=== PATIENT | female | born 1945 | race Caucasian/White ===

== ENCOUNTER 2024-10-12 15:24 | Inpatient (IN) ==
--- NOTE | 2024-10-12 15:52 | Emergency Department Note ---
Impression & Plan Vasculitis, Foot drop, right, Unintended weight loss, Generalized weakness ED Provider Note NAME: SEGUNDO WALTER AGE: 79 SEX: F : 1945 ARRIVES VIA: Walk-In INFORMANT: Patient ED PROVIDER(S): Maximiliano Canchola MD CHIEF COMPLAINT: Weak right foot PLAN: Disposition: Home MEDICAL DECISION MAKING: The patient is a pleasant 79-year-old woman with a past medical history of atrial fibrillation on Xarelto and digoxin, GERD who presents to the emergency department via EMS and accompanied by her son for evaluation of what appears to be right foot drop where she is unable to dorsiflex her right foot. Patient believes that this probably started a week ago but only began to really notice exactly was going on over the past several days. Her son describes concerns that the patient has had numerous symptoms that are being evaluated by different providers and feels that there is no communication between the providers about their testing and preferred coming emergency department today so testing could be performed in one place. The patient reports that she has had nearly a 30 pound weight loss over the past year that is unintended. She reports her [facility] provider was informed of this recently and they plan to obtain an outpatient pelvic ultrasound. Patient reports she had a chronic headache over a year ago that was managed through her primary care doctor that resolved eventually with steroids but took at least 2 or 3 months to improve. Otherwise, the patient denies any dizziness, chest pain, shortness of breath, nausea, vomiting, diarrhea or urinary symptoms. She denies any falls/trauma where she may have injured her knee to explain her foot drop. Patient reports she has still been able to drive but realizes in retrospect this is probably because she relies on having her heel pressed against the floor and is able to take her foot off of the pedal by pulling her leg backwards to facilitate dorsiflexion. On evaluation patient no acute distress, afebrile with stable vital signs. She does exhibit right foot foot drop with inability to actively dorsiflex. Otherwise she has normal extension at the knee and normal plantarflexion. EKG demonstrates atrial fibrillation without overt acute ischemia. Chest x-ray negative for acute cardiopulmonary process per my preliminary independent or potation. X-ray of the right knee demonstrates osteoarthritic changes including narrowing of the medial compartment of the tibiofemoral joint and elevated tibial spine. WBC within normal limits. There is neutrophilia but no left shift. H/H approximate to prior. Platelets within normal limits. Chemistry without metabolic acidosis. Creatinine 1.27, slightly increased from prior consistent with clinically dry appearance. Electrolytes without significant abnormality. Total bilirubin 1.8, nonspecific with LFTs otherwise unremarkable. High- sensitivity troponin is 18, marginally above upper limit of normal nonspecific in the setting of absence of chest pain. Lipase is normal. Procalcitonin is not elevated. TSH within normal limits. ESR and CRP are elevated at 68 and 4.4, respectively. UA demonstrates contamination with WBCs but no bacteria and negative nitrites. Lyme screen and Anaplasma smear were negative with DNA testing pending. CT of the head and CTA of the head and neck were performed and were negative for ICH, ischemia or severe narrowing or occlusion of large vessels. However evidence of vasculitis is described. CT of the abdomen pelvis was performed and further demonstrates evidence of vasculitis throughout the abdomen and pelvis. Findings were reviewed with the patient and family at the bedside. Given the patient's report of unintended weight loss over the past year or more with changes in taste and poor oral intake and now development of foot drop symptoms may be related to underlying vasculitis. Given this, the patient and family do agree with plan for admission for further evaluation and management. Will defer steroids to admitting team. [facility] for [facility]. Further management per admitting team. Triage Nursing notes reviewed and agree them. Prior/external medical records reviewed Vital Signs: reviewed Differential diagnosis: Infection, dehydration, metabolic abnormality, hypo/hyperglycemia, electrolyte disturbance, anemia, hypoxia, cardiac sources, intracerebral event, toxicologic, neurologic, as well as other pathologies. ER treatment provided: See below. Diagnostics interpreted by me: ECG: Atrial fibrillation, 53 bpm, no ectopy, ST and T wave abnormality, no overt ST elevation or depression, QTc 309, QS 82. Cardiac Monitoring: An order for continuous cardiac monitoring was placed and demonstrated Atrial fibrillation, 53 bpm, no ectopy Laboratory studies: See below Imaging studies: See below Consultation(s): Case [facility] the patient for admission. HPI: Per MDM. ROS: See above HPI for pertinent positives & negatives. A total of 10 systems reviewed and were otherwise negative. VITALS:See Below PHYSICAL EXAMINATION: GENERAL: Awake, alert, well-appearing, in no distress HENT: Normocephalic, atraumatic. Oropharynx with dry mucous membranes and otherwise unremarkable. EYES: Normal conjunctiva. Sclera non-icteric. NECK: Supple. No nuchal rigidity. FROM. No JVD. RESPIRATORY: Clear to auscultation. CARDIAC: Regular rate, irregular rhythm. Extremities warm and well perfused. Pulses equal. ABDOMEN: Soft, non-distended. No tenderness to palpation. No rebound or guarding. No masses. MUSCULOSKELETAL: Chest examination reveals no tenderness. The back is symmetrical on inspection without obvious abnormality. There is no CVA tenderness to palpation. No joint edema. LOWER EXTREMITIES: Calves are equal size bilaterally and non-tender. No edema. No discoloration. NEURO: Exhibits right foot foot drop with inability to actively dorsiflex. Otherwise she has normal extension at the knee and normal plantarflexion. Otherwise, cranial nerves II-XII grossly intact. 5/5 strength and SILT x 4 extremities. Cerebellar function intact including [id number], alternating palms, [id number]. SKIN: No rash or jaundice noted. Maximiliano Canchola MD Past Med/Surg History Problem List (Updated 10/12/24 @ 19:59 by Maximiliano Canchola MD) Generalized weakness (Acute) Unintended weight loss (Acute) Foot drop, right (Acute) Vasculitis (Acute) Head injury (Acute) Scalp contusion (Acute) Fall (Acute) Hypertension (Chronic) Atrial fibrillation (Chronic) Diarrhea (Acute) Medical History Dyslipidemia Surgical History S/P wrist surgery S/P dilation and curettage multiople Family History Other No pertinent family history Social History Smoking Status: Never smoker Hx Alcohol Use: Yes Hx Substance Use: No Preferred Language: Dominican Communication Ability: Effective Visual Impairment: No Limitations Hearing Ability: Normal Multimedia Technician Required: No Beliefs That Will Affect Care: None Current Living Situation: Alone Feels Safe at Home: Yes Safety Concerns: Feels Safe At This Time Assistive Devices: Cane Allergies Allergies Allergy/AdvReac Type Severity Reaction Status Date / Time Penicillins Allergy Unknown SWELLING Verified 09/19/24 14:57 pineapple AdvReac Unknown STOMACH Verified 09/19/24 14:57 CRAMPS Home Meds Home Medications Medication Instructions Recorded Confirmed digoxin 125 mcg (0.125 mg) tablet 125 mcg PO DAILY 03/07/18 09/19/24 metoprolol tartrate 50 mg tablet 50 mg PO BID 03/07/18 09/19/24 omeprazole 20 mg capsule,delayed 20 mg PO QAM 03/07/18 09/19/24 release rivaroxaban 15 mg tablet 15 mg PO DAILY 03/07/18 09/19/24 ezetimibe 10 mg tablet 10 mg PO DAILY 05/10/24 09/19/24 metoprolol tartrate 50 mg tablet 75.5 mg PO QAM 10/12/24 10/12/24 Results & Data (ED) Vital Signs Vital Signs - 24 hr 10/12/24 15:34 10/12/24 16:25 10/12/24 16:26 Temperature 36.7 C Temperature Source Temporal Artery Scan Pulse Rate 73 66 64 Pulse Rate from SpO2 Sensor Pulse Rhythm Irregular Respiratory Rate 19 16 Respiratory Effort / Characteristics Non-Labored Spontaneous Respiratory Depth Normal Respiratory Pattern Regular Blood Pressure 104/65 Blood Pressure Mean 78 Pulse Oximetry 97 94 Oxygen Delivery Method Room Air Room Air Sepsis Recent Fever Within 48 Hours No Sepsis New/Unexplained Change in Mental Status No Sepsis Action Taken by Nursing No Action Required 10/12/24 16:42 10/12/24 19:03 10/12/24 19:33 Temperature Temperature Source Pulse Rate 60 63 70 Pulse Rate from SpO2 Sensor 70 Pulse Rhythm Respiratory Rate 16 20 15 Respiratory Effort / Characteristics Respiratory Depth Respiratory Pattern Blood Pressure 98/60 L 123/73 Blood Pressure Mean 72 89 Pulse Oximetry 94 96 95 Oxygen Delivery Method Room Air Room Air Room Air Sepsis Recent Fever Within 48 Hours Sepsis New/Unexplained Change in Mental Status Sepsis Action Taken by Nursing 10/12/24 20:23 Temperature Temperature Source Pulse Rate 67 Pulse Rate from SpO2 Sensor Pulse Rhythm Respiratory Rate Respiratory Effort / Characteristics Respiratory Depth Respiratory Pattern Blood Pressure Blood Pressure Mean Pulse Oximetry Oxygen Delivery Method Sepsis Recent Fever Within 48 Hours Sepsis New/Unexplained Change in Mental Status Sepsis Action Taken by Nursing Laboratory Data Attestation: I reviewed the patient's lab results. 10/12/24 23:06 10/12/24 16:04 Lab Results 10/12/24 10/12/24 10/12/24 Range/Units 16:04 16:13 17:48 WBC 8.85 (4.8-10.8) K/ul RBC 3.75 L (4.20-5.40) M/uL Hgb 10.7 L (12.0-16.0) g/dl Hct 33.9 L (37.0-47.0) % MCV 90.4 (80.0-100.0) fL MCH 28.5 (25.0-34.0) pg MCHC 31.6 L (32.0-36.0) g/dL RDW Std Deviation 54.7 H (36.4-46.3) fL RDW Coeff of Ned 16.5 H (11.5-14.5) % Plt Count 253 (130-400) K/uL MPV 12.3 (9.4-12.4) fL Immature Gran % (Auto) 0.3 % Neut % (Auto) 81.2 % Lymph % (Auto) 8.7 % [place] % (Auto) 7.8 % Eos % (Auto) 1.5 % Baso % (Auto) 0.5 % Neut # (Auto) 7.19 H (1.40-6.50) K/uL Lymph # (Auto) 0.77 L (1.20-3.40) K/uL [place] # (Auto) 0.69 H (0.11-0.59) K/uL Eos # (Auto) 0.13 (0.00-0.50) K/uL Baso # (Auto) 0.04 (0.00-0.20) K/uL Immature Gran # (Auto) 0.03 (0.01-0.20) K/uL ESR 68 H (0-30) mm/hr PT 15.0 H (9.0-12.0) Seconds INR 1.4 H (0.9-1.1) Sodium 143 (136-145) mmol/L Potassium 3.7 (3.5-5.1) mmol/L Chloride 106 (98-107) mmol/L Carbon Dioxide 27 (21-32) mmol/L Anion Gap 10 (3-11) BUN 13 (6-23) mg/dl Creatinine 1.27 H (0.6-1.2) mg/dl Est Cr Clr Drug Dosing 31.8 ml/min eGFR 42.75 BUN/Creatinine Ratio 10.2 (10-20) Glucose 109 H (70-99(Fasting)) mg/dl Calcium 9.4 (8.6-10.3) mg/dl Phosphorus 2.9 (2.5-4.9) mg/dl Magnesium 1.9 (1.7-2.4) mg/dl Iron 43 (35-150) mcg/dl Transferrin 165 L (200-360) mg/dl Ferritin 166.6 (8-388) ng/ml Total Bilirubin 1.8 H (0.2-1.0) mg/dl AST 11 L (13-39) U/L ALT 6 L (7-52) U/L Alkaline Phosphatase 78 (34-104) U/L Troponin I High Sens 18.0 H (0-14) pg/ml C-Reactive Protein 4.40 H (0-0.5) mg/dl Total Protein 7.0 (6.0-8.3) gm/dl Albumin 3.4 (3.4-5.0) gm/dl Globulin 3.6 (2.5-4.0) gm/dl Albumin/Globulin Ratio 0.9 (0.9-2) Lipase 18 (11-82) U/L Vitamin B12 273 (180-914) pg/ml Folate 7.16 (>5.38) ng/ml Procalcitonin 0.07 (0-0.5) ng/ml TSH 3.221 (0.300-4.500) uIu/ml Urine Color Dark Yellow Urine Appearance Turbid A (Clear) Urine pH 5.5 (4.5-7.5) Ur Specific [place] > 1.045 H (1.000-1.030) Urine Protein 1+ H (Negative) Urine Glucose (UA) Negative (Negative) Urine Ketones 1+ H (Negative) Urine Blood 1+ H (Negative) Urine Nitrite Negative (Negative) Urine Bilirubin Negative (Negative) Urine Urobilinogen Negative (Negative) Ur Leukocyte Esterase 3+ H (Negative) Urine WBC (Auto) >50 H (0-5) /hpf Urine RBC (Auto) 3-5 H (0-2) /hpf U Hyaline Cast (Auto) >20 H (0-2) /lpf U Epithel Cells (Auto) 6-10 H (0-2) /hpf Urine Bacteria (Auto) None Seen (None Seen) Calcium Oxalate Crystal Present A (None Prsent) Urine Comment Anaplasma Smear See Comment Babesia Smear See Comment Lyme Disease Screen Negative (Negative) Administered Medications Potassium Chloride/Sodium Chloride (Normal Saline W/20 Meq Kcl) 20 meq in 1,000 mls @ 75 mls/hr IV .[id number] ONE Stop: 10/13/24 09:36 Last Admin: 10/12/24 22:03 Dose: 75 mls/hr Documented By: SARINA Discontinued Medications Sodium Chloride (Nss) 500 mls @ 999 mls/hr IV .Q31M STA Stop: 10/12/24 16:27 Last Infusion: 10/12/24 17:09 Dose: Infused Documented By: Admin: 10/12/24 16:38 Dose: 999 mls/hr Documented By: INES Sodium Chloride (Nss) 500 mls @ 999 mls/hr IV .Q31M ONE Stop: 10/12/24 16:29 Last Admin: 10/12/24 16:40 Dose: Not Given Documented By: INES Magnesium Sulfate/Dextrose (Magnesium Sulfate / D5w) 1 gm in 100 mls @ 50 mls/hr IV ONE ONE Stop: 10/12/24 22:16 Last Infusion: 10/13/24 01:38 Dose: Infused Documented By: Admin: 10/12/24 23:31 Dose: 50 mls/hr Documented By: SARINA Methylprednisolone 500 mg/ (Dextrose) 108 mls @ 216 mls/hr IV ONE ONE Stop: 10/12/24 22:44 Last Infusion: 10/12/24 23:34 Dose: Infused Documented By: Admin: 10/12/24 23:02 Dose: 216 mls/hr Documented By: SARINA Ioversol (Optiray 320 125ml) 119 ml IV ONCE ONE Stop: 10/12/24 17:26 Last Admin: 10/12/24 17:25 Dose: 119 ml Documented By: RASHAADK Imaging Data Radiologist's Impression: Abdomen/Pelvis CT 10/12/24 15:57 EXAMINATION: CT of the abdomen and pelvis performed after the administration of IV contrast TECHNIQUE: Helical CT images from the lung bases through the symphysis pubis were obtained with contrast. Coronal and sagittal reformatted images were generated at a workstation for further assessment. Dose reduction techniques were achieved by using automatic exposure control and/or adjustment of mA and/or kV according to patient size and/or use of iterative reconstruction technique. COMPARISON: None HISTORY: Difficulty walking FINDINGS: Lower chest: No consolidation. No pleural effusion or pneumothorax. The heart is enlarged. Liver: No suspicious liver lesions. Portal veins appear patent. Gallbladder: No gallstones. No evidence of acute cholecystitis. Spleen: Normal size. Several scattered small low-density lesions suggest cysts or hemangiomas. Pancreas: No suspicious pancreatic lesions. The pancreatic duct is not dilated. Adrenal glands: No adrenal nodules. Kidneys: No hydronephrosis or obstructing renal stones. Multifocal areas of cortical thinning suggesting infarcts throughout the left kidney. Small left renal cyst. Bladder / Pelvic organs: A posterior uterine fibroid is seen.. Bowel: No bowel obstruction. No abnormal bowel wall thickening. The appendix is unremarkable. Lymph nodes: No retroperitoneal, mesenteric, or pelvic lymphadenopathy. Peritoneum / Retroperitoneum: No free fluid or air within the abdomen. Vessels: No infrarenal aortic aneurysm. Circumferential soft tissue thickening is seen about the visualized portions of the descending thoracic aorta. Moderate to heavy calcified and noncalcified aortoiliac atherosclerosis in the abdomen is present. There also appears to be mild soft tissue thickening surrounding the common, superficial and deep femoral arteries, as well as the celiac artery and its proximal branches, and the SMA. The left renal artery is more diminutive, and may have a beaded appearance. The right renal artery may demonstrate mild focal narrowing at the origin, and is otherwise within normal caliber limits. Bones and soft tissues: No suspicious lesion in the bones. IMPRESSION: Circumferential soft tissue wall thickening is seen about the visualized portions of the descending thoracic aorta, celiac artery and proximal branches, SMA, and proximal femoral arteries, as above, compatible with vasculitis. Correlate with findings also noted on the CTA head/neck. Cardiomegaly. 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 The left renal artery is more diminutive, and may have a beaded appearance. Electronically signed by Josué Baird 10-12-2024 6:15 PM Chest X-Ray 10/12/24 15:57 EXAM: XR chest 1V portable CLINICAL HISTORY: Chest pain, nonspecific. TECHNIQUE: An X-ray image of the chest is obtained in AP projection. COMPARISON: 07/29/2024. FINDINGS: Pulmonary Parenchyma: Lungs are clear bilaterally. No evidence of consolidation, collapse, or focal opacities. No pulmonary nodules are identified. No evidence of pleural effusion or pleural thickening. Heart and Mediastinum: Heart size and shape are normal. No mediastinal widening or masses. No hilar or mediastinal lymphadenopathy. Bony Thorax: Bony thorax appears intact without fractures or deformities. Soft Tissues: Soft tissues overlying the chest wall are unremarkable. IMPRESSION: 1. No acute cardiopulmonary abnormalities are identified. 2. No interval changes. Electronically signed by Jimy Dugan 10-12-2024 5:[address] 10/12/24 15:[address] without contrast CT angiogram of the neck CT angiogram of the brain with contrast Provided History: Neuro deficit Comparison: None Technique: HEAD CT: Using multidetector thin collimation helical acquisition technique, axial, coronal and sagittal CT images from the skull base to the vertex were obtained without intravenous contrast. HEAD and NECK CTA: During rapid bolus intravenous injection of nonionic contrast material, axial images were obtained using thin collimation multidetector helical technique from the base of the neck through the of vertex of the head. This CT angiogram data was reconstructed at thin intervals with mild overlap. 3D reconstructions were obtained. The axial source images, multiplanar reformations, 3D reconstructions in both maximum intensity projection display and volume rendered models were reviewed. Dose reduction techniques were achieved by using automatic exposure control and/or adjustment of mA and/or kV according to patient size and/or use of iterative reconstruction technique. Findings: Head CT: There is no intracranial hemorrhage, mass effect, or midline shift. Bradshaw/white matter differentiation in both cerebral hemispheres is preserved. Ventricles are proportionate to the cerebral sulci. Head CTA demonstrates no aneurysm or stenosis of the major intracranial arteries. Neck CTA demonstrates no large vessel occlusion. There is diffuse, circumferential soft tissue thickening surrounding the vessels of the neck, as well as of the aortic arch, and the great vessels of the aortic arch. Several vessels demonstrated a beaded appearance of the wall, including both subclavian arteries, as well as portions of both internal carotid arteries in the neck. Both internal carotid arteries are also tortuous, greater on the left compared to the right. Significant soft tissue density surrounds the carotid bulb, with focal narrowing of the proximal ICA bilaterally significantly, with a proximal ICA diameter of 3 mm on the left and right. Both vertebral arteries are tortuous and otherwise patent. The vertebral arteries are also tortuous, including both V1 portions, and the left V2 portion. Soft tissue density is seen to circumferentially surround the V3 portions. The origins of the great vessels from the aortic arch are patent. No mass is noted within the visualized portions of the cervical soft tissues or lung apices. Impression: 1. Head CTA demonstrates no aneurysm or stenosis of the major intracranial arteries, 2. Neck CTA demonstrates no large vessel occlusion. 3. Diffuse, circumferential soft tissue thickening is seen to surround the vessels of the aortic arch, the great vessels, and the vessels of the neck. Portions of the arteries of the neck, including both subclavian arteries, and internal carotid arteries, also demonstrate a beaded appearance. These findings are consistent with vasculitis. Correlate with ESR/CRP levels. 3. No intracranial hemorrhage on the noncontrast head CT. Electronically signed by Josué Baird 10-12-2024 6:08 PM Head CTA 10/12/24 15:[address] without contrast CT angiogram of the neck CT angiogram of the brain with contrast Provided History: Neuro deficit Comparison: None Technique: HEAD CT: Using multidetector thin collimation helical acquisition technique, axial, coronal and sagittal CT images from the skull base to the vertex were obtained without intravenous contrast. HEAD and NECK CTA: During rapid bolus intravenous injection of nonionic contrast material, axial images were obtained using thin collimation multidetector helical technique from the base of the neck through the of vertex of the head. This CT angiogram data was reconstructed at thin intervals with mild overlap. 3D reconstructions were obtained. The axial source images, multiplanar reformations, 3D reconstructions in both maximum intensity projection display and volume rendered models were reviewed. Dose reduction techniques were achieved by using automatic exposure control and/or adjustment of mA and/or kV according to patient size and/or use of iterative reconstruction technique. Findings: Head CT: There is no intracranial hemorrhage, mass effect, or midline shift. Bradshaw/white matter differentiation in both cerebral hemispheres is preserved. Ventricles are proportionate to the cerebral sulci. Head CTA demonstrates no aneurysm or stenosis of the major intracranial arteries. Neck CTA demonstrates no large vessel occlusion. There is diffuse, circumferential soft tissue thickening surrounding the vessels of the neck, as well as of the aortic arch, and the great vessels of the aortic arch. Several vessels demonstrated a beaded appearance of the wall, including both subclavian arteries, as well as portions of both internal carotid arteries in the neck. Both internal carotid arteries are also tortuous, greater on the left compared to the right. Significant soft tissue density surrounds the carotid bulb, with focal narrowing of the proximal ICA bilaterally significantly, with a proximal ICA diameter of 3 mm on the left and right. Both vertebral arteries are tortuous and otherwise patent. The vertebral arteries are also tortuous, including both V1 portions, and the left V2 portion. Soft tissue density is seen to circumferentially surround the V3 portions. The origins of the great vessels from the aortic arch are patent. No mass is noted within the visualized portions of the cervical soft tissues or lung apices. Impression: 1. Head CTA demonstrates no aneurysm or stenosis of the major intracranial arteries, 2. Neck CTA demonstrates no large vessel occlusion. 3. Diffuse, circumferential soft tissue thickening is seen to surround the vessels of the aortic arch, the great vessels, and the vessels of the neck. Portions of the arteries of the neck, including both subclavian arteries, and internal carotid arteries, also demonstrate a beaded appearance. These findings are consistent with vasculitis. Correlate with ESR/CRP levels. 3. No intracranial hemorrhage on the noncontrast head CT. Electronically signed by Josué Baird 10-12-2024 6:08 PM Neck CTA 10/12/24 15:[address] without contrast CT angiogram of the neck CT angiogram of the brain with contrast Provided History: Neuro deficit Comparison: None Technique: HEAD CT: Using multidetector thin collimation helical acquisition technique, axial, coronal and sagittal CT images from the skull base to the vertex were obtained without intravenous contrast. HEAD and NECK CTA: During rapid bolus intravenous injection of nonionic contrast material, axial images were obtained using thin collimation multidetector helical technique from the base of the neck through the of vertex of the head. This CT angiogram data was reconstructed at thin intervals with mild overlap. 3D reconstructions were obtained. The axial source images, multiplanar reformations, 3D reconstructions in both maximum intensity projection display and volume rendered models were reviewed. Dose reduction techniques were achieved by using automatic exposure control and/or adjustment of mA and/or kV according to patient size and/or use of iterative reconstruction technique. Findings: Head CT: There is no intracranial hemorrhage, mass effect, or midline shift. Bradshaw/white matter differentiation in both cerebral hemispheres is preserved. Ventricles are proportionate to the cerebral sulci. Head CTA demonstrates no aneurysm or stenosis of the major intracranial arteries. Neck CTA demonstrates no large vessel occlusion. There is diffuse, circumferential soft tissue thickening surrounding the vessels of the neck, as well as of the aortic arch, and the great vessels of the aortic arch. Several vessels demonstrated a beaded appearance of the wall, including both subclavian arteries, as well as portions of both internal carotid arteries in the neck. Both internal carotid arteries are also tortuous, greater on the left compared to the right. Significant soft tissue density surrounds the carotid bulb, with focal narrowing of the proximal ICA bilaterally significantly, with a proximal ICA diameter of 3 mm on the left and right. Both vertebral arteries are tortuous and otherwise patent. The vertebral arteries are also tortuous, including both V1 portions, and the left V2 portion. Soft tissue density is seen to circumferentially surround the V3 portions. The origins of the great vessels from the aortic arch are patent. No mass is noted within the visualized portions of the cervical soft tissues or lung apices. Impression: 1. Head CTA demonstrates no aneurysm or stenosis of the major intracranial arteries, 2. Neck CTA demonstrates no large vessel occlusion. 3. Diffuse, circumferential soft tissue thickening is seen to surround the vessels of the aortic arch, the great vessels, and the vessels of the neck. Portions of the arteries of the neck, including both subclavian arteries, and internal carotid arteries, also demonstrate a beaded appearance. These findings are consistent with vasculitis. Correlate with ESR/CRP levels. 3. No intracranial hemorrhage on the noncontrast head CT. Electronically signed by Josué Baird 10-12-2024 6:08 PM Knee X-Ray 10/12/24 15:59 EXAM: XR knee RT 3V CLINICAL HISTORY: Right foot drop TECHNIQUE: X-ray images of the right knee were obtained in anteroposterior (AP), and sunrise/skyline (patellar) projections. COMPARISON: No prior studies available for comparison. FINDINGS: Bone Structure: Bone structure is normal and well-aligned. No evidence of acute fractures or dislocations. No osseous lesions or abnormalities identified. Mild periosteal reaction along the distal fibula. Joint Spaces: Osteoarthritic changes manifested by narrowing of the medial compartment of the tibiofemoral joint and elevated tibial spines. Patella: The patella is normal in position and alignment. No evidence of patellar dislocation or subluxation. Soft Tissues: Periarticular soft tissues appear normal and unremarkable. No soft tissue swelling, calcifications, or foreign bodies noted. Additional Findings: No evidence of joint effusion. IMPRESSION: 1. Osteoarthritic changes manifested by narrowing of the medial compartment of the tibiofemoral joint and elevated tibial spines. 2. No evidence of acute fractures or dislocations. DISCLAIMER:A subtle bone abnormality or fracture may not be readily apparent on x-rays, thus clinical correlation and further imaging including follow up CT, MRI, or follow up x-rays are advised as needed. Electronically signed by Jimy Dugan 10-12-2024 5:25 PM Discharge Plan Visit Data Chief Complaint: Foot Injury/Pain Stated Complaint: TROUBLE LIFTING/BENDING R ANKLE/FOOT ED Provider: Maximiliano Canchola Discharge Problem: Vasculitis, Foot drop, right, Unintended weight loss, Generalized weakness Patient Disposition: Admitted As Inpatient Condition: Fair Discharge Instructions Interventions: ED Discharge Assessment Last Done: 10/13/24 01:16
[2024-10-12 16:29] LABS: Basophils # (auto) 0.04 K/uL (0.00-0.20); Basophils % (auto) 0.5 %; Eosinophils # (auto) 0.13 K/uL (0.00-0.50); Eosinophils % (auto) 1.5 %; Hematocrit (blood only) 33.9 % (37.0-47.0); Hemoglobin 10.7 g/dl (12.0-16.0); Immature Granulocytes # (auto) 0.03 K/uL (0.01-0.20); Immature Granulocytes % (auto) 0.3 %; Lymphocytes # (auto) 0.77 K/uL (1.20-3.40); Lymphocytes % (auto) 8.7 %; Mean Corpuscular Hemoglobin 28.5 pg (25.0-34.0); Mean Corpuscular Hgb Conc 31.6 g/dL (32.0-36.0); Mean Corpuscular Volume 90.4 fL (80.0-100.0); Mean Platelet Volume 12.3 fL (9.4-12.4); Monocytes # (auto) 0.69 K/uL (0.11-0.59); Monocytes % (auto) 7.8 %; Neutrophils # (auto) 7.19 K/uL (1.40-6.50); Neutrophils % (auto) 81.2 %; Platelet Count 253 K/uL (130-400); RDW Coefficient of Variation 16.5 % (11.5-14.5); RDW Standard Deviation 54.7 fL (36.4-46.3); Red Blood Count 3.75 M/uL (4.20-5.40); White Blood Count 8.85 K/ul (4.8-10.8)
[2024-10-12] MEDS: SODIUM CHLORIDE 0.9% 500 ML IV STA (16:38)
[2024-10-12] MEDS: SODIUM CHLORIDE 0.9% 500 ML IV ONE (16:40)
[2024-10-12 16:48] LABS: Albumin Globulin Ratio 0.9 (0.9-2); Albumin Level 3.4 gm/dl (3.4-5.0); BUN Creatinine Ratio 10.2 (10-20); Bilirubin,Total 1.8 mg/dl (0.2-1.0); Calcium 9.4 mg/dl (8.6-10.3); Creatinine Clr Calc Pharmacy 31.8 ml/min; Globulin 3.6 gm/dl (2.5-4.0); Magnesium 1.9 mg/dl (1.7-2.4); Phosphorus 2.9 mg/dl (2.5-4.9); Potassium 3.7 mmol/L (3.5-5.1)
[2024-10-12 16:54] LABS: Procalcitonin 0.07 ng/ml (0-0.5)
[2024-10-12 17:01] LABS: INR 1.4 (0.9-1.1)
[2024-10-12 17:04] LABS: Thyroid Stimulating Hormone 3.221 uIu/ml (0.300-4.500)
[2024-10-12 17:19] LABS: Lyme Screen Rflx Confirmation Negative (Negative)
[2024-10-12] MEDS: OPTIRAY 320 125ml IV ONE (17:25)
--- NOTE | 2024-10-12 17:25 | XRay Report ---
EXAM: XR knee RT 3V CLINICAL HISTORY: Right foot drop TECHNIQUE: X-ray images of the right knee were obtained in anteroposterior (AP), and sunrise/skyline (patellar) projections. COMPARISON: No prior studies available for comparison. FINDINGS: Bone Structure: Bone structure is normal and well-aligned. No evidence of acute fractures or dislocations. No osseous lesions or abnormalities identified. Mild periosteal reaction along the distal fibula. Joint Spaces: Osteoarthritic changes manifested by narrowing of the medial compartment of the tibiofemoral joint and elevated tibial spines. Patella: The patella is normal in position and alignment. No evidence of patellar dislocation or subluxation. Soft Tissues: Periarticular soft tissues appear normal and unremarkable. No soft tissue swelling, calcifications, or foreign bodies noted. Additional Findings: No evidence of joint effusion. IMPRESSION: 1. Osteoarthritic changes manifested by narrowing of the medial compartment of the tibiofemoral joint and elevated tibial spines. 2. No evidence of acute fractures or dislocations. DISCLAIMER:A subtle bone abnormality or fracture may not be readily apparent on x-rays, thus clinical correlation and further imaging including follow up CT, MRI, or follow up x-rays are advised as needed. Electronically signed by Jimy Dugan 10-12-2024 5:25 PM
--- NOTE | 2024-10-12 17:37 | XRay Report ---
EXAM: XR chest 1V portable CLINICAL HISTORY: Chest pain, nonspecific. TECHNIQUE: An X-ray image of the chest is obtained in AP projection. COMPARISON: 07/29/2024. FINDINGS: Pulmonary Parenchyma: Lungs are clear bilaterally. No evidence of consolidation, collapse, or focal opacities. No pulmonary nodules are identified. No evidence of pleural effusion or pleural thickening. Heart and Mediastinum: Heart size and shape are normal. No mediastinal widening or masses. No hilar or mediastinal lymphadenopathy. Bony Thorax: Bony thorax appears intact without fractures or deformities. Soft Tissues: Soft tissues overlying the chest wall are unremarkable. IMPRESSION: 1. No acute cardiopulmonary abnormalities are identified. 2. No interval changes. Electronically signed by Jimy Dugan 10-12-2024 5:37 PM
--- NOTE | 2024-10-12 18:09 | CT Scan Report ---
Head CT without contrast CT angiogram of the neck CT angiogram of the brain with contrast Provided History: Neuro deficit Comparison: None Technique: HEAD CT: Using multidetector thin collimation helical acquisition technique, axial, coronal and sagittal CT images from the skull base to the vertex were obtained without intravenous contrast. HEAD and NECK CTA: During rapid bolus intravenous injection of nonionic contrast material, axial images were obtained using thin collimation multidetector helical technique from the base of the neck through the of vertex of the head. This CT angiogram data was reconstructed at thin intervals with mild overlap. 3D reconstructions were obtained. The axial source images, multiplanar reformations, 3D reconstructions in both maximum intensity projection display and volume rendered models were reviewed. Dose reduction techniques were achieved by using automatic exposure control and/or adjustment of mA and/or kV according to patient size and/or use of iterative reconstruction technique. Findings: Head CT: There is no intracranial hemorrhage, mass effect, or midline shift. Bradshaw/white matter differentiation in both cerebral hemispheres is preserved. Ventricles are proportionate to the cerebral sulci. Head CTA demonstrates no aneurysm or stenosis of the major intracranial arteries. Neck CTA demonstrates no large vessel occlusion. There is diffuse, circumferential soft tissue thickening surrounding the vessels of the neck, as well as of the aortic arch, and the great vessels of the aortic arch. Several vessels demonstrated a beaded appearance of the wall, including both subclavian arteries, as well as portions of both internal carotid arteries in the neck. Both internal carotid arteries are also tortuous, greater on the left compared to the right. Significant soft tissue density surrounds the carotid bulb, with focal narrowing of the proximal ICA bilaterally significantly, with a proximal ICA diameter of 3 mm on the left and right. Both vertebral arteries are tortuous and otherwise patent. The vertebral arteries are also tortuous, including both V1 portions, and the left V2 portion. Soft tissue density is seen to circumferentially surround the V3 portions. The origins of the great vessels from the aortic arch are patent. No mass is noted within the visualized portions of the cervical soft tissues or lung apices. Impression: 1. Head CTA demonstrates no aneurysm or stenosis of the major intracranial arteries, 2. Neck CTA demonstrates no large vessel occlusion. 3. Diffuse, circumferential soft tissue thickening is seen to surround the vessels of the aortic arch, the great vessels, and the vessels of the neck. Portions of the arteries of the neck, including both subclavian arteries, and internal carotid arteries, also demonstrate a beaded appearance. These findings are consistent with vasculitis. Correlate with ESR/CRP levels. 3. No intracranial hemorrhage on the noncontrast head CT. Electronically signed by Josué Baird 10-12-2024 6:08 PM
--- NOTE | 2024-10-12 18:15 | CT Scan Report ---
EXAMINATION: CT of the abdomen and pelvis performed after the administration of IV contrast TECHNIQUE: Helical CT images from the lung bases through the symphysis pubis were obtained with contrast. Coronal and sagittal reformatted images were generated at a workstation for further assessment. Dose reduction techniques were achieved by using automatic exposure control and/or adjustment of mA and/or kV according to patient size and/or use of iterative reconstruction technique. COMPARISON: None HISTORY: Difficulty walking FINDINGS: Lower chest: No consolidation. No pleural effusion or pneumothorax. The heart is enlarged. Liver: No suspicious liver lesions. Portal veins appear patent. Gallbladder: No gallstones. No evidence of acute cholecystitis. Spleen: Normal size. Several scattered small low-density lesions suggest cysts or hemangiomas. Pancreas: No suspicious pancreatic lesions. The pancreatic duct is not dilated. Adrenal glands: No adrenal nodules. Kidneys: No hydronephrosis or obstructing renal stones. Multifocal areas of cortical thinning suggesting infarcts throughout the left kidney. Small left renal cyst. Bladder / Pelvic organs: A posterior uterine fibroid is seen.. Bowel: No bowel obstruction. No abnormal bowel wall thickening. The appendix is unremarkable. Lymph nodes: No retroperitoneal, mesenteric, or pelvic lymphadenopathy. Peritoneum / Retroperitoneum: No free fluid or air within the abdomen. Vessels: No infrarenal aortic aneurysm. Circumferential soft tissue thickening is seen about the visualized portions of the descending thoracic aorta. Moderate to heavy calcified and noncalcified aortoiliac atherosclerosis in the abdomen is present. There also appears to be mild soft tissue thickening surrounding the common, superficial and deep femoral arteries, as well as the celiac artery and its proximal branches, and the SMA. The left renal artery is more diminutive, and may have a beaded appearance. The right renal artery may demonstrate mild focal narrowing at the origin, and is otherwise within normal caliber limits. Bones and soft tissues: No suspicious lesion in the bones. IMPRESSION: Circumferential soft tissue wall thickening is seen about the visualized portions of the descending thoracic aorta, celiac artery and proximal branches, SMA, and proximal femoral arteries, as above, compatible with vasculitis. Correlate with findings also noted on the CTA head/neck. Cardiomegaly. 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 The left renal artery is more diminutive, and may have a beaded appearance. Electronically signed by Josué Baird 10-12-2024 6:15 PM
[2024-10-12 18:30] LABS: Appearance Urine Turbid (Clear); Bacteria Urine Automated None Seen (None Seen); Bilirubin Urine Negative (Negative); Blood Urine 1+ (Negative); Calcium Oxalate Crystals Urine Present (None Prsent); Cast Urine Automated >20 /lpf (0-2); Color Urine Dark Yellow; Glucose Urine UA Negative (Negative); Ketones Urine 1+ (Negative); Leukocyte Esterase Urine 3+ (Negative); Nitrite Urine Negative (Negative); Protein Urine 1+ (Negative); Specific Gravity Urine > 1.045 (1.000-1.030); Urobilinogen Urine Negative (Negative); WBC Urine Automated >50 /hpf (0-5); pH Urine 5.5 (4.5-7.5)
--- NOTE | 2024-10-12 20:34 | History & Physical Report ---
Date of Service October 12, 2024 Assessment & Plan (1) Foot drop, right: Plan: Right foot drop Significant weight loss over 8 months. Secondary to vasculitis Troponin elevation secondary to illness, patient denies chest pain or SOB. ARF on CRI secondary to illness New onset anemia, possibly from labial hematoma from July 2024, currently resolved as per patient. A-fib on Xarelto valvular heart disease (mild MR/AR/TR, TTE 2024) hypertension, BP on the lower side hyperlipidemia/statin intolerance LLE swelling rule out DVT Admit to med/tele given troponin elevation Rheumatology consult re: vasculitis presenting as right foot drop Follow troponin, TTE for progression Monitor creatinine response to IVF LLE venous Dopplers rule out DVT DVT prophylaxis. Xarelto Full code Case discussed with Dr. Camargo of Rheumatology who recommends Solu-Medrol 500 mg IV twice daily for 3 days followed by prednisone 60 mg daily. Vasculitis workup recommended comprised of ANCA screen, HBV/HCV, TB QuantiFERON gold with a.m. labs. Patient family requesting updates from providers. Ms. Erica Whittaker (daughter), [phone]. Mr. Alfredo Whittaker (son), [phone]. Text document was generated using [employer] voice recognition software. It may contain grammatical or spelling errors. Kindly contact undersigned for clarification of any documentation item in question. History of Present Illness Chief Complaint: Right foot drop Primary Care Provider: Dr. Shant Lee History obtained from patient, family, and records. Medical history significant for A-fib on Xarelto, valvular heart disease (mild MR/AR/TR, TTE 2024), hypertension, hyperlipidemia/statin intolerance, CRI (baseline creatinine 1.1), mood disorder, skin cancer as per records. Patient with headache, jaw and neck pain complaints about 8 months ago. Poor appetite with taste disturbance. Denies chest pain, SOB, abdominal pain. Denies depression.? Change. Transections so much more tomorrow. Octavio decision 1, # change: No change times Symptoms attributed to possible dental implant issues. CT head imaging from February 2024 unremarkable. Outpatient ESR, QUANG screen, Lyme screen negative. Improved headache following steroid course prescribed by PCP. Appetite issues not improved. Progressive weight loss of more than 20 pounds in the last 6 months. Last week, patient noted right foot drop without headache or back pain complaints. Left leg swelling more swollen than usual denies chest pain, SOB. Denies headache. Denies unusual bleeding. No recent trauma. No rashes noted. Patient brought to ER for evaluation. 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 Allergies Allergy/AdvReac Type Severity Reaction Status Date / Time Penicillins Allergy Unknown SWELLING Verified 09/19/24 14:57 pineapple AdvReac Unknown STOMACH Verified 09/19/24 14:57 CRAMPS Home Medications Medication Instructions Recorded Confirmed Type digoxin 125 mcg (0.125 mg) tablet 125 mcg PO QAM 03/07/18 10/12/24 History metoprolol tartrate 50 mg tablet 50 mg PO HS 03/07/18 10/12/24 History omeprazole 20 mg capsule,delayed 20 mg PO QAM PRN Heartburn 03/07/18 10/12/24 History release rivaroxaban 15 mg tablet 15 mg PO QAM 03/07/18 10/12/24 History ezetimibe 10 mg tablet 10 mg PO QAM 05/10/24 10/12/24 History metoprolol tartrate 50 mg tablet 75.5 mg PO QAM 10/12/24 10/12/24 History Past Med/Surg History Problem List (Updated 10/12/24 @ 19:59 by Maximiliano Canchola MD) Generalized weakness (Acute) Unintended weight loss (Acute) Foot drop, right (Acute) Vasculitis (Acute) Head injury (Acute) Scalp contusion (Acute) Fall (Acute) Hypertension (Chronic) Atrial fibrillation (Chronic) Diarrhea (Acute) Medical History Dyslipidemia Surgical History S/P wrist surgery S/P dilation and curettage multiople Family History Other No pertinent family history Social History Smoking Status: Never smoker Hx Alcohol Use: Yes Hx Substance Use: No Preferred Language: [place] Communication Ability: Effective Visual Impairment: No Limitations Hearing Ability: Normal Saw Operator Required: No Beliefs That Will Affect Care: None Current Living Situation: Alone Feels Safe at Home: Yes Safety Concerns: Feels Safe At This Time Assistive Devices: Cane Review of Systems Review of Systems: As per HPI, all other systems reviewed and negative Physical Exam Physical Exam: GENERAL: Comfortable, pleasant, no respiratory distress SKIN: Pallor, warm HEENT: bespectacled, pale palpebral conjunctivae, no ptosis, dry buccal mucosa NECK : Supple, no tenderness CHEST : CTA, no tenderness HEART : Irregular, no obvious murmurs ABDOMEN: Some distention, nontender RECTAL : Intact sphincter, brown stool (FOBT negative) EXTREMITIES : LLE swelling without tenderness, right foot drop, palpable pulses, no other conspicuous deformities noted NEUROLOGIC : Coherent, no facial asymmetry, MMTS BUE/BLE 4/5, inability to flex right ankle, gait and stance not assessed Results & Data Results & Data Vital Signs (Past 12 Hours) Vital Signs Temp Pulse Resp BP Pulse Ox O2 Del Method 10/12/24 20:23 67 10/12/24 19:33 70 15 95 Room Air 10/12/24 19:03 63 20 123/73 96 Room Air 10/12/24 16:42 60 16 98/60 L 94 Room Air 10/12/24 16:26 64 16 94 Room Air 10/12/24 16:25 66 10/12/24 15:34 36.7 C 73 19 104/65 97 Room Air Laboratory Results Laboratory Results WBC 8.85 K/ul (4.8-10.8) 10/12/24 16:04 RBC 3.75 M/uL (4.20-5.40) L 10/12/24 16:04 Hgb 10.7 g/dl (12.0-16.0) L 10/12/24 16:04 Hct 33.9 % (37.0-47.0) L 10/12/24 16:04 MCV 90.4 fL (80.0-100.0) 10/12/24 16:04 MCH 28.5 pg (25.0-34.0) 10/12/24 16:04 MCHC 31.6 g/dL (32.0-36.0) L 10/12/24 16:04 RDW Std Deviation 54.7 fL (36.4-46.3) H 10/12/24 16:04 RDW Coeff of Ned 16.5 % (11.5-14.5) H 10/12/24 16:04 Plt Count 253 K/uL (130-400) 10/12/24 16:04 MPV 12.3 fL (9.4-12.4) 10/12/24 16:04 Immature Gran % (Auto) 0.3 % 10/12/24 16:04 Neut % (Auto) 81.2 % 10/12/24 16:04 Lymph % (Auto) 8.7 % 10/12/24 16:04 [place] % (Auto) 7.8 % 10/12/24 16:04 Eos % (Auto) 1.5 % 10/12/24 16:04 Baso % (Auto) 0.5 % 10/12/24 16:04 Neut # (Auto) 7.19 K/uL (1.40-6.50) H 10/12/24 16:04 Lymph # (Auto) 0.77 K/uL (1.20-3.40) L 10/12/24 16:04 [place] # (Auto) 0.69 K/uL (0.11-0.59) H 10/12/24 16:04 Eos # (Auto) 0.13 K/uL (0.00-0.50) 10/12/24 16:04 Baso # (Auto) 0.04 K/uL (0.00-0.20) 10/12/24 16:04 Immature Gran # (Auto) 0.03 K/uL (0.01-0.20) 10/12/24 16:04 ESR 68 mm/hr (0-30) H 10/12/24 16:04 PT 15.0 Seconds (9.0-12.0) H 10/12/24 16:04 INR 1.4 (0.9-1.1) H 10/12/24 16:04 Sodium 143 mmol/L (136-145) 10/12/24 16:04 Potassium 3.7 mmol/L (3.5-5.1) 10/12/24 16:04 Chloride 106 mmol/L (98-107) 10/12/24 16:04 Carbon Dioxide 27 mmol/L (21-32) 10/12/24 16:04 Anion Gap 10 (3-11) 10/12/24 16:04 BUN 13 mg/dl (6-23) 10/12/24 16:04 Creatinine 1.27 mg/dl (0.6-1.2) H 10/12/24 16:04 Est Cr Clr Drug Dosing 31.8 ml/min 10/12/24 16:04 eGFR 42.75 10/12/24 16:04 BUN/Creatinine Ratio 10.2 (10-20) 10/12/24 16:04 Glucose 109 mg/dl (70-99(Fasting)) H 10/12/24 16:04 Calcium 9.4 mg/dl (8.6-10.3) 10/12/24 16:04 Phosphorus 2.9 mg/dl (2.5-4.9) 10/12/24 16:04 Magnesium 1.9 mg/dl (1.7-2.4) 10/12/24 16:04 Total Bilirubin 1.8 mg/dl (0.2-1.0) H 10/12/24 16:04 AST 11 U/L (13-39) L 10/12/24 16:04 ALT 6 U/L (7-52) L 10/12/24 16:04 Alkaline Phosphatase 78 U/L (34-104) 10/12/24 16:04 Troponin I High Sens 18.0 pg/ml (0-14) H 10/12/24 16:04 Total Protein 7.0 gm/dl (6.0-8.3) 10/12/24 16:04 Albumin 3.4 gm/dl (3.4-5.0) 10/12/24 16:04 Globulin 3.6 gm/dl (2.5-4.0) 10/12/24 16:04 Albumin/Globulin Ratio 0.9 (0.9-2) 10/12/24 16:04 Lipase 18 U/L (11-82) 10/12/24 16:04 Procalcitonin 0.07 ng/ml (0-0.5) 10/12/24 16:04 TSH 3.221 uIu/ml (0.300-4.500) 10/12/24 16:04 Urine Color Dark Yellow 10/12/24 17:48 Urine Appearance Turbid (Clear) A 10/12/24 17:48 Urine pH 5.5 (4.5-7.5) 10/12/24 17:48 Ur Specific [place] > 1.045 (1.000-1.030) H 10/12/24 17:48 Urine Protein 1+ (Negative) H 10/12/24 17:48 Urine Glucose (UA) Negative (Negative) 10/12/24 17:48 Urine Ketones 1+ (Negative) H 10/12/24 17:48 Urine Blood 1+ (Negative) H 10/12/24 17:48 Urine Nitrite Negative (Negative) 10/12/24 17:48 Urine Bilirubin Negative (Negative) 10/12/24 17:48 Urine Urobilinogen Negative (Negative) 10/12/24 17:48 Ur Leukocyte Esterase 3+ (Negative) H 10/12/24 17:48 Urine WBC (Auto) >50 /hpf (0-5) H 10/12/24 17:48 Urine RBC (Auto) 3-5 /hpf (0-2) H 10/12/24 17:48 U Hyaline Cast (Auto) >20 /lpf (0-2) H 10/12/24 17:48 U Epithel Cells (Auto) 6-10 /hpf (0-2) H 10/12/24 17:48 Urine Bacteria (Auto) None Seen (None Seen) 10/12/24 17:48 Calcium Oxalate Crystal Present (None Prsent) A 10/12/24 17:48 Urine Comment 10/12/24 17:48 Anaplasma Smear See Comment 10/12/24 16:04 Babesia Smear See Comment 10/12/24 16:04 Lyme Disease Screen Negative (Negative) 10/12/24 16:04 Impressions Abdomen/Pelvis CT 10/12/24 15:57 EXAMINATION: CT of the abdomen and pelvis performed after the administration of IV contrast TECHNIQUE: Helical CT images from the lung bases through the symphysis pubis were obtained with contrast. Coronal and sagittal reformatted images were generated at a workstation for further assessment. Dose reduction techniques were achieved by using automatic exposure control and/or adjustment of mA and/or kV according to patient size and/or use of iterative reconstruction technique. COMPARISON: None HISTORY: Difficulty walking FINDINGS: Lower chest: No consolidation. No pleural effusion or pneumothorax. The heart is enlarged. Liver: No suspicious liver lesions. Portal veins appear patent. Gallbladder: No gallstones. No evidence of acute cholecystitis. Spleen: Normal size. Several scattered small low-density lesions suggest cysts or hemangiomas. Pancreas: No suspicious pancreatic lesions. The pancreatic duct is not dilated. Adrenal glands: No adrenal nodules. Kidneys: No hydronephrosis or obstructing renal stones. Multifocal areas of cortical thinning suggesting infarcts throughout the left kidney. Small left renal cyst. Bladder / Pelvic organs: A posterior uterine fibroid is seen.. Bowel: No bowel obstruction. No abnormal bowel wall thickening. The appendix is unremarkable. Lymph nodes: No retroperitoneal, mesenteric, or pelvic lymphadenopathy. Peritoneum / Retroperitoneum: No free fluid or air within the abdomen. Vessels: No infrarenal aortic aneurysm. Circumferential soft tissue thickening is seen about the visualized portions of the descending thoracic aorta. Moderate to heavy calcified and noncalcified aortoiliac atherosclerosis in the abdomen is present. There also appears to be mild soft tissue thickening surrounding the common, superficial and deep femoral arteries, as well as the celiac artery and its proximal branches, and the SMA. The left renal artery is more diminutive, and may have a beaded appearance. The right renal artery may demonstrate mild focal narrowing at the origin, and is otherwise within normal caliber limits. Bones and soft tissues: No suspicious lesion in the bones. IMPRESSION: Circumferential soft tissue wall thickening is seen about the visualized portions of the descending thoracic aorta, celiac artery and proximal branches, SMA, and proximal femoral arteries, as above, compatible with vasculitis. Correlate with findings also noted on the CTA head/neck. Cardiomegaly. 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 The left renal artery is more diminutive, and may have a beaded appearance. Electronically signed by Josué Baird 10-12-2024 6:15 PM Chest X-Ray 10/12/24 15:57 EXAM: XR chest 1V portable CLINICAL HISTORY: Chest pain, nonspecific. TECHNIQUE: An X-ray image of the chest is obtained in AP projection. COMPARISON: 07/29/2024. FINDINGS: Pulmonary Parenchyma: Lungs are clear bilaterally. No evidence of consolidation, collapse, or focal opacities. No pulmonary nodules are identified. No evidence of pleural effusion or pleural thickening. Heart and Mediastinum: Heart size and shape are normal. No mediastinal widening or masses. No hilar or mediastinal lymphadenopathy. Bony Thorax: Bony thorax appears intact without fractures or deformities. Soft Tissues: Soft tissues overlying the chest wall are unremarkable. IMPRESSION: 1. No acute cardiopulmonary abnormalities are identified. 2. No interval changes. Electronically signed by Jimy Dugan 10-12-2024 5:[address] 10/12/24 15:[address] without contrast CT angiogram of the neck CT angiogram of the brain with contrast Provided History: Neuro deficit Comparison: None Technique: HEAD CT: Using multidetector thin collimation helical acquisition technique, axial, coronal and sagittal CT images from the skull base to the vertex were obtained without intravenous contrast. HEAD and NECK CTA: During rapid bolus intravenous injection of nonionic contrast material, axial images were obtained using thin collimation multidetector helical technique from the base of the neck through the of vertex of the head. This CT angiogram data was reconstructed at thin intervals with mild overlap. 3D reconstructions were obtained. The axial source images, multiplanar reformations, 3D reconstructions in both maximum intensity projection display and volume rendered models were reviewed. Dose reduction techniques were achieved by using automatic exposure control and/or adjustment of mA and/or kV according to patient size and/or use of iterative reconstruction technique. Findings: Head CT: There is no intracranial hemorrhage, mass effect, or midline shift. Bradshaw/white matter differentiation in both cerebral hemispheres is preserved. Ventricles are proportionate to the cerebral sulci. Head CTA demonstrates no aneurysm or stenosis of the major intracranial arteries. Neck CTA demonstrates no large vessel occlusion. There is diffuse, circumferential soft tissue thickening surrounding the vessels of the neck, as well as of the aortic arch, and the great vessels of the aortic arch. Several vessels demonstrated a beaded appearance of the wall, including both subclavian arteries, as well as portions of both internal carotid arteries in the neck. Both internal carotid arteries are also tortuous, greater on the left compared to the right. Significant soft tissue density surrounds the carotid bulb, with focal narrowing of the proximal ICA bilaterally significantly, with a proximal ICA diameter of 3 mm on the left and right. Both vertebral arteries are tortuous and otherwise patent. The vertebral arteries are also tortuous, including both V1 portions, and the left V2 portion. Soft tissue density is seen to circumferentially surround the V3 portions. The origins of the great vessels from the aortic arch are patent. No mass is noted within the visualized portions of the cervical soft tissues or lung apices. Impression: 1. Head CTA demonstrates no aneurysm or stenosis of the major intracranial arteries, 2. Neck CTA demonstrates no large vessel occlusion. 3. Diffuse, circumferential soft tissue thickening is seen to surround the vessels of the aortic arch, the great vessels, and the vessels of the neck. Portions of the arteries of the neck, including both subclavian arteries, and internal carotid arteries, also demonstrate a beaded appearance. These findings are consistent with vasculitis. Correlate with ESR/CRP levels. 3. No intracranial hemorrhage on the noncontrast head CT. Electronically signed by Josué Baird 10-12-2024 6:08 PM Head CTA 10/12/24 15:[address] without contrast CT angiogram of the neck CT angiogram of the brain with contrast Provided History: Neuro deficit Comparison: None Technique: HEAD CT: Using multidetector thin collimation helical acquisition technique, axial, coronal and sagittal CT images from the skull base to the vertex were obtained without intravenous contrast. HEAD and NECK CTA: During rapid bolus intravenous injection of nonionic contrast material, axial images were obtained using thin collimation multidetector helical technique from the base of the neck through the of vertex of the head. This CT angiogram data was reconstructed at thin intervals with mild overlap. 3D reconstructions were obtained. The axial source images, multiplanar reformations, 3D reconstructions in both maximum intensity projection display and volume rendered models were reviewed. Dose reduction techniques were achieved by using automatic exposure control and/or adjustment of mA and/or kV according to patient size and/or use of iterative reconstruction technique. Findings: Head CT: There is no intracranial hemorrhage, mass effect, or midline shift. Bradshaw/white matter differentiation in both cerebral hemispheres is preserved. Ventricles are proportionate to the cerebral sulci. Head CTA demonstrates no aneurysm or stenosis of the major intracranial arteries. Neck CTA demonstrates no large vessel occlusion. There is diffuse, circumferential soft tissue thickening surrounding the vessels of the neck, as well as of the aortic arch, and the great vessels of the aortic arch. Several vessels demonstrated a beaded appearance of the wall, including both subclavian arteries, as well as portions of both internal carotid arteries in the neck. Both internal carotid arteries are also tortuous, greater on the left compared to the right. Significant soft tissue density surrounds the carotid bulb, with focal narrowing of the proximal ICA bilaterally significantly, with a proximal ICA diameter of 3 mm on the left and right. Both vertebral arteries are tortuous and otherwise patent. The vertebral arteries are also tortuous, including both V1 portions, and the left V2 portion. Soft tissue density is seen to circumferentially surround the V3 portions. The origins of the great vessels from the aortic arch are patent. No mass is noted within the visualized portions of the cervical soft tissues or lung apices. Impression: 1. Head CTA demonstrates no aneurysm or stenosis of the major intracranial arteries, 2. Neck CTA demonstrates no large vessel occlusion. 3. Diffuse, circumferential soft tissue thickening is seen to surround the vessels of the aortic arch, the great vessels, and the vessels of the neck. Portions of the arteries of the neck, including both subclavian arteries, and internal carotid arteries, also demonstrate a beaded appearance. These findings are consistent with vasculitis. Correlate with ESR/CRP levels. 3. No intracranial hemorrhage on the noncontrast head CT. Electronically signed by Josué Baird 10-12-2024 6:08 PM Neck CTA 10/12/24 15:[address] without contrast CT angiogram of the neck CT angiogram of the brain with contrast Provided History: Neuro deficit Comparison: None Technique: HEAD CT: Using multidetector thin collimation helical acquisition technique, axial, coronal and sagittal CT images from the skull base to the vertex were obtained without intravenous contrast. HEAD and NECK CTA: During rapid bolus intravenous injection of nonionic contrast material, axial images were obtained using thin collimation multidetector helical technique from the base of the neck through the of vertex of the head. This CT angiogram data was reconstructed at thin intervals with mild overlap. 3D reconstructions were obtained. The axial source images, multiplanar reformations, 3D reconstructions in both maximum intensity projection display and volume rendered models were reviewed. Dose reduction techniques were achieved by using automatic exposure control and/or adjustment of mA and/or kV according to patient size and/or use of iterative reconstruction technique. Findings: Head CT: There is no intracranial hemorrhage, mass effect, or midline shift. Bradshaw/white matter differentiation in both cerebral hemispheres is preserved. Ventricles are proportionate to the cerebral sulci. Head CTA demonstrates no aneurysm or stenosis of the major intracranial arteries. Neck CTA demonstrates no large vessel occlusion. There is diffuse, circumferential soft tissue thickening surrounding the vessels of the neck, as well as of the aortic arch, and the great vessels of the aortic arch. Several vessels demonstrated a beaded appearance of the wall, including both subclavian arteries, as well as portions of both internal carotid arteries in the neck. Both internal carotid arteries are also tortuous, greater on the left compared to the right. Significant soft tissue density surrounds the carotid bulb, with focal narrowing of the proximal ICA bilaterally significantly, with a proximal ICA diameter of 3 mm on the left and right. Both vertebral arteries are tortuous and otherwise patent. The vertebral arteries are also tortuous, including both V1 portions, and the left V2 portion. Soft tissue density is seen to circumferentially surround the V3 portions. The origins of the great vessels from the aortic arch are patent. No mass is noted within the visualized portions of the cervical soft tissues or lung apices. Impression: 1. Head CTA demonstrates no aneurysm or stenosis of the major intracranial arteries, 2. Neck CTA demonstrates no large vessel occlusion. 3. Diffuse, circumferential soft tissue thickening is seen to surround the vessels of the aortic arch, the great vessels, and the vessels of the neck. Portions of the arteries of the neck, including both subclavian arteries, and internal carotid arteries, also demonstrate a beaded appearance. These findings are consistent with vasculitis. Correlate with ESR/CRP levels. 3. No intracranial hemorrhage on the noncontrast head CT. Electronically signed by Josué Baird 10-12-2024 6:08 PM Knee X-Ray 10/12/24 15:59 EXAM: XR knee RT 3V CLINICAL HISTORY: Right foot drop TECHNIQUE: X-ray images of the right knee were obtained in anteroposterior (AP), and sunrise/skyline (patellar) projections. COMPARISON: No prior studies available for comparison. FINDINGS: Bone Structure: Bone structure is normal and well-aligned. No evidence of acute fractures or dislocations. No osseous lesions or abnormalities identified. Mild periosteal reaction along the distal fibula. Joint Spaces: Osteoarthritic changes manifested by narrowing of the medial compartment of the tibiofemoral joint and elevated tibial spines. Patella: The patella is normal in position and alignment. No evidence of patellar dislocation or subluxation. Soft Tissues: Periarticular soft tissues appear normal and unremarkable. No soft tissue swelling, calcifications, or foreign bodies noted. Additional Findings: No evidence of joint effusion. IMPRESSION: 1. Osteoarthritic changes manifested by narrowing of the medial compartment of the tibiofemoral joint and elevated tibial spines. 2. No evidence of acute fractures or dislocations. DISCLAIMER:A subtle bone abnormality or fracture may not be readily apparent on x-rays, thus clinical correlation and further imaging including follow up CT, MRI, or follow up x-rays are advised as needed. Electronically signed by Jimy Dugan 10-12-2024 5:25 PM Diagnostic Findings EKG as per my interpretation :Rate 55, A-fib, normal axis, nonspecific T wave abnormalities
[2024-10-12 21:06] LABS: C Reactive Protein 4.4 mg/dl (0-0.5)
--- OUTSIDE RECORDS SUMMARY | 2024-10-12 21:38 | External Medical Summary | Summary of Care ---
Author Name Unknown Organization [facility] Address [address] [facility] [address] Phone [phone] Care Team Providers Care Pole Framer Machine Name Role Phone Shant Lee DO Primary Care Provider [phone] Reason for Visit * Reason Onset Date Comments Advice 09/20/2024 Encounter Details Date Type Department Care Team (Late st Contact Info) Description 09/20/2024 Telephone Family Practice [facility] [place] [address] [place] [address] Shant Lee DO [address] [facility] [place] [address] Advice Allergies Active Allergy Reactions Criticality Noted Date Comments Penicillins Hives 08/17/2011 Pineapple Other (Please comment) 08/17/2011 Stomach cramps documented as of this encounter (statuses as of 10/03/2024) Medications Chlorhexidine Gluconate 0.12 % Mouth/Throat Solution (Periogard) 4 Active B-12 500 MCG Oral Tablet Take 1 Tablet by mouth every morning. Active Folic Acid 1 MG Oral Tablet Take 1 Tablet by mouth in the morning. Active Mirtazapine 15 MG Oral Tablet (Remeron)Indicati ons:Decreased appetite Take 1 Tablet by mouth at bedtime. 90 Tablet 3 5 Active Digoxin 125 MCG Oral Tablet (Lanoxin)Indicati ons:Atrial fibrillation (HCC),HTN, goal below 140/90 TAKE 1 TABLET EVERY DAY 90 Tablet 1 5 Active Ezetimibe 10 MG Oral Tablet (Zetia)Indication s:Dyslipidemia Take 1 Tablet by mouth in the morning. 90 Tablet 3 5 Active Metoprolol Tartrate 50 MG Oral Tablet (Lopressor)Indica tions:Atrial fibrillation (HCC),HTN, goal below 140/90 Take 1 Tablet by mouth every morning AND 1.5 Tablets every evening. 225 Tablet 3 5 Active Omeprazole 20 MG Oral Capsule Delayed Release (PriLOSEC)Indicat ions:Gastroesopha geal reflux disease with esophagitis TAKE 1 CAPSULE EVERY DAY 90 Capsule 2 5 Active Rivaroxaban 15 MG Oral Tablet (Xarelto)Indicati ons:Atrial fibrillation (HCC) TAKE 1 TABLET EVERY DAY WITH DINNER 90 Tablet 1 5 Active documented as of this encounter (statuses as of 10/03/2024) Active Problems Problem Noted Date Diagnosed Date Stage 3a chronic kidney disease 04/06/2020 Overview: Per CKD protocol Dyslipidemia, goal LDL below 100 02/25/2020 HTN, goal below 140/90 07/26/2016 Postmenopausal bleeding 10/01/2015 GERD (gastroesophageal reflux disease) 5 Atrial fibrillation 12/02/2013 documented as of this encounter (statuses as of 10/03/2024) Resolved Problems Problem Noted Date Diagnosed Date Resolved Date Encounter for examination fo r normal comparison and control in clinical research program 11/28/2017 03/12/2019 Overview (09/14/2020): DO NOT DELETE [facility] DETECT Study: Project # [id number], Public Speaking Instructor: Raffy Hernandez, PhD. SUMMARY: Goal: Establish test characteristics (sensitivity, specificity, PPV, NPV) of a circulating tumor DNA (ctDNA)-based test for cancer. Hypothesis: Circulating tumor DNA (ctDNA) and elevated protein biomarkers (together, the marker panel) can be detected in asymptomatic individuals with early cancer. Specific Aim 1: Determine the prevalence of a positive marker panel test in a prospective clinical cohort of 10,000 asymptomatic women ages 65 to 75 years. Specific Aim 2: Determine the sensitivity, specificity, positive predictive value (PPV) and negative predictive value (NPV) of a marker panel test to identify histologically proven cancers that develop within 5-years of the marker panel evaluation. CONTACTS: During normal business hours, contact study staff at ; after hours Public Speaking Instructor via the [facility] hospital production broaching machine operator . Please contact study team before resolving/deleting from patients problem list. Study phone number: [phone]. Diagnosis changed due to Research Module. Go to Snapshot for study details. Screening cholesterol level 07/26/2016 03/31/2018 Kidney disease, chronic, sta ge III (GFR 30-59 ml/min) 08/11/2014 04/09/2020 Overview: Per CKD protocol #1 Lower urinary tract infectious disease 10/25/2013 03/31/2018 Overview (09/29/2015): ICD-10 update of inactive term Family history of ischemic heart disease 10/25/2013 03/31/2018 Family history of stroke 10/25/201307/2017 Pre-operative cardiovascular examination 10/25/2013 03/31/2018 documented as of this encounter (statuses as of 10/03/2024) Immunizations Name Administration Dates Next Due COVID-19 mRNA, LNP-s, No Pre serve, 2-Dose Series (Moderna) 07/29/2020,06/27/2020 COVID-19, mRNA, LNP-s, PF, B ooster, 100mcg/0.5mg (Moderna) 09/07/2021 HEP A - Hepatitis A (Adult > 18 yrs) 03/09/2018, 03/28/2012 Pneumococcal Conjugate Vacc, 13 Valent (Prevnar) 03/08/2018 Pneumococcal Polysaccharide PPV23 (Pneumovax) Seasonal Influenza Vac., MDV, IM, 0.5 mL (Fluzon e) 04/10/2013,08/17/2011 Seasonal Influenza Virus Vac cine, Unspecified Formulation 02/09/2021 Seasonal Influenza, High Dos e, Trivalent, PF, IM (Fluzone HD) 04/17/2019 Seasonal Influenza, Quadrivalent Hd (Fluzone Hd) 02/14/2022 Seasonal Influenza, Quadrivalent, No Preserve, I M 03/08/2018 TD, Preservative Free 08/17/2011 Typhoid VICPs Parenteral, 2 years and above (Typhim ) 06/12/2019 Zoster Vaccine Recombinant (Shingrix) 08/25/2021 ,06/23/2021 documented as of this encounter Social History Tobacco Use Types Packs/Day Years Used Date Smoking Tobacco: Never Smokeless Tobacco: Never Alcohol Use Standard Drinks/Week Comments Yes 0 (1 standard drink = 0.6 oz pur e alcohol) rarely PHQ-2 Answer Date Recorded PHQ-2 Score -1 03/31/2018 Hunger Vital Sign Answer Date Recorded Within the past 12 months, y ou worried that your food would run out before you got the money to buy more. Never true 04/13/20 24 Within the past 12 months, t he food you bought just didn't last and you didn't have money to get more. Never true 04/13/2024 Childcare Answer Date Recorded Do you feel overwhelmed with taking care of a child, family member or friend? No 04/13/2024 Does your family need help f inding childcare? (Household - for ages 0-17 years) Not on file 04/13/2024 Clothing Answer Date Recorded Have you been unable to get clothing when it was really needed? No 04/13/2024 Is your family able to get c lothes or diapers when needed? (Household - for ages 0-17 years) Not on file 04/13/2024 Personal Safety Answer Date Recorded Do you feel unsafe or have concerns for your saf ety? No 04/13/2024 Do you have concerns for you r family's safety? (Household - for ages 0-17 years) Not on file 04/13/2024 Utilities Answer Date Recorded Do you have trouble paying y our heating, water, or electric bill? No 04/13/2024 Is your family able to pay t he heat, water, or electric bill? (Household - for ages 0-17 years) Not on file 04/13/2024 Does your family have access to good internet? (Household - for ages 0-17 years) Not on file 04/13/2024 Employment Status Answer Date Recorded Are you unemployed or without regular income? No 04/13/2024 Does the household have a re gular source of income? (Household - for ages 0-17 years) Not on file 04/13/2024 Social Connections Answer Date Recorded How often do you feel lonely or isolated from those around you? Sometimes 04/13/2024 Financial Resource Strain Answer Date R ecorded Do you have any trouble payi ng for your medications, or do you think you might in the future? No 04/13/2024 Does your family have troubl e paying for medicine? (Household - for ages 0-17 years) Not on file 04/13/2024 Transportation Needs Answer Date Record ed Do you have trouble getting a ride to medical visits or work? (Adult - for ages 18 years and over) Not on file 04/13/2024 Does your family have a hard time getting a ride to doctors visits? (Household - for ages 0-17 years) Not on file 04/13/2024 Has lack of transportation k ept you from medical appointments, meetings, work, or from getting things needed for daily living? Check all that apply. No 04/13/2024 Do you (or your family) have trouble finding or paying for a ride (transportation)? (Household - for ages 0-17 years) Not on file 04/13/2024 Housing Stability Answer Date Recorded Do you currently live in a s helter or have no steady place to sleep at night? No 04/13/2024 Do you think you are at risk of becoming homeless? (Adult - for ages 18 years and over) Not on file 04/13/2024 Does your family worry about paying for your home or becoming homeless? (Household - for ages 0-17 years) Not on file 1 06/13/2023 Are you homeless or worried that you might be in the future? No 04/13/2024 Are you (or your family) cristobal eless or worried that you might be in the future? (Household - for ages 0-17 years) Not on file Food Insecurity Answer Date Recorded Do you need food for this week? No 04/13/2024 Are you able to get enough f ood for your family? (Household - for ages 0-17 years) Not on file 04/13/2024 Does your family need food t his week? (Household - for ages 0-17 years) Not on file 04/13/2024 Do you always have enough fo od for your family? (Household - for ages 0-17 years) Not on file 04/13/2024 Food Insecurity Answer Date Recorded Within the past 12 months, y ou worried that your food would run out before you got the money to buy more. Never true 04/13/20 24 Within the past 12 months, t he food you bought just didn't last and you didn't have money to get more. Never true 04/13/2024 Do you need food for this week? No 04/13/2024 Comments No Sex and Gender Information Value Date Recorded Sex Assigned at Female 04/13/2024 8:11 PM EST Legal Sex Female 6:56 AM EST Gender Identity Female 04/13/2024 8:11 PM EST Sexual Orientation Straight 04/13/2024 8: 11 PM EST documented as of this encounter Miscellaneous Notes * Telephone Encounter - Shant Lee DO - 10/03/2024 3:37 PM EDT Remeron should help sleep and appetite * Telephone Encounter - Sammi Siegel RN - 10/03/2024 9:08 AM EDT Pt has seen [facility] friction welding machine operator, but pt says that she feels them and they bleed. She has an appt for ultrasound on November 05 at [facility] ordered by friction welding machine operator . Also has loss of appetite because food doesn't taste good and the texture bothers her. Is having trouble sleeping. Pt says that her cardiac meds disturbs her sleep, but her statistical methods professor does not think the meds are the problem. Asked if she wants an appt here. She doesn't know if she wants one or not. Said "What's the point'? She will call [facility] about her Remeron. Advised her that she can make an appt here if her symptoms worsen. She said she will think about it. FYI. * Telephone Encounter - Sammi Siegel RN - 09/25/2024 4:39 PM EDT Left message on pt home phone for pt to call. Please transfer to DNL. * Telephone Encounter - Sunitha Skinner NA - 09/25/2024 11:35 AM EDT Attempted to call patient. Went straight to . VM full; therefore unable to leave a message. If patient returns call, please transfer to DNL to advise of the message below. * Telephone Encounter - Shant Lee DO - 09/23/2024 2:28 PM EDT Please call: The medication to help her appetite was Remeron and was sent to [facility]. She should contact them to try and get it. HAs she tried just starting Preparation H for her hemorrhoids? * Telephone Encounter - Sulma Zazueta DO - 09/20/2024 3:26 PM EDT Not sure what medication was prescribed in July, will ask Dr. Lee Monday * Telephone Encounter - Vinod Maldonado OSA - 09/20/2024 3:09 PM EDT Patient called in today for a message for Dr. Lee. Patient would like a recommendation for her bowel issues and hemorrhoids. The medication that was prescribed back in july, she has never received. Her best call #[phone]. documented in this encounter Plan of Treatment Upcoming Encounters Date Type Department Care Team (Late st Contact Info) Description 02/07/2025 1:30 PM EDT Office Visit Cardiology, [facility] [address] [place] [phone] Octavio Waggoner PA-C [address] [place] [address] 03/25/2025 1:00 PM EDT Office Visit Family Practice [facility] [address] [facility] [place] [address] Shant Lee, [address] [facility] [place] [address] Scheduled Procedures Name Priority Associated Diagnoses Date/Ti me COLONOSCOPY FLEXIBLE PROXIMAL DIAGNOSTIC Recall History of colon polyps Health Maintenance Due Date Last Done Comments Depression Screening 1957 Albumin/Creatinine Ratio 1963 CKD PHOS USE SMARTSET 82124 1963 Adult Wellness Visit 2010 DTap/Tdap Vaccines (1 - Tdap) 08/18/2011 08/17/2011 DXA Scan 06/23/2024 06/23/2021, 05/30, 03/27/2013, Additional history exists COVID-19 Vaccine ( season) 2024 04/21/2024, 12/28/2023, 08/21/2023, Additional history exists GFR 01/29/2025 07/29/2024, 03/29, 02/14/2022, Additional history exists Colonoscopy 04/02/2025 04/02/2020, 09/2019, 05/10/2013, Additional history exists CKD HGB USE SMARTSET 09809 07/29/202507/29, 04/15/2024, 02/14/2022, Additional history exists DIG LEVEL FOR MEDICATION MONITORING YEARLY 07/29/2025 07/29/2024, 02/14/2022, 05/14/2019, Additional history exists Pneumococcal Vaccine: 50+ Years Completed 03/08/2018, 05/15/2017, 04/05/2016, Additional history exists RETIRED - COLONOSCOPY-EVERY 5 YRS AGES 18-100 Discontinued 04/02/2020, 04/02/2020, 05/10/2013, Additional history exists Zoster Vaccines Completed 08/25/2021, 06/23/2021 Influenza Vaccine (FLU shot) Completed 04/21/2024, 02/23/2023, 02/14/2022, Additional history exists EKG Completed 07/29/2024, 01/27, 11/26/2020, Additional history exists HPV (Gardasil) Vaccine Aged Out No lo nger eligible based on patient's age to complete this topic Hepatitis B Vaccine Aged Out No longe r eligible based on patient's age to complete this topic MENINGOCOCCAL (MENACTRA/MENVEO) Aged Out No longer eligible based on patient's age to complete this topic Meningitis B Vaccine (Bexsero/Trumemba) Aged Out No longer eligible based on patient's age to complete this topic documented as of this encounter Medical Devices Not on filedocumented as of this encounter Care Teams Pole Framer Machine Relationship Specialty Start Date End Date Shant Lee DO [address] [place] [address] PCP - General Family Medicine 08/20/24 documented as of this encounter
--- OUTSIDE RECORDS SUMMARY | 2024-10-12 21:38 | External Medical Summary | Summary of Care ---
Author Name Unknown Organization [facility] Address [address] [facility] [place] [address] Phone [phone] Care Team Providers Care Product Manager Name Role Phone Shant Lee DO Primary Care Provider [phone] Reason for Visit * Reason Onset Date Comments Other 06/28/2024 Encounter Details Date Type Department Care Team (Late st Contact Info) Description 06/28/2024 Telephone [facility], [facility] DEPT CLOSED - 09/16/24 [address] [place] [address] Mary Benjamin PA-C [address] [place] [phone] Other Allergies Active Allergy Reactions Criticality Noted Date Comments Penicillins Hives 08/17/2011 Pineapple Other (Please comment) 08/17/2011 Stomach cramps documented as of this encounter (statuses as of 09/28/2024) Medications Chlorhexidine Gluconate 0.12 % Mouth/Throat Solution (Periogard) 02/25/20 24 Active Ezetimibe 10 MG Oral Tablet (Zetia)Indicatio ns:Dyslipidemia TAKE 1 TABLET EVERY DAY 90 Tablet 3 07/26/19 24 025 Discontinued(Re fill) Digoxin 125 MCG Oral Tablet (Lanoxin)Indicat ions:Atrial fibrillation (HCC),HTN, goal below 140/90 TAKE 1 TABLET EVERY DAY 90 Tablet 3 12/20/19 24 025 Discontinued(Re fill) Losartan Potassium 25 MG Oral Tablet (Cozaar)Indicati ons:HTN, goal below 140/90 TAKE 1 TABLET EVERY DAY 90 Tablet 3 12/20/19 24 025 Discontinued Rivaroxaban 15 MG Oral Tablet (Xarelto)Indicat ions:Atrial fibrillation (HCC) TAKE 1 TABLET EVERY DAY WITH DINNER 90 Tablet 3 12/20/19 24 025 Discontinued(Re fill) Omeprazole 20 MG Oral Capsule Delayed Release (PriLOSEC)Indica tions:Gastroesop hageal reflux disease with esophagitis TAKE 1 CAPSULE EVERY DAY 90 Capsule 3 02/28/20 24 025 Discontinued(Re fill) Metoprolol Tartrate 50 MG Oral Tablet (Lopressor)Indic ations:HTN, goal below 140/90,Atrial fibrillation (HCC) TAKE 1 AND 1/2 TABLETS IN THE MORNING AND 1 TABLET IN THE EVENING. 225 Tablet 05/24/20 24 025 Discontinued(Re fill) documented as of this encounter (statuses as of 09/28/2024) Active Problems Problem Noted Date Diagnosed Date Stage 3a chronic kidney disease 04/06/2020 Overview: Per CKD protocol Dyslipidemia, goal LDL below 100 02/25/2020 HTN, goal below 140/90 07/26/2016 Postmenopausal bleeding 10/01/2015 GERD (gastroesophageal reflux disease) 5 Atrial fibrillation 12/02/2013 documented as of this encounter (statuses as of 09/28/2024) Resolved Problems Problem Noted Date Diagnosed Date Resolved Date Encounter for examination fo r normal comparison and control in clinical research program 11/28/2017 03/12/2019 Overview (09/14/2020): DO NOT DELETE [facility] Study: Project # [id number], Electric Container Tester: Raffy Hernandez, PhD. SUMMARY: Goal: Establish test [...] contact study staff at ; after hours Electric Container Tester via the [facility] hospital tube closing machine operator . Please contact study team before resolving/deleting from patients problem list. Study phone number: [phone]. Diagnosis changed due to Research Module. Go [...] as of this encounter (statuses as of 09/28/2024) Immunizations Name Administration Dates Next Due COVID-19 [...] encounter Miscellaneous Notes * Telephone Encounter - Emili Jefferson LPN - 06/28/2024 3:58 PM EST Called and spoke with patient-she would like letter written for her trip cx so she can try and get her money back. Advised her we will call her when it's completed. * Telephone Encounter - Elizabeth Fairchild OSA - 06/28/2024 3:45 PM EST Patient called in asking for Mary Benjamin to please give her a call. documented in this encounter Plan of Treatment Upcoming Encounters Date Type Department Care Team (Late st Contact Info) Description 02/07/2025 1:30 PM EDT Office Visit Cardiology, [facility] [address] [place] [phone] Octavio Waggoner PA-C [address] [place] [address] 03/25/2025 1:00 PM EDT Office Visit Family Practice [facility] [address] [facility] [place] [address] Shant Lee, [address] [facility] [place] [address] Scheduled Procedures Name Priority Associated Diagnoses Date/Ti me COLONOSCOPY FLEXIBLE PROXIMAL DIAGNOSTIC Recall History of colon polyps Health Maintenance Due Date Last Done Comments Depression Screening 1957 Albumin/Creatinine Ratio 1962 CKD PHOS USE SMARTSET 42505 1963 Adult Wellness Visit 2010 DTap/Tdap Vaccines (1 - Tdap) 08/18/2011 08/17/2011 DXA Scan 06/23/2024 06/23/2021, 05/30, 03/27/2013, Additional history exists COVID-19 Vaccine ( season) 2024 04/21/2024, 12/28/2023, 08/21/2023, Additional history exists GFR 01/29/2025 07/29/2024, 03/29, 02/14/2022, Additional history exists Colonoscopy 04/02/2025 04/02/2020, 09/2019, 05/10/2013, Additional history exists CKD HGB USE SMARTSET 57567 07/29/202507/29, 04/15/2024, 02/14/2022, Additional history exists DIG LEVEL FOR MEDICATION MONITORING YEARLY 07/29/2025 07/29/2024, 02/14/2022, 05/14/2019, Additional history exists Pneumococcal Vaccine: 50+ Years Completed 03/08/2018, 05/15/2017, 04/05/2016, Additional history exists RETIRED - COLONOSCOPY-EVERY 5 YRS AGES 18-100 Discontinued 04/02/2020, 04/02/2020, 05/10/2013, Additional history exists Zoster Vaccines Completed 08/25/2021, 06/23/2021 Influenza Vaccine (FLU shot) Completed 04/21/2024, 02/23/2023, 02/14/2022, Additional history exists HPV (Gardasil) Vaccine Aged [...] filedocumented as of this encounter Care Teams Product Manager Relationship Specialty Start Date End Date Shant Lee DO [address] [place] [address] PCP - General Family Medicine 08/20/24 documented as of this encounter
[2024-10-12 21:51] LABS: Ferritin 166.6 ng/ml (8-388)
[2024-10-12] MEDS ORDERED: methylPREDNISolone 125 MG/2 ML VIAL IV STA (21:53)
[2024-10-12 21:55] LABS: Folate (Folic Acid),Ser orPlas 7.16 ng/ml (>5.38)
[2024-10-12] MEDS: NSS + 20MEQ KCL 20 MEQ/1,000 ML BAG IV ONE (22:03)
[2024-10-12] MEDS ORDERED: oxyCODONE HCL IR 5 MG TAB (IMMEDIATE RELEASE) PO PRN (22:13)
[2024-10-12] MEDS ORDERED: PROMETHAZINE 6.25 MG/50.25 ML BAG IV PRN (22:13)
[2024-10-12] MEDS ORDERED: ACETAMINOPHEN 325 MG TAB PO PRN (22:13)
[2024-10-12] MEDS: methylPREDNISolone 500 MG in DEXTROSE 5% 100 ML IV ONE (23:02)
[2024-10-12] MEDS: MAGNESIUM SULFATE / D5W 1 GM/100 ML BAG IV ONE (23:31)
[2024-10-12 23:32] LABS: Hematocrit (blood only) 35.4 % (37.0-47.0); Hemoglobin 11.2 g/dl (12.0-16.0); Reticulocyte % 1.36 % (0.50-2.00)
[2024-10-12 23:40] LABS: Troponin I High Sensitivity 17.8 pg/ml (0-14)
--- NOTE | 2024-10-13 04:10 | Ultrasound Report ---
Exam(s): US VENOUS LEFT LOWER EXTREMITY EXAM: US Duplex Left Lower Extremity Veins CLINICAL HISTORY: Reason for exam: huong mancilla. TECHNIQUE: Real-time duplex ultrasound scan of the left lower extremity veins integrating B-mode two-dimensional vascular structure, Doppler spectral analysis, color flow Doppler imaging and compression. COMPARISON: No relevant prior studies available. FINDINGS: Deep veins: Unremarkable. No DVT in the visualized common femoral, femoral, proximal deep femoral or popliteal veins. The veins demonstrate normal color flow, are normally compressible, with normal phasic flow and/or augmentation response. Superficial veins: No thrombus seen in the upper aspect of the greater saphenous vein. Soft tissues: No acute findings. No popliteal cyst. IMPRESSION: No evidence of DVT in the left lower extremity. Electronically signed by: Mitul Boyle MD 10/13/24 04:09 AM
[2024-10-13 07:43] LABS: Hematocrit (blood only) 34.1 % (37.0-47.0); Hemoglobin 10.7 g/dl (12.0-16.0); Mean Corpuscular Hemoglobin 28.6 pg (25.0-34.0); Mean Corpuscular Hgb Conc 31.4 g/dL (32.0-36.0); Mean Corpuscular Volume 91.2 fL (80.0-100.0); Mean Platelet Volume 12.7 fL (9.4-12.4); Platelet Count 227 K/uL (130-400); RDW Coefficient of Variation 16.4 % (11.5-14.5); RDW Standard Deviation 55.5 fL (36.4-46.3); Red Blood Count 3.74 M/uL (4.20-5.40); White Blood Count 6.39 K/ul (4.8-10.8)
[2024-10-13] MEDS ORDERED: ALUMINUM/MAGNESIUM/SIMETH (MAALOX MAX) 30 ML UDC PO PRN (07:49)
[2024-10-13 08:22] LABS: Basophils # (auto) 0.02 K/uL (0.00-0.20); Basophils % (auto) 0.3 %; Eosinophils # (auto) 0.01 K/uL (0.00-0.50); Eosinophils % (auto) 0.2 %; Immature Granulocytes # (auto) 0.05 K/uL (0.01-0.20); Immature Granulocytes % (auto) 0.8 %; Lymphocytes # (auto) 0.33 K/uL (1.20-3.40); Lymphocytes % (auto) 5.2 %; Monocytes # (auto) 0.05 K/uL (0.11-0.59); Monocytes % (auto) 0.8 %; Neutrophils # (auto) 5.93 K/uL (1.40-6.50); Neutrophils % (auto) 92.7 %
[2024-10-13 08:46] LABS: BUN Creatinine Ratio 12.2 (10-20); Calcium 9.3 mg/dl (8.6-10.3); Creatinine Clr Calc Pharmacy 44.9 ml/min; Potassium 4.2 mmol/L (3.5-5.1)
[2024-10-13] MEDS ORDERED: methylPREDNISolone 125 MG/2 ML VIAL IV SCH (09:00)
[2024-10-13] MEDS: methylPREDNISolone 500 MG in DEXTROSE 5% 100 ML IV SCH (09:11)
[2024-10-13] MEDS: EZETIMIBE 10 MG TAB PO SCH (09:14)
[2024-10-13] MEDS: METOPROLOL TARTRATE 50 MG TAB PO SCH ×2 (09:14→21:02)
[2024-10-13] MEDS: PANTOprazole 40 MG TAB PO SCH (09:14)
[2024-10-13] MEDS: RIVAROXABAN 15 MG TAB PO SCH (09:14)
--- NOTE | 2024-10-13 09:22 | Rheumatology Consultation ---
Rheumatology Consultation DOS October 13, [address] Treviño Attending Physician Dr Logan Reason for Consultation vasculitis Assessment & Plan (1) Vasculitis: likely has had ongoing vasculitis since last fall. inflammatory marker last Mar was done after steroids so likely falsely negative. differential would be ANCA vasculitis vs GCA. do not typically see mononeuritis multiplex with GCA but it is possible. vasculitis work up is pending as well as labs needed for biologic therapies needed. further agent needed pending results of labs. Currently is on IV solumedrol for 3 days. 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 IV solumedrol 500mg BID for 3 days then transitiion to 60mg of prednisone daily 2. Bactrim DS on ,, for PJP prohylaxis 3. await lab results 4. will need biologic therapy as an outpatient 5. case was discussed with Dr Treviño last night - will also contact Dr Logan 5. will arrange outpatient follow up for likely this 6. Thank you for the consult and involving me in this patient's care History of Present Illness Reason for Consultation: vasculitis Requesting Physician: Dr Treviño Attending Physician: Enoc Logan MD History of Present Illness Justa is an 79 y/o female who started to develop painful headaches around January of last year. she does not recall this history completely but in reviewing EPIC - she associated with these headaches with a dental implant failure that started around this time. she had pus and blood coming out of the area of one of the implants. she had this implant removed and it helped her headaches about 30%. she used tylenol with some benefit. she reports that her whole head and neck hurt. did have scalp tenderness but no tongue pain, ear pain. she had trouble eating because of the pain and moved to soft foods. no vision changes or losses. no numbness. + fatigue. she alos started to experience weight loss. A ct of the head was negative so they ordered steroids. steroids really helped. she was seen again via telehealth 04/06 and given medrol she then saw Dr Lee 04/15 but her ESR at that time was normal but she had just finished steroids. lyme negative. no other inflammatory markers were ordered. since these courses of steroids her headaches resolved. the biggest issue has been ongoing lack of appetite and loss of weight. she has lost 60 lbs since last fall. she denies any family history of autoimmune diseases such as SLE, RA, sjogren's, IBD, psoriasis. she denies any illness prior to her symptoms starting but interestingly did receive a covid booster in December of 2023. she came into the ED last night because of 1 week of right foot weakness. she had no pain just started to note she was dragging her foot. could not flex the foot. she had imaging that showed changes to the aortic arch and the vessels of the neck concerning for vasculitis. I was contacted last night and started IV solumedrol 500mg BID for 3 days. she has several labs pending. she denies any history of bloody nasal discharges, hematuria, CP, SOB. she has known afib. she reports she is retired and does not do much around the home currently. she is having no major issues this am outside of the foot drop. no inflammatory arthritis or rashes. her ESR and CRP are now elevated as per labs from [facility] last night. she also has anemia. Allergies Allergy/AdvReac Type Severity Reaction Status Date / Time Penicillins Allergy Unknown SWELLING Verified 09/19/24 14:57 pineapple AdvReac Unknown STOMACH Verified 09/19/24 14:57 CRAMPS Home Medications Medication Instructions Recorded Confirmed Type digoxin 125 mcg (0.125 mg) tablet 125 mcg PO QAM 03/07/18 10/12/24 History metoprolol tartrate 50 mg tablet 50 mg PO HS 03/07/18 10/12/24 History omeprazole 20 mg capsule,delayed 20 mg PO QAM PRN Heartburn 03/07/18 10/12/24 History release rivaroxaban 15 mg tablet 15 mg PO QAM 03/07/18 10/12/24 History ezetimibe 10 mg tablet 10 mg PO QAM 05/10/24 10/12/24 History metoprolol tartrate 50 mg tablet 75.5 mg PO QAM 10/12/24 10/12/24 History Patient History Medical History Dyslipidemia Surgical History S/P wrist surgery S/P dilation and curettage multiople Family History Other No pertinent family history Social History Smoking Status: Never smoker Hx Alcohol Use: Yes Hx Substance Use: No Preferred Language: Salvadorean Communication Ability: Effective Visual Impairment: No Limitations Hearing Ability: Normal 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 Beliefs That Will Affect Care: None Current Living Situation: Alone Feels Safe at Home: Yes Assistive Devices: Cane Review of Systems Constitutional: fatigue, weight loss Eyes: none Ear, Nose, Mouth, Throat: history of headaches - resolved Respiratory: normal Cardiovascular: Additional Comments: afib Gastrointestinal: lack of appetite Musculoskeletal: normal Integumentary: normal Neurologic: foot drop Physical Exam Physical Exam: NAD, examined lying in bed Eyes: PEERLA, EOMI, no conjunctival erythema ENMT: moist mucosa, no ulcers Respiratory: CTA b/l no wheezes Cardiovascular: irregular irregular, no murmurs Gastrointestinal (Abdomen): soft, NT ND + BS Musculoskeletal: no inflammatory arthritis noted to hands or feet. no knee effusions Neurologic: cannot dorsiflex right foot or toes, left side normal Results & Data Vital Signs (Past 12 Hours) Vital Signs Temp Pulse Pulse Resp BP Pulse Ox O2 Del Method 10/13/24 07:56 36.4 C L 72 18 110/79 95 Room Air 10/13/24 07:18 61 10/13/24 03:34 36.4 C L 82 16 131/83 91 Room Air 10/12/24 22:13 Room Air 10/12/24 22:13 36.7 C 64 16 150/73 H 96 Room Air 10/12/24 21:48 66 Laboratory Results reviewed Diagnostic Findings reviewed
[2024-10-13] MEDS: PNEUMOCOCCAL VACCINE (PCV20) 20-VAL CONJ-DIP CRM/PF 0.5 ML SYR IM ONE (09:34)
--- NOTE | 2024-10-13 12:28 | Hospitalist Progress Note ---
Date of Service October 13, 2024 Assessment & Plan (1) Foot drop, right: Plan: Vasculitis DD: ANCA vasculitis Vs GCA Mononeuritis multiplex associated with vasculitis likely contributing to right foot drop Unintentional weight loss --CT ABD:Circumferential soft tissue wall thickening is seen about the visualized portions of the descending thoracic aorta, celiac artery and proximal branches, SMA, and proximal femoral arteries, as above, compatible with vasculitis. --Head/Neck CTA:Head CTA demonstrates no aneurysm or stenosis of the major intracranial arteries. Neck CTA demonstrates no large vessel occlusion. Diffuse, circumferential soft tissue thickening is seen to surround the vessels of the aortic arch, the great vessels, and the vessels of the neck. Portions of the arteries of the neck, including both subclavian arteries, and internal carotid arteries, also demonstrate a beaded appearance. These findings are consistent with vasculitis. -- ESR 68, CRP 4.4 --Lyme screen, Anaplasma, babesiosis negative --ANCA, antimyeloperoxidase, antiproteinase 3, hepatitis panel, Q fever, rickettsial studies, QuantiFERON gold for TB, pending --Continue IV Solu-Medrol 100 mg twice a day for 3 days and then transition to 60 mg of prednisone daily --Bactrim DS for PJP prophylaxis was considered but given patient on digoxin, it was deferred at this current time. Discussed with rheumatology Dr. Camacho on 10/13/2024 -- Consideration for biological therapy as outpatient per rheumatology Needs follow-up with rheumatology on discharge PT eval requested Patient may need further workup as outpatient for weight loss. 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 Small left renal cyst. Creatinine levels improved with IV fluids Avoid nephrotoxic agents as able Follow-up with nephrology as outpatient Anemia of chronic disease H/O labial hematoma July 2024 B12, folate, iron levels within normal limits Monitor CBC Atrial fibrillation Continue digoxin, metoprolol On Xarelto for anticoagulation Valvular heart disease mild MR/AR/TR, TTE 2024 Continue home medications Hyperlipidemia History of statin intolerance Continue Zetia DVT Px: Xarelto Code Status Full code Disposition PT OT prior to discharge Admission and Anticipated Discharge Date Admission Date: October 12, 2024 Subjective Patient is seen and examined at bedside Reports chronic lower back pain and nausea Also reports ongoing right foot drop Denies any chest pain, dyspnea, vomiting, abdominal pain, dysuria, hematuria Discussed with rheumatology today Updated patient's daughter over the phone Review of Systems Review of Systems: All systems reviewed & are unremarkable except as noted in Subjective Physical Exam Physical Exam: Physical Exam: Vitals signs as noted above General Appearance:Moderately built and nourished, no apparent distress Head: normocephalic, Atraumatic Eyes: normal inspection, EOMI Neck: supple, Trachea midline Respiratory/Chest: Normal breath sounds, CTA, No accessory muscle use Cardiovascular: Irregularly irregular, No murmur Abdomen/GI:Soft, Non tender, Bowel sounds present Extremities/Musculoskeletal:normal inspection, no edema,+ R foot drop Neurologic/Psych:AAOX3, grossly no focal neurological deficits Skin: normal color, warm Results & Data Results & Data Vital Signs (Past 12 Hours) Vital Signs Temp Pulse Pulse Resp BP BP Pulse Ox 10/13/24 11:41 36.4 C L 68 17 96/66 L 93 10/13/24 07:56 36.4 C L 72 18 110/79 95 10/13/24 07:18 61 10/13/24 03:34 36.4 C L 82 16 131/83 91 O2 Del Method 10/13/24 11:41 Room Air 10/13/24 07:56 Room Air 10/13/24 07:18 10/13/24 03:34 Room Air Laboratory Results Short CBC 10/12/24 10/12/24 10/13/24 Range/Units 16:04 23:06 06:37 WBC 8.85 6.39 (4.8-10.8) K/ul Hgb 10.7 L 11.2 L 10.7 L (12.0-16.0) g/dl Hct 33.9 L 35.4 L 34.1 L (37.0-47.0) % Plt Count 253 227 (130-400) K/uL BMP 10/12/24 10/13/24 16:04 06:37 Sodium 143 142 Potassium 3.7 4.2 Chloride 106 106 Carbon Dioxide 27 27 BUN 13 11 Creatinine 1.27 H 0.90 D Glucose 109 H 150 H Calcium 9.4 9.3 Cardiac Enzymes 10/12/24 Range/Units 23:06 Total Creatine Kinase 17 L (26-192) U/L Liver Function 10/12/24 Range/Units 16:04 Total Bilirubin 1.8 H (0.2-1.0) mg/dl AST 11 L (13-39) U/L ALT 6 L (7-52) U/L Alkaline Phosphatase 78 (34-104) U/L Albumin 3.4 (3.4-5.0) gm/dl Urine 10/12/24 Range/Units 17:48 Urine Color Dark Yellow Urine Appearance Turbid A (Clear) Urine pH 5.5 (4.5-7.5) Ur Specific [place] > 1.045 H (1.000-1.030) Urine Protein 1+ H (Negative) Urine Glucose (UA) Negative (Negative)
--- NOTE | 2024-10-13 13:59 | Electrocardiogram Report ---
Test Reason : Blood Pressure : */* mmHG Vent. Rate : 53 BPM Atrial Rate : * BPM P-R Int : * ms QRS Dur : 82 ms QT Int : 330 ms P-R-T Axes : * 39 264 degrees QTcB Int : 309 ms Atrial fibrillation with slow ventricular response Abnormal ECG When compared with ECG of 29-Jul-2024 12:43, Vent. rate has decreased by 43 bpm QT has shortened Confirmed by Ariel Chang ([id number]) on 10/13/2024 1:58:37 PM Referred By: REFERRED SELF Confirmed By: Ariel Chang
[2024-10-13] MEDS: DIGOXIN 0.125 MG TAB PO SCH (16:02)
[2024-10-14 08:02] LABS: Hematocrit (blood only) 33.1 % (37.0-47.0); Hemoglobin 10.5 g/dl (12.0-16.0); Mean Corpuscular Hemoglobin 28.6 pg (25.0-34.0); Mean Corpuscular Hgb Conc 31.7 g/dL (32.0-36.0); Mean Corpuscular Volume 90.2 fL (80.0-100.0); Mean Platelet Volume 12.1 fL (9.4-12.4); Platelet Count 241 K/uL (130-400); RDW Coefficient of Variation 16.9 % (11.5-14.5); RDW Standard Deviation 55.6 fL (36.4-46.3); Red Blood Count 3.67 M/uL (4.20-5.40); White Blood Count 14.81 K/ul (4.8-10.8)
[2024-10-14 08:35] LABS: Albumin Globulin Ratio 1.3 (0.9-2); Albumin Level 3.6 gm/dl (3.4-5.0); Calcium 9.5 mg/dl (8.6-10.3); Creatinine Clr Calc Pharmacy 46.6 ml/min; Globulin 2.8 gm/dl (2.5-4.0); Potassium 4.2 mmol/L (3.5-5.1); Total Protein 6.4 gm/dl (6.0-8.3)
[2024-10-14] MEDS: ADVANCED PROBIOTIC 625 MG CAPSULE PO SCH (12:45)
[2024-10-14] MEDS: cefTRIAXone SODIUM 1,000 MG/50 ML BAG IV SCH (12:45)
--- NOTE | 2024-10-14 13:54 | Hospitalist Progress Note ---
Date of Service October 14, 2024 Assessment & Plan (1) Foot drop, right: Plan: Vasculitis DD: ANCA vasculitis Vs GCA 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 --Head/Neck CTA:Head CTA demonstrates no aneurysm or stenosis of the major intracranial arteries. Neck CTA demonstrates no large vessel occlusion. Diffuse, circumferential soft tissue thickening is seen to surround the vessels of the aortic arch, the great vessels, and the vessels of the neck. Portions of the arteries of the neck, including both subclavian arteries, and internal carotid arteries, also demonstrate a beaded appearance. These findings are consistent with vasculitis. -- ESR 68, CRP 4.4 --Lyme screen, Anaplasma, babesiosis negative --ANCA, antimyeloperoxidase, antiproteinase 3, hepatitis panel, Q fever, rickettsial studies, QuantiFERON gold for TB, pending --Continue IV Solu-Medrol 100 mg twice a day for 3 days and then transition to 60 mg of prednisone daily --Bactrim DS for PJP prophylaxis was considered but given patient on digoxin, it was deferred at this current time. Discussed with rheumatology Dr. Camacho on 10/13/2024 -- Consideration for biological therapy as outpatient per rheumatology Needs follow-up with rheumatology on discharge Appetite improved after starting IV steroids May need further workup as outpatient for weight loss PT eval requested Continue current management Urinary tract infection--POA Urine culture growing E. coli, lactobacillus Empirically started on Rocephin Follow-up sensitivities and adjust antibiotics as needed Right foot drop Reports having for many months ? 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 Small left renal cyst. 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/TR, TTE 2024 Continue home medications Hyperlipidemia History of statin intolerance Continue Zetia DVT Px: Xarelto Code Status Full code Disposition PT OT prior to discharge Admission and Anticipated Discharge Date Admission Date: October 12, 2024 Subjective Patient is seen and examined at bedside States feeling better today Persistent right foot drop Discussed with rheumatology and patient's family over the phone Patient refuses MRI but okay with CT spine Appetite improved per patient Denies any chest pain, dyspnea, vomiting, abdominal pain, dysuria, hematuria Review of Systems Review of Systems: All systems reviewed & are unremarkable except as noted in Subjective Physical Exam Physical Exam: Physical Exam: Vitals signs as noted above General Appearance:Moderately built and nourished, no apparent distress Head: normocephalic, Atraumatic Eyes: normal inspection, EOMI Neck: supple, Trachea midline Respiratory/Chest: Normal breath sounds, CTA, No accessory muscle use Cardiovascular: Irregularly irregular, No murmur Abdomen/GI:Soft, Non tender, Bowel sounds present Extremities/Musculoskeletal:normal inspection, no edema,+ R foot drop Neurologic/Psych:AAOX3, grossly no focal neurological deficits Skin: normal color, warm Results & Data Results & Data Vital Signs (Past 12 Hours) Vital Signs Temp Pulse Pulse Resp BP Pulse Ox O2 Del Method 10/14/24 07:30 73 10/14/24 07:20 Room Air 10/14/24 07:12 36.4 C L 58 L 18 122/66 90 Room Air 10/14/24 07:00 69 10/14/24 03:46 36.6 C 65 18 106/64 94 Room Air Laboratory Results Short CBC 10/14/24 Range/Units 07:33 WBC 14.81 H (4.8-10.8) K/ul Hgb 10.5 L (12.0-16.0) g/dl Hct 33.1 L (37.0-47.0) % Plt Count 241 (130-400) K/uL BMP 10/14/24 07:33 Sodium 143 Potassium 4.2 Chloride 109 H Carbon Dioxide 29 BUN 15 Creatinine 1.00 Glucose 151 H Calcium 9.5 Liver Function 10/14/24 Range/Units 07:33 Total Bilirubin 1.0 D (0.2-1.0) mg/dl AST 10 L (13-39) U/L ALT 5 L (7-52) U/L Alkaline Phosphatase 71 (34-104) U/L Albumin 3.6 (3.4-5.0) gm/dl
--- NOTE | 2024-10-14 15:49 | Electrocardiogram Report ---
Test Reason : Blood Pressure : */* mmHG Vent. Rate : 50 BPM Atrial Rate : 34 BPM P-R Int : * ms QRS Dur : 102 ms QT Int : 364 ms P-R-T Axes : * 48 -79 degrees QTcB Int : 331 ms Atrial fibrillation with slow ventricular response Nonspecific ST and T wave abnormality Abnormal ECG When compared with ECG of 12-Oct-2024 16:19, No significant change was found Confirmed by Ariel Chang ([id number]) on 10/14/2024 3:49:39 PM Referred By: REFERRED SELF Confirmed By: Ariel Chang
--- NOTE | 2024-10-15 10:50 | CT Scan Report ---
CT lumbar spine wo con CLINICAL HISTORY: foot drop COMPARISON STUDY: 10/12/2024 FINDINGS: There is osteopenia. No fracture or subluxation at the lumbar spine. There are mild diffuse degenerative changes. There is lower lumbar facet degeneration. There are mild disc bulges at all chi mbar levels without significant neuroforaminal narrowing seen. There is mild central canal narrowing at L3-4 and L4-5. IMPRESSION: Lumbar degenerative changes as described. ACT 112: Negative or not required by law. Electronically signed by: Raffy Nunez M.D. 10/15/2024 10:48 AM
--- NOTE | 2024-10-15 13:36 | Consultation ---
Date of Consultation October 15, 2024 Assessment & Plan (1) Foot drop, right: Case as well as imaging has been reviewed with Dr. Wang. There is no significant central or foraminal stenosis in her lumbar spine that would account for her right foot drop. No surgical intervention warranted. This does not s eem to be the source of her right foot drop. I would recommend physical therapy for right lower extremity strengthening exercises. I have also ordered a right AFO brace. Will sign off History of Present Illness Reason for Consultation: Right foot drop Attending Physician: Enoc Logan MD History of Present Illness Is a pleasant 79-year-old female that we are asked to see in consultation regarding a foot drop. She states it started acutely about a week and a half ago. This is a painless foot drop. She feels it is improving a little bit. She notes it was slapping when she was ambulates. since this started, she has not been requiring the use of a cane for ambulation. Rheumatology has been involved in her case for suspicion of vasculitis as the source of her right foot drop. CRP and sed rate are elevated upon admission. She does note she has chronic back pain which she follows with Dr. Tyrone Staley at [facility] for injections but states she is transferring her care to [facility] due to ride availability. Allergies Allergy/AdvReac Type Severity Reaction Status Date / Time Penicillins Allergy Unknown SWELLING Verified 09/19/24 14:57 pineapple AdvReac Unknown STOMACH Verified 09/19/24 14:57 CRAMPS Home Medications Medication Instructions Recorded Confirmed Type digoxin 125 mcg (0.125 mg) tablet 125 mcg PO QAM 03/07/18 10/12/24 History metoprolol tartrate 50 mg tablet 50 mg PO HS 03/07/18 10/12/24 History omeprazole 20 mg capsule,delayed 20 mg PO QAM PRN Heartburn 03/07/18 10/12/24 History release rivaroxaban 15 mg tablet 15 mg PO QAM 03/07/18 10/12/24 History ezetimibe 10 mg tablet 10 mg PO QAM 05/10/24 10/12/24 History metoprolol tartrate 50 mg tablet 75.5 mg PO QAM 10/12/24 10/12/24 History Patient History Medical History Dyslipidemia Surgical History S/P wrist surgery S/P dilation and curettage multiople Family History Other No pertinent family history Social History Smoking Status: Never smoker Hx Alcohol Use: Yes Hx Substance Use: No Preferred Language: Greek Communication Ability: Effective Visual Impairment: No Limitations Hearing Ability: Normal Donor Specialist Required: No Beliefs That Will Affect Care: None Current Living Situation: Alone Feels Safe at Home: Yes Assistive Devices: Cane Review of Systems Review of Systems: All systems reviewed & are unremarkable except as noted in HPI & below Physical Exam Physical Exam: She is alert and oriented x 3 She is cooperative exam in no acute distress She moves around in bed with the ease She has a 2/5 right EHL and dorsiflexion, 4/5 right plantarflexion with breakaway weakness over the right hamstring. Strength is 5/5 left lower extrem ity Results & Data Vital Signs (Past 12 Hours) Vital Signs Temp Pulse Pulse Resp BP BP Pulse Ox 10/15/24 11:04 36.5 C 55 L 18 128/74 95 10/15/24 07:37 35.8 C L 60 18 135/80 97 10/15/24 07:15 10/15/24 06:59 53 L 10/15/24 02:51 36.4 C L 79 18 124/66 94 O2 Del Method 10/15/24 11:04 Room Air 10/15/24 07:37 Room Air 10/15/24 07:15 Room Air 10/15/24 06:59 10/15/24 02:51 Room Air [phone] Scan Report Patient: SEGUNDO WALTER Admit Date: 10/12/24 MR#: [id number] Address1: [address] [place] [address] Acct ID:[id number] Address2: Date: 1945 [facility] Zip: [place] [address] Age: 79 Location: 2N Sex: F Room/Bed: N287-1 Att Phy: Enoc Logan MD Diagnosis: TROP ELEV,VASCULITIS Nataliia Phy: Sulma Zazueta DO Service Date: 10/14/24 Fam Phy: Interpreting Phy: Raffy Nunez MDAdmit Phy: Rusty Treviño MD Ordering Phy: Enoc Logan MD cc: ~ CT lumbar spine wo con CLINICAL HISTORY: foot drop COMPARISON STUDY: 10/12/2024 FINDINGS: There is osteopenia. No fracture or subluxation at the lumbar spine. There are mild diffuse degenerative changes. There is lower lumbar facet degeneration. There are mild disc bulges at all lumbar levels without significant neuroforaminal narrowing seen. There is mild central canal narrowing at L3-4 and L4-5. IMPRESSION: Lumbar degenerative changes as described. ACT 112: Negative or not required by law. Electronically signed by: Raffy Nunez M.D. 10/15/2024 10:48 AM Dictated: 10/15/24 1043 Transcribed: 10/15/24 1043
--- NOTE | 2024-10-15 14:31 | Hospitalist Progress Note ---
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 --Head/Neck CTA:Head CTA demonstrates no aneurysm or stenosis of the major intracranial arteries. Neck CTA demonstrates no large vessel occlusion. Diffuse, circumferential soft tissue thickening is seen to surround the vessels of the aortic arch, the great vessels, and the vessels of the neck. Portions of the arteries of the neck, including both subclavian arteries, and internal carotid arteries, also demonstrate a beaded appearance. These findings are consistent with vasculitis. -- ESR 68, CRP 4.4 --Lyme screen, Anaplasma, babesiosis negative --ANCA, antimyeloperoxidase, antiproteinase 3, hepatitis panel, Q fever, rickettsial studies, QuantiFERON gold for TB, pending --Continue IV Solu-Medrol 100 mg twice a day for 3 days and then transition to 60 mg of prednisone daily --Bactrim DS for PJP prophylaxis was considered but given patient on digoxin, it was deferred at this current time. Discussed with rheumatology Dr. Camacho on 10/13/2024 -- Consideration for biological therapy as outpatient per rheumatology Needs follow-up with rheumatology on discharge--rheumatology plans to arrange follow-up as outpatient. Appetite improved after starting IV steroids May need further workup as outpatient for weight loss PT eval requested Leukocytosis secondary to steroids Likely discharge home tomorrow on oral prednisone Urinary tract infection--POA Urine culture growing E. coli, lactobacillus Empirically started on Rocephin Follow-up sensitivities and adjust antibiotics as needed Right foot drop--unclear etiology ? related to vasculitis H/O chronic back pain requiring injections --Lumbar CT:No fracture or subluxation at the lumbar spine. There are mild diffuse degenerative changes. There is lower lumbar facet degeneration. There are mild disc bulges at all lumbar levels without significant neuroforaminal narrowing seen. There is mild central canal narrowing at L3-4 and L4-5. --Patient refuses MRI spine due to claustrophobia Appreciate orthopedic spine input: No surgical intervention needed currently. Does not believe spine as source of right foot drop. Continue PT OT. 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 Small left renal cyst. 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/TR, TTE 2024 Continue home medications Hyperlipidemia History of statin intolerance Continue Zetia DVT Px: Xarelto Code Status Full code Disposition Likely home tomorrow Admission and Anticipated Discharge Date Admission Date: October 12, 2024 Subjective Patient is seen and examined at bedside Subjectively feels her right foot drop slowly improving Offers no new complaints today Appetite continues to improve Denies any chest pain, dyspnea, vomiting, abdominal pain, dysuria, hematuria Review of Systems Review of Systems: All systems reviewed & are unremarkable except as noted in Subjective Physical Exam Physical Exam: Physical Exam: Vitals signs as noted above General Appearance:Moderately built and nourished, no apparent distress Head: normocephalic, Atraumatic Eyes: normal inspection, EOMI Neck: supple, Trachea midline Respiratory/Chest: Normal breath sounds, CTA, No accessory muscle use Cardiovascular: Irregularly irregular, No murmur Abdomen/GI:Soft, Non tender, Bowel sounds present Extremities/Musculoskeletal:normal inspection, no edema,+ R foot drop Neurologic/Psych:AAOX3, grossly no focal neurological deficits Skin: normal color, warm Results & Data Results & Data Vital Signs (Past 12 Hours) Vital Signs Temp Pulse Pulse Resp BP BP Pulse Ox 10/15/24 11:04 36.5 C 55 L 18 128/74 95 10/15/24 07:37 35.8 C L 60 18 135/80 97 10/15/24 07:15 10/15/24 06:59 53 L 10/15/24 02:51 36.4 C L 79 18 124/66 94 O2 Del Method 10/15/24 11:04 Room Air 10/15/24 07:37 Room Air 10/15/24 07:15 Room Air 10/15/24 06:59 10/15/24 02:51 Room Air
[2024-10-16 02:39] VITALS: TEMP 97.5
[2024-10-16 06:18] LABS: Hematocrit (blood only) 32.1 % (37.0-47.0); Hemoglobin 10.2 g/dl (12.0-16.0); Mean Corpuscular Hemoglobin 28.9 pg (25.0-34.0); Mean Corpuscular Hgb Conc 31.8 g/dL (32.0-36.0); Mean Corpuscular Volume 90.9 fL (80.0-100.0); Platelet Count 198 K/uL (130-400); RDW Coefficient of Variation 16.8 % (11.5-14.5); RDW Standard Deviation 56.2 fL (36.4-46.3); Red Blood Count 3.53 M/uL (4.20-5.40); White Blood Count 10.15 K/ul (4.8-10.8)
[2024-10-16 06:31] LABS: BUN Creatinine Ratio 23.9 (10-20); Calcium 8.7 mg/dl (8.6-10.3); Creatinine Clr Calc Pharmacy 29.3 ml/min; Potassium 3.7 mmol/L (3.5-5.1)
[2024-10-16] MEDS: predniSONE 20 MG TAB PO SCH (07:58)
[2024-10-16 08:36] LABS: Quantiferon NIL 0.01 IU/mL; Quantiferon TB Gold Plus NEGATIVE (NEGATIVE)
--- NOTE | 2024-10-16 10:01 | Discharge Summary ---
Date of Service October 16, 2024 Admission HPI Per Admitting Provider History obtained from patient, family, and records. Medical history significant for A-fib on Xarelto, valvular heart disease (mild MR/AR/TR, TTE 2024), hypertension, hyperlipidemia/statin intolerance, CRI (baseline creatinine 1.1), mood disorder, skin cancer as per records. Patient with headache, jaw and neck pain complaints about 8 months ago. Poor appetite with taste disturbance. Denies chest pain, SOB, abdominal pain. Denies depression.? Change. Transections so much more tomorrow. Octavio decision 1, # change: No change times Symptoms attributed to possible dental implant issues. CT head imaging from February 2024 unremarkable. Outpatient ESR, QUANG screen, Lyme screen negative. Improved headache following steroid course prescribed by PCP. Appetite issues not improved. Progressive weight loss of more than 20 pounds in the last 6 months. Last week, patient noted right foot drop without headache or back pain complaints. Left leg swelling more swollen than usual denies chest pain, SOB. Denies headache. Denies unusual bleeding. No recent trauma. No rashes noted. Patient brought to ER for evaluation. 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 Admission Exam Per Admitting Provider GENERAL: Comfortable, pleasant, no respiratory distress SKIN: Pallor, warm HEENT: bespectacled, pale palpebral conjunctivae, no ptosis, dry buccal mucosa NECK : Supple, no tenderness CHEST : CTA, no tenderness HEART : Irregular, no obvious murmurs ABDOMEN: Some distention, nontender RECTAL : Intact sphincter, brown stool (FOBT negative) EXTREMITIES : LLE swelling without tenderness, right foot drop, palpable pulses, no other conspicuous deformities noted NEUROLOGIC : Coherent, no facial asymmetry, MMTS BUE/BLE 4/5, inability to flex right ankle, gait and stance not assessed Principal Diagnosis Vasculitis, foot drop poss. UTI Discharge Exam General Appearance:Moderately built and nourished, no apparent distress Head: normocephalic, Atraumatic Eyes: normal inspection, EOMI Neck: supple Respiratory/Chest: Normal breath sounds, CTA, No accessory muscle use Cardiovascular: Irregularly irregular, No murmur Abdomen/GI:Soft, Non tender, Bowel sounds present Extremities/Musculoskeletal:normal inspection, no edema,+ R foot drop (improved) Neurologic/Psych:AAOX3, speech fluent, answers appropriately, no facial asymmetry, moves extremities, foot drop as above Skin: normal color, warm Discharge Data Allergies Allergy/AdvReac Type Severity Reaction Status Date / Time Penicillins Allergy Unknown SWELLING Verified 09/19/24 14:57 pineapple AdvReac Unknown STOMACH Verified 09/19/24 14:57 CRAMPS Consultations 10/12/24 19:51 ED Decision to Admit Stat 10/12/24 21:59 Consult Rheumatology Routine 10/14/24 10:02 Consult Orthopedic Spine Surgery Routine Ordered Studies 10/12/24 15:57 CT abd pelvis IV con only Stat CT angio head w con Stat CT angio neck with con Stat CT head/brain wo con Stat 10/12/24 22:01 US venous doppler LE LT Routine 10/14/24 10:02 CT lumbar spine wo con Urgent Hospital Course (1) Foot drop, right: Vasculitis DD: ANCA vasculitis Vs GCA 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 --Head/Neck CTA:Head CTA demonstrates no aneurysm or stenosis of the major intracranial arteries. Neck CTA demonstrates no large vessel occlusion. Diffuse, circumferential soft tissue thickening is seen to surround the vessels of the aortic arch, the great vessels, and the vessels of the neck. Portions of the arteries of the neck, including both subclavian arteries, and internal carotid arteries, also demonstrate a beaded appearance. These findings are consistent with vasculitis. -- ESR 68, CRP 4.4 --Lyme screen, Anaplasma, babesiosis negative --ANCA, antimyeloperoxidase, antiproteinase 3, hepatitis panel, Q fever, rickettsial studies, QuantiFERON gold for TB, pending --Continue IV Solu-Medrol 100 mg twice a day for 3 days and then transition to 60 mg of prednisone daily --Bactrim DS for PJP prophylaxis was considered but given patient on digoxin, it was deferred at this current time. Discussed with rheumatology Dr. Camacho on 10/13/2024 -- Consideration for biological therapy as outpatient per rheumatology Needs follow-up with rheumatology on discharge--rheumatology plans to arrange follow-up as outpatient for tomorrow -10/17/2024 Appetite improved after starting IV steroids May need further workup as outpatient for weight loss PT eval requested Leukocytosis secondary to steroids Likely discharge home tomorrow on oral prednisone poss. Urinary tract infection--POA Urine culture growing E. coli, lactobacillus on Rocephin while inpt, will DC on cefuroxime to finish abx course Right foot drop--unclear etiology ? related to vasculitis H/O chronic back pain requiring injections --Lumbar CT:No fracture or subluxation at the lumbar spine. There are mild diffuse degenerative changes. There is lower lumbar facet degeneration. There are mild disc bulges at all lumbar levels without significant neuroforaminal narrowing seen. There is mild central canal narrowing at L3-4 and L4-5. --Patient refuses MRI spine due to claustrophobia Appreciate orthopedic spine input: No surgical intervention needed currently. D oes not believe spine as source of right foot drop. Continue PT OT. 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 Small left renal cyst. Creatinine levels improved initially with IV fluids, then again increased --> repeat BMP as outpt w/ PCP at next appointment Avoid nephrotoxic agents as able Follow-up with nephrology as outpatient Anemia of chronic disease H/O labial hematoma July 2024 B12, folate, iron levels within normal limits Monitor CBC Atrial fibrillation with slow ventricular response Continue digoxin, metoprolol On Xarelto for anticoagulation If bradycardia persists, may need to adjust metoprolol dose Valvular heart disease mild MR/AR/TR, TTE 2024 Continue home medications Hyperlipidemia History of statin intolerance Continue Zetia DVT Px: Xarelto Total Time Total Time Spent Total Time Spent (In Minutes): 40 Discharge Plan Discharge Items Patient Disposition: Home - Self-Care Reason For Visit: TROP ELEV,VASCULITIS Discharge Diagnosis: Vasculitis, foot drop poss. UTI Condition on Discharge: Fair Activity: Per Instructions section Non-emergency contact: Primary Care Provider and Specialist Call non-emergency contact if: you have any medication questions and your symptoms worsen Follow-up/Referrals: Sulma Zazueta, [Primary Care Provider] - (Date & Time 10/23/2024 2:20 PM Provider: Shant Lee DO [facility] ) Diet: Heart Healthy Addtl Attending Provider Instructions: Follow up with primary care doctor and rheumatology as scheduled. Take prednisone 60 mg daily as instructed by accounting policy consultant. Make sure to stay well hydrated and have a healthy diet. Finish antibiotic for possible UTI. Pending Studies at Discharge: Yes Studies:: -ANCA, antimyeloperoxidase, antiproteinase 3, hepatitis panel, Q fever, rickettsial studies, QuantiFERON gold for TB Stand-Alone Forms: My [facility] [place], Smoking Cessation Medications and DC Order Prescriptions: New pantoprazole 40 mg Tablet,Delayed Release (Dr/Ec) 40 mg PO QAM Qty: 30 0RF prednisone 20 mg Tablet 60 mg PO DAILY Qty: 21 0RF cefuroxime axetil 250 mg tablet 250 mg PO BID 2 Days Qty: 4 0RF Continued ezetimibe 10 mg tablet 10 mg PO QAM metoprolol tartrate 50 mg tablet 50 mg PO HS digoxin 125 mcg tablet 125 mcg PO QAM rivaroxaban 15 mg tablet 15 mg PO QAM metoprolol tartrate 50 mg Tablet 75.5 mg PO QAM Discontinued omeprazole 20 mg capsule,delayed release(DR/EC) 20 mg PO QAM PRN (Reason: Heartburn) Discharge Orders: Discharge Order (Routine); Ordered 10/16/24 Ordered By: Newton Koehler Admission Data Admit Date/Time: 10/12/24 20:35 Attending Provider: Newton Koehler Admit Provider: Rusty Treviño Primary Care Provider: Sulma Zazueta Other Providers: Rusty Treviño; Andres Camacho; Evan Wang; IRB Approved Study,[place]; Enoc Logan
[2024-10-16] MEDS: SODIUM CHLORIDE 0.9% 500 ML IV ONE (10:04)
[2024-10-16 13:38] VITALS: BP 147/90; RESP 16; O2SAT 97
[2024-10-16 13:51] VITALS: PULSE 60
[2024-10-16 23:43] LABS: Babesia microti DNA Not Detected (Not Detected)
[2024-10-17] MEDS ORDERED: predniSONE 20 MG TAB PO SCH (09:00)
== END 2024-10-16 13:45 | disposition home or self-care (01) | DRG 545 ==
LOC: ED 15:24 → SUATTDRO 20:35 → 2N 20:35

== ENCOUNTER 2024-11-30 04:10 | Inpatient (IN) ==
--- NOTE | 2024-11-30 05:05 | Emergency Department Note ---
Impression & Plan Atrial fibrillation with rapid ventricular response, Elevated troponin Admit to the [facility] ED Provider Note NAME: SEGUNDO WALETR AGE: 79 SEX: Female INFORMANT: Patient ED PROVIDER(S): Jamilah Mendez DO CHIEF COMPLAINT: Right ankle pain and swelling PLAN: Disposition: admit MEDICAL DECISION MAKING: this is an 79-year-old female patient who presents to the emergency department with pain and swelling in her right ankle. Patient has a history of rheumatoid arthritis and developed right foot drop back in October of this year. She was placed into a brace but over the past 7 to 10 days has developed increasing bilateral lower extremity edema to the point that the brace has caused breakdown of skin over the lateral aspect of the right foot/ankle. She cannot tolerate the discomfort in the right foot and ankle. They have tried increasing her steroid and giving her a diuretic but nothing is helping. Of note, on presentation tonight, the patient is in atrial fibrillation with rapid ventricular response. Laboratory studies reveal no leukocytosis or anemia. BUN is up to 27 and creatinine is 0.9. Glucose is 100. BNP is elevated to 248 and troponin is up to 28.5. Heart rate is ranging between 109 and 160. patient's blood pressure is stable. It seems that the patient may have developed peripheral edema as a result of fluid overload from A-fib with RVR. Patient's blood pressure was not high enough to administer heart rate lowering medications. Heart rate seem to be coming down on its own. She now has an elevated troponin. The case was discussed with the [facility] and they will evaluate for further inpatient care. Care/management discussed with: plastic surgery manager and [facility] Triage Nursing notes: reviewed and agree with them. Vital Signs: reviewed and remarkable for tachycardia Chronic Medical/Social Conditions affecting care: Rheumatoid arthritis and A-fib Differential Diagnosis: Cardiac dysrhythmia, STEMI, NSTEMI, cellulitis, osteomyelitis, Diagnostics, independently interpreted by me: ECG: Atrial fibrillation with a rapid ventricular response at a rate of [address] segment elevation or signs of ischemia. There is no ectopy. Cardiac Monitoring: Atrial fibrillation with rapid ventricular response at a rate of 158 Imaging studies: portable chest x-ray: No evidence of CHF or pneumonia as per my independent interpretation HPI: 79 year old Female arrives for evaluation of right ankle swelling and pain. She has a history of rheumatoid arthritis and has developed increasing edema in both lower extremities. They have tried increased steroids and diuretics but the swelling has dramatically worsened and now she has developed erythema to the right foot and an open wound on the lateral aspect of the right ankle where her brace rubs against the ankle. PAST MEDICAL HISTORY: See Below, see list PAST SURGICAL HISTORY: See Below, SOCIAL HISTORY: See Below, HOME MEDICATIONS: See list ALLERGIES: See list VITALS: See Below PHYSICAL EXAMINATION: HEENT: Head - normocephalic and atraumatic. Pupils are equal, round, and reactive to light. Extraocular eye muscles are intact, and sclera are anicteric. Nose - moist nasal mucosa without discharge. Mouth - moist buccal mucosa. Oropharynx is nonerythematous and there is no tonsillar exudate or edema noted. Neck: Supple; no JVD, nuchal rigidity, cervical lymphadenopathy, or auscultated bruits. Heart: Irregularly irregular rhythm with a tachycardic rate. There is a normal S1 and S2 with no murmurs, clicks, or gallops appreciated. Lungs: Clear to auscultation bilaterally with no wheezes, rales, or rhonchi. Abdomen: Soft, completely nontender, nondistended, with good bowel sounds. There are no palpable pulsatile masses or hepatosplenomegaly. There is no guarding, rigidity, or rebound noted. Extremities: 3+ pitting edema both lower extremities. There is erythema noted to the right foot with skin breakdown noted over the lateral malleolus of the right ankle. Skin: warm and dry with good turgor and no rashes. Emergency Department course: The patient was evaluated in room C-9. A complete history and physical was performed. An order was placed for continuous cardiac monitoring. The patient was in A-fib with RVR at a rate of 158. Laboratory studies were drawn as above. Portable chest x-ray was performed. Previous electronic medical records were reviewed. Case was discussed with the [facility] Hospitalist. Past Med/Surg History Problem List (Updated 11/30/24 @ 16:10 by Reynold Morgan MD) Acute heart failure with normal ejection fraction Elevated troponin (Acute) Atrial fibrillation with rapid ventricular response (Acute) Rapid atrial fibrillation Sacroiliitis Mononeuritis multiplex associated with vasculitis Generalized weakness (Acute) Unintended weight loss (Acute) Foot drop, right (Acute) Vasculitis (Acute) Head injury (Acute) Scalp contusion (Acute) Fall (Acute) Hypertension (Chronic) Atrial fibrillation (Chronic) Diarrhea (Acute) Medical History Dyslipidemia Surgical History S/P wrist surgery S/P dilation and curettage multiople Family History Other No pertinent family history Social History Smoking Status: Never smoker Hx Alcohol Use: Yes Alcohol type: wine Hx Substance Use: No Preferred Language: [place] Communication Ability: Effective Visual Impairment: No Limitations Hearing Ability: Normal [employer] Required: No Beliefs That Will Affect Care: None Current Living Situation: Alone Other Information That Helps Us Care for You: No Feels Safe at Home: Yes Safety Concerns: Feels Safe At This Time Assistive Devices: Cane and Glasses Allergies Allergies Allergy/AdvReac Type Severity Reaction Status Date / Time Penicillins Allergy Unknown SWELLING Verified 11/18/24 14:06 pineapple AdvReac Unknown STOMACH Verified 11/18/24 14:06 CRAMPS Home Meds Home Medications Medication Instructions Recorded Confirmed ezetimibe 10 mg tablet 10 mg PO DAILY 11/30/24 11/30/24 furosemide 20 mg tablet 20 mg PO DAILY 11/30/24 11/30/24 metoprolol tartrate 50 mg tablet 50 mg PO BID 11/30/24 11/30/24 pantoprazole 40 mg tablet,delayed 40 mg PO DAILY 11/30/24 11/30/24 release prednisone 20 mg tablet 30 mg PO DAILY 11/30/24 11/30/24 rivaroxaban 15 mg tablet (Xarelto) 15 mg PO QPM 11/30/24 11/30/24 tocilizumab 162 mg/0.9 mL 162 mg subcut WK 11/30/24 11/30/24 subcutaneous pen injector (Actemra ACTPen) Results & Data (ED) Vital Signs Vital Signs - 24 hr 11/30/24 04:18 11/30/24 04:30 11/30/24 04:45 Temperature 36.6 C Temperature Source Oral Pulse Rate 94 H 135 H Pulse Rate [Right Finger] 121 H Pulse Rhythm Regular Pulse Rhythm [Right Finger] Regular Pulse Strength Normal Pulse Strength [Right Finger] Normal Respiratory Rate 18 18 Respiratory Effort / Characteristics Non-Labored Spontaneous Non-Labored Spontaneous Respiratory Depth Normal Normal Respiratory Pattern Regular Regular Blood Pressure 118/79 Blood Pressure [Right Arm] 99/86 L Blood Pressure Mean 92 Blood Pressure Mean [Right Arm] 90 Blood Pressure Position Semi-fowlers Blood Pressure Position [Right Arm] Lying Pulse Oximetry 97 95 Oxygen Delivery Method Room Air Room Air Oxygen Flow Rate Sepsis Recent Fever Within 48 Hours No Sepsis New/Unexplained Change in Mental Status N/A Sepsis Action Taken by Nursing No Action Required 11/30/24 05:00 11/30/24 05:30 11/30/24 06:00 Temperature Temperature Source Pulse Rate Pulse Rate [Right Finger] 129 H 119 H 125 H Pulse Rhythm Pulse Rhythm [Right Finger] Regular Regular Regular Pulse Strength Pulse Strength [Right Finger] Normal Normal Normal Respiratory Rate 19 21 18 Respiratory Effort / Characteristics Non-Labored Spontaneous Non-Labored Spontaneous Non-Labored Spontaneous Respiratory Depth Normal Normal Normal Respiratory Pattern Regular Regular Regular Blood Pressure Blood Pressure [Right Arm] 121/95 114/82 143/97 H Blood Pressure Mean Blood Pressure Mean [Right Arm] 103 92 112 Blood Pressure Position Blood Pressure Position [Right Arm] Lying Lying Lying Pulse Oximetry 98 97 96 Oxygen Delivery Method Room Air Room Air Room Air Oxygen Flow Rate Sepsis Recent Fever Within 48 Hours Sepsis New/Unexplained Change in Mental Status Sepsis Action Taken by Nursing 11/30/24 07:00 11/30/24 07:27 Temperature Temperature Source Pulse Rate 107 H Pulse Rate [Right Finger] 125 H Pulse Rhythm Pulse Rhythm [Right Finger] Irregular Pulse Strength Pulse Strength [Right Finger] Normal Respiratory Rate 18 Respiratory Effort / Characteristics Non-Labored Respiratory Depth Normal Respiratory Pattern Regular Blood Pressure 128/80 Blood Pressure [Right Arm] 146/90 H Blood Pressure Mean Blood Pressure Mean [Right Arm] 108 Blood Pressure Position Blood Pressure Position [Right Arm] Pulse Oximetry 100 Oxygen Delivery Method Room Air Oxygen Flow Rate 0 Sepsis Recent Fever Within 48 Hours Sepsis New/Unexplained Change in Mental Status Sepsis Action Taken by Nursing Laboratory Data 11/30/24 04:20 11/30/24 04:20 Lab Results 11/30/24 11/30/24 Range/Units 04:20 06:44 WBC 9.91 (4.8-10.8) K/ul RBC 3.96 L (4.20-5.40) M/uL Hgb 12.4 (12.0-16.0) g/dl Hct 40.8 (37.0-47.0) % MCV 103.0 H (80.0-100.0) fL MCH 31.3 (25.0-34.0) pg MCHC 30.4 L (32.0-36.0) g/dL RDW Std Deviation 79.4 H (36.4-46.3) fL RDW Coeff of Ned 21.1 H (11.5-14.5) % Plt Count 132 (130-400) K/uL MPV 11.6 (9.4-12.4) fL Immature Gran % (Auto) 1.5 % Neut % (Auto) 76.0 % Lymph % (Auto) 15.3 % Alexander % (Auto) 6.0 % Eos % (Auto) 1.0 % Baso % (Auto) 0.2 % Neut # (Auto) 7.53 H (1.40-6.50) K/uL Lymph # (Auto) 1.52 (1.20-3.40) K/uL Alexander # (Auto) 0.59 (0.11-0.59) K/uL Eos # (Auto) 0.10 (0.00-0.50) K/uL Baso # (Auto) 0.02 (0.00-0.20) K/uL Immature Gran # (Auto) 0.15 (0.01-0.20) K/uL Polychromasia 1+ Anisocytosis Present Sodium 146 H (136-145) mmol/L Potassium 3.8 (3.5-5.1) mmol/L Chloride 108 H (98-107) mmol/L Carbon Dioxide 33 H (21-32) mmol/L Anion Gap 5 (3-11) BUN 27 H (6-23) mg/dl Creatinine 0.91 (0.6-1.2) mg/dl Est Cr Clr Drug Dosing 49.4 ml/min eGFR 63.78 BUN/Creatinine Ratio 29.7 H (10-20) Glucose 100 H (70-99(Fasting)) mg/dl Calcium 8.7 (8.6-10.3) mg/dl Magnesium 1.9 (1.7-2.4) mg/dl Total Bilirubin 2.1 H (0.2-1.0) mg/dl AST 30 (13-39) U/L ALT 75 H (7-52) U/L Alkaline Phosphatase 67 (34-104) U/L Troponin I High Sens 28.5 H 30.3 H (0-14) pg/ml B-Natriuretic Peptide 249 H (0-100) pg/ml Total Protein 5.5 L (6.0-8.3) gm/dl Albumin 3.5 (3.4-5.0) gm/dl Globulin 2.0 L (2.5-4.0) gm/dl Albumin/Globulin Ratio 1.8 (0.9-2) TSH 2.052 (0.300-4.500) uIu/ml Administered Medications Ezetimibe (Ezetimibe 10 Mg Tab) 10 mg PO DAILY [facility]IDA Stop: 12/30/24 10:02 Last Admin: 11/30/24 11:16 Dose: 10 mg Documented By: MATTIE Metoprolol Tartrate (Metoprolol Tartrate 50 Mg Tab) 50 mg PO BID [facility] Stop: 12/30/24 11:04 Last Admin: 11/30/24 11:15 Dose: 50 mg Documented By: MATTIE Pantoprazole Sodium (Pantoprazole 40 Mg Tab) 40 mg PO DAILY S[facility]IDA Stop: 12/30/24 10:02 Last Admin: 11/30/24 11:16 Dose: 40 mg Documented By: MATTIE Prednisone (Prednisone 10 Mg Tablet) 30 mg PO DAILY [facility] Stop: 12/30/24 10:02 Last Admin: 11/30/24 11:15 Dose: 30 mg Documented By: MATTIE Discontinued Medications Furosemide (Furosemide 40 Mg/4 Ml Vial) 40 mg IV ONE ONE Stop: 11/30/24 07:31 Last Admin: 11/30/24 07:27 Dose: 40 mg Documented By: AMY Vancomycin HCl (Vancomycin Hcl) 1,000 mg in 270 mls @ 200 mls/hr IV Q12H [facility]; Protocol Stop: 12/07/24 07:14 Last Admin: 11/30/24 11:15 Dose: Not Given Documented By: MATTIE Vancomycin HCl 1,500 mg/ (Sodium Chloride) 530 mls @ 200 mls/hr IV 0730 ONE Stop: 11/30/24 10:08 Last Infusion: 11/30/24 14:11 Dose: Infused Documented By: Admin: 11/30/24 08:30 Dose: 200 mls/hr Documented By: AMY Metoprolol Tartrate (Metoprolol Tartrate 1 Mg/Ml Vial) 5 mg IV NOW STA Stop: 11/30/24 07:10 Last Admin: 11/30/24 07:27 Dose: 5 mg Documented By: AYM Metoprolol Tartrate (Metoprolol Tartrate 50 Mg Tab) 50 mg PO BID [facility] Stop: 12/30/24 10:02 Last Admin: 11/30/24 11:22 Dose: Not Given Documented By: MATTIE Tramadol HCl (Tramadol Hcl 50 Mg Tablet) 50 mg PO NOW STA Stop: 11/30/24 07:10 Last Admin: 11/30/24 07:26 Dose: 50 mg Documented By: AMY Imaging Data Radiologist's Impression: Chest X-Ray 11/30/24 04:53 EXAM: XR chest 1V portable CLINICAL HISTORY: Dysrhythmia. TECHNIQUE: An X-ray image of the chest is obtained in AP projection. COMPARISON: 10/12/2024 FINDINGS: Pulmonary Parenchyma: Lungs are clear bilaterally. No evidence of consolidation, collapse, or focal opacities. No pulmonary nodules are identified. No evidence of pleural effusion or pleural thickening. Heart and Mediastinum: Heart size and shape are normal. No mediastinal widening or masses. No hilar or mediastinal lymphadenopathy. Bony Thorax: The bony thorax appears intact without fractures or deformities. Soft Tissues: Soft tissues overlying the chest wall are unremarkable. IMPRESSION: 1. No time interval changes. 2. No acute cardiopulmonary abnormalities are identified. Electronically signed by Jimy Dugan 11-30-2024 06:20 AM Discharge Plan Visit Data Chief Complaint: Ankle Pain Stated Complaint: R ANKLE PAIN ED Provider: Jamilah Mendez Discharge Problem: Atrial fibrillation with rapid ventricular response, Elevated troponin Patient Disposition: Admitted As Inpatient Condition: Serious Discharge Instructions Interventions: ED Discharge Assessment Last Done: 11/30/24 09:00
[2024-11-30 05:22] LABS: Alanine Aminotransferase 75.0 U/L (7-52); Albumin Globulin Ratio 1.8 (0.9-2); Alkaline Phosphatase 67.0 U/L (34-104); Anion Gap 5.0 (3-11); Bilirubin,Total 2.1 mg/dl (0.2-1.0); Blood Urea Nitrogen 27.0 mg/dl (6-23); Calcium 8.7 mg/dl (8.6-10.3); Carbon Dioxide 33.0 mmol/L (21-32); Chloride 108.0 mmol/L (98-107); Creatinine Clr Calc Pharmacy 49.4 ml/min; Globulin 2.0 gm/dl (2.5-4.0); Glucose 100.0 mg/dl (70-99(Fasting)); Magnesium 1.9 mg/dl (1.7-2.4); Potassium 3.8 mmol/L (3.5-5.1); Sodium 146.0 mmol/L (136-145); Total Protein 5.5 gm/dl (6.0-8.3)
[2024-11-30 05:38] LABS: Thyroid Stimulating Hormone 2.052 uIu/ml (0.300-4.500)
[2024-11-30 05:41] LABS: Anisocytosis Present; Hematocrit (blood only) 40.8 % (37.0-47.0); Hemoglobin 12.4 g/dl (12.0-16.0); Immature Granulocytes # (auto) 0.15 K/uL (0.01-0.20); Immature Granulocytes % (auto) 1.5 %; Mean Corpuscular Hemoglobin 31.3 pg (25.0-34.0); Mean Corpuscular Volume 103.0 fL (80.0-100.0); Platelet Count 132 K/uL (130-400); Polychromasia 1+; RDW Standard Deviation 79.4 fL (36.4-46.3); Red Blood Count 3.96 M/uL (4.20-5.40); White Blood Count 9.91 K/ul (4.8-10.8)
--- NOTE | 2024-11-30 06:20 | XRay Report ---
EXAM: XR chest 1V portable CLINICAL HISTORY: Dysrhythmia. TECHNIQUE: An X-ray image of the chest is obtained in AP projection. COMPARISON: 10/12/2024 FINDINGS: Pulmonary Parenchyma: Lungs are clear bilaterally. No evidence of consolidation, collapse, or focal opacities. No pulmonary nodules are identified. No evidence of pleural effusion or pleural thickening. Heart and Mediastinum: Heart size and shape are normal. No mediastinal widening or masses. No hilar or mediastinal lymphadenopathy. Bony Thorax: The bony thorax appears intact without fractures or deformities. Soft Tissues: Soft tissues overlying the chest wall are unremarkable. IMPRESSION: 1. No time interval changes. 2. No acute cardiopulmonary abnormalities are identified. Electronically signed by Jimy Dugan 11-30-2024 06:20 AM
[2024-11-30] MEDS ORDERED: VANCOMYCIN CONSULT ACTIVE PRN (07:09)
[2024-11-30] MEDS: METOPROLOL TARTRATE 1 MG/ML VIAL IV STA ×2 (07:27→21:50)
[2024-11-30] MEDS: FUROSEMIDE 40 MG/4 ML VIAL IV ONE (07:27)
--- NOTE | 2024-11-30 08:19 | History & Physical Report ---
Date of Service November 30, 2024 Assessment & Plan (1) Rapid atrial fibrillation: Plan: 79-year-old female with past medical history significant for dyslipidemia, A- fib, giant cell arteritis, mononeuritis multiplex associated vasculitis, GERD, CKD stage III, right foot drop, statin intolerance, generalized weakness, comes because of bilateral lower extremity edema and also superficial wound on right lateral ankle region and in the ER she was also found to be in rapid A-fib. Patient was admitted at [facility] from 10/12/2024 to 10/16/2024 with headache ,jaw and neck pain and right foot drop and CTA head and neck shows vasculitis. Symptoms were suspected to be mononeuritis multiplex associated with vasculitis. She was discharged on prednisone. During that admission digoxin was stopped because of bradycardia. She followed up with rheumatology. There was also concern for giant cell arteritis. She was started on Actemra and slow tapering prednisone. Currently she is on 30 mg prednisone daily seems until December 06, 2023 and then for 14 days of prednisone 20 mg daily until December 19/2025. Rheumatology wanted to call them when she is on prednisone 20 mg daily for further tapering. Patient states since last 1 month she developed swelling in the lower extremities. Usually the legs are normal as per patient. She was prescribed brace for right foot drop but seems to not use them currently. And now she is also developed superficial skin ulceration to the right lateral ankle region which prompted come to the ER today. She is also having significant pain in the lower extremities. Some macular rash seen. In the ER her heart rates were in the 120s and 130s. Denies any fevers. No chest pain or shortness of breath. No cough. Currently no headache. Vision is okay. No runny nose or sore throat. No abdominal pain. Somewhat constipated. Denies any blood in the stools. Micturating okay. Rapid A-fib IV Lopressor as needed Continue home Lopressor and Xarelto Monitor telemetry Follow serial enzymes and echo Cardiology consult Bilateral lower extremity edema Possible cellulitis Has superficial wound on the right lateral ankle region Patient already on Xarelto Empiric vancomycin. Is allergic to penicillins Possibly from use of prednisone Will follow echo IV Lasix 40 mg daily for now Mild elevation of troponin Mostly from demand ischemia Will follow serial enzymes and echo Mononeuritis multiplex associated with vasculitis Currently on prednisone taper. Currently on 30 mg daily On Actemra Following with rheumatology CKD stage III Creatinine 0.9 We will monitor GERD On Protonix Hyperlipidemia On Zetia DVT prophylaxis On Xarelto Disposition Telemetry Full code. History of Present Illness Chief Complaint: Rapid A-fib, lower extremity edema and cellulitis Primary Care Provider: Shant Lee DO 79-year-old female with past medical history significant for dyslipidemia, A- fib, giant cell arteritis, mononeuritis multiplex associated vasculitis, GERD, CKD stage III, right foot drop, statin intolerance, generalized weakness, comes because of bilateral lower extremity edema and also superficial wound on right lateral ankle region and in the ER she was also found to be in rapid A-fib. Patient was admitted at [facility] from 10/12/2024 to 10/16/2024 with headache ,jaw and neck pain and right foot drop and CTA head and neck shows vasculitis. Symptoms were suspected to be mononeuritis multiplex associated with vasculitis. She was discharged on prednisone. During that admission digoxin was stopped because of bradycardia. She followed up with rheumatology. There was also concern for giant cell arteritis. She was started on Actemra and slow tapering prednisone. Currently she is on 30 mg prednisone daily seems until December 06, 2023 and then for 14 days of prednisone 20 mg daily until December 19/2025. Rheumatology wanted to call them when she is on prednisone 20 mg daily for further tapering. Patient states since last 1 month she developed swelling in the lower extremities. Usually the legs are normal as per patient. She was p rescribed brace for right foot drop but seems to not use them currently. And now she is also developed superficial skin ulceration to the right lateral ankle region which prompted come to the ER today. She is also having significant pain in the lower extremities. Some macular rash seen. In the ER her heart rates were in the 120s and 130s. Denies any fevers. No chest pain or shortness of breath. No cough. Currently no headache. Vision is okay. No runny nose or sore throat. No abdominal pain. Somewhat constipated. Denies any blood in the stools. Micturating okay. Past medical history. As mentioned above Past surgical history. Breast surgery for infection right breast. Complex cataract surgery. Colonoscopy. Dental surgery. Dilatation curettage. Hysteroscopy with biopsy and polypectomy. Right breast surgery. Basal cell carcinoma removed. Sacroiliac joint injection. Social history. No smoking. Alcohol rarely. No drug use. Family history. Mother had diabetes. Stroke. Thyroid disorder. Father had PA. Allergies Allergy/AdvReac Type Severity Reaction Status Date / Time Penicillins Allergy Unknown SWELLING Verified 11/18/24 14:06 pineapple AdvReac Unknown STOMACH Verified 11/18/24 14:06 CRAMPS Home Medications Medication Instructions Recorded Confirmed Type ezetimibe 10 mg tablet 10 mg PO DAILY 11/30/24 11/30/24 History furosemide 20 mg tablet 20 mg PO DAILY 11/30/24 11/30/24 History metoprolol tartrate 50 mg tablet 50 mg PO BID 11/30/24 11/30/24 History pantoprazole 40 mg tablet,delayed 40 mg PO DAILY 11/30/24 11/30/24 History release prednisone 20 mg tablet 30 mg PO DAILY 11/30/24 11/30/24 History rivaroxaban 15 mg tablet (Xarelto) 15 mg PO QPM 11/30/24 11/30/24 History tocilizumab 162 mg/0.9 mL 162 mg subcut WK 11/30/24 11/30/24 History subcutaneous pen injector (Actemra ACTPen) Past Med/Surg History Problem List (Updated 11/30/24 @ 08:38 by Channing Martinez MD) Rapid atrial fibrillation Sacroiliitis Mononeuritis multiplex associated with vasculitis Generalized weakness (Acute) Unintended weight loss (Acute) Foot drop, right (Acute) Vasculitis (Acute) Head injury (Acute) Scalp contusion (Acute) Fall (Acute) Hypertension (Chronic) Atrial fibrillation (Chronic) Diarrhea (Acute) Medical History Dyslipidemia Surgical History S/P wrist surgery S/P dilation and curettage multiople Family History Other No pertinent family history Social History Smoking Status: Never smoker Hx Alcohol Use: Yes Hx Substance Use: No Preferred Language: Kazakh Communication Ability: Effective Visual Impairment: No Limitations Hearing Ability: Normal Credit Collections Rep Required: No Beliefs That Will Affect Care: None Current Living Situation: Alone Feels Safe at Home: Yes Assistive Devices: Cane Review of Systems Review of Systems: All systems reviewed & are unremarkable except as noted in HPI & below Physical Exam Physical Exam: General- Not in distress Head- atraumatic Eyes- PERRL. ENT- oropharynx clear Neck- supple, no JVD Lungs- clear to auscultation no wheezing or crackles Heart- irregular rhythm; tachycardia no murmur, no gallop. Abdomen- normal bowel sounds, soft, nontender, no distension Extremities- b/l gross Lower extremity edema seen. right lower extremity distal part somewhat erythematosus and superficial ulceration seen on later right ankle region. Mild macular rash seen on extremities Neuro- alert, oriented PERRL, no facial palsy; no dysarthria; moves extremities Results & Data Results & Data Vital Signs (Past 12 Hours) Vital Signs Temp Pulse Pulse Resp BP BP Pulse Ox 11/30/24 07:27 107 H 128/80 11/30/24 07:00 125 H 18 146/90 H 100 11/30/24 06:00 125 H 18 143/97 H 96 11/30/24 05:30 119 H 21 114/82 97 11/30/24 05:00 129 H 19 121/95 98 11/30/24 04:45 135 H 11/30/24 04:30 121 H 18 99/86 L 95 11/30/24 04:18 36.6 C 94 H 18 118/79 97 O2 Del Method O2 Flow Rate 11/30/24 07:27 11/30/24 07:00 Room Air 0 11/30/24 06:00 Room Air 11/30/24 05:30 Room Air 11/30/24 05:00 Room Air 11/30/24 04:45 11/30/24 04:30 Room Air 11/30/24 04:18 Room Air Diagnostic Findings Laboratory Results WBC 9.91 K/ul (4.8-10.8) 11/30/24 04:20 RBC 3.96 M/uL (4.20-5.40) L 11/30/24 04:20 Hgb 12.4 g/dl (12.0-16.0) 11/30/24 04:20 Hct 40.8 % (37.0-47.0) 11/30/24 04:20 MCV 103.0 fL (80.0-100.0) H 11/30/24 04:20 MCH 31.3 pg (25.0-34.0) 11/30/24 04:20 MCHC 30.4 g/dL (32.0-36.0) L 11/30/24 04:20 RDW Std Deviation 79.4 fL (36.4-46.3) H 11/30/24 04:20 RDW Coeff of Ned 21.1 % (11.5-14.5) H 11/30/24 04:20 Plt Count 132 K/uL (130-400) 11/30/24 04:20 MPV 11.6 fL (9.4-12.4) 11/30/24 04:20 Immature Gran % (Auto) 1.5 % 11/30/24 04:20 Neut % (Auto) 76.0 % 11/30/24 04:20 Lymph % (Auto) 15.3 % 11/30/24 04:20 [place] % (Auto) 6.0 % 11/30/24 04:20 Eos % (Auto) 1.0 % 11/30/24 04:20 Baso % (Auto) 0.2 % 11/30/24 04:20 Neut # (Auto) 7.53 K/uL (1.40-6.50) H 11/30/24 04:20 Lymph # (Auto) 1.52 K/uL (1.20-3.40) 11/30/24 04:20 [place] # (Auto) 0.59 K/uL (0.11-0.59) 11/30/24 04:20 Eos # (Auto) 0.10 K/uL (0.00-0.50) 11/30/24 04:20 Baso # (Auto) 0.02 K/uL (0.00-0.20) 11/30/24 04:20 Immature Gran # (Auto) 0.15 K/uL (0.01-0.20) 11/30/24 04:20 Polychromasia 1+ 11/30/24 04:20 Anisocytosis Present 11/30/24 04:20 Sodium 146 mmol/L (136-145) H 11/30/24 04:20 Potassium 3.8 mmol/L (3.5-5.1) 11/30/24 04:20 Chloride 108 mmol/L (98-107) H 11/30/24 04:20 Carbon Dioxide 33 mmol/L (21-32) H 11/30/24 04:20 Anion Gap 5 (3-11) 11/30/24 04:20 BUN 27 mg/dl (6-23) H 11/30/24 04:20 Creatinine 0.91 mg/dl (0.6-1.2) 11/30/24 04:20 Est Cr Clr Drug Dosing 49.4 ml/min 11/30/24 04:20 eGFR 63.78 11/30/24 04:20 BUN/Creatinine Ratio 29.7 (10-20) H 11/30/24 04:20 Glucose 100 mg/dl (70-99(Fasting)) H 11/30/24 04:20 Calcium 8.7 mg/dl (8.6-10.3) 11/30/24 04:20 Magnesium 1.9 mg/dl (1.7-2.4) 11/30/24 04:20 Total Bilirubin 2.1 mg/dl (0.2-1.0) H 11/30/24 04:20 AST 30 U/L (13-39) 11/30/24 04:20 ALT 75 U/L (7-52) H 11/30/24 04:20 Alkaline Phosphatase 67 U/L (34-104) 11/30/24 04:20 Troponin I High Sens 30.3 pg/ml (0-14) H 11/30/24 06:44 B-Natriuretic Peptide 249 pg/ml (0-100) H 11/30/24 04:20 Total Protein 5.5 gm/dl (6.0-8.3) L 11/30/24 04:20 Albumin 3.5 gm/dl (3.4-5.0) 11/30/24 04:20 Globulin 2.0 gm/dl (2.5-4.0) L 11/30/24 04:20 Albumin/Globulin Ratio 1.8 (0.9-2) 11/30/24 04:20 TSH 2.052 uIu/ml (0.300-4.500) 11/30/24 04:20 Impressions Chest X-Ray 11/30/24 04:53 EXAM: XR chest 1V portable CLINICAL HISTORY: Dysrhythmia. TECHNIQUE: An X-ray image of the chest is obtained in AP projection. COMPARISON: 10/12/2024 FINDINGS: Pulmonary Parenchyma: Lungs are clear bilaterally. No evidence of consolidation, collapse, or focal opacities. No pulmonary nodules are identified. No evidence of pleural effusion or pleural thickening. Heart and Mediastinum: Heart size and shape are normal. No mediastinal widening or masses. No hilar or mediastinal lymphadenopathy. Bony Thorax: The bony thorax appears intact without fractures or deformities. Soft Tissues: Soft tissues overlying the chest wall are unremarkable. IMPRESSION: 1. No time interval changes. 2. No acute cardiopulmonary abnormalities are identified. Electronically signed by Jimy Dugan 11-30-2024 06:20 AM Code Status & VTE Plan VTE Prophylaxis Plan VTE Prophylaxis will be ordered: Yes
[2024-11-30] MEDS: VANCOMYCIN HCL 1,500 MG in SODIUM CHLORIDE 0.9% 500 ML IV ONE (08:30)
[2024-11-30 08:36] LABS: Appearance Urine Clear (Clear); Glucose Urine UA Negative (Negative)
[2024-11-30] MEDS ORDERED: POLYETHYLENE (MIRALAX) 17 GM PACK PO PRN (10:03)
[2024-11-30] MEDS ORDERED: METOPROLOL TARTRATE 1 MG/ML VIAL IV PRN (10:03)
[2024-11-30] MEDS ORDERED: NITROGLYCERIN SL 0.4 MG/TAB TAB SL PRN (10:03)
--- NOTE | 2024-11-30 11:14 | Hospitalist Progress Note ---
Date of Service November 30, 2024 Assessment & Plan (1) Rapid atrial fibrillation: Plan: 79-year-old female with past medical history significant for dyslipidemia, A- fib, giant cell arteritis, mononeuritis multiplex associated vasculitis, GERD, CKD stage III, right foot drop, statin intolerance, generalized weakness, comes because of bilateral lower extremity edema and also superficial wound on right lateral ankle region and in the ER she was also found to be in rapid A-fib. Patient was admitted at [facility] from 10/12/2024 to 10/16/2024 with headache ,jaw and neck pain and right foot drop and CTA head and neck shows vasculitis. Symptoms were suspected to be mononeuritis multiplex associated with vasculitis. She was discharged on prednisone. During that admission digoxin was stopped because of bradycardia. She followed up with rheumatology. There was also concern for giant cell arteritis. She was started on Actemra and slow tapering prednisone. Currently she is on 30 mg prednisone daily seems until December 06, 2023 and then for 14 days of prednisone 20 mg daily until December 19/2025. Rheumatology wanted to call them when she is on prednisone 20 mg daily for further tapering. Patient states since last 1 month she developed swelling in the lower extremities. Usually the legs are normal as per patient. She was prescribed brace for right foot drop but seems to not use them currently. And now she is also developed superficial skin ulceration to the right lateral ankle region which prompted come to the ER today. She is also having significant pain in the lower extremities. Some macular rash seen. In the ER her heart rates were in the 120s and 130s. Denies any fevers. No chest pain or shortness of breath. No cough. Currently no headache. Vision is okay. No runny nose or sore throat. No abdominal pain. Somewhat constipated. Denies any blood in the stools. Micturating okay. Atrial fibrillation with RVR Past medical history of atrial fibrillation on metoprolol and Xarelto. Recently was discontinued off digoxin due to slow heart rate. Ventricular rate around 110-120s Plan to resume home metoprolol dose Obtain echocardiogram Bilateral lower extremity swelling/edema Acute on chronic HFpEF Possible cellulitis Likely secondary to steroids Patient has bilateral increasing edema along with weight gain; likely secondary to use of prednisone causing water retention On vancomycin for cellulitis Lasix 40 mg twice daily for diuresis Strict LIONEL's Daily weights Mild elevation of troponin Mostly from demand ischemia Will follow serial enzymes and echo Mononeuritis multiplex associated with vasculitis Currently on prednisone taper. Currently on 30 mg daily On Actemra Following with rheumatology CKD stage III Creatinine 0.9 We will monitor GERD On Protonix Hyperlipidemia On Zetia DVT prophylaxis On Xarelto Disposition Telemetry Full code. Please note the above document was generated using voice recognition software. It may contain grammatical, syntax or spelling errors. Any formal questions or concerns about the content, text or information contained within the body of this dictation should be directly addressed to the provider for clarification Admission and Anticipated Discharge Date Admission Date: November 30, 2024 Subjective Patient seen and examined at bedside. She reports that she is feeling comfortable; denies any pain or discomfort. Review of Systems Review of Systems: All systems reviewed & are unremarkable except as noted in Subjective Physical Exam Physical Exam: General- Not in distress Head- atraumatic Eyes- PERRL. ENT- oropharynx clear Neck- supple, no JVD Lungs- clear to auscultation no wheezing or crackles Heart- irregular rhythm; tachycardia no murmur, no gallop. Abdomen- normal bowel sounds, soft, nontender, no distension Extremities- b/l 4+ Lower extremity edema seen. right lower extremity distal part somewhat erythematosus and superficial ulceration seen on later right ankle region. Mild macular rash seen on extremities Neuro- alert, oriented PERRL, no facial palsy; no dysarthria; moves extremities Results & Data Results & Data Vital Signs (Past 12 Hours) Vital Signs Temp Pulse Pulse Resp BP BP Pulse Ox 11/30/24 10:43 127 H 11/30/24 10:03 11/30/24 08:46 141 H 11/30/24 08:00 112 H 16 119/87 99 11/30/24 07:42 105 H 11/30/24 07:27 107 H 128/80 11/30/24 07:00 125 H 18 146/90 H 100 11/30/24 06:00 125 H 18 143/97 H 96 11/30/24 05:30 119 H 21 114/82 97 11/30/24 05:00 129 H 19 121/95 98 11/30/24 04:45 135 H 11/30/24 04:30 121 H 18 99/86 L 95 11/30/24 04:18 36.6 C 94 H 18 118/79 97 Pulse Ox O2 Del Method O2 Del Method O2 Flow Rate 11/30/24 10:43 11/30/24 10:03 99 Room Air 11/30/24 08:46 11/30/24 08:00 Room Air 0 11/30/24 07:42 11/30/24 07:27 11/30/24 07:00 Room Air 0 11/30/24 06:00 Room Air 11/30/24 05:30 Room Air 11/30/24 05:00 Room Air 11/30/24 04:45 11/30/24 04:30 Room Air 11/30/24 04:18 Room Air
[2024-11-30] MEDS: VANCOMYCIN HCL 1,000 MG/270 ML BAG IV SCH (11:15)
[2024-11-30] MEDS: METOPROLOL TARTRATE 50 MG TAB PO SCH ×2 (11:15→11:22)
[2024-11-30] MEDS: EZETIMIBE 10 MG TAB PO SCH (11:16)
--- NOTE | 2024-11-30 12:27 | Pharmacy Report ---
Pharmacy PK ABX Note - Date of Service November 30, 2024 - Assessment and Plan Assessment 79 year old F who presented with bilateral lower extremity edema and superficial wound on R lateral ankle. PMH significant for dyslipidemia, A-fib, giant cell arteritis, mononeuritis multiplex associated vasculitis, GERD, CKD stage III. Follows with Rheumatology. Recently started on prednisone and tocilizumab. Ordered empiric vancomycin IV for possible cellulitis. Plan Vancomycin * 1500 mg (~20 mg/kg) IV q24h * Regimen is predicted to achieve target AUC/KARY of 400-600 mg/L.hr * estimated AUC/KARY @ steady state: 563 * Trough level ordered for 7/7 AM Pharmacy will continue to follow and will adjust dose/frequency as necessary. Thank you.
[2024-11-30] MEDS: FUROSEMIDE 40 MG/4 ML VIAL IV SCH (16:00)
--- NOTE | 2024-11-30 16:14 | Cardiology Consultation ---
Date of Consultation November 30, 2024 Assessment & Plan (1) Acute heart failure with normal ejection fraction: This is an 79-year-old female with past medical history significant for dyslipidemia, A-fib, giant cell arteritis, mononeuritis multiplex associated vasculitis, GERD, CKD stage III, right foot drop, statin intolerance, generalized weakness, comes because of bilateral lower extremity edema and also superficial wound on right lateral ankle region and in the ER she was also found to be in rapid A-fib. 1. Heart failure with moderate to severe MR -given that her MR was mild on 09/13/24, the increase in severity of the MR may be from volume overload -recommend increasing lasix to 40mg IV BID (order placed) -worsening HF may be related to Actema and possibly prednisone (recommend reaching out to Rheumatology) -can plan to repeat a limited TTE when euvolemic to reassess the MR. 2. Afib -rate control on current oral dose. I provided 85 min of care to the patient in regards to acute exacerbation of HFpEF. History of Present Illness Reason for Consultation: Lower extremity edema and Afib with RVR. Attending Physician: Jean Kemp MD History of Present Illness This is an 79-year-old female with past medical history significant for dyslipidemia, A-fib, giant cell arteritis, mononeuritis multiplex associated vasculitis, GERD, CKD stage III, right foot drop, statin intolerance, generalized weakness, comes because of bilateral lower extremity edema and also superficial wound on right lateral ankle region and in the ER she was also found to be in rapid A-fib. She has since received 40mg IV lasix x 1 and is urinating. Of note, she takes 20mg of lasix qday at home. She tells me that she started noticing the lower extremity edema over the past 2 weeks. Denies significant shortness of breath. No chest pain. No N/V/CRAIG; afebrile. She is on prednisone as well as Actema for Giant Cell arteritis. TTE performed today shows moderate to severe MR, which has worsened compared to her most recent TTE performed on 09/13/24. Allergies Allergy/AdvReac Type Severity Reaction Status Date / Time Penicillins Allergy Unknown SWELLING Verified 11/18/24 14:06 pineapple AdvReac Unknown STOMACH Verified 11/18/24 14:06 CRAMPS Home Medications Medication Instructions Recorded Confirmed Type ezetimibe 10 mg tablet 10 mg PO DAILY 11/30/24 11/30/24 History furosemide 20 mg tablet 20 mg PO DAILY 11/30/24 11/30/24 History metoprolol tartrate 50 mg tablet 50 mg PO BID 11/30/24 11/30/24 History pantoprazole 40 mg tablet,delayed 40 mg PO DAILY 11/30/24 11/30/24 History release prednisone 20 mg tablet 30 mg PO DAILY 11/30/24 11/30/24 History rivaroxaban 15 mg tablet (Xarelto) 15 mg PO QPM 11/30/24 11/30/24 History tocilizumab 162 mg/0.9 mL 162 mg subcut WK 11/30/24 11/30/24 History subcutaneous pen injector (Actemra ACTPen) Patient History Medical History Dyslipidemia Surgical History S/P wrist surgery S/P dilation and curettage multiople Family History Other No pertinent family history Social History Smoking Status: Never smoker Hx Alcohol Use: Yes Alcohol type: wine Hx Substance Use: No Preferred Language: [place]i Communication Ability: Effective Visual Impairment: No Limitations Hearing Ability: Normal 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 Physical Exam Physical Exam: GEN: AAOx3; NAD HEENT: No JVD CV: Irregular rhythm; normal rate; S1+S2; no audible M/R/G PULM: CTA b/l; No w/r/r ABD: soft; NTND EXT: 2+ pitting lower extremity edema b/l. Results & Data Vital Signs (Past 12 Hours) Vital Signs Temp Pulse Pulse Resp BP BP Pulse Ox 11/30/24 15:35 36.5 C 73 17 106/64 96 11/30/24 14:21 81 11/30/24 11:45 36.4 C L 116 H 18 134/88 99 11/30/24 11:44 36.7 C 79 18 136/83 100 11/30/24 10:43 127 H 11/30/24 10:03 11/30/24 08:46 141 H 11/30/24 08:00 112 H 16 119/87 99 11/30/24 07:42 105 H 11/30/24 07:27 107 H 128/80 11/30/24 07:00 125 H 18 146/90 H 100 11/30/24 06:00 125 H 18 143/97 H 96 11/30/24 05:30 119 H 21 114/82 97 11/30/24 05:00 129 H 19 121/95 98 11/30/24 04:45 135 H 11/30/24 04:30 121 H 18 99/86 L 95 11/30/24 04:18 36.6 C 94 H 18 118/79 97 Pulse Ox O2 Del Method O2 Del Method O2 Flow Rate 11/30/24 15:35 Room Air 11/30/24 14:21 11/30/24 11:45 Room Air 11/30/24 11:44 Room Air 11/30/24 10:43 11/30/24 10:03 99 Room Air 11/30/24 08:46 11/30/24 08:00 Room Air 0 11/30/24 07:42 11/30/24 07:27 11/30/24 07:00 Room Air 0 11/30/24 06:00 Room Air 11/30/24 05:30 Room Air 11/30/24 05:00 Room Air 11/30/24 04:45 11/30/24 04:30 Room Air 11/30/24 04:18 Room Air Results Complete Blood Count Results: RBC 3.96 M/uL (4.20-5.40) L 11/30/24 WBC 9.91 K/ul (4.8-10.8) 11/30/24 Hgb 12.4 g/dl (12.0-16.0) 11/30/24 Hct 40.8 % (37.0-47.0) 11/30/24 Plt Count 132 K/uL (130-400) 11/30/24 Results BMP Results: Sodium 146 mmol/L (136-145) H 11/30/24 Potassium 3.8 mmol/L (3.5-5.1) 11/30/24 Chloride 108 mmol/L (98-107) H 11/30/24 Carbon Dioxide 33 mmol/L (21-32) H 11/30/24 Anion Gap 5 (3-11) 11/30/24 BUN 27 mg/dl (6-23) H 11/30/24 Creatinine 0.91 mg/dl (0.6-1.2) 11/30/24 Glucose 100 mg/dl (70-99(Fasting)) H 11/30/24 Results Cardiology Web EHR Widget: Electrocardiogram 10/14/24 12:20 Echocardiogram 11/30/24 15:24 Troponin I High Sens 23.9 pg/ml (0-14) H 11/30/24 10:10 Total Creatine Kinase 17 U/L (26-192) L 10/12/24 23:06 B-Natriuretic Peptide 249 pg/ml (0-100) H 11/30/24 04:20 PT 15.0 Seconds (9.0-12.0) H 10/12/24 16:04 INR 1.4 (0.9-1.1) H 10/12/24 16:04 Sodium 146 mmol/L (136-145) H 11/30/24 04:20 Potassium 3.8 mmol/L (3.5-5.1) 11/30/24 04:20 BUN 27 mg/dl (6-23) H 11/30/24 04:20 Creatinine 0.91 mg/dl (0.6-1.2) 11/30/24 04:20 Glucose 100 mg/dl (70-99(Fasting)) H 11/30/24 04:20 Magnesium 1.9 mg/dl (1.7-2.4) 11/30/24 04:20 AST 30 U/L (13-39) 11/30/24 04:20 ALT 75 U/L (7-52) H 11/30/24 04:20 TSH 2.052 uIu/ml (0.300-4.500) 11/30/24 04:20 WBC 9.91 K/ul (4.8-10.8) 11/30/24 04:20 Hgb 12.4 g/dl (12.0-16.0) 11/30/24 04:20 Plt Count 132 K/uL (130-400) 11/30/24 04:20 Digoxin 1.5 ng/ml (0.8-2.0) 10/12/24 23:06 PG Care Time/CCT Total # of Minutes Spent Total Time Spent with Patient: Total time spent is greater than 50% in coordination of care (as documented) at patient's floor/unit and/or counseling patient: [place] [address] IN/OBS CONSULT LVL 5,80M Patient Type New History Comprehensive Exam Comprehensive Medical Decision Making High Complexity Diagnoses Acute heart failure with normal ejection fraction I50.31 Time Spent (min) 85 Updated Medication List Medication Instructions Recorded Confirmed Type ezetimibe 10 mg tablet 10 mg PO DAILY 11/30/24 11/30/24 History furosemide 20 mg tablet 20 mg PO DAILY 11/30/24 11/30/24 History metoprolol tartrate 50 mg tablet 50 mg PO BID 11/30/24 11/30/24 History pantoprazole 40 mg tablet,delayed 40 mg PO DAILY 11/30/24 11/30/24 History release prednisone 20 mg tablet 30 mg PO DAILY 11/30/24 11/30/24 History rivaroxaban 15 mg tablet (Xarelto) 15 mg PO QPM 11/30/24 11/30/24 History tocilizumab 162 mg/0.9 mL 162 mg subcut WK 11/30/24 11/30/24 History subcutaneous pen injector (Actemra ACTPen) Meds Home Medications and Allergies Home Medications Medication Instructions Recorded Confirmed Type ezetimibe 10 mg tablet 10 mg PO DAILY 11/30/24 11/30/24 History furosemide 20 mg tablet 20 mg PO DAILY 11/30/24 11/30/24 History metoprolol tartrate 50 mg tablet 50 mg PO BID 11/30/24 11/30/24 History pantoprazole 40 mg tablet,delayed 40 mg PO DAILY 11/30/24 11/30/24 History release prednisone 20 mg tablet 30 mg PO DAILY 11/30/24 11/30/24 History rivaroxaban 15 mg tablet (Xarelto) 15 mg PO QPM 11/30/24 11/30/24 History tocilizumab 162 mg/0.9 mL 162 mg subcut WK 11/30/24 11/30/24 History subcutaneous pen injector (Actemra ACTPen) Allergies Allergy/AdvReac Type Severity Reaction Status Date / Time Penicillins Allergy Unknown SWELLING Verified 11/18/24 14:06 pineapple AdvReac Unknown STOMACH Verified 11/18/24 14:06 CRAMPS
[2024-11-30] MEDS: ACETAMINOPHEN 325 MG TAB PO PRN (20:18)
[2024-11-30] MEDS: RIVAROXABAN 15 MG TAB PO SCH (20:19)
[2024-12-01] MEDS: VANCOMYCIN HCL 1,500 MG in SODIUM CHLORIDE 0.9% 500 ML IV SCH (05:42)
[2024-12-01 05:56] LABS: Hematocrit (blood only) 43.5 % (37.0-47.0); Hemoglobin 13.4 g/dl (12.0-16.0); Mean Corpuscular Hemoglobin 31.2 pg (25.0-34.0); Mean Corpuscular Volume 101.4 fL (80.0-100.0); Platelet Count 133 K/uL (130-400); RDW Standard Deviation 76.4 fL (36.4-46.3); Red Blood Count 4.29 M/uL (4.20-5.40); White Blood Count 10.54 K/ul (4.8-10.8)
[2024-12-01 06:07] LABS: Anion Gap 4.0 (3-11); Blood Urea Nitrogen 30.0 mg/dl (6-23); Calcium 8.3 mg/dl (8.6-10.3); Carbon Dioxide 36.0 mmol/L (21-32); Chloride 104.0 mmol/L (98-107); Creatinine Clr Calc Pharmacy 43.1 ml/min; Glucose 93.0 mg/dl (70-99(Fasting)); Magnesium 1.9 mg/dl (1.7-2.4); Potassium 4.3 mmol/L (3.5-5.1); Sodium 144.0 mmol/L (136-145)
[2024-12-01 06:28] LABS: Anisocytosis Present; Immature Granulocytes # (auto) 0.15 K/uL (0.01-0.20); Immature Granulocytes % (auto) 1.4 %; Polychromasia 1+
--- NOTE | 2024-12-01 10:14 | Hospitalist Progress Note ---
Date of Service December 01, 2024 Assessment & Plan (1) Rapid atrial fibrillation: Plan: 79-year-old female with past medical history significant for dyslipidemia, A- fib, giant cell arteritis, mononeuritis multiplex associated vasculitis, GERD, CKD stage III, right foot drop, statin intolerance, generalized weakness, comes because of bilateral lower extremity edema and also superficial wound on right lateral ankle region and in the ER she was also found to be in rapid A-fib. Atrial fibrillation with RVR Mitral Regurgitation Past medical history of atrial fibrillation on metoprolol and Xarelto. Recently was discontinued off digoxin due to slow heart rate. Ventricular rate continues to be high with heart rate of 110s to 140 Echocardiogram shows EF of 55 to 60%; diastolic dysfunction and moderate to severe MR Increase metoprolol to 75 mg twice a day Continue telemonitoring Possible plan to repeat limited TTE when euvolemic to reassess MR Bilateral lower extremity swelling/edema Acute on chronic HFpEF Possible cellulitis Likely secondary to steroids Patient has bilateral increasing edema along with weight gain; likely secondary to use of prednisone causing water retention On vancomycin for cellulitis, continue Lasix 40 mg twice daily for diuresis Strict LIONEL's Daily weights Wound care consult Mild elevation of troponin Mostly from demand ischemia Echo as above Mononeuritis multiplex associated with vasculitis Currently on prednisone taper. Currently on 30 mg daily On Actemra Following with rheumatology CKD stage III monitor GERD On Protonix Hyperlipidemia On Zetia DVT prophylaxis On Xarelto Disposition Telemetry Full code. Discussed plan of care with daughter at bedside. Answer questions/queries. Time spent evaluating patient, direct bedside care, chart review, placing orders, interpretation of diagnostic studies, discussion with consultants, patient, and family members, as well as other required patient management activities is 50 minutes Please note the above document was generated using voice recognition software. It may contain grammatical, syntax or spelling errors. Any formal questions or concerns about the content, text or information contained within the body of this dictation should be directly addressed to the provider for clarification Admission and Anticipated Discharge Date Admission Date: November 30, 2024 Subjective Patient seen and examined at bedside. She is lying in the bed comfortably; reports pain in her bilateral lower extremity. Patient's daughter at bedside as well. Review of Systems Review of Systems: All systems reviewed & are unremarkable except as noted in Subjective Physical Exam Physical Exam: General- Not in distress Head- atraumatic Eyes- PERRL. ENT- oropharynx clear Neck- supple, no JVD Lungs- clear to auscultation no wheezing or crackles Heart- irregular rhythm; tachycardia no murmur, no gallop. Abdomen- normal bowel sounds, soft, nontender, no distension Extremities- b/l 3+ Lower extremity edema seen. right lower extremity distal part somewhat erythematosus and superficial ulceration seen on later right ankle region. Mild macular rash seen on extremities Neuro- alert, oriented PERRL, no facial palsy; no dysarthria; moves extremities Results & Data Results & Data Vital Signs (Past 12 Hours) Vital Signs Temp Pulse Pulse Resp BP Pulse Ox O2 Del Method 12/01/24 08:35 116 H 12/01/24 08:05 36.6 C 104 H 17 113/75 99 Room Air 12/01/24 03:38 36.3 C L 78 16 114/74 96 Room Air 11/30/24 22:35 115 H
--- NOTE | 2024-12-01 11:28 | Cardiology Progress Note ---
Date of Service December 01, 2024 Assessment & Plan (1) Acute heart failure with normal ejection fraction: Plan: This is an 79-year-old female with past medical history significant for dyslipidemia, A-fib, giant cell arteritis, mononeuritis multiplex associated vasculitis, GERD, CKD stage III, right foot drop, statin intolerance, generalized weakness, comes because of bilateral lower extremity edema and also superficial wound on right lateral ankle region and in the ER she was also found to be in rapid A-fib. 1. Heart failure with moderate to severe MR -given that her MR was mild on 09/13/24, the increase in severity of the MR may be from volume overload -continue lasix to 40mg IV BID (order placed) -worsening HF may be related to Actema and possibly prednisone (recommend reaching out to Rheumatology) -can plan to repeat a limited TTE when euvolemic to reassess the MR (perhaps Monday). 2. Afib -rate control; can consider changing to toprol 100mg BID starting tomorrow. I provided 55 min of care to the patient in regards to acute exacerbation of HFpEF. Admission and Anticipated Discharge Date Admission Date: November 30, 2024 Subjective b/l LE edema is improving No chest pain. No N/V/CRAIG; afebrile. No PND or orthopnea. Review of Systems Review of Systems: A full 10 point review of systems is otherwise negative unless noted above. Physical Exam Physical Exam: GEN: AAOx3; NAD HEENT: No JVD CV: Irregular rhythm; normal rate; S1+S2; no audible M/R/G PULM: CTA b/l; No w/r/r ABD: soft; NTND EXT: 1+ pitting lower extremity edema b/l. Results & Data Vital Signs (Past 12 Hours) Vital Signs Temp Pulse Pulse Resp BP Pulse Ox O2 Del Method 12/01/24 08:35 116 H 12/01/24 08:05 36.6 C 104 H 17 113/75 99 Room Air 12/01/24 03:38 36.3 C L 78 16 114/74 96 Room Air Results CBC w Diff Results: RBC 4.29 M/uL (4.20-5.40) 12/01/24 WBC 10.54 K/ul (4.8-10.8) 12/01/24 Hgb 13.4 g/dl (12.0-16.0) 12/01/24 Hct 43.5 % (37.0-47.0) 12/01/24 MCV 101.4 fL (80.0-100.0) H 12/01/24 MCH 31.2 pg (25.0-34.0) 12/01/24 MCHC 30.8 g/dL (32.0-36.0) L 12/01/24 RDW Standard Deviation 76.4 fL (36.4-46.3) H 12/01/24 RDW Coefficient of Variation 20.7 % (11.5-14.5) H 12/01/24 Plt Count 133 K/uL (130-400) 12/01/24 MPV 11.2 fL (9.4-12.4) 12/01/24 Neutrophils (%) (Auto) 84.4 % 12/01/24 Lymphocytes (%) (Auto) 8.2 % 12/01/24 Monocytes # (Auto) 0.58 K/uL (0.11-0.59) 12/01/24 Eosinophils # (Auto) 0.03 K/uL (0.00-0.50) 12/01/24 Immature Granulocyte % (Auto) 1.4 % 12/01/24 Neutrophils # (Auto) 8.90 K/uL (1.40-6.50) H 12/01/24 Lymphocytes # (Auto) 0.86 K/uL (1.20-3.40) L 12/01/24 Monocytes # (Auto) 0.58 K/uL (0.11-0.59) 12/01/24 Eosinophils # (Auto) 0.03 K/uL (0.00-0.50) 12/01/24 Basophils # (Auto) 0.02 K/uL (0.00-0.20) 12/01/24 Immature Granulocyte # (Auto) 0.15 K/uL (0.01-0.20) 5 Polychromasia 1+ 12/01/24 Anisocytosis Present 12/01/24 Results BMP Results: Sodium 144 mmol/L (136-145) 12/01/24 Potassium 4.3 mmol/L (3.5-5.1) 12/01/24 Chloride 104 mmol/L (98-107) 12/01/24 Carbon Dioxide 36 mmol/L (21-32) H 12/01/24 Anion Gap 4 (3-11) 12/01/24 BUN 30 mg/dl (6-23) H 12/01/24 Creatinine 1.04 mg/dl (0.6-1.2) 12/01/24 Glucose 93 mg/dl (70-99(Fasting)) 12/01/24 PG Care Time/CCT Total # of Minutes Spent Total Time Spent with Patient: Total time spent is greater than 50% in coordination of care (as documented) at patient's floor/unit and/or counseling patient: Coding [place] [address] SUB INP/OBS CARE 3/50MIN Patient Type Established History Comprehensive Exam Comprehensive Medical Decision Making High Complexity Diagnoses Acute heart failure with normal ejection fraction I50.31 Time Spent (min) 55 Meds Home Medications and Allergies Home Medications Medication Instructions Recorded Confirmed Type ezetimibe 10 mg tablet 10 mg PO DAILY 11/30/24 11/30/24 History furosemide 20 mg tablet 20 mg PO DAILY 11/30/24 11/30/24 History metoprolol tartrate 50 mg tablet 50 mg PO BID 11/30/24 11/30/24 History pantoprazole 40 mg tablet,delayed 40 mg PO DAILY 11/30/24 11/30/24 History release prednisone 20 mg tablet 30 mg PO DAILY 11/30/24 11/30/24 History rivaroxaban 15 mg tablet (Xarelto) 15 mg PO QPM 11/30/24 11/30/24 History tocilizumab 162 mg/0.9 mL 162 mg subcut WK 11/30/24 11/30/24 History subcutaneous pen injector (Actemra ACTPen) Allergies Allergy/AdvReac Type Severity Reaction Status Date / Time Penicillins Allergy Unknown SWELLING Verified 11/18/24 14:06 pineapple AdvReac Unknown STOMACH Verified 11/18/24 14:06 CRAMPS
[2024-12-01] MEDS: ADVANCED PROBIOTIC 625 MG CAPSULE PO SCH (11:34)
[2024-12-01] MEDS: METOPROLOL TARTRATE 25 MG TAB PO STA (11:34)
--- NOTE | 2024-12-01 12:00 | Electrocardiogram Report ---
Test Reason : Blood Pressure : */* mmHG Vent. Rate : 104 BPM Atrial Rate : * BPM P-R Int : * ms QRS Dur : 82 ms QT Int : 342 ms P-R-T Axes : * 59 41 degrees QTcB Int : 449 ms Atrial fibrillation with rapid ventricular response Abnormal ECG When compared with ECG of 14-Oct-2024 12:20, Vent. rate has increased by 54 bpm Nonspecific T wave abnormality, improved in Inferior leads Confirmed by Stephon Foster ([id number]) on 12/01/2024 12:00:03 PM Referred By: REFERRED SELF Confirmed By: Stephon Foster
--- NOTE | 2024-12-01 19:23 | Electrocardiogram Report ---
Test Reason : Blood Pressure : */* mmHG Vent. Rate : 117 BPM Atrial Rate : * BPM P-R Int : * ms QRS Dur : 76 ms QT Int : 276 ms P-R-T Axes : * 68 17 degrees QTcB Int : 385 ms Atrial fibrillation with rapid ventricular response Abnormal ECG When compared with ECG of 14-Oct-2024 12:20, Vent. rate has increased by 67 bpm QRS duration has decreased Non-specific change in ST segment in Anterolateral leads T wave inversion no longer evident in Lateral leads Confirmed by Stephon Foster ([id number]) on 12/01/2024 7:23:02 PM Referred By: REFERRED SELF Confirmed By: Stephon Foster
[2024-12-01] MEDS: METOPROLOL TARTRATE 25 MG TAB PO SCH (20:39)
[2024-12-02 05:56] LABS: Anion Gap 6.0 (3-11); Blood Urea Nitrogen 35.0 mg/dl (6-23); Calcium 8.3 mg/dl (8.6-10.3); Carbon Dioxide 35.0 mmol/L (21-32); Chloride 104.0 mmol/L (98-107); Creatinine Clr Calc Pharmacy 34.7 ml/min; Glucose 91.0 mg/dl (70-99(Fasting)); Potassium 3.3 mmol/L (3.5-5.1); Sodium 145.0 mmol/L (136-145)
[2024-12-02] MEDS: VANCOMYCIN LEVEL ONE (06:18)
--- NOTE | 2024-12-02 07:47 | Pharmacy Report ---
Pharmacy PK ABX Note - Date of Service December 02, 2024 - Assessment and Plan Assessment 79 year old F who presented with bilateral lower extremity edema and superficial wound on R lateral ankle. PMH significant for dyslipidemia, A-fib, giant cell arteritis, mononeuritis multiplex associated vasculitis, GERD, CKD stage III. Follows with Rheumatology. Recently started on prednisone and tocilizumab. Ordered empiric vancomycin IV for possible cellulitis. 12/02: * Increase in SCr from 0.91 ->1.04 -> 1.3mg/dl today * Afebrile, WBC wnl Plan Vancomycin * Current regimen: 1500 mg IV every 24 hours * Trough level obtained 12/02/24 resulted as 12.5 mcg/mL. This is predicted to achieve target AUC/KARY of 400-600 mg/L.hr * Due to increase in SCr, patient will achieve supratherapeutic levels if this dose is continued, therefore will decrease with next dose * Change to 1250 mg IV every 24 hours * Will repeat level in the next 48-72 hours if therapy is continued and/or change in patient clinical status Pharmacy will continue to follow and will adjust dose/frequency as necessary. Thank you.
[2024-12-02] MEDS: POTASSIUM CHLORIDE PWD 20 MEQ PACK PO SCH (08:36)
--- NOTE | 2024-12-02 09:23 | Cardiology Progress Note ---
Date of Service December 02, 2024 Assessment & Plan (1) Acute heart failure with normal ejection fraction: (2) Rapid atrial fibrillation: Plan Assessment: This is an 79-year-old female with past medical history significant for dyslipidemia, A-fib, giant cell arteritis, mononeuritis multiplex associated vasculitis, GERD, CKD stage III, right foot drop, statin intolerance, generalized weakness, comes because of bilateral lower extremity edema and also superficial wound on right lateral ankle region and in the ER she was also found to be in rapid A-fib. 1. Heart failure with moderate to severe MR -Patient is diuresing well, -3430ml fluid balance, but continues with modest volume overload. -Continue Lasix 40mg IV BID -STrict I&O Daily weights, and close monitoring of both renal function/serum electrolytes. Goal serum K > 4.0 (currently receiving supplementation), serum Mag > 2.0. -May consider a repeat limited echo this week/near future to re-evaluate degree of mitral regurgitation once volume status improves. -Continue Lopressor 75mg PO BID -Re-assess volume status in the AM 2. Afib -Rate controlled. -Continue Lopressor 75mg PO BID -Continue Xarelto Case has been discussed with Dr. Zuniga. Further recommendations regarding plan of care as per his assessment. I spent a total of 30 minutes on the date of service in preparation, delivery, documentation of the care provided to the patient excluding any time spent in the performance of separately billed services. TO Irvin [facility] Cardiology [facility] Admission and Anticipated Discharge Date Admission Date: November 30, 2024 Supervising Physician Co-Signing Physician Notes Attending attestation: Case reviewed with the advanced practitioner. I have personally performed a history and physical examination on the patient. I have reviewed the advanced practitioner's documentation on the date of service referenced in note, and I agree with, and take responsibility for the plan of care. Subjective: Progressive lower extremity edema noted since treatment with corticosteroids that was started in Sep, 2024 due to concerns of mononeuritis multiplex associated vasculitis. It is noted that during her index hospital stay for the vasculitis in September, bradycardia is noted and therefore digoxin was held at discharge. Historically, atrial fibrillation with mildly elevated ventricular rate, resting rates in the 80s and 90s noted previously. Rates were rapid on presentation, n ow improved. Edema still present but improving on diuretics. Exam: Cardiovascular: Irregular rhythm, 2/6 systolic murmur, 2+ lower extremity edema Data: EKG performed today 12/02/2024 and interpreted independently: Atrial fibrillation 87 bpm, no significant repolarization abnormalities Echocardiogram performed 11/30/2024 with LVEF of 55 to 60%, normal LV wall motion, moderate to severe mitral regurgitation, pulmonary artery systolic pressure 42 mmHg. - Compared to the report of the previous transthoracic echocardiogram performed 09/13/24, the mitral regurgitation was noted to be mild at that time as compared to moderate to severe at present. Impression/ Plan: Permanent atrial fibrillation, mildly elevated ventricular rate Volume overload likely exacerbated due to chronic corticosteroid use related to vasculitis treatment with superimposed cellulitis Mitral regurgitation * Continue metoprolol tartrate 75 mg twice daily for rate control and Xarelto 15 mg by mouth daily for stroke prevention * Agree with empiric vancomycin for now * Furosemide 40 mg IV twice daily with plans for repeat echocardiogram after volume status improved. * DVT prophylaxis: She is on full anticoagulation dose Xarelto I spent a total of 20 minutes coordinating, documenting, and providing care for this patient excluding time spent in the performance of separately billed services or time spent by another provider. Jamari Zuniga DO Subjective 12/02/2024: Patient seen and examined in follow up today. Feeling improved from a cardiac perspective. Denies any chest pain, pressure or palpitations. Continues to endorse bilateral lower extremity edema. legs with dressings intact due to known ulcerations. Denies any shortness of breath, PND, pre-syncope or syncope. Labs, vitals, diagnostics, telemetry and documentation reviewed. Telemetry reviewed showing A-fib 80-90's, no acute events overnight. Review of Systems Review of Systems: All systems reviewed & are unremarkable except as noted in HPI & below Physical Exam Constitutional: well developed and well nourished; no acute distress and not ill appearing Neck: normal visual inspection and trachea midline Respiratory: normal respiratory effort, lungs clear to auscultation Auscultation: no crackles, no rales, no rhonchi and no wheezes Cardiovascular: Rate/Rhythm: + irregularly irregular Heart Sounds: normal S1, normal S2 and + murmur (+2/6 systolic murmur ) Vessels: no JVD Extremities: + edema (+2 Pedal edema) Skin: normal turgor and + ulcer (kerlix dressings on bilateral lower ex tremities. c/d/i) Psychiatric: A+Ox3, euthymic affect Results & Data Vital Signs (Past 12 Hours) Vital Signs Temp Pulse Pulse Resp BP Pulse Ox O2 Del Method 12/02/24 07:30 36.3 C L 65 17 107/74 93 Room Air 12/02/24 03:34 36.4 C L 90 15 111/63 97 Room Air 12/01/24 23:32 120 H 12/01/24 23:31 36.5 C 109 H 20 127/77 94 Room Air 12/01/24 21:59 Room Air Laboratory Results Comprehensive Metabolic Panel 12/02/24 Range/Units 05:23 Sodium 145 (136-145) mmol/L Potassium 3.3 L D (3.5-5.1) mmol/L Chloride 104 (98-107) mmol/L Carbon Dioxide 35 H (21-32) mmol/L BUN 35 H (6-23) mg/dl Creatinine 1.30 H (0.6-1.2) mg/dl Glucose 91 (70-99(Fasting)) mg/dl Calcium 8.3 L (8.6-10.3) mg/dl Intake and Output 12/01/24 12/02/24 12/02/24 22:59 06:59 14:59 Intake Total 530 / 530 Output Total 1100 / 4200 1900 / 4200 Balance -1100 / -3430 -1900 / -3430 530 / 530 Intake: IV 530 / 530 Vancomycin HCl 1,500 mg In 530 / 530 Sodium Chloride 0.9% 500 ml @ 200 mls/hr IV Q24H [facility] Rx#: [id number] Output: Urine 1100 / 4200 1900 / 4200 Other: # Unmeasured Voids 1 Weight 77.1 kg Weight Measurement Method Built in [facility] PG Care Time/CCT Total # of Minutes Spent Total Time Spent: 30 Total Time Spent with Patient: Total time spent is greater than 50% in coordination of care (as documented) at patient's floor/unit and/or counseling patient: Coding [place] [address] SUB INP/OBS CARE 3/50MIN Patient Type Established History Detailed Exam Detailed Medical Decision Making High Complexity Diagnoses Acute heart failure with normal ejection fraction I50.31 Rapid atrial fibrillation I48.91 Time Spent (min) 50 Comment 30 minutes spent by TO Venegas, 20 minutes by Jamari Zuniga DO
--- NOTE | 2024-12-02 10:17 | Hospitalist Progress Note ---
Date of Service December 02, 2024 Assessment & Plan (1) Rapid atrial fibrillation: Plan: 79-year-old female with past medical history significant for dyslipidemia, A- fib, giant cell arteritis, mononeuritis multiplex associated vasculitis, GERD, CKD stage III, right foot drop, statin intolerance, generalized weakness, comes because of bilateral lower extremity edema and also superficial wound on right lateral ankle region and in the ER she was also found to be in rapid A-fib. Atrial fibrillation with RVR Mitral Regurgitation Past medical history of atrial fibrillation on metoprolol and Xarelto. Recently was discontinued off digoxin due to slow heart rate. Echocardiogram shows EF of 55 to 60%; diastolic dysfunction and moderate to severe MR Continue on metoprolol to 75 mg twice a day Continue telemonitoring Possible plan to repeat limited TTE when euvolemic to reassess MR Bilateral lower extremity swelling/edema Acute on chronic HFpEF Possible cellulitis Likely secondary to steroids Patient has bilateral increasing edema along with weight gain; likely secondary to use of prednisone causing water retention On vancomycin for cellulitis, continue Lasix 40 mg twice daily for diuresis Strict LIONEL's Daily weights Wound care consult Reached out to rheumatology ; no modification in the treatment plan presently. Patient to follow-up with them. Mild elevation of troponin Mostly from demand ischemia Echo as above Mononeuritis multiplex associated with vasculitis Currently on prednisone taper. Currently on 30 mg daily On Actemra will follow up with rheumatology after discharge. CKD stage III monitor GERD On Protonix Hyperlipidemia On Zetia DVT prophylaxis On Xarelto Disposition Telemetry Full code. Time spent evaluating patient, direct bedside care, chart review, placing orders, interpretation of diagnostic studies, discussion with consultants, patient, and family members, as well as other required patient management activities is 50 minutes Please note the above document was generated using voice recognition software. It may contain grammatical, syntax or spelling errors. Any formal questions or concerns about the content, text or information contained within the body of this dictation should be directly addressed to the provider for clarification Admission and Anticipated Discharge Date Admission Date: November 30, 2024 Subjective Patient seen and examined at bedside. She continues to have improvement in her bilateral lower extremity swelling. No significant events overnight Review of Systems Review of Systems: All systems reviewed & are unremarkable except as noted in Subjective Physical Exam Physical Exam: General- Not in distress Head- atraumatic Eyes- PERRL. ENT- oropharynx clear Neck- supple, no JVD Lungs- clear to auscultation no wheezing or crackles Heart- irregular rhythm; tachycardia no murmur, no gallop. Abdomen- normal bowel sounds, soft, nontender, no distension Extremities- b/l 1+ Lower extremity edema seen. right lower extremity distal part somewhat erythematosus and superficial ulceration seen on later right ankle region. Mild macular rash seen on extremities Neuro- alert, oriented PERRL, no facial palsy; no dysarthria; moves extremities Results & Data Results & Data Vital Signs (Past 12 Hours) Vital Signs Temp Pulse Pulse Resp BP Pulse Ox O2 Del Method 12/02/24 07:30 36.3 C L 65 17 107/74 93 Room Air 12/02/24 03:34 36.4 C L 90 15 111/63 97 Room Air 12/01/24 23:32 120 H 12/01/24 23:31 36.5 C 109 H 20 127/77 94 Room Air
--- NOTE | 2024-12-02 18:31 | Electrocardiogram Report ---
Test Reason : Blood Pressure : */* mmHG Vent. Rate : 87 BPM Atrial Rate : * BPM P-R Int : * ms QRS Dur : 84 ms QT Int : 362 ms P-R-T Axes : * 62 43 degrees QTcB Int : 435 ms Atrial fibrillation Abnormal ECG When compared with ECG of 01-Dec-2024 06:01, No significant change was found Confirmed by Josué Hernandez ([id number]) on 12/02/2024 6:31:00 PM Referred By: REFERRED SELF Confirmed By: Josué Hernandez
[2024-12-03] MEDS: VANCOMYCIN HCL 1,250 MG in SODIUM CHLORIDE 0.9% 250 ML IV SCH (06:16)
[2024-12-03 06:41] LABS: Anion Gap 6.0 (3-11); Blood Urea Nitrogen 39.0 mg/dl (6-23); Calcium 8.4 mg/dl (8.6-10.3); Carbon Dioxide 37.0 mmol/L (21-32); Chloride 103.0 mmol/L (98-107); Creatinine Clr Calc Pharmacy 35.8 ml/min; Glucose 89.0 mg/dl (70-99(Fasting)); Potassium 3.4 mmol/L (3.5-5.1); Sodium 146.0 mmol/L (136-145)
[2024-12-03] MEDS: predniSONE 20 MG TAB PO SCH (08:04)
--- NOTE | 2024-12-03 08:32 | Cardiology Progress Note ---
Date of Service December 03, 2024 Assessment & Plan (1) Acute heart failure with normal ejection fraction: (2) Rapid atrial fibrillation: Plan Assessment: This is an 79-year-old female with past medical history significant for dyslipidemia, A-fib, giant cell arteritis, mononeuritis multiplex associated vasculitis, GERD, CKD stage III, right foot drop, statin intolerance, generalized weakness, comes because of bilateral lower extremity edema and also superficial wound on right lateral ankle region and in the ER she was also found to be in rapid A-fib. 1. Heart failure with moderate to severe MR -Patient is diuresing well, -3430ml fluid balance, but continues with modest volume overload. -Continue Lasix 40mg IV BID -STrict I&O Daily weights, and close monitoring of both renal function/serum electrolytes. Goal serum K > 4.0 (currently receiving supplementation), serum Mag > 2.0. -May consider a repeat limited echo this week/near future to re-evaluate degree of mitral regurgitation once volume status improves. -Continue Lopressor 75mg PO BID -Re-assess volume status in the AM 2. Afib -Rate controlled. -Continue Lopressor 75mg PO BID -Continue Xarelto 12/03/2024: -patient continues to diurese well. -2kg per review of I&O records. legs show significant decrease in edema. -Continue Lasix 40mg IV BID. Cr. 1.24 -Continue with Strict I&O, daily weights and close monitoring of renal function/serum electrolytes. Goal serum K> 4.0 and Serum Mag > 2.0 -Will reassess volume status in the AM and consider repeat limited echo to re- evaluate degree of mitral regurgitation. -Continue Lopressor 75mg PO BID -Patient would benefit for PT/OT if not already enrolled. -Continue Xarelto for oral AC therapy, denies any manda bleeding. Case has been discussed with Dr. Zuniga. Further recommendations regarding plan of care as per his assessment. I spent a total of 30 minutes on the date of service in preparation, delivery, documentation of the care provided to the patient excluding any time spent in the performance of separately billed services. TO Irvin [facility] Cardiology [facility] Admission and Anticipated Discharge Date Admission Date: November 30, 2024 Supervising Physician Co-Signing Physician Notes Attending attestation: Case reviewed with the advanced practitioner. I have personally performed a history and physical examination on the patient. I have reviewed the advanced practitioner's documentation on the date of service referenced in note, and I agree with, and take responsibility for the plan of care. Subjective: Progressive lower extremity edema noted since treatment with corticosteroids that was started in Sep, 2024 due to concerns of mononeuritis multiplex associated vasculitis. Lower extremity edema much improved. Historically, atrial fibrillation with mildly elevated ventricular rate, resting rates in the 80s and 90s noted previously. Digoxin had been discontinued at the time of her hospital stay in Sep, 2024 due to bradycardia. Rate still mildly above goal, with telemetry revealing atrial fibrillation with ventricular rate ranging from the 90s upwards to the 140s with minimal exertion. Exam: Cardiovascular: Irregular rhythm, 1/6 systolic murmur, Trace bilateral lower extremity edema Residual left foot drop noted Data: EKG performed today 12/02/2024 : Atrial fibrillation 87 bpm, no significant repolarization abnormalities Echocardiogram performed 11/30/2024 with LVEF of 55 to 60%, normal LV wall motion, moderate to severe mitral regurgitation, pulmonary artery systolic pressure 42 mmHg. - Compared to the report of the previous transthoracic echocardiogram performed 09/13/24, the mitral regurgitation was noted to be mild at that time as compared to moderate to severe at present. Impression/ Plan: Permanent atrial fibrillation, mildly elevated ventricular rate Volume overload likely exacerbated due to chronic corticosteroid use related to vasculitis treatment with superimposed cellulitis Mitral regurgitation * Change metoprolol to tartrate 75 mg twice daily to metoprolol succinate 100 mg twice daily for rate control * Continue Xarelto 15 mg by mouth daily for stroke prevention * Agree with empiric vancomycin for now * Furosemide 40 mg IV twice daily with plans To perhaps transition to oral diuretics on 12/04/2024. * Repeat limited echo a.m. of 12/04/2024 to reassess mitral regurgitation status post diuretic therapy * DVT prophylaxis: She is on full anticoagulation dose Xarelto I spent a total of 20 minutes coordinating, documenting, and providing care for this patient excluding time spent in the performance of separately billed services or time spent by another provider. Jamari Zuniga DO Subjective 12/03/2024: Patient seen and examined in follow up today. Feeling well from a cardiac perspective. She continues to report improvement in her leg swelling. No chest pain, pressure, palpitations, changes in breathing, no near syncope or syncope. Labs, vitals, diagnostics, telemetry and documentation reviewed. Telemetry reviewed showing A-fib rates 90's, brief increase into the 140's with activity, asymptomatic. Very short episode non-sustained into the 160's with activity. -2kg weight deficit Review of Systems Review of Systems: All systems reviewed & are unremarkable except as noted in HPI & below Physical Exam Constitutional: well developed and well nourished; no acute distress and not ill appearing Neck: normal visual inspection and trachea midline Respiratory: normal respiratory effort, lungs clear to auscultation Auscultation: no crackles, no rales, no rhonchi and no wheezes Cardiovascular: Rate/Rhythm: + irregularly irregular Heart Sounds: normal S1, normal S2 and + murmur (+2/6 systolic murmur ) Vessels: no JVD Extremities: + edema (+1 Pedal edema) Skin: normal turgor and + ulcer (kerlix dressings on bilateral lower extremities. c/d/i) Psychiatric: A+Ox3, euthymic affect Results & Data Vital Signs (Past 12 Hours) Vital Signs Temp Pulse Pulse Resp BP Pulse Ox O2 Del Method 12/03/24 08:24 36.7 C 87 17 85/57 L 96 Room Air 12/03/24 03:07 36.4 C L 112 H 16 99/72 L 95 Room Air 12/02/24 23:29 36.4 C L 111 H 16 128/77 97 Room Air 12/02/24 22:00 105 H Laboratory Results Comprehensive Metabolic Panel 12/03/24 Range/Units 05:20 Sodium 146 H (136-145) mmol/L Potassium 3.4 L (3.5-5.1) mmol/L Chloride 103 (98-107) mmol/L Carbon Dioxide 37 H (21-32) mmol/L BUN 39 H (6-23) mg/dl Creatinine 1.24 H (0.6-1.2) mg/dl Glucose 89 (70-99(Fasting)) mg/dl Calcium 8.4 L (8.6-10.3) mg/dl Intake and Output 12/02/24 12/03/24 12/03/24 22:59 06:59 14:59 Intake Total 940 / 2150 200 / 2150 275 / 275 Output Total 510 / 2535 625 / 2535 Balance 430 / -385 -425 / -385 275 / 275 Intake: IV 275 / 275 Vancomycin HCl 1,250 mg In 275 / 275 Sodium Chloride 0.9% 250 ml @ 200 mls/hr IV Q24H [facility] Rx#: [id number] Oral 940 / 1620 200 / 1620 Output: Urine 510 / 2535 625 / 2535 Other: Weight 74.616 kg Weight Measurement Method Built in [facility] PG Care Time/CCT Total # of Minutes Spent Total Time Spent with Patient: Total time spent is greater than 50% in coordination of care (as documented) at patient's floor/unit and/or counseling patient: Coding [place] [address] SUB INP/OBS CARE 3/50MIN Patient Type Established History Detailed Exam Detailed Medical Decision Making High Complexity Diagnoses Acute heart failure with normal ejection fraction I50.31 Rapid atrial fibrillation I48.91 Time Spent (min) 50 Comment 30 minutes were spent by TO Venegas, an additional 20 minutes were spent by Shahram
[2024-12-03] MEDS: POTASSIUM CHLORIDE CRTAB 20 MEQ TABCR PO STA (12:29)
--- NOTE | 2024-12-03 13:18 | Hospitalist Progress Note ---
Date of Service December 03, 2024 Assessment & Plan (1) Rapid atrial fibrillation: Plan: 79-year-old female with past medical history significant for dyslipidemia, A- fib, giant cell arteritis, mononeuritis multiplex associated vasculitis, GERD, CKD stage III, right foot drop, statin intolerance, generalized weakness, comes because of bilateral lower extremity edema and also superficial wound on right lateral ankle region and in the ER she was also found to be in rapid A-fib. Atrial fibrillation with RVR Mitral Regurgitation Past medical history of atrial fibrillation on metoprolol and Xarelto. Recently was discontinued off digoxin due to slow heart rate. Echocardiogram shows EF of 55 to 60%; diastolic dysfunction and moderate to severe MR Continue on metoprolol to 75 mg twice a day Continue telemonitoring Possible plan to repeat limited TTE when euvolemic to reassess MR Bilateral lower extremity swelling/edema Acute on chronic HFpEF Possible cellulitis Likely secondary to steroids Patient has bilateral increasing edema along with weight gain; likely secondary to use of prednisone causing water retention On vancomycin for cellulitis, continue Lasix 40 mg twice daily for diuresis Strict LIONEL's Daily weights Wound care consult Reached out to rheumatology ; Recommended to decrease prednisone to 20 mg once a day and continue it for a week until December 09, 2024; starting December 10patient to be on 15 mg once a day; and Rheumatology would like to be contacted for further tapering after patient is on 15mg once a day. Patient will need prescription of either 5 mg or 10 mg tablets of prednisone at the time of the discharge as patient currently has 20 mg tablet at home. Mild elevation of troponin Mostly from demand ischemia Echo as above Mononeuritis multiplex associated with vasculitis Currently on prednisone taper. see above On Actemra CKD stage III monitor GERD On Protonix Hyperlipidemia On Zetia DVT prophylaxis On Xarelto Disposition Telemetry Full code. Updated patient's daughter at bedside. Time spent evaluating patient, direct bedside care, chart review, placing orders, interpretation of diagnostic studies, discussion with consultants, patient, and family members, as well as other required patient management activities is 50 minutes Please note the above document was generated using voice recognition software. It may contain grammatical, syntax or spelling errors. Any formal questions or concerns about the content, text or information contained within the body of this dictation should be directly addressed to the provider for clarification Admission and Anticipated Discharge Date Admission Date: November 30, 2024 Subjective Patient seen and examined at bedside. She reports that she is feeling better overall. Overnight, ventricular rate increased while she was in the bathroom. Urine output reassuring Review of Systems Review of Systems: All systems reviewed & are unremarkable except as noted in Subjective Physical Exam Physical Exam: General- Not in distress Head- atraumatic Eyes- PERRL. ENT- oropharynx clear Neck- supple, no JVD Lungs- clear to auscultation no wheezing or crackles Heart- irregular rhythm; tachycardia no murmur, no gallop. Abdomen- normal bowel sounds, soft, nontender, no distension Extremities- b/l 1+ Lower extremity edema seen; significant improvement. right lower extremity distal part somewhat erythematosus and superficial ulceration seen on later right ankle region. Mild macular rash seen on extremities Neuro- alert, oriented PERRL, no facial palsy; no dysarthria; moves extremities Results & Data Results & Data Vital Signs (Past 12 Hours) Vital Signs Temp Pulse Resp BP BP Pulse Ox O2 Del Method 12/03/24 10:36 36.4 C L 92 H 18 100/69 95 Room Air 12/03/24 09:08 101/68 12/03/24 08:24 36.7 C 87 17 85/57 L 96 Room Air 12/03/24 03:07 36.4 C L 112 H 16 99/72 L 95 Room Air
[2024-12-03] MEDS: SODIUM CHLORIDE 0.9% 500 ML IV ONE (15:52)
[2024-12-03] MEDS: DEXTROSE 5% 1,000 ML IV SCH (17:06)
[2024-12-03] MEDS: METOPROLOL SUCC 50MG EXT REL TAB PO SCH (21:20)
[2024-12-04 06:28] LABS: Anion Gap 5.0 (3-11); Blood Urea Nitrogen 37.0 mg/dl (6-23); Calcium 8.2 mg/dl (8.6-10.3); Carbon Dioxide 37.0 mmol/L (21-32); Chloride 102.0 mmol/L (98-107); Creatinine Clr Calc Pharmacy 37.9 ml/min; Glucose 109.0 mg/dl (70-99(Fasting)); Potassium 3.6 mmol/L (3.5-5.1); Sodium 144.0 mmol/L (136-145)
--- NOTE | 2024-12-04 12:48 | Cardiology Progress Note ---
Date of Service December 04, 2024 Assessment & Plan (1) Acute heart failure with normal ejection fraction: (2) Rapid atrial fibrillation: Plan Assessment: This is an 79-year-old female with past medical history significant for dyslipidemia, A-fib, giant cell arteritis, mononeuritis multiplex associated vasculitis, GERD, CKD stage III, right foot drop, statin intolerance, generalized weakness, comes because of bilateral lower extremity edema and also superficial wound on right lateral ankle region and in the ER she was also found to be in rapid A-fib. 12/04/24: -Patient continues to diurese well and is near euvolemic. -1707ml fluid balance. continue daily weights and close monitoring of renal function/electrolytes. Strict I&O. -BP slightly low, improved from over night (currently 98/68) -Patient is out of bed in a chair, ambulating well with a walker. -continue Toprol xl 100mg PO BID for rate control -Continue Xarelto 15mg QD for oral AC therapy -Start Lasix 20mg PO QD tomorrow -Limited echo today pending. Case has been discussed with Dr. Zuniga. Further recommendations regarding plan of care as per his assessment. I spent a total of 30 minutes on the date of service in preparation, delivery, documentation of the care provided to the patient excluding any time spent in the performance of separately billed services. TO Irvin [facility] Admission and Anticipated Discharge Date Admission Date: November 30, 2024 Supervising Physician Co-Signing Physician Notes Attending attestation: Case reviewed with the advanced practitioner. I have personally performed a history and physical examination on the patient. I have reviewed the advanced practitioner's documentation on the date of service referenced in note, and I agree with, and take responsibility for the plan of care. Subjective: Patient with transient hypotension the afternoon of 12/03/2024 and therefore diuretics had been held. Blood pressure better at present. Patient without complaint. Telemetry reveals atrial fibrillation with rate in the range of 90 to 116 bpm at rest, with increased tachycardia noted with minimal exertion. Exam: Cardiovascular: Irregular rhythm, 1/6 systolic murmur, Trace bilateral lower extremity edema Residual left foot drop noted Data: Echocardiogram performed 11/30/2024 with LVEF of 55 to 60%, normal LV wall motion, moderate to severe mitral regurgitation, pulmonary artery systolic pressure 42 mmHg. Repeat limited echocardiogram performed today 12/04/2024, interpreted independently: A limited study was performed per provider request for reassessment of much regurgitation. Goal-directed views were obtained Atrial fibrillation with ventricular rate ranging from 90 to 110 bpm present during echocardiogram study. The left ventricular wall motion is normal. Left Ventricular Ejection Fraction = 55-60%. The left atrium is severely dilated. The right atrium is mildly dilated. There is moderate mitral annular calcification. Mitral valve leaflets are mildly calcified and mildly thickened. There is moderate to severe mitral regurgitation. The mitral regurgitation jet is central. No mitral valve prolapse was visualized. The etiology of the mitral regurgitation appears to be left atrial enlargement and central mild coaptation of the mitral valve. There is a small loculated left lateral pericardial effusion. Tamponade is absent. Impression/ Plan: Permanent atrial fibrillation, mildly elevated ventricular rate Volume overload likely exacerbated due to chronic corticosteroid use related to vasculitis treatment with superimposed cellulitis Moderate to severe mitral regurgitation * Metoprolol Succinate titrated to 100 mg twice daily on 12/03/2024 * Continue Xarelto 15 mg by mouth daily for stroke prevention * Agree with empiric vancomycin for now * Transition to furosemide 20 mg p.o. daily 12/05/2024 * Prednisone dose reduced to 20 mg daily on 12/03 * Continue conservative management for mitral regurgitation for now, future considerations include transesophageal echocardiogram, evaluation with outpatient comprehensive valve clinic for consideration of intervention however in the setting of vasculitis and ongoing need for prednisone, invasive cardiac procedure not felt to be prudent at present. * DVT prophylaxis: She is on full anticoagulation dose Xarelto I spent a total of 20 minutes coordinating, documenting, and providing care for this patient excluding time spent in the performance of separately billed services or time spent by another provider. Jamari Zuniga DO Subjective 12/04/24: Patient seen and examined in follow up today. Feeling well overall. Offers no acute cardiac concerns. She is sitting out of bed in a chair today. Labs, vitals, diagnostics, telemetry and documentation reviewed. Telemetry reviewed showing A-fib, rates 90's. Rare burst into the 130's non- sustained. Review of Systems Review of Systems: All systems reviewed & are unremarkable except as noted in HPI & below Physical Exam Constitutional: well developed and well nourished; no acute distress and not ill appearing Neck: normal visual inspection and trachea midline Respiratory: normal respiratory effort, lungs clear to auscultation Auscultation: no crackles, no rales, no rhonchi and no wheezes Cardiovascular: Rate/Rhythm: + irregularly irregular Heart Sounds: normal S1, normal S2 and + murmur (+2/6 systolic murmur ) Vessels: no JVD Extremities: + edema (+1 Pedal edema) Skin: normal turgor and + ulcer (kerlix dressings on bilateral lower extremities. c/d/i) Psychiatric: A+Ox3, euthymic affect Results & Data Vital Signs (Past 12 Hours) Vital Signs Temp Pulse Pulse Resp BP Pulse Ox O2 Del Method 12/04/24 11:00 36.6 C 97 H 18 98/68 L 96 Room Air 12/04/24 08:00 132 H 12/04/24 07:35 36.3 C L 109 H 18 130/72 95 Room Air 12/04/24 03:32 36.5 C 93 H 18 117/72 91 Room Air Laboratory Results Comprehensive Metabolic Panel 12/04/24 Range/Units 05:49 Sodium 144 (136-145) mmol/L Potassium 3.6 (3.5-5.1) mmol/L Chloride 102 (98-107) mmol/L Carbon Dioxide 37 H (21-32) mmol/L BUN 37 H (6-23) mg/dl Creatinine 1.17 (0.6-1.2) mg/dl Glucose 109 H (70-99(Fasting)) mg/dl Calcium 8.2 L (8.6-10.3) mg/dl Intake and Output 12/03/24 12/04/24 12/04/24 22:59 06:59 14:59 Intake Total 500 / 2725 1000 / 2725 693.667 / 693.667 Output Total 1400 / 4750 950 / 4750 401 / 401 Balance -900 / -2024 50 / -2024 292.667 / 292.667 Intake: IV 500 / 1775 1000 / 1775 693.667 / 693.667 Dextrose 5% 1,000 ml @ 80 mls/ 1000 / 1000 418.667 / 418.667 hr IV .[id number] [facility] Rx#:[id number] Sodium Chloride 0.9% 500 ml @ 500 / 500 999 mls/hr IV .Q31M [facility] Rx#: [id number] Vancomycin HCl 1,250 mg In 275 / 275 Sodium Chloride 0.9% 250 ml @ 200 mls/hr IV Q24H [facility] Rx#: [id number] Output: Urine 1400 / 4750 950 / 4750 400 / 400 # Bowel Movements Other: Weight 74.616 kg Weight Measurement Method Built in [facility] Care Time/CCT Total # of Minutes Spent Total Time Spent with Patient: Total time spent is greater than 50% in coordination of care (as documented) at patient's floor/unit and/or counseling patient: Coding Level of Care Code 09726 SUB INP/OBS CARE 3/50MIN History Detailed Exam Detailed Medical Decision Making High Complexity Diagnoses Acute heart failure with normal ejection fraction I50.31 Rapid atrial fibrillation I48.91 Time Spent (min) 50 Comment TO Venegas spent 30 minutes, Jamari Zuniga DO, spent 20 minutes
--- NOTE | 2024-12-04 13:00 | Hospitalist Progress Note ---
Date of Service December 04, 2024 Assessment & Plan (1) Rapid atrial fibrillation: Plan: 79-year-old female with past medical history significant for dyslipidemia, A- fib, giant cell arteritis, mononeuritis multiplex associated vasculitis, GERD, CKD stage III, right foot drop, statin intolerance, generalized weakness, comes because of bilateral lower extremity edema and also superficial wound on right lateral ankle region and in the ER she was also found to be in rapid A-fib. Atrial fibrillation with RVR Mitral Regurgitation Past medical history of atrial fibrillation on metoprolol and Xarelto. Recently was discontinued off digoxin due to slow heart rate. Echocardiogram shows EF of 55 to 60%; diastolic dysfunction and moderate to severe MR Metoprolol dose has been titrated to 100 mg twice a day of succinate from home dose of metoprolol tartrate 50 mg twice daily Continue telemonitoring Repeat echocardiogram from 12/04 continues to show moderate to severe MR; will need follow-up with cardiology as outpatient. Bilateral lower extremity swelling/edema Acute on chronic HFpEF Possible cellulitis Likely secondary to steroids Patient has bilateral increasing edema along with weight gain; likely secondary to use of prednisone causing water retention On vancomycin for cellulitis, continue Patient diuresed with IV Lasix; on hold since December 03 due to hypernatremia, hypotension Strict LIONEL's Daily weights Wound care consult Reached out to rheumatology ; Recommended to decrease prednisone to 20 mg once a day and continue it for a week until December 09, 2024; starting December 10patient to be on 15 mg once a day; and Rheumatology would like to be contacted for further tapering after patient is on 15mg once a day. Patient will need prescription of either 5 mg or 10 mg tablets of prednisone at the time of the discharge as patient currently has 20 mg tablet at home. Hypernatremiaserum sodium of 146 on 12/03; was given D5 with resolution. Encourage oral intake Mild elevation of troponin Mostly from demand ischemia Echo as above Mononeuritis multiplex associated with vasculitis Currently on prednisone taper. see above On Actemra CKD stage III monitor GERD On Protonix Hyperlipidemia On Zetia DVT prophylaxis On Xarelto Disposition Telemetry Full code. Time spent evaluating patient, direct bedside care, chart review, placing or ders, interpretation of diagnostic studies, discussion with consultants, patient, and family members, as well as other required patient management activities is 50 minutes Please note the above document was generated using voice recognition software. It may contain grammatical, syntax or spelling errors. Any formal questions or concerns about the content, text or information contained within the body of this dictation should be directly addressed to the provider for clarification Admission and Anticipated Discharge Date Admission Date: November 30, 2024 Subjective Patient seen and examined at bedside. She reports that she is feeling much bet ter compared to previous days. Her mentation has cleared up as well. Review of Systems Review of Systems: All systems reviewed & are unremarkable except as noted in Subjective Physical Exam Physical Exam: General- Not in distress Head- atraumatic Eyes- PERRL. ENT- oropharynx clear Neck- supple, no JVD Lungs- clear to auscultation no wheezing or crackles Heart- irregular rhythm; tachycardia no murmur, no gallop. Abdomen- normal bowel sounds, soft, nontender, no distension Extremities- b/l trace Lower extremity edema seen; significant improvement. right lower extremity distal part somewhat erythematosus and superficial ulceration seen on later right ankle region. Mild macular rash seen on extremities Neuro- alert, oriented PERRL, no facial palsy; no dysarthria; moves extremities Results & Data Results & Data Vital Signs (Past 12 Hours) Vital Signs Temp Pulse Pulse Resp BP Pulse Ox O2 Del Method 12/04/24 11:00 36.6 C 97 H 18 98/68 L 96 Room Air 12/04/24 08:00 132 H 12/04/24 07:35 36.3 C L 109 H 18 130/72 95 Room Air 12/04/24 03:32 36.5 C 93 H 18 117/72 91 Room Air
[2024-12-05 06:56] LABS: Anion Gap 0.0 (3-11); Blood Urea Nitrogen 36.0 mg/dl (6-23); Calcium 8.1 mg/dl (8.6-10.3); Carbon Dioxide 34.0 mmol/L (21-32); Chloride 109.0 mmol/L (98-107); Creatinine Clr Calc Pharmacy 40.0 ml/min; Glucose 80.0 mg/dl (70-99(Fasting)); Potassium 3.3 mmol/L (3.5-5.1); Sodium 143.0 mmol/L (136-145)
[2024-12-05 07:23] VITALS: RESP 17; TEMP 97.7; O2SAT 96
[2024-12-05] MEDS: POTASSIUM CHLORIDE CRTAB 20 MEQ TABCR PO STA (08:07)
--- NOTE | 2024-12-05 08:52 | Cardiology Progress Note ---
Date of Service December 05, 2024 Assessment & Plan (1) Acute heart failure with normal ejection fraction: (2) Rapid atrial fibrillation: Plan Assessment: This is an 79-year-old female with past medical history significant for dyslipidemia, A-fib, giant cell arteritis, mononeuritis multiplex associated vasculitis, GERD, CKD stage III, right foot drop, statin intolerance, generalized weakness, comes because of bilateral lower extremity edema and also superficial wound on right lateral ankle region and in the ER she was also found to be in rapid A-fib. 12/04/24: -Patient continues to diurese well and is near euvolemic. -1707ml fluid balance. continue daily weights and close monitoring of renal function/electrolytes. Strict I&O. -BP slightly low, improved from over night (currently 98/68) -Patient is out of bed in a chair, ambulating well with a walker. -continue Toprol xl 100mg PO BID for rate control -Continue Xarelto 15mg QD for oral AC therapy -Start Lasix 20mg PO QD tomorrow -Limited echo today pending. 12/05/2024: -Patient is stable from a cardiac perspective. -She has diuresed well and plan is for her to be discharged on Furosemide 20mg PO QD -Continue Toprol xl 100mg PO BID for rate control. Will also restart Digoxin 125mcg PO daily -Continue Xaretlto 15mg PO Daily for oral AC therapy -Continue Zetia 10mg daily for lipid management -Reviewed echocardiogram with patient and daughter which shows a preserved LVEF, moderate annular calcification and moderate to severe MR. Discussed continued surveillance of her valvular disease with echocardiogram, and possibly a ALEXANDRU at some juncture. If valve would be deemed severe, discussed consideration to follow with our valve clinic team outpatient. Case has been discussed with Dr. Zuniga. Further recommendations regarding plan of care as per his assessment. I spent a total of 30 minutes on the date of service in preparation, delivery, documentation of the care provided to the patient excluding any time spent in the performance of separately billed services. TO Irvin [facility] Admission and Anticipated Discharge Date Admission Date: November 30, 2024 Supervising Physician Co-Signing Physician Notes Attending attestation: Case reviewed with the advanced practitioner. I have personally performed a history and physical examination on the patient. I have reviewed the advanced practitioner's documentation on the date of service referenced in note, and I agree with, and take responsibility for the plan of care. Stable for discharge. Medication plan as outlined in TO Venegas's progress note. Patient's daughter visiting during my assessment. Counseled patient that should she have any increase in swelling she can double her dose of furosemide x 3 days and notify cardiology office. I spent a total of 20 minutes coordinating, documenting, and providing care for this patient excluding time spent in the performance of separately billed services or time spent by another provider. Jamari Zuniga DO Subjective 12/05/2024: Patient seen and examined in follow up today. Feeling well from a cardiac perspective. Offers no acute concerns. Labs, vitals, diagnostics, telemetry and documentation reviewed. Telemetry reviewed showing A-fib rates 100-120bpm. No acute events overnight. Review of Systems Review of Systems: All systems reviewed & are unremarkable except as noted in HPI & below Physical Exam Constitutional: well developed and well nourished; no acute distress and not ill appearing Neck: normal visual inspection and trachea midline Respiratory: normal respiratory effort, lungs clear to auscultation Auscultation: no crackles, no rales, no rhonchi and no wheezes Cardiovascular: Rate/Rhythm: + irregularly irregular Heart Sounds: normal S1, normal S2 and + murmur (+2/6 systolic murmur ) Vessels: no JVD Extremities: + edema (+1 Pedal edema) Skin: normal turgor and + ulcer (kerlix dressings on bilateral lower extremities. c/d/i) Psychiatric: A+Ox3, euthymic affect Results & Data Vital Signs (Past 12 Hours) Vital Signs Temp Pulse Pulse Resp BP BP Pulse Ox 12/05/24 08:00 124 H 12/05/24 07:22 36.5 C 101 H 17 117/80 96 12/05/24 02:44 36.4 C L 95 H 16 124/81 93 12/04/24 22:10 36.5 C 115 H 20 114/71 94 O2 Del Method 12/05/24 08:00 12/05/24 07:22 Room Air 12/05/24 02:44 Room Air 12/04/24 22:10 Room Air Laboratory Results Comprehensive Metabolic Panel 12/05/24 Range/Units 05:27 Sodium 143 (136-145) mmol/L Potassium 3.3 L (3.5-5.1) mmol/L Chloride 109 H (98-107) mmol/L Carbon Dioxide 34 H (21-32) mmol/L BUN 36 H (6-23) mg/dl Creatinine 1.11 (0.6-1.2) mg/dl Glucose 80 (70-99(Fasting)) mg/dl Calcium 8.1 L (8.6-10.3) mg/dl Intake and Output 12/04/24 12/05/24 12/05/24 22:59 06:59 14:59 Intake Total 425 / 1718.667 Balance 425 / 1115.667 Intake: IV 275 / 968.667 Vancomycin HCl 1,250 mg In 275 / 550 Sodium Chloride 0.9% 250 ml @ 200 mls/hr IV Q24H [facility] Rx#: [id number] Oral 150 / 750 Other: # Unmeasured Voids 2 1 Weight 74.5 kg Weight Measurement Method Built in [facility] Coding Level of Care Code 55938 SUB INP/OBS CARE 3/50MIN History Detailed Exam Detailed Medical Decision Making High Complexity Diagnoses Acute heart failure with normal ejection fraction I50.31 Rapid atrial fibrillation I48.91 Time Spent (min) 50 Comment 30 minutes were spent by TO Venegas, 20 minutes by Jamari Zuniga DO
[2024-12-05] MEDS: DIGOXIN 0.125 MG TAB PO SCH (09:26)
[2024-12-05 12:24] VITALS: BP 124/81; PULSE 101
--- NOTE | 2024-12-05 12:24 | Discharge Summary ---
Date of Service December 05, 2024 Admission HPI Per Admitting Provider 79-year-old female with past medical history significant for dyslipidemia, A- fib, giant cell arteritis, mononeuritis multiplex associated vasculitis, GERD, CKD stage III, right foot drop, statin intolerance, generalized weakness, comes because of bilateral lower extremity edema and also superficial wound on right lateral ankle region and in the ER she was also found to be in rapid A-fib. Patient was admitted at [facility] from 10/12/2024 to 10/16/2024 with headache ,jaw and neck pain and right foot drop and CTA head and neck shows vasculitis. Symptoms were suspected to be mononeuritis multiplex associated with vasculitis. She was discharged on prednisone. During that admission digoxin was stopped because of bradycardia. She followed up with rheumatology. There was also concern for giant cell arteritis. She was started on Actemra and slow tapering prednisone. Currently she is on 30 mg prednisone daily seems until December 06, 2023 and then for 14 days of prednisone 20 mg daily until December 19/2025. [facility] wanted to call them when she is on prednisone 20 mg daily for further tapering. Patient states since last 1 month she developed swelling in the lower extremities. Usually the legs are normal as per patient. She was prescribed brace for right foot drop but seems to not use them currently. And now she is also developed superficial skin ulceration to the right lateral ankle region which prompted come to the ER today. She is also having significant pain in the lower extremities. Some macular rash seen. In the ER her heart rates were in the 120s and 130s. Denies any fevers. No chest pain or shortness of breath. No cough. Currently no headache. Vision is okay. No runny nose or sore throat. No abdominal pain. Somewhat constipated. Denies any blood in the stools. Micturating okay. Past medical history. As mentioned above Past surgical history. Breast surgery for infection right breast. Complex cataract surgery. Colonoscopy. Dental surgery. Dilatation curettage. Hysteroscopy with biopsy and polypectomy. Right breast surgery. Basal cell carcinoma removed. Sacroiliac joint injection. Social history. No smoking. Alcohol rarely. No drug use. Family history. Mother had diabetes. Stroke. Thyroid disorder. Father had [place]. Admission Exam Per Admitting Provider eneral- Not in distress Head- atraumatic Eyes- PERRL. ENT- oropharynx clear Neck- supple, no JVD Lungs- clear to auscultation no wheezing or crackles Heart- irregular rhythm; tachycardia no murmur, no gallop. Abdomen- normal bowel sounds, soft, nontender, no distension Extremities- b/l gross Lower extremity edema seen. right lower extremity distal part somewhat erythematosus and superficial ulceration seen on later right ankle region. Mild macular rash seen on extremities Neuro- alert, oriented PERRL, no facial palsy; no dysarthria; moves extremities Principal Diagnosis Atrial fibrillation with RVR Mitral Regurgitation Bilateral lower extremity swelling/edema Acute on chronic HFpEF Possible cellulitis Discharge Exam General- Not in distress Head- atraumatic Eyes- PERRL. ENT- oropharynx clear Neck- supple, no JVD Lungs- clear to auscultation no wheezing or crackles Heart- irregular rhythm; tachycardia no murmur, no gallop. Abdomen- normal bowel sounds, soft, nontender, no distension Extremities- b/l trace Lower extremity edema seen; significant improvement. right lower extremity distal part somewhat erythematosus and superficial ulceration seen on later right ankle region. Mild macular rash seen on extremities Neuro- alert, oriented PERRL, no facial palsy; no dysarthria; moves extremities Discharge Data Allergies Allergy/AdvReac Type Severity Reaction Status Date / Time Penicillins Allergy Unknown SWELLING Verified 11/18/24 14:06 pineapple AdvReac Unknown STOMACH Verified 11/18/24 14:06 CRAMPS Consultations 11/30/24 10:03 Consult Cardiology Routine Hospital Course (1) Rapid atrial fibrillation: 79-year-old female with past medical history significant for dyslipidemia, A- fib, giant cell arteritis, mononeuritis multiplex associated vasculitis, GERD, CKD stage III, right foot drop, statin intolerance, generalized weakness, comes because of bilateral lower extremity edema and also superficial wound on right lateral ankle region and in the ER she was also found to be in rapid A-fib. Atrial fibrillation with RVR Mitral Regurgitation During the hospitalization, patient's dose of metoprolol was titrated to metoprolol succinate 100 mg twice a day. Digoxin 0.125 mg was also added. Patient ventricular rate was in the range of 90s to 100. Repeat repeated echocardiogram was done to check on the mitral regurgitation which still showed moderate to severe MR. Plan for patient to follow-up outpatient with cardiology for further evaluation and management of severe MR. Plan to continue Lasix 20 mg once a day at discharge Bilateral lower extremity swelling/edema Acute on chronic HFpEF LE cellulitis Likely secondary to steroids Patient has bilateral increasing edema along with weight gain; likely secondary to use of prednisone causing water retention She was also treated she was treated with vancomycin for the cellulitis Patient diuresed with IV Lasix leading to significant improvement in LE edema. Reached out to rheumatology ; Recommended to decrease prednisone to 20 mg once a day and continue it for a week and patient to be on 15 mg once a day; and Rheumatology would like to be contacted for further tapering after patient is on 15mg once a day. Patient prescribed 5 mg tablets of prednisone with instructions regarding the dosing given. Patient verbalized understanding. Patient to follow-up with PCP. She will need BMP in 2 weeks. Please note the above document was generated using voice recognition software. It may contain grammatical, syntax or spelling errors. Any formal questions or concerns about the content, text or information contained within the body of this dictation should be directly addressed to the provider for clarification Total Time Total Time Spent Total Time Spent (In Minutes): 45 Total Time Includes: Examination of the Patient, Discharge Planning, Medication Reconciliation, Communication With Other Providers and Other Discharge Plan Discharge Items Patient Disposition: Home - Self-Care Reason For Visit: RAPID AFIB, CELLULITIS, LOWER EXTREMITY EDEMA Discharge Diagnosis: Atrial fibrillation with RVR Mitral Regurgitation Condition on Discharge: Fair Activity: Resume your previous activity Non-emergency contact: Primary Care Provider Call non-emergency contact if: you have any medication questions and your symptoms worsen Follow-up/Referrals: Shant Lee DO [Primary Care Provider] - 12/10/24 6:20 pm (Date & Time 12/10/2024 6:20 PM Provider Shant Lee DO Department [facility] ) Diet: Regular Addtl Attending Provider Instructions: You were admitted to the hospital for concern of heart failure and rapid heart rate. You are treated with diuretics, antibiotics during the hospitalization. Following changes have been made to your medication regimen; Please take metoprolol succinate 100 mg twice a day Please take digoxin 0.125 mg daily at 4 PM Continue to take Lasix 20mg once a day Stop taking metoprolol tartate 50mg twice a day The dosing of the prednisone have been modified after discussion with your capability lead. You were prescribed 5 mg tablets of the prednisone. Please take it as follows; Take 20 mg 4 tablets for 5 days(December 10, 2024) Starting December 11, 2024 -start taking 15 mg ( 3 tablets). ' Once you have started taking the 15 mg; please reach out to Dr. Camargo from rheumatology to discuss further decrease in the dose. You cannot abruptly stop the medication as it can be life-threatening. An Appointment is set up with her primary care doctor for follow-up. You will need blood work to check on your electrolytes in 2 weeks. Please follow-up at wound care center for management of lower extremity wounds. Wound care instructions: To right lateral ankle-clean with saline. Cover with Aquacel Ag , ABDs and secure with Kerlix. To right lower leg(except ankle) and left lower leg- Cover petechiae with Xeroform, gauze and secure with Kerlix. Change every day and as needed for drainage Pending Studies at Discharge: No Stand-Alone Forms: My [facility], Smoking Cessation Medications and DC Order Prescriptions: New digoxin [Digitek] 125 mcg (0.125 mg) Tablet 0.125 mg PO DAILY@1600 Qty: 30 0RF prednisone 5 mg tablet See Taper PO DAILY Qty: 100 0RF Taper: Taper, Blank 20 mg DAILY for 5 Days 15 mg DAILY for 15 Days metoprolol succinate 100 mg tablet extended release 24 hr 100 mg PO BID Qty: 60 0RF Continued pantoprazole 40 mg tablet,delayed release (DR/EC) 40 mg PO DAILY ezetimibe 10 mg tablet 10 mg PO DAILY Xarelto 15 mg tablet 15 mg PO QPM Actemra ACTPen 162 mg/0.9 mL pen injector 162 mg SUBCUT WK furosemide 20 mg tablet 20 mg PO DAILY Qty: 30 0RF Discontinued metoprolol tartrate 50 mg tablet 50 mg PO BID prednisone 20 mg Tablet 30 mg PO DAILY Discharge Orders: Discharge Order (Routine); Ordered 12/05/24 Ordered By: Jean Marquez/Other Patient Handouts: Women Heart Disease Changes, AFib Preventing Stroke, AFib Admission Data Admit Date/Time: 11/30/24 07:38 Attending Provider: Jean Kemp Admit Provider: Channing Martinez Primary Care Provider: Shant Lee Other Providers: Emili Clements; Jamari Zuniga; Woody Gama; Romario Parish; Lester Baumann; Octavio Waggoner; Shirley Sal; Preeti Zhong; Dhara Kong; Yany Mulligan; Emili Millan; Reynold Morgan; Andrew Pierre; Katharina Garza; Trinity Cervantes; Dorita Mccormick; Malcolm Borden; Edi Griffiths; Seema Malik; Nela Bond; Josué Singh; [facility] Other Interventions: Discharge Summary Assessment (RN) Last Done: 12/05/24 12:22
[2024-12-06] MEDS ORDERED: VANCOMYCIN LEVEL ONE (05:00)
[2024-12-06] MEDS ORDERED: FUROSEMIDE 20 MG TAB PO SCH (09:00)
[2024-12-06] MEDS ORDERED: DIGOXIN 0.125 MG TAB PO SCH (16:00)
== END 2024-12-05 13:23 | disposition home or self-care (01) | DRG 291 ==
LOC: ED 04:10 → 2S 07:38

== ENCOUNTER 2025-01-03 07:02 | Inpatient (IN) ==
--- NOTE | 2025-01-03 07:10 | Emergency Department Note ---
Impression & Plan Pneumoperitoneum, Diverticulitis, Abscess of abdominal cavity ED Provider Note NAME: SEGUNDO WALTER AGE: 79 SEX: F : 1945 ARRIVES VIA: Ambulance INFORMANT: Patient ED PROVIDER(S): Myles Menjivar DO CHIEF COMPLAINT: Abdominal pain HPI: Patient is an 79-year-old female who presents ER with a past medical history of hypertension, A-fib on Xarelto, vasculitis for periumbilical abdominal pain which started suddenly about an hour prior to arrival. She notes she has never had this before. It is severe and diffuse throughout her whole belly. Associate with nausea but no vomiting. She has had some loose stools. Denies any vaginal bleeding vaginal discharge. No dysuria, urgency or frequency. No other exacerbating or remitting factors. Additional history was obtained from EMS who presented at bedside with her and notes that she did take 2 Tylenol prior to arrival. Has not missed any doses of her anticoagulant. ADDITIONAL HISTORY OBTAINED: Per HPI Chronic Medical/Social Conditions Affecting Care: Per HPI PAST MEDICAL HISTORY:See Below PAST SURGICAL HISTORY:See Below FAMILY HISTORY:See Below SOCIAL HISTORY:See Below HOME MEDICATIONS:See Below ALLERGIES:See Below VITALS:See Below PHYSICAL EXAMINATION: GENERAL: Sitting up in bed, alert, ill-appearing, moderate distress EYE EXAM: normal conjunctiva. OROPHARYNX: no exudate, no erythema, lips, buccal mucosa, and tongue normal and mucous membranes are moist NECK: supple, no nuchal rigidity, no adenopathy, non-tender LUNGS: Clear to auscultation. Normal chest wall mechanics HEART: no murmurs, S1 normal and S2 normal ABDOMEN: abdomen soft, severe acute tenderness periumbilically, positive rebound and guarding UPPER EXTREMITIES: upper extremities are grossly normal. LOWER EXTREMITIES: No pitting edema. NEURO EXAM: Normal sensorium, cranial nerves II-XII grossly intact, normal speech, no gross weakness of arms, no gross weakness of legs. MEDICAL DECISION MAKING: Patient is an 79-year-old female who presents to the ER for severe abdominal pain. IV was established and POC was obtained. Following the results of the creatinine she was taken emergently to CT. I reviewed the images personally and I had about 30 minutes was able to page general surgery for perforated bowel. Patient was given IV cefepime and Flagyl. Consulted general surgery and they evaluated the patient at bedside admitted her for further workup. She remained on 2 L nasal cannula following IV morphine as she was given morphine and Zofran and fluids. She was updated bedside admitted and likely taken to the OR by surgery. Consults/Care Managements Discussions: Per MDM Triage Nursing notes reviewed. Limited review of prior medical records performed Vital Signs: reviewed and remarkable for no significant abnormalities Differential diagnosis: Differential diagnoses includes but is not limited to gastritis, peptic ulcer disease, GERD, gallbladder disease, pancreatitis, small bowel obstruction, appendicitis, diverticulitis, hernia, urinary tract infection, torsion, perforation, trauma, infectious. ER treatment provided: See below Diagnostics interpreted by me include EKG and cardiac monitoring as listed below: -Cardiac Monitoring: An order was placed for continuous cardiac monitoring. The monitor shows a rate of 120 with AFIB rhythm. -ECG: A-fib rate of 98 Normal axis No PVCs QTc 434 -Laboratory studies:Interpreted by me as stated above in MDM and shown below. Imaging studies: Xrays: As interpreted by me:none CTs show: none Procedures:none Critical Care: I have personally spent 75 minutes of critical care time in the direct management of this patient. This includes bedside care, interpretation of diagnostic studies, and testing, discussion with consultants, patient, and family members, and other required patient management activities. This 75 minutes is in excess of all separately billable procedures. Past Med/Surg History Problem List (Updated 01/03/25 @ 10:27 by Myles Menjivar DO) Abscess of abdominal cavity (Acute) Diverticulitis (Acute) Pneumoperitoneum (Acute) Peritonitis Perforated abdominal viscus Elevated troponin (Acute) Atrial fibrillation with rapid ventricular response (Acute) Rapid atrial fibrillation Sacroiliitis Mononeuritis multiplex associated with vasculitis Generalized weakness (Acute) Unintended weight loss (Acute) Foot drop, right (Acute) Vasculitis (Acute) Diarrhea (Acute) Atrial fibrillation (Chronic) Hypertension (Chronic) Fall (Acute) Scalp contusion (Acute) Head injury (Acute) Medical History Hypertension Afib Acute heart failure with normal ejection fraction Dyslipidemia Surgical History S/P wrist surgery S/P dilation and curettage multiople Family History Other No pertinent family history Social History Smoking Status: Unknown if ever smoked Hx Alcohol Use: Yes Alcohol type: wine Hx Substance Use: No Preferred Language: Moroccan Communication Ability: Effective Visual Impairment: No Limitations Hearing Ability: Normal Finance Associate Required: No Beliefs That Will Affect Care: None Current Living Situation: Alone Feels Safe at Home: Yes Assistive Devices: Cane and Walker Allergies Allergies Allergy/AdvReac Type Severity Reaction Status Date / Time Penicillins Allergy Unknown SWELLING Verified 01/03/25 09:24 pineapple AdvReac Unknown STOMACH Verified 01/03/25 09:24 CRAMPS Home Meds Home Medications Medication Instructions Recorded Confirmed ezetimibe 10 mg tablet 10 mg PO DAILY 11/30/24 01/03/25 pantoprazole 40 mg tablet,delayed 40 mg PO DAILY 11/30/24 01/03/25 release rivaroxaban 15 mg tablet (Xarelto) 15 mg PO QPM 11/30/24 01/03/25 tocilizumab 162 mg/0.9 mL 162 mg subcut WK 11/30/24 01/03/25 subcutaneous pen injector (Actemra ACTPen) Previous Rx's Medication Instructions Recorded digoxin 125 mcg (0.125 mg) tablet 0.125 mg PO DAILY@1600 #30 tabs 12/05/24 (Digitek) furosemide 20 mg tablet 20 mg PO DAILY #30 tabs 12/05/24 metoprolol succinate 100 mg 100 mg PO BID #60 tabs 12/05/24 tablet,extended release 24 hr Results & Data (ED) Vital Signs Vital Signs - 24 hr 01/03/25 06:51 01/03/25 07:59 01/03/25 08:01 Temperature 36.7 C Temperature Source Oral Pulse Rate 120 H 86 Pulse Rate [Apical] Pulse Rhythm [Apical] Pulse Strength [Apical] Respiratory Rate 20 Respiratory Effort / Characteristics Respiratory Depth Respiratory Pattern Blood Pressure 133/93 Blood Pressure [Right Arm] Blood Pressure Mean 106 Blood Pressure Mean [Right Arm] Blood Pressure Position [Right Arm] Pulse Oximetry 90 Oxygen Delivery Method Nasal Cannula Oxygen Flow Rate 2 Sepsis Recent Fever Within 48 Hours No Sepsis New/Unexplained Change in Mental Status No Sepsis Action Taken by Nursing No Action Required 01/03/25 08:03 01/03/25 08:52 01/03/25 09:04 Temperature 36.4 C L Temperature Source Oral Pulse Rate 87 Pulse Rate [Apical] 86 96 H Pulse Rhythm [Apical] Regular Pulse Strength [Apical] Normal Respiratory Rate 21 12 16 Respiratory Effort / Characteristics Non-Labored Spontaneous Respiratory Depth Normal Respiratory Pattern Regular Blood Pressure 124/66 Blood Pressure [Right Arm] 132/74 130/61 Blood Pressure Mean 85 Blood Pressure Mean [Right Arm] 93 84 Blood Pressure Position [Right Arm] Lying Lying Pulse Oximetry 98 98 100 Oxygen Delivery Method Nasal Cannula Nasal Cannula Nasal Cannula Oxygen Flow Rate 2 2 2 Sepsis Recent Fever Within 48 Hours Sepsis New/Unexplained Change in Mental Status Sepsis Action Taken by Nursing Laboratory Data 01/03/25 07:12 01/03/25 07:12 Lab Results 01/03/25 01/03/25 01/03/25 Range/Units 07:12 07:18 08:33 WBC 7.58 (4.8-10.8) K/ul RBC 3.86 L (4.20-5.40) M/uL Hgb 12.5 (12.0-16.0) g/dl POC Hgb 12.6 (12.0-16.0) g/dl Hct 38.7 (37.0-47.0) % POC Hct 37 (37-47) % MCV 100.3 H (80.0-100.0) fL MCH 32.4 (25.0-34.0) pg MCHC 32.3 (32.0-36.0) g/dL RDW Std Deviation 61.7 H (36.4-46.3) fL RDW Coeff of Ned 16.7 H (11.5-14.5) % Plt Count 148 (130-400) K/uL MPV 10.4 (9.4-12.4) fL Immature Gran % (Auto) 0.9 % Neut % (Auto) 78.2 % Lymph % (Auto) 14.6 % [place] % (Auto) 5.0 % Eos % (Auto) 0.9 % Baso % (Auto) 0.4 % Neut # (Auto) 5.92 (1.40-6.50) K/uL Lymph # (Auto) 1.11 L (1.20-3.40) K/uL [place] # (Auto) 0.38 (0.11-0.59) K/uL Eos # (Auto) 0.07 (0.00-0.50) K/uL Baso # (Auto) 0.03 (0.00-0.20) K/uL Immature Gran # (Auto) 0.07 (0.01-0.20) K/uL POC Sodium 143 (135-144) mmol/L Sodium 144 (136-145) mmol/L POC Potassium 3.6 (3.3-5.0) mmol/L Potassium 3.6 (3.5-5.1) mmol/L POC Chloride 104 (101-112) mmol/L Chloride 106 (98-107) mmol/L Carbon Dioxide 31 (21-32) mmol/L POC Total CO2 27 (24-31) mmol/L Anion Gap 7 (3-11) POC Anion Gap 17.0 (16-25) mmol/L POC BUN 22 H (7-18) mg/dl BUN 23 (6-23) mg/dl Creatinine 1.06 (0.6-1.2) mg/dl POC Creatinine 1.1 (0.6-1.3) mg/dl Est Cr Clr Drug Dosing 41.3 ml/min eGFR 53.11 BUN/Creatinine Ratio 21.7 H (10-20) Glucose 149 H (70-99(Fasting)) mg/dl POC Glucose (other) 149 H (70-99) mg/dl Lactate 1.5 (0.4-2.0) mmol/L Calcium 8.8 (8.6-10.3) mg/dl POC Ioniz Calcium David 1.17 (1.12-1.32) mmol/l Total Bilirubin 1.7 H (0.2-1.0) mg/dl AST 14 (13-39) U/L ALT 13 (7-52) U/L Alkaline Phosphatase 58 (34-104) U/L Total Protein 5.7 L (6.0-8.3) gm/dl Albumin 3.5 (3.4-5.0) gm/dl Globulin 2.2 L (2.5-4.0) gm/dl Albumin/Globulin Ratio 1.6 (0.9-2) Lipase 16 (11-82) U/L Procalcitonin 0.08 (0-0.5) ng/ml Administered Medications Lactated Ringer's (Lr) 1,000 mls @ 15 mls/hr IV .Q24H SORAIDA Stop: 01/06/25 09:14 Last Infusion: 01/03/25 09:54 Dose: Infused Documented By: Admin: 01/03/25 09:19 Dose: 15 mls/hr Documented By: EAC Discontinued Medications Sodium Chloride (Nss) 1,000 mls @ 999 mls/hr IV .Q1H1M ONE Stop: 01/03/25 08:07 Last Infusion: 01/03/25 08:34 Dose: Infused Documented By: Admin: 01/03/25 07:16 Dose: 999 mls/hr Documented By: ANAY Metronidazole (Flagyl) 500 mg in 100 mls @ 100 mls/hr IV NOW STA; Protocol Stop: 01/03/25 08:31 Last Admin: 01/03/25 07:39 Dose: 100 mls/hr Documented By: ANAY Cefepime HCl (Maxipime 2000mg) 2,000 mg in 20 mls @ 5 mls/min IV NOW STA; Protocol Stop: 01/03/25 07:35 Last Admin: 01/03/25 07:39 Dose: 5 mls/min Documented By: ANYA Ioversol (Optiray 320 100ml) 94 ml IV ONCE ONE Stop: 01/03/25 07:32 Last Admin: 01/03/25 07:32 Dose: 94 ml Documented By: KYLAH Morphine Sulfate (Morphine Sulfate 4 Mg/Ml 1 Ml Carp\Vial) 4 mg IV NOW STA Stop: 01/03/25 07:09 Last Admin: 01/03/25 07:16 Dose: 4 mg Documented By: ANAY Ondansetron HCl (Ondansetron Inj 2 Mg/Ml 2 Ml Vial) 4 mg IV NOW STA Stop: 01/03/25 07:09 Last Admin: 01/03/25 07:16 Dose: 4 mg Documented By: ANAY Imaging Data Radiologist's Impression: Abdomen/Pelvis CT 01/03/25 07:07 EXAM: CT abd pelvis IV con only CLINICAL HISTORY: Mid-abdominal pain, severe/peritonitic TECHNIQUE: CT of the abdomen and pelvis was performed with contrast (94 mls [id number]) with the following protocol: axial images with, and reconstructed coronal and sagittal images. One of the following dose reduction techniques was utilized for this exam: Automated exposure control, adjustment of the mA and/or kV according to patient size, and use of iterative reconstruction. DLP: 1058.27 mGy-cm. CTDI: 22.23 mGy. COMPARISON: Compared to the CT study dated 10/12/2024. FINDINGS: Abdomen: Liver: Normal in size, shape, and density. Small non-enhanced focal lesion likely cyst measures 15 mm at segment of the right liver lobe. Hepatic vasculature and biliary ducts are unremarkable. Gallbladder and Biliary System: The gallbladder is normal in size and shape. No wall thickening, pericholecystic fluid, or gallstones were identified. The common bile duct is normal in caliber without dilation. Pancreas: The pancreatic head, body, and tail are visualized and appear normal in size and density. No pancreatic masses or calcifications were noted. The pancreatic duct is not dilated. Spleen: Normal in size, shape, and density. Multiple small cysts, the largest measures 12 mm Kidneys and Adrenal Glands: Both kidneys are normal in size, shape, and position. Cortical thickness is within normal limits. No renal calculi or hydronephrosis. Adrenal glands are unremarkable with no evidence of masses or hyperplasia. Diffuse aortic mural calcification. Pelvis: Large pelvic collection at cul de sac and extending to left iliac region measures 8 x 9.9 x 10.5 cm with fat stranding. Urinary Bladder: Normal in contour and wall thickness. No intraluminal lesions identified. Uterus: Normal in size and contour. Soft tissue lesion on the left side is likely an intramural fibroid. Bowel: Multiple abdominal foci of pneumoperitoneum are noted. Multiple colon diverticulosis. Mild dilated small intestinal loops with air fluid levels. No masses. Bones and Soft Tissues: Pelvic bones and soft tissues are unremarkable. No fractures or abnormal masses were identified. IMPRESSION: Compared to the prior CT study dated 10/12/2024 1. Pneumoperitoneum, mesenteric fat stranding (newly present) 2. Large pelvic collection at cul de sac and extending to left iliac region measures 8 x 9.9 x 10.5 cm with fat stranding, (newly present) 3. CT findings are likely to indicate sigmoid colon complicated diverticulitis with a large pelvic abscess and pneumoperitoneum. Urgent surgical consultation and tube drainage are required. 4. Hepatic and splenic cysts (unchanged) Electronically signed by Jimy Dugan 01-03-2025 08:41 AM Discharge Plan Visit Data Chief Complaint: Abdominal Pain Stated Complaint: AB PAIN ED Provider: Myles Menjivar Discharge Problem: Pneumoperitoneum, Diverticulitis, Abscess of abdominal cavity Patient Disposition: Admitted As Inpatient Condition: Critical Discharge Instructions Interventions: ED Discharge Assessment Last Done: 01/03/25 09:07
[2025-01-03] MEDS: MoRPHine SULFATE 4 MG/ML 1 ML CARP\\VIAL IV STA (07:16)
[2025-01-03] MEDS: ONDANSETRON INJ 2 MG/ML 2 ML VIAL IV STA (07:16)
[2025-01-03] MEDS: SODIUM CHLORIDE 0.9% 1,000 ML IV ONE (07:16)
[2025-01-03 07:27] LABS: Hematocrit (blood only) 38.7 % (37.0-47.0); Hemoglobin 12.5 g/dl (12.0-16.0); Immature Granulocytes # (auto) 0.07 K/uL (0.01-0.20); Immature Granulocytes % (auto) 0.9 %; Mean Corpuscular Hemoglobin 32.4 pg (25.0-34.0); Mean Corpuscular Volume 100.3 fL (80.0-100.0); Platelet Count 148 K/uL (130-400); RDW Standard Deviation 61.7 fL (36.4-46.3); Red Blood Count 3.86 M/uL (4.20-5.40); White Blood Count 7.58 K/ul (4.8-10.8)
[2025-01-03] MEDS: OPTIRAY 320 100ml IV ONE (07:32)
[2025-01-03] MEDS: metroNIDAZOLE 500 MG/100 ML BAG IV STA (07:39)
[2025-01-03] MEDS: CEFEPIME 2000MG 2,000 MG/20 ML SYR IV STA (07:39)
[2025-01-03 07:43] LABS: Alanine Aminotransferase 13.0 U/L (7-52); Albumin Globulin Ratio 1.6 (0.9-2); Alkaline Phosphatase 58.0 U/L (34-104); Anion Gap 7.0 (3-11); Bilirubin,Total 1.7 mg/dl (0.2-1.0); Blood Urea Nitrogen 23.0 mg/dl (6-23); Calcium 8.8 mg/dl (8.6-10.3); Carbon Dioxide 31.0 mmol/L (21-32); Chloride 106.0 mmol/L (98-107); Creatinine Clr Calc Pharmacy 41.3 ml/min; Globulin 2.2 gm/dl (2.5-4.0); Glucose 149.0 mg/dl (70-99(Fasting)); Lipase 16.0 U/L (11-82); Potassium 3.6 mmol/L (3.5-5.1); Sodium 144.0 mmol/L (136-145); Total Protein 5.7 gm/dl (6.0-8.3)
--- NOTE | 2025-01-03 08:29 | History & Physical Report ---
<Statement entered by Lester Lyons MD - 01/03/25 09:05> Peritonitis on exam; will need resection , washout/drain, and ostomy. Patient understands all this. Date of Service January 03, 2025 Assessment & Plan (1) Rapid atrial fibrillation: (2) Perforated abdominal viscus: (3) Peritonitis: Plan: 79 year old female with sudden onset of severe abdominal pain this morning with associated nausea and sweats. CT scan reviewed with radiology. Likely peforated diverticulitis with large abscess and pneumoperitoneum. Her white count is normal and currently afebrile however she is peritonitic on examination. Discussed need for operation with exploratory laparotomy , bowel resection and colostomy formation. Dr. Lyons reviewed again and risks of procedure and informed consent obtained. Continue NPO. Continue IV abx. Dr. Lyons has seen and examined patient agrees with above. History of Present Illness Chief Complaint: abdominal pain pneumoperitoneum Primary Care Provider: DO Segundo Valentine is a 79 yo female with history of afib on Xarelto, vasculitis on steroid taper, CKD, foot drop, HTN, sacroiliitis, who presented to ED with sudden onset of severe abdominal pain this morning with associated nausea and sweats. Kaleva like she had to pass gas but then had small bowel movement and pain worsened and did not improve. She last took Xarelto on Monday and Steroid dose yesterday. Had some liquids this am with Tylenol but no food. No history of prior similar abdominal pain. No history of diverticulitis that she is aware of. No history of abdominal surgeries. She was feeling fine yesterday. Allergies Allergy/AdvReac Type Severity Reaction Status Date / Time Penicillins Allergy Unknown SWELLING Verified 11/18/24 14:06 pineapple AdvReac Unknown STOMACH Verified 11/18/24 14:06 CRAMPS Home Medications Medication Instructions Recorded Confirmed Type ezetimibe 10 mg tablet 10 mg PO DAILY 11/30/24 11/30/24 History pantoprazole 40 mg tablet,delayed 40 mg PO DAILY 11/30/24 11/30/24 History release rivaroxaban 15 mg tablet (Xarelto) 15 mg PO QPM 11/30/24 11/30/24 History tocilizumab 162 mg/0.9 mL 162 mg subcut WK 11/30/24 11/30/24 History subcutaneous pen injector (Actemra ACTPen) digoxin 125 mcg (0.125 mg) tablet 0.125 mg PO DAILY@1600 #30 tabs 12/05/24 Rx (Digitek) furosemide 20 mg tablet 20 mg PO DAILY #30 tabs 12/05/24 Rx metoprolol succinate 100 mg 100 mg PO BID #60 tabs 12/05/24 Rx tablet,extended release 24 hr prednisone 5 mg tablet See Taper PO DAILY #100 tabs 12/05/24 Rx Past Med/Surg History Problem List (Updated 01/03/25 @ 08:27 by Liberty Stringer PA-C) Peritonitis Perforated abdominal viscus Elevated troponin (Acute) Atrial fibrillation with rapid ventricular response (Acute) Rapid atrial fibrillation Sacroiliitis Mononeuritis multiplex associated with vasculitis Generalized weakness (Acute) Unintended weight loss (Acute) Foot drop, right (Acute) Vasculitis (Acute) Head injury (Acute) Scalp contusion (Acute) Fall (Acute) Hypertension (Chronic) Atrial fibrillation (Chronic) Diarrhea (Acute) Medical History Dyslipidemia Surgical History S/P wrist surgery S/P dilation and curettage multiople Family History Other No pertinent family history Social History Smoking Status: Unknown if ever smoked Hx Alcohol Use: Yes Alcohol type: wine Hx Substance Use: No Preferred Language: Spanish Communication Ability: Effective Visual Impairment: No Limitations Hearing Ability: Normal Cloth Picker Required: No Beliefs That Will Affect Care: None Current Living Situation: Alone Feels Safe at Home: Yes Assistive Devices: Cane and Walker Review of Systems Review of Systems: All systems reviewed & are unremarkable except as noted in HPI & below Physical Exam Constitutional: + ill appearing and + obese; + uncomfort able Respiratory: normal respiratory effort, lungs clear to auscultation Cardiovascular: Rate/Rhythm: regular rate and regular rhythm Heart Sounds: normal S1 and normal S2 Gastrointestinal (Abdomen): Inspection/Auscultation: + abdomen distended Percussion/Palpation: + abdomen tender (peritonitis throughout abdomen), + guarding and abdomen soft; abdomen not rigid and abdomen not firm Skin: no rashes, warm and dry Psychiatric: Orientation: alert and oriented x 3 Results & Data Results & Data Vital Signs (Past 12 Hours) Vital Signs Temp Pulse Resp BP Pulse Ox O2 Del Method O2 Flow Rate 01/03/25 08:03 87 21 124/66 98 Nasal Cannula 2 01/03/25 08:01 86 01/03/25 07:59 Nasal Cannula 2 01/03/25 06:51 36.7 C 120 H 20 133/93 90 Laboratory Results 01/03/25 01/03/25 Range/Units 07:18 07:12 WBC 7.58 (4.8-10.8) K/ul RBC 3.86 L (4.20-5.40) M/uL Hgb 12.5 (12.0-16.0) g/dl POC Hgb 12.6 (12.0-16.0) g/dl Hct 38.7 (37.0-47.0) % POC Hct 37 (37-47) % MCV 100.3 H (80.0-100.0) fL MCH 32.4 (25.0-34.0) pg MCHC 32.3 (32.0-36.0) g/dL RDW Std Deviation 61.7 H (36.4-46.3) fL RDW Coeff of Ned 16.7 H (11.5-14.5) % Plt Count 148 (130-400) K/uL MPV 10.4 (9.4-12.4) fL Immature Gran % (Auto) 0.9 % Neut % (Auto) 78.2 % Lymph % (Auto) 14.6 % Weber % (Auto) 5.0 % Eos % (Auto) 0.9 % Baso % (Auto) 0.4 % Neut # (Auto) 5.92 (1.40-6.50) K/uL Lymph # (Auto) 1.11 L (1.20-3.40) K/uL Weber # (Auto) 0.38 (0.11-0.59) K/uL Eos # (Auto) 0.07 (0.00-0.50) K/uL Baso # (Auto) 0.03 (0.00-0.20) K/uL Immature Gran # (Auto) 0.07 (0.01-0.20) K/uL POC Sodium 143 (135-144) mmol/L Sodium 144 (136-145) mmol/L POC Potassium 3.6 (3.3-5.0) mmol/L Potassium 3.6 (3.5-5.1) mmol/L POC Chloride 104 (101-112) mmol/L Chloride 106 (98-107) mmol/L Carbon Dioxide 31 (21-32) mmol/L POC Total CO2 27 (24-31) mmol/L Anion Gap 7 (3-11) POC Anion Gap 17.0 (16-25) mmol/L POC BUN 22 H (7-18) mg/dl BUN 23 (6-23) mg/dl Creatinine 1.06 (0.6-1.2) mg/dl POC Creatinine 1.1 (0.6-1.3) mg/dl Est Cr Clr Drug Dosing 41.3 ml/min eGFR 53.11 BUN/Creatinine Ratio 21.7 H (10-20) Glucose 149 H (70-99(Fasting)) mg/dl POC Glucose (other) 149 H (70-99) mg/dl Calcium 8.8 (8.6-10.3) mg/dl POC Ioniz Calcium David 1.17 (1.12-1.32) mmol/l Total Bilirubin 1.7 H (0.2-1.0) mg/dl AST 14 (13-39) U/L ALT 13 (7-52) U/L Alkaline Phosphatase 58 (34-104) U/L Total Protein 5.7 L (6.0-8.3) gm/dl Albumin 3.5 (3.4-5.0) gm/dl Globulin 2.2 L (2.5-4.0) gm/dl Albumin/Globulin Ratio 1.6 (0.9-2) Lipase 16 (11-82) U/L Diagnostic Findings Ct scan of abdomen and pelvis not officially read, reviewed with Dr. Nunez from radiology believes there is perforation of diverticulitis of the sigmoid colon with large abscess abutting the uterus. Free air throughout the abdomen. [facility], [place] [phone] CT Scan Report Patient: SEGUNDO WALTER Admit Date: 01/03/25 MR#: [id number] Address1: [address] [place] [address] Acct ID:[id number] Address2: Date: 1945 [facility] Zip: [place] [address] Age: 79 Location: ED Sex: F Room/Bed: Att Phy: Diagnosis: AB PAIN Nataliia Phy: Shant Lee DO Service Date: 01/03/25 Fam Phy: Interpreting Phy: Jimy Dugan MDAdmit Phy: Ordering Phy: Myles Menjivar DO cc: ~ ADDENDUM Addendum Report EXAM: CT abd pelvis IV con only ADDENDUM: [facility] ER was called at [phone] at 7:42 AM TOP TILE DECORATOR, 01/03/2025, and RHIANNON Gordon was informed regarding the presence of critical medical findings in the report and he confirmed that they have received the report. Electronically signed by Jimy Dugan 01-03-2025 08:44 AM ADDENDUM END EXAM: CT abd pelvis IV con only CLINICAL HISTORY: Mid-abdominal pain, severe/peritonitic TECHNIQUE: CT of the abdomen and pelvis was performed with contrast (94 mls ) with the following protocol: axial images with, and reconstructed coronal and sagittal images. One of the following dose reduction techniques was utilized for this exam: Automated exposure control, adjustment of the mA and/or kV according to patient size, and use of iterative reconstruction. DLP: 1058.27 mGy-cm. CTDI: 22.23 mGy. COMPARISON: Compared to the CT study dated 10/12/2024. FINDINGS: Abdomen: Liver: Normal in size, shape, and density. Small non-enhanced focal lesion likely cyst measures 15 mm at segment of the right liver lobe. Hepatic vasculature and biliary ducts are unremarkable. Gallbladder and Biliary System: The gallbladder is normal in size and shape. No wall thickening, pericholecystic fluid, or gallstones were identified. The common bile duct is normal in caliber without dilation. Pancreas: The pancreatic head, body, and tail are visualized and appear normal in size and density. No pancreatic masses or calcifications were noted. The pancreatic duct is not dilated. Spleen: Normal in size, shape, and density. Multiple small cysts, the largest measures 12 mm Kidneys and Adrenal Glands: Both kidneys are normal in size, shape, and position. Cortical thickness is within normal limits. No renal calculi or hydronephrosis. Adrenal glands are unremarkable with no evidence of masses or hyperplasia. Diffuse aortic mural calcification. Pelvis: Large pelvic collection at cul de sac and extending to left iliac region measures 8 x 9.9 x 10.5 cm with fat stranding. Urinary Bladder: Normal in contour and wall thickness. No intraluminal lesions identified. Uterus: Normal in size and contour. Soft tissue lesion on the left side is likely an intramural fibroid. Bowel: Multiple abdominal foci of pneumoperitoneum are noted. Multiple colon diverticulosis. Mild dilated small intestinal loops with air fluid levels. No masses. Bones and Soft Tissues: Pelvic bones and soft tissues are unremarkable. No fractures or abnormal masses were identified. IMPRESSION: Compared to the prior CT study dated 10/12/2024 1. Pneumoperitoneum, mesenteric fat stranding (newly present) 2. Large pelvic collection at cul de sac and extending to left iliac region measures 8 x 9.9 x 10.5 cm with fat stranding, (newly present) 3. CT findings are likely to indicate sigmoid colon complicated diverticulitis with a large pelvic abscess and pneumoperitoneum. Urgent surgical consultation and tube drainage are required. 4. Hepatic and splenic cysts (unchanged) I Personally reviewed CT scan images and agree with above findings Code Status & VTE Plan VTE Prophylaxis Plan VTE Prophylaxis will be ordered: Yes
--- NOTE | 2025-01-03 08:41 | CT Scan Report ---
EXAM: CT abd pelvis IV con only CLINICAL HISTORY: Mid-abdominal pain, severe/peritonitic TECHNIQUE: CT of the abdomen and pelvis was performed with contrast (94 mls [id number]) with the following protocol: axial images with, and reconstructed coronal and sagittal images. One of the following dose reduction techniques was utilized for this exam: Automated exposure control, adjustment of the mA and/or kV according to patient size, and use of iterative reconstruction. DLP: 1058.27 mGy-cm. CTDI: 22.23 mGy. COMPARISON: Compared to the CT study dated 10/12/2024. FINDINGS: Abdomen: Liver: Normal in size, shape, and density. Small non-enhanced focal lesion likely cyst measures 15 mm at segment of the right liver lobe. Hepatic vasculature and biliary ducts are unremarkable. Gallbladder and Biliary System: The gallbladder is normal in size and shape. No wall thickening, pericholecystic fluid, or gallstones were identified. The common bile duct is normal in caliber without dilation. Pancreas: The pancreatic head, body, and tail are visualized and appear normal in size and density. No pancreatic masses or calcifications were noted. The pancreatic duct is not dilated. Spleen: Normal in size, shape, and density. Multiple small cysts, the largest measures 12 mm Kidneys and Adrenal Glands: Both kidneys are normal in size, shape, and position. Cortical thickness is within normal limits. No renal calculi or hydronephrosis. Adrenal glands are unremarkable with no evidence of masses or hyperplasia. Diffuse aortic mural calcification. Pelvis: Large pelvic collection at cul de sac and extending to left iliac region measures 8 x 9.9 x 10.5 cm with fat stranding. Urinary Bladder: Normal in contour and wall thickness. No intraluminal lesions identified. Uterus: Normal in size and contour. Soft tissue lesion on the left side is likely an intramural fibroid. Bowel: Multiple abdominal foci of pneumoperitoneum are noted. Multiple colon diverticulosis. Mild dilated small intestinal loops with air fluid levels. No masses. Bones and Soft Tissues: Pelvic bones and soft tissues are unremarkable. No fractures or abnormal masses were identified. IMPRESSION: Compared to the prior CT study dated 10/12/2024 1. Pneumoperitoneum, mesenteric fat stranding (newly present) 2. Large pelvic collection at cul de sac and extending to left iliac region measures 8 x 9.9 x 10.5 cm with fat stranding, (newly present) 3. CT findings are likely to indicate sigmoid colon complicated diverticulitis with a large pelvic abscess and pneumoperitoneum. Urgent surgical consultation and tube drainage are required. 4. Hepatic and splenic cysts (unchanged) Electronically signed by Jimy Dugan 01-03-2025 08:41 AM
[2025-01-03] MEDS: LACTATED RINGER'S 1,000 ML IV SCH (09:19)
[2025-01-03] MEDS ORDERED: ONDANSETRON INJ 2 MG/ML 2 ML VIAL ONE (09:22)
[2025-01-03] MEDS ORDERED: LIDOCAINE 2% 2 ML VIAL/AMP(20MG/ML) INFIL ONE (09:22)
[2025-01-03] MEDS ORDERED: PROPOFOL IV EMULSION 10 MG/ML 20 ML VIAL IV ONE (09:22)
[2025-01-03] MEDS ORDERED: HYDROCORTISONE SOD SUCCINATE 100 MG/2 ML VIAL ONE (09:26)
--- NOTE | 2025-01-03 09:33 | Anesthesiology Consultation ---
Date of Service January 03, 2025 Assessment & Plan Chart Review Chart Review: Acceptable Risk for Surgery and Patient NOT seen in Pre Admission Testing Consults Requested none ASA [id number] Proposed Anesthesia Anesthesia Type: General Risk / Benefits Reviewed With: PT / POA / Parent / Guardian, Accepts Plan and Informed Consent Obtained History Surgery Operation Date: 01/03/25 11:45 Proposed Procedures p Explorotomy Laparotomy, Possible Bowel Resection, Possible Osteomy - Lester Lyons MD Height/Weight Height: 5 ft 4 in Weight: 72.6 kg Allergies Allergy/AdvReac Type Severity Reaction Status Date / Time Penicillins Allergy Unknown SWELLING Verified 01/03/25 09:24 pineapple AdvReac Unknown STOMACH Verified 01/03/25 09:24 CRAMPS Medications Home Medications Medication Instructions Recorded Confirmed Last Taken ezetimibe 10 mg tablet 10 mg PO DAILY 11/30/24 01/03/25 Unknown pantoprazole 40 mg tablet,delayed 40 mg PO DAILY 11/30/24 01/03/25 Unknown release rivaroxaban 15 mg tablet (Xarelto) 15 mg PO QPM 11/30/24 01/03/25 Unknown tocilizumab 162 mg/0.9 mL 162 mg subcut WK 11/30/24 01/03/25 Unknown subcutaneous pen injector (Actemra ACTPen) digoxin 125 mcg (0.125 mg) tablet 0.125 mg PO DAILY@1600 #30 tabs 12/05/24 01/03/25 Unknown (Digitek) furosemide 20 mg tablet 20 mg PO DAILY #30 tabs 12/05/24 01/03/25 Unknown metoprolol succinate 100 mg 100 mg PO BID #60 tabs 12/05/24 01/03/25 Unknown tablet,extended release 24 hr Active Medications Generic Name Dose Route Start Last Admin Trade Name Freq PRN Reason Stop Dose Admin Lactated Ringer's 1,000 mls @ 15 mls/hr 01/03/25 09:15 01/03/25 09:19 Lr IV 01/06/25 09:14 15 mls/hr .Q24H SORAIDA Administration NPO Date Last Intake of Fluids: 01/03/25 Time Last Intake of Fluids: 05:30 Last Intake of Fluids Comment: sip with meds Date Last Intake of Solids: 01/02/25 Past Medical History Medical History Hypertension Afib Acute heart failure with normal ejection fraction Dyslipidemia Exercise / Class Metabolic Activity III < 4 Walking/Shop/Light housework Past Family History Family History Other No pertinent family history Past Surgical History Surgical History S/P wrist surgery S/P dilation and curettage multiople Past Anesthesia History No Hx of Anesthesia Complications and No Family Hx of Anesthesia Complications History of PONV No Hx of PONV and No Hx of Motion Sickness Social History Smoking Status: Unknown if ever smoked Hx Alcohol Use: Yes Alcohol type: wine alcohol intake frequency: holidays/special occasions only Hx Substance Use: No Review of Systems ROS Unobtainable: All systems reviewed & are unremarkable except as noted in HPI & below Physical Exam Vital Signs Last Vital Signs Temp 36.4 C L 01/03/25 09:04 Pulse 96 H 01/03/25 09:04 Resp 16 01/03/25 09:04 BP 130/61 01/03/25 09:04 Pulse Ox 100 01/03/25 09:04 O2 Del Method Nasal Cannula 01/03/25 09:04 O2 Flow Rate 2 01/03/25 09:04 ENMT Mouth: no TMJ abnormality Thyromental Distance: > or= 3.5 Finger Breadths Mallampati Class: II Neck normal visual inspection and trachea midline; neck extension not limited Respiratory normal respiratory effort Auscultation: lungs clear to auscultation bilaterally Cardiovascular Rate/Rhythm: regular rate and regular rhythm Heart Sounds: no murmur Musculoskeletal Spine: normal cervical ROM Extremities: full ROM of extremities Neurologic moves all extremities Psychiatric Orientation: alert and oriented x 3 Testing Laboratory Results 01/03/25 07:12 01/03/25 07:12 01/03/25 07:18 POC Glucose (other) 149 H Electrocardiogram Date: 01/03/25 Findings: + AFIB @ (98) Echocardiogram Date: 12/04/24 EF: 55-60 LV Function: normal Valvular Disease: + MR (severe)
[2025-01-03] MEDS ORDERED: ONDANSETRON INJ 2 MG/ML 2 ML VIAL IV PRN (09:36)
[2025-01-03] MEDS ORDERED: ATROPINE SULFATE 0.1 MG/ML 10ML SYR IV PRN (09:36)
[2025-01-03] MEDS ORDERED: PHENYLEPHRINE HCL 10 MG/ML VIAL ONE (10:07)
[2025-01-03] MEDS ORDERED: KETAMINE HCL 10MG/ML SYR ONE (10:27)
[2025-01-03] MEDS ORDERED: ROCURONIUM BROMIDE 10 MG/ML 5 ML VIAL IV ONE (10:38)
[2025-01-03] MEDS ORDERED: SUCCINYLCHOLINE CHLORIDE 20 MG/ML 10 ML VIAL IV ONE (10:38)
[2025-01-03] MEDS ORDERED: VASOPRESSIN 20 UNIT/ML VIAL ONE (10:46)
[2025-01-03] MEDS ORDERED: SUGAMMADEX SODIUM 200 MG/2 ML VIAL IV ONE (11:15)
[2025-01-03] MEDS ORDERED: HYDROmorphone INJ 2 MG/ML SYR/VIAL ONE (11:20)
--- NOTE | 2025-01-03 11:57 | Operative Report ---
Post Operative Report Pre & Post Diagnosis Operation Date: 01/03/25 11:45 Perforated sigmoid diverticulitis with pelvic abscess I identified the patient and participated in the time-out.: Yes Procedure Operation Date: 01/03/25 11:45 Exploratory laparotomy with sigmoid resection and end colostomy and drainage of pelvic abscess Surgeon Lester Lyons MD Regrinder Operator Liberty Stringer PA-C Estimated Blood Loss 450 Findings Consistent with Post-Op Diagnosis Specimens Sigmoid colon Drains Gary drain in pelvic abscess Anesthesia Type General Complications none Disposition Accompanied Patient To Recovery: No Disposition: Surgical ICU Indications This is an 79-year-old female who presented to the ED this morning with acute abdominal pain. She underwent a workup with a CT scan showing perforated sigmoid diverticulitis with a large abscess. We talked to her this and she the fact she had peritoneal signs on exam and we recommended exploratory laparotomy with Banks's procedure. She understands of this wishes to proceed. Description of Procedure The patient was taken to the OR and underwent excellent general endotracheal anesthesia. They received antibiotics preoperatively. Their abdomen was then prepped and draped normal sterile fashion. A midline incision was made and dissection was taken down to identify the fascia. The fascia was excised in the midline. The peritoneal cavity was entered easily and obvious sigmoid diverticulitis was found with turbid fluid near the inflammatory changes, the fluid was cultured. It was elected to proceed with a sigmoid resection of the involved colon. The left peritoneal reflection was mobilized without needing to takedown the splenic flexure using a harmonic scalpel. This freed the colon laterally. A window was created distal to the involved sigmoid diverticulitis, this was difficult dissection as the colon was plastered on the uterus. She also had a large abscess cavity which was opened, cultured, and drained. A harmonic scalpel was used to free the colon from the medial mesentery. A normal segment of proximal colon was identified and transected proximally with a DEANGELO stapler. This allowed identifying the left colonic artery and vein which were ligated and transected. The proximal artery was secured with silk ties. The rectosigmoid junction was then transected with a DEANGELO stapler. The involved sigmoid colon was sent for pathologic evaluation. Prolene sutures were used to yoli the rectosigmoid stump. The abdomen was then irrigated out and suctioned to clear. Small bowel was run from ileocecal valve to ligament of Treitz with no bands or issues. A defect in the left abdominal wall was created, the fascia was incised to make a window to bring the colostomy out of the abdomen. The colonic serosa of the colostomy was secured to the fascia, The midline fascia was then closed with a running PDS suture. Rachael used to close the skin, loosely. The colostomy was then matured using vicryl sutures and an appliance was placed. A sterile dressing was applied. Patient tolerated the procedure without complications. They will be extubated and sent to postop for a period of observation and will be sent to the ICU once criteria is met. There was 450 mL of blood loss mostly due to her xarelto use. She required some pressor support during the case, Liberty Stringer PA-C was present and participated in the entire procedure. She was integral in skin closure, retraction, and control of blood loss. There was no qualified resident available to assist. I attest to the content of the Intraoperative Record and any orders documented therein. Any exceptions are noted below.
[2025-01-03] MEDS: HYDROmorphone INJ 1 MG/ML SYRINGE IV PRN (12:30)
--- NOTE | 2025-01-03 13:07 | Anesthesiology Progress Note ---
Date of Service January 03, 2025 Anesthesia Post Procedure Vital Signs Vital Signs: Temp Pulse Pulse Resp BP BP BP 01/03/25 12:55 108 H 17 113/42 L 01/03/25 12:45 120 H 17 93/68 L 01/03/25 12:35 112 H 21 92/75 L 01/03/25 12:25 113 H 19 100/82 01/03/25 12:15 104 H 16 127/69 01/03/25 12:05 108 H 26 H 140/87 01/03/25 11:55 92 H 22 151/107 H 01/03/25 11:47 36.3 C L 98 H 13 121/71 01/03/25 11:46 36.3 C L 108 H 24 121/71 01/03/25 09:04 36.4 C L 96 H 16 130/61 01/03/25 08:52 86 12 132/74 01/03/25 08:03 87 21 124/66 01/03/25 08:01 86 01/03/25 07:59 01/03/25 06:51 36.7 C 120 H 20 133/93 Pulse Ox O2 Del Method O2 Flow Rate 01/03/25 12:55 96 Oxymask 4 01/03/25 12:45 96 Oxymask 4 01/03/25 12:35 96 Oxymask 4 01/03/25 12:25 97 Oxymask 4 01/03/25 12:15 95 Oxymask 4 01/03/25 12:05 94 Oxymask 8 01/03/25 11:55 97 Oxymask 8 01/03/25 11:47 97 Oxymask 10 01/03/25 11:46 98 Oxymask 8 01/03/25 09:04 100 Nasal Cannula 2 01/03/25 08:52 98 Nasal Cannula 2 01/03/25 08:03 98 Nasal Cannula 2 01/03/25 08:01 01/03/25 07:59 Nasal Cannula 2 01/03/25 06:51 90 Pain Intensity Abdomen: Pain Intensity: 6 Transfer of Care Handoff Completed per policy Notes Mental Status: alert / awake / arousable Patient Amnestic to Procedure: Yes Nausea / Vomiting: adequately controlled Pain: adequately controlled Airway Patency, RR, SpO2: stable & adequate BP & HR: stable & adequate Hydration State: stable & adequate Anesthetic Complications: no major complications apparent and Pt Satisfied with anesthetic care
--- NOTE | 2025-01-03 13:49 | Critical Care Consultation ---
Date of Consultation January 03, 2025 Assessment & Plan (1) Abscess of abdominal cavity: (2) Diverticulitis: (3) Pneumoperitoneum: (4) Peritonitis: (5) Perforated abdominal viscus: (6) Atrial fibrillation with rapid ventricular response: (7) Sacroiliitis: (8) Mononeuritis multiplex associated with vasculitis: (9) Hypertension: (10) Hypotension: Plan Reason Critically Ill: 79-year-old female admitted to the hospital for abdominal pain found to have perforated diverticulitis, went to the OR and sent to the ICU for further care Past medical history: CKD, A-fib on Xarelto, giant cell arteritis on Actemra, mononeuritis multiplex, GERD, right foot drop Neuro - [facility] ICU: Unable to assess Cardiac - 2D echo 12/04/2024: EF 55-60%, RV normal in size and function, small loculated left pericardial effusion --A-fib with RVR On digoxin 125 mcg, metoprolol succinate 100 mg, Xarelto at home --Dyslipidemia On ezetimibe Respiratory - -- On oxygen in the PACU Was saturating 99% on 4 L Wean oxygen off GI - -- Perforated diverticulitis with pelvic abscess S/p OR 01/03/2025 RENAL/LYTES - -- CKD Monitor BUNs/creatinine Avoid nephrotoxic medication ENDO - -- ICU hyperglycemia protocol HEME/Rheum- --Giant cell arteritis Used to be on prednisone Currently on Actemra -- Macrocytic anemia Monitor H&H ID - -- Perforated sigmoid colon diverticulitis with pelvic abscess S/p surgery 01/03/2025 Procalcitonin 0.08 Continue with empiric antibiotics cefepime and Flagyl given the penicillin allergy --Prophylaxis VTE: Xarelto at home, currently on hold GI: Pantoprazole Lines: Peripheral Diet: N.p.o. Plan: Brief episode of hypotension during the OR and in the PACU requiring vasopressors, has been off since coming to the unit Strict ins and outs Given that the patient was on prednisone and on Actemra for giant cell arteritis. Would consider her to be immunosuppressed Continue with empiric antibiotics Low threshold to start hydrocortisone if the patient's blood pressure does not respond to IV fluids and needs vasopressor support. Given that the patient is n.p.o., continue with IV Lopressor for the time being. If the patient's blood pressure is not able to sustain then amiodarone drip would be considered Thank I have personally spent 55 minutes of critical care time in the direct management of this patient. This is a life/limb threatening event. This includes time spent evaluating patient, direct bedside care, chart review, placing orders, interpretation of diagnostic studies, discussion with consultants, patient, and family members, as well as other required patient management activities. This time is exclusive of all separately billable procedures, and teaching time and separate from and in addition to any other critical care service time. History of Present Illness Attending Physician: Lester Lyons MD History of Present Illness 79-year-old female admitted to the hospital for abdominal pain found to have perforated diverticulitis, went to the OR and sent to the ICU for further care Past medical history: CKD, A-fib on Xarelto, giant cell arteritis on Actemra, mononeuritis multiplex, GERD, right foot drop At the time of examination patient son was in the room. Patient was still under the effect of anesthesia She was somnolent. Easily arousable Saturation was 99% on 4 l nasal cannula, I went down to 2 L She did complain of abdominal pain. Even on moving the blanket and touching the belly she got tensed. Denies any nausea or vomiting No headache. Blood pressure systolic was in high 110s, MAP was in the 70s off of vasopressors. Patient did need some vasopressors in the PACU. Brief signout was given by a surgeon who stated that there is approximately 450 mL of blood loss. Social history: Lifetime non-smoker. 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 Allergies Allergy/AdvReac Type Severity Reaction Status Date / Time Penicillins Allergy Unknown SWELLING Verified 01/03/25 09:24 pineapple AdvReac Unknown STOMACH Verified 01/03/25 09:24 CRAMPS Home Medications Medication Instructions Recorded Confirmed Type ezetimibe 10 mg tablet 10 mg PO DAILY 11/30/24 01/03/25 History pantoprazole 40 mg tablet,delayed 40 mg PO DAILY 11/30/24 01/03/25 History release rivaroxaban 15 mg tablet (Xarelto) 15 mg PO QPM 11/30/24 01/03/25 History tocilizumab 162 mg/0.9 mL 162 mg subcut WK 11/30/24 01/03/25 History subcutaneous pen injector (Actemra ACTPen) digoxin 125 mcg (0.125 mg) tablet 0.125 mg PO DAILY@1600 #30 tabs 12/05/24 01/03/25 Rx (Digitek) furosemide 20 mg tablet 20 mg PO DAILY #30 tabs 12/05/24 01/03/25 Rx metoprolol succinate 100 mg 100 mg PO BID #60 tabs 12/05/24 01/03/25 Rx tablet,extended release 24 hr Patient History Medical History Hypertension Afib Acute heart failure with normal ejection fraction Dyslipidemia Surgical History S/P wrist surgery S/P dilation and curettage multiople Family History Other No pertinent family history Social History Smoking Status: Never smoker Hx Alcohol Use: Yes Alcohol type: wine Hx Substance Use: No Preferred Language: Israeli Communication Ability: Effective Visual Impairment: No Limitations Hearing Ability: Normal Card Grinder Required: No Beliefs That Will Affect Care: None Current Living Situation: Alone Other Information That Helps Us Care for You: No Feels Safe at Home: Yes Safety Concerns: Feels Safe At This Time Assistive Devices: Cane and Glasses Review of Systems 2 Review of Systems: All systems reviewed & are unremarkable except as noted in HPI & below Physical Exam 2 Physical Exam: Constitutional: No acute distress HEENT: EOMI, PERRLA Respiratory system: Decreased air entry bilaterally, no wheeze, no rhonchi, mild crackles bilateral lower lobe CVS: S1-S2 positive, no murmurs or gallops Abdomen: Soft, diffuse abdominal tenderness, no rebound, positive left-sided colostomy, right-sided SHELIA drain with sanguinous fluid Extremities: +2 pulses bilaterally radialis/ dorsalis pedis, no cyanosis, no edema Neuro: Somnolent, easily arousable, oriented to self Psych: Unable to assess G/U: Positive Hurley Skin: no rashes, warm and dry Lymphatic: no cervical or axillary lymphadenopathy Results & Data Results & Data Vital Signs (Past 12 Hours) Vital Signs Temp Pulse Pulse Resp BP BP BP 01/03/25 13:15 114 H 17 84/63 L 01/03/25 13:05 36.4 C L 117 H 18 107/66 01/03/25 12:55 108 H 17 113/42 L 01/03/25 12:45 120 H 17 93/68 L 01/03/25 12:35 112 H 21 92/75 L 01/03/25 12:25 113 H 19 100/82 01/03/25 12:15 104 H 16 127/69 01/03/25 12:05 108 H 26 H 140/87 01/03/25 11:55 92 H 22 151/107 H 01/03/25 11:47 36.3 C L 98 H 13 121/71 01/03/25 11:46 36.3 C L 108 H 24 121/71 01/03/25 09:04 36.4 C L 96 H 16 130/61 01/03/25 08:52 86 12 132/74 01/03/25 08:03 87 21 124/66 01/03/25 08:01 86 01/03/25 07:59 01/03/25 06:51 36.7 C 120 H 20 133/93 Pulse Ox O2 Del Method O2 Flow Rate 01/03/25 13:15 95 Oxymask 4 01/03/25 13:05 96 Oxymask 4 01/03/25 12:55 96 Oxymask 4 01/03/25 12:45 96 Oxymask 4 01/03/25 12:35 96 Oxymask 4 01/03/25 12:25 97 Oxymask 4 01/03/25 12:15 95 Oxymask 4 01/03/25 12:05 94 Oxymask 8 01/03/25 11:55 97 Oxymask 8 01/03/25 11:47 97 Oxymask 10 01/03/25 11:46 98 Oxymask 8 01/03/25 09:04 100 Nasal Cannula 2 01/03/25 08:52 98 Nasal Cannula 2 01/03/25 08:03 98 Nasal Cannula 2 01/03/25 08:01 01/03/25 07:59 Nasal Cannula 2 01/03/25 06:51 90 Laboratory Results 01/03/25 07:12 08/08/25 07:12 Coding Level of Care Code 25475 CRITICAL CARE 1ST 30-74M Diagnoses Abscess of abdominal cavity K65.1 Diverticulitis K57.92 Pneumoperitoneum K66.8 Peritonitis K65.9 Perforated abdominal viscus R19.8 Atrial fibrillation with rapid ventricular response I48.91 Sacroiliitis M46.1 Mononeuritis multiplex associated with vasculitis G58.7; I77.6 Hypertension I10 Hypotension I95.9
[2025-01-03] MEDS: SODIUM CHLORIDE 0.9% 1,000 ML IV SCH (14:22)
[2025-01-03 14:33] LABS: Hematocrit (blood only) 38.1 % (37.0-47.0); Hemoglobin 12.2 g/dl (12.0-16.0)
[2025-01-03 14:49] LABS: Alanine Aminotransferase 14.0 U/L (7-52); Albumin Globulin Ratio 1.3 (0.9-2); Alkaline Phosphatase 47.0 U/L (34-104); Anion Gap 7.0 (3-11); Bilirubin,Total 1.7 mg/dl (0.2-1.0); Blood Urea Nitrogen 21.0 mg/dl (6-23); Calcium 7.9 mg/dl (8.6-10.3); Carbon Dioxide 26.0 mmol/L (21-32); Chloride 109.0 mmol/L (98-107); Creatinine Clr Calc Pharmacy 44.8 ml/min; Globulin 2.0 gm/dl (2.5-4.0); Glucose 206.0 mg/dl (70-99(Fasting)); Potassium 4.3 mmol/L (3.5-5.1); Sodium 142.0 mmol/L (136-145); Total Protein 4.6 gm/dl (6.0-8.3)
--- NOTE | 2025-01-03 15:20 | Electrocardiogram Report ---
Test Reason : Blood Pressure : */* mmHG Vent. Rate : 98 BPM Atrial Rate : * BPM P-R Int : * ms QRS Dur : 70 ms QT Int : 340 ms P-R-T Axes : * -11 -12 degrees QTcB Int : 434 ms Atrial fibrillation Low voltage QRS Cannot rule out Inferior infarct , age undetermined Abnormal ECG When compared with ECG of 02-Dec-2024 05:54, Minimal criteria for Inferior infarct are now Present Inverted T waves have replaced nonspecific T wave abnormality in Inferior leads Confirmed by Josué Hernandez ([id number]) on 01/03/2025 3:20:46 PM Referred By: REFERRED SELF Confirmed By: Josué Hernandez
--- NOTE | 2025-01-03 15:22 | Consultation ---
Date of Consultation January 03, 2025 Assessment & Plan (1) Diverticulitis of intestine with perforation and abscess: (2) Hypotension: (3) Atrial fibrillation with rapid ventricular response: (4) Giant cell arteritis: (5) Dyslipidemia: Plan 79 year old female with PMH significant for dyslipidemia, atrial fibrillation, giant cell arteritis, hypertension, mononeuritis multiplex associated with vasculitis, GERD, CKD III, right foot drop, bilateral LE edema who presented to the ED this morning with sudden onset of acute abdominal pain. Imaging revealed likely perforated sigmoid diverticulitis with large abscess and pneumoperitoneum. Patient was admitted by Surgery team Liberty LANDEROS and Dr Lyons. She underwent Banks's procedure with ex lap, bowel resection, and ostomy creation today. She had 450mL blood loss due to Xarelto from A fib with hypotension requiring pressors perioperatively. She was admitted to the ICU post operatively and is no longer on pressors. We have been consulted for post operative medical management. Diverticulitis of intestine with perforation and abscess POD#0 Banks's procedure with ex lap, bowel resection, ostomy creation on 01/03/[address] Lyons Antibiotics, pain control, activity level, DVT proph, drain/NGT management, diet per primary team WOCN consulted Encourage incentive spirometer Monitor CBC for acute blood loss anemia - EBL 450cc and preop Hgb 12.2 PT/OT when stable Hypotension Patient experienced hypotension perioperatively requiring pressors Critical care consulted and appreciate their management of BP in regard to fluids and starting steroids/pressors BP currently stable at 115s/60s Afib with RVR Rates currently 100-115s Home Xarelto, digoxin, metoprolol on hold while strict NPO IV lopressor PRN while NPO per CC Critical care consulted and appreciate their management of HR in regard to starting amiodarone drip Giant cell arteritis On Actemra at home; no longer on chronic prednisone Dyslipidemia Home zetia on hold while strict NPO CKD Creat stable at 0.98 today Avoid nephrotoxic agents as able Monitor BMP DVT Prophylaxis: SCDs per primary team Code Status: FULL CODE PCP: Shant Lee Thank you for this consultation. We will continue to follow this patient with you. A member of the [facility] team is available 19/12 via the role in [employer] - please don't hesitate to reach out with questions. Patient seen in collaboration with Dr Guthrie. Please see addendum. I spent a total of 60 minutes coordinating, documenting and providing care for this patient excluding time spent in the performance of separately billed services or time spent by another provider/QHP. Supervising Physician Co-Signing Physician Notes I have seen and discussed the case with the collaborating advanced practitioner. I agree with the above H&P. I have reviewed and confirmed the patients medical history, the findings on physical examination, and the patients diagnosis and treatment plan with Demarcus ARIZA and agree with the information documented. In short, Ms. Painter is an 79 yo woman who is admitted for perforated diverticulitis now s/p bowel resection and ostomy on 01/03. Course complicated postoperative my a fib and hypotension requiring brief pressor support. She is in ICU at this time. Rates in 110s, a fib on monitor. At time of exam, no longer requiring pressors. Resting quietly, no acute distress. ICU consulted. Lopressor prn for rates >110 follow H&H, was on xarelto prior to procedure continue cefepime/flagyl analgesia prn rest of plan as above I spent a total of 15 minutes coordinating, documenting, and providing care for this patient excluding time spent in the performance of separately billed services. All of the aforementioned completed outside of collaborating with the assigned advanced practitioner for a full treatment plan. I have reviewed the advanced practitioner's documentation, and I agree with, and take responsibility for the plan of care History of Present Illness Requesting Physician: Lester Lyons MD Reason for Consultation: Post operative medical management Attending Physician: Lester Lyons MD History of Present Illness 79 year old female with PMH significant for dyslipidemia, atrial fibrillation, hypertension, mononeuritis multiplex associated with vasculitis, GERD, CKD III, right foot drop, bilateral LE edema who presented to the ED this morning with sudden onset of acute abdominal pain. Imaging revealed perforated sigmoid diverticulitis with large abscess and pneumoperitoneum. Patient was admitted by Surgery team Liberty LANDEROS and Dr Lyons. She underwent Banks's procedure with ex lap, bowel resection, and ostomy creation today. She had 450mL blood loss due to Xarelto from A fib with hypotension requiring pressors perioperatively. She was admitted to the ICU post operatively and is no longer on pressors. We have been consulted for post operative medical management. Patient was seen in her ICU room post operatively. She is drowsy but arousable to voice. Denies any pain. Allergies Allergy/AdvReac Type Severity Reaction Status Date / Time Penicillins Allergy Unknown SWELLING Verified 01/03/25 09:24 pineapple AdvReac Unknown STOMACH Verified 01/03/25 09:24 CRAMPS Home Medications Medication Instructions Recorded Confirmed Type ezetimibe 10 mg tablet 10 mg PO DAILY 11/30/24 01/03/25 History pantoprazole 40 mg tablet,delayed 40 mg PO DAILY 11/30/24 01/03/25 History release rivaroxaban 15 mg tablet (Xarelto) 15 mg PO QPM 11/30/24 01/03/25 History tocilizumab 162 mg/0.9 mL 162 mg subcut WK 11/30/24 01/03/25 History subcutaneous pen injector (Actemra ACTPen) digoxin 125 mcg (0.125 mg) tablet 0.125 mg PO DAILY@1600 #30 tabs 12/05/24 01/03/25 Rx (Digitek) furosemide 20 mg tablet 20 mg PO DAILY #30 tabs 12/05/24 01/03/25 Rx metoprolol succinate 100 mg 100 mg PO BID #60 tabs 12/05/24 01/03/25 Rx tablet,extended release 24 hr Patient History Medical History (Updated 01/03/25 @ 15:07 by TO Blanca) Head injury Scalp contusion Fall Hypertension Atrial fibrillation Diarrhea Generalized weakness Unintended weight loss Rectal bleed Hypertension Afib Acute heart failure with normal ejection fraction Dyslipidemia Surgical History S/P wrist surgery S/P dilation and curettage multiople Family History (Updated 01/03/25 @ 15:08 by TO Blanca) Father Heart disease Mother Diabetes Stroke Social History Smoking Status: Never smoker Hx Alcohol Use: Yes Alcohol type: wine Hx Substance Use: No Preferred Language: Uzbek Communication Ability: Effective Visual Impairment: No Limitations Hearing Ability: Normal Insulation Blower Required: No Beliefs That Will Affect Care: None Current Living Situation: Alone Other Information That Helps Us Care for You: No Feels Safe at Home: Yes Safety Concerns: Feels Safe At This Time Assistive Devices: Cane and Glasses Review of Systems Review of Systems: All systems reviewed & are unremarkable except as noted in HPI & below Physical Exam Physical Exam: General/Psych: ill appearing, laying in bed, somnolent but arousable to voice, on oxymask Head: normocephalic, atraumatic Eyes: normal inspection, PERRL, conjunctivae pink ENT: external ear and nose normal, oropharynx normal Neck: normal visual inspection, trachea midline Respiratory: normal respiratory effort, lungs diminished, no accessory muscle use Cardiovascular: tachycardic rate and rhythm, no murmur/rub/gallop, no JVD Extremities: no cyanosis or clubbing, normal peripheral pulses, 2+ pitting BLE edema Abdomen/GI: LLQ colostomy present - moist and pink stoma with serosanguineous output, no palpation due to pain : diez in place Neurologic/MSK: A+Ox3, CN's II-XI intact bilaterally, motor strength 5/5, moves all extremities Skin: no rashes, normal color, warm and dry; SHELIA drain with sanguinous drainage; abdominal island dressings c/d/i Results & Data Vital Signs (Past 12 Hours) Vital Signs Temp Pulse Pulse Resp BP BP BP 01/03/25 14:30 110 H 14 111/67 01/03/25 14:18 107 H 20 118/61 01/03/25 14:00 109 H 18 115/96 01/03/25 14:00 01/03/25 13:54 110 H 13 112/81 01/03/25 13:45 115 H 18 82/64 L 01/03/25 13:45 115 H 24 82/64 L 01/03/25 13:42 36.3 C L 115 H 15 78/45 L 01/03/25 13:15 114 H 17 84/63 L 01/03/25 13:05 36.4 C L 117 H 18 107/66 01/03/25 12:55 108 H 17 113/42 L 01/03/25 12:45 120 H 17 93/68 L 01/03/25 12:35 112 H 21 92/75 L 01/03/25 12:25 113 H 19 100/82 01/03/25 12:15 104 H 16 127/69 01/03/25 12:05 108 H 26 H 140/87 01/03/25 11:55 92 H 22 151/107 H 01/03/25 11:47 36.3 C L 98 H 13 121/71 01/03/25 11:46 36.3 C L 108 H 24 121/71 01/03/25 09:04 36.4 C L 96 H 16 130/61 01/03/25 08:52 86 12 132/74 01/03/25 08:03 87 21 124/66 01/03/25 08:01 86 01/03/25 07:59 01/03/25 06:51 36.7 C 120 H 20 133/93 Pulse Ox O2 Del Method O2 Flow Rate 01/03/25 14:30 95 Oxymask 4 01/03/25 14:18 98 Oxymask 4 01/03/25 14:00 95 Oxymask 4 01/03/25 14:00 Oxymask 4 01/03/25 13:54 98 Oxymask 4 01/03/25 13:45 96 Oxymask 4 01/03/25 13:45 95 Oxymask 4 01/03/25 13:42 95 Oxymask 4 01/03/25 13:15 95 Oxymask 4 01/03/25 13:05 96 Oxymask 4 01/03/25 12:55 96 Oxymask 4 01/03/25 12:45 96 Oxymask 4 01/03/25 12:35 96 Oxymask 4 01/03/25 12:25 97 Oxymask 4 01/03/25 12:15 95 Oxymask 4 01/03/25 12:05 94 Oxymask 8 01/03/25 11:55 97 Oxymask 8 01/03/25 11:47 97 Oxymask 10 01/03/25 11:46 98 Oxymask 8 01/03/25 09:04 100 Nasal Cannula 2 01/03/25 08:52 98 Nasal Cannula 2 01/03/25 08:03 98 Nasal Cannula 2 01/03/25 08:01 01/03/25 07:59 Nasal Cannula 2 01/03/25 06:51 90 Laboratory Results Short CBC 01/03/25 01/03/25 Range/Units 07:12 14:05 WBC 7.58 (4.8-10.8) K/ul Hgb 12.5 12.2 (12.0-16.0) g/dl Hct 38.7 38.1 (37.0-47.0) % Plt Count 148 (130-400) K/uL BMP 01/03/25 01/03/25 07:12 14:05 Sodium 144 142 Potassium 3.6 4.3 Chloride 106 109 H Carbon Dioxide 31 26 BUN 23 21 Creatinine 1.06 0.98 Glucose 149 H 206 H Calcium 8.8 7.9 L Liver Function 01/03/25 01/03/25 Range/Units 07:12 14:05 Total Bilirubin 1.7 H 1.7 H (0.2-1.0) mg/dl AST 14 16 (13-39) U/L ALT 13 14 (7-52) U/L Alkaline Phosphatase 58 47 (34-104) U/L Albumin 3.5 2.6 L (3.4-5.0) gm/dl I have independently reviewed and interpreted patient's admitting labs including CBC, CMP, lactate, lipase, procalcitonin. Diagnostic Findings Abdomen/Pelvis CT 01/03/25 07:07 EXAM: CT abd pelvis IV con only CLINICAL HISTORY: Mid-abdominal pain, severe/peritonitic TECHNIQUE: CT of the abdomen and pelvis was performed with contrast (94 mls [id number]) with the following protocol: axial images with, and reconstructed coronal and sagittal images. One of the following dose reduction techniques was utilized for this exam: Automated exposure control, adjustment of the mA and/or kV according to patient size, and use of iterative reconstruction. DLP: 1058.27 mGy-cm. CTDI: 22.23 mGy. COMPARISON: Compared to the CT study dated 10/12/2024. FINDINGS: Abdomen: Liver: Normal in size, shape, and density. Small non-enhanced focal lesion likely cyst measures 15 mm at segment of the right liver lobe. Hepatic vasculature and biliary ducts are unremarkable. Gallbladder and Biliary System: The gallbladder is normal in size and shape. No wall thickening, pericholecystic fluid, or gallstones were identified. The common bile duct is normal in caliber without dilation. Pancreas: The pancreatic head, body, and tail are visualized and appear normal in size and density. No pancreatic masses or calcifications were noted. The pancreatic duct is not dilated. Spleen: Normal in size, shape, and density. Multiple small cysts, the largest measures 12 mm Kidneys and Adrenal Glands: Both kidneys are normal in size, shape, and position. Cortical thickness is within normal limits. No renal calculi or hydronephrosis. Adrenal glands are unremarkable with no evidence of masses or hyperplasia. Diffuse aortic mural calcification. Pelvis: Large pelvic collection at cul de sac and extending to left iliac region measures 8 x 9.9 x 10.5 cm with fat stranding. Urinary Bladder: Normal in contour and wall thickness. No intraluminal lesions identified. Uterus: Normal in size and contour. Soft tissue lesion on the left side is likely an intramural fibroid. Bowel: Multiple abdominal foci of pneumoperitoneum are noted. Multiple colon diverticulosis. Mild dilated small intestinal loops with air fluid levels. No masses. Bones and Soft Tissues: Pelvic bones and soft tissues are unremarkable. No fractures or abnormal masses were identified. IMPRESSION: Compared to the prior CT study dated 10/12/2024 1. Pneumoperitoneum, mesenteric fat stranding (newly present) 2. Large pelvic collection at cul de sac and extending to left iliac region measures 8 x 9.9 x 10.5 cm with fat stranding, (newly present) 3. CT findings are likely to indicate sigmoid colon complicated diverticulitis with a large pelvic abscess and pneumoperitoneum. Urgent surgical consultation and tube drainage are required. 4. Hepatic and splenic cysts (unchanged) Electronically signed by Jimy Dugan 01-03-2025 08:41 AM ECG Additional Comments: I have independently reviewed and interpreted patient's admitting EKG which revealed: A fib at a rate of 98bpm
[2025-01-03] MEDS: metroNIDAZOLE 500 MG/100 ML BAG IV SCH (15:25)
[2025-01-03 17:20] LABS: Appearance Urine Clear (Clear); Glucose Urine UA Negative (Negative)
[2025-01-03 17:23] LABS: Epithelial Cell Urine 0-2 /hpf (0-2)
[2025-01-03] MEDS: CEFEPIME 2000MG 2,000 MG/20 ML SYR IV SCH (18:40)
[2025-01-03] MEDS: METOPROLOL TARTRATE 1 MG/ML VIAL IV PRN (20:45)
[2025-01-03] MEDS: ACETAMINOPHEN 1,000 MG/100 ML VIAL IV PRN (21:04)
[2025-01-03] MEDS: PANTOprazole 40 MG/10 ML SYR IV SCH (21:05)
[2025-01-04] MEDS: MAGNESIUM SULFATE / D5W 1 GM/100 ML BAG IV SCH (00:42)
[2025-01-04] MEDS: CHLORASEPTIC (PHENOL) 1.4% SOLN 180 ML BTL MT PRN (03:44)
[2025-01-04 06:23] LABS: Hematocrit (blood only) 31.9 % (37.0-47.0); Hemoglobin 10.5 g/dl (12.0-16.0); Immature Granulocytes # (auto) 0.16 K/uL (0.01-0.20); Immature Granulocytes % (auto) 0.9 %; Mean Corpuscular Hemoglobin 33.8 pg (25.0-34.0); Mean Corpuscular Volume 102.6 fL (80.0-100.0); Platelet Count 165 K/uL (130-400); RBC Morphology Unremarkable; RDW Standard Deviation 65.0 fL (36.4-46.3); Red Blood Count 3.11 M/uL (4.20-5.40); White Blood Count 18.08 K/ul (4.8-10.8)
[2025-01-04 06:30] LABS: Anion Gap 8.0 (3-11); Blood Urea Nitrogen 26.0 mg/dl (6-23); Calcium 7.7 mg/dl (8.6-10.3); Carbon Dioxide 25.0 mmol/L (21-32); Chloride 109.0 mmol/L (98-107); Creatinine Clr Calc Pharmacy 34.8 ml/min; Glucose 166.0 mg/dl (70-99(Fasting)); Magnesium 2.2 mg/dl (1.7-2.4); Potassium 4.4 mmol/L (3.5-5.1); Sodium 142.0 mmol/L (136-145)
[2025-01-04] MEDS: HYDROmorphone INJ 0.5 MG/0.5 ML SYR IV PRN (07:20)
--- NOTE | 2025-01-04 07:37 | Critical Care Progress Note ---
Date of Service January 04, 2025 Assessment & Plan (1) Abscess of abdominal cavity: (2) Diverticulitis: (3) Pneumoperitoneum: (4) Peritonitis: (5) Perforated abdominal viscus: (6) Atrial fibrillation with rapid ventricular response: (7) Sacroiliitis: (8) Mononeuritis multiplex associated with vasculitis: (9) Hypertension: (10) Hypotension: Plan Reason Critically Ill: 79-year-old female admitted to the hospital for abdominal pain found to have perforated diverticulitis, went to the OR and sent to the ICU for further care Past medical history: CKD, A-fib on Xarelto, giant cell arteritis on Actemra, mononeuritis multiplex, GERD, right foot drop Neuro - [facility]: Unable to assess Cardiac - 2D echo 12/04/2024: EF 55-60%, RV normal in size and function, small loculated left pericardial effusion --A-fib with RVR On digoxin 125 mcg, metoprolol succinate 100 mg, Xarelto at home Metoprolol 5 Mg Q6 IV as needed The blood pressure is not sustained metoprolol been amiodarone will be thought of --Dyslipidemia On ezetimibe Respiratory - -- On oxygen in the PACU Was saturating 99% on 4 L Wean oxygen off GI - -- Perforated diverticulitis with pelvic abscess S/p OR 01/03/2025 RENAL/LYTES - -- ZEE on CKD Likely secondary to hypotensive episode in the OR and in the PACU Monitor BUNs/creatinine Avoid nephrotoxic medication ENDO - -- ICU hyperglycemia protocol HEME/Rheum- --Giant cell arteritis Used to be on prednisone Currently on Actemra -- Macrocytic anemia Monitor H&H ID - -- Perforated sigmoid colon diverticulitis with pelvic abscess S/p surgery 01/03/2025 Procalcitonin 0.08 Continue with empiric antibiotics cefepime and Flagyl given the penicillin allergy Culture from the abdomen growing gram-negative bacilli --Prophylaxis VTE: Xarelto at home, currently on hold GI: Pantoprazole Lines: Peripheral Diet: N.p.o. Plan: In/out: Positive 4.2 L, urine output 877 Unfortunately patient's creatinine is going up a little bit. She is nonoliguric. Hopefully the creatinine and the urine output will improve Currently she is getting LR at 75 mL an hour. Patient is already 4.2 L positive since coming to the hospital. After this bag is done well hold all the IV fluids. Given she is n.p.o. Would rather give her D5 half at 50 mL an hour Repeat H&H later today. If that is not trending down then we will consider starting heparin drip after talking to surgery. Patient is oozing a lot of sanguinous fluid from around the SHELIA drain. It seems that the suture around the SHELIA drain is tight. Will get surgery to have a look at it and maybe take another suture if need be Abdominal culture is growing gram-negative bacilli, continue with antibiotics Given that the patient was on prednisone and on Actemra for giant cell arteritis. Would consider her to be immunosuppressed Continue with empiric antibiotics Low threshold to start hydrocortisone if the patient's blood pressure does not respond to IV fluids and needs vasopressor support. Okay to downgrade to the medical floor I spent more than 50 minutes looking in the chart, images, discussing the plan of care with the patient, RN as well as primary team This includes time spent evaluating patient, direct bedside care, chart review, placing orders, interpretation of diagnostic studies, discussion with consultants, patient, and family members, as well as other required patient management activities. This time is exclusive of all separately billable procedures, and teaching time and separate from and in addition to any other critical care service time. Admission and Anticipated Discharge Date Admission Date: January 03, 2025 Subjective Patient seen and examined at bedside. In no distress says she just got Dilaudid She still has been complaining of abdominal pain. NG tube suction. Denies any shortness of breath She was saturating 94-95% on 1 L nasal cannula. Denied any headache or dizziness Her systolic blood pressure was 130s when I recycled in the room. Review of Systems 2 Review of Systems: All systems reviewed & are unremarkable except as noted in Subjective Physical Exam 2 Physical Exam: Constitutional: No acute distress HEENT: EOMI, PERRLA Respiratory system: Decreased air entry bilaterally, no wheeze, no rhonchi, positive crackles bilateral lower lobe CVS: S1-S2 positive, no murmurs or gallops, tachycardia, irregular Abdomen: Soft, diffuse abdominal tenderness, no rebound, positive left-sided colostomy, right-sided SHELIA drain with sanguinous fluid Extremities: +2 pulses bilaterally radialis/ dorsalis pedis, no cyanosis, no edema Neuro: Awake alert oriented to self and place Psych: Normal mood and affect G/U: Positive [place] Skin: no rashes, warm and dry Lymphatic: no cervical or axillary lymphadenopathy Results & Data Results & Data Vital Signs (Past 12 Hours) Vital Signs Temp Pulse Resp BP Pulse Ox O2 Del Method 01/04/25 05:30 103 H 17 94 01/04/25 05:30 134/66 01/04/25 05:00 126/71 01/04/25 04:57 106 H 18 95 01/04/25 04:30 131/71 01/04/25 04:30 100 H 18 95 01/04/25 04:00 36.7 C 95 H 15 94 01/04/25 04:00 127/82 01/04/25 03:30 107 H 17 92 01/04/25 03:19 97 H 126/69 01/04/25 03:04 131 H 134/79 01/04/25 03:00 108 H 13 95 01/04/25 03:00 134/79 01/04/25 02:09 122 H 14 92 01/04/25 02:00 96/73 L 01/04/25 01:00 105 H 10 L 94 01/04/25 01:00 133/75 01/04/25 00:33 113 H 13 95 01/04/25 00:30 131/77 01/04/25 00:27 117 H 18 95 01/04/25 00:06 37.1 C 120 H 18 95 01/04/25 00:00 112 H 01/03/25 23:33 116 H 17 95 01/03/25 23:30 105/70 01/03/25 23:24 110 H 13 95 01/03/25 23:09 122 H 18 95 01/03/25 23:00 126/81 01/03/25 22:48 125 H 18 95 01/03/25 22:30 117 H 16 96 01/03/25 22:30 119/81 01/03/25 22:00 113/82 01/03/25 22:00 107 H 18 96 01/03/25 21:33 109 H 21 94 01/03/25 21:30 124/71 01/03/25 21:00 124/71 01/03/25 21:00 124/71 01/03/25 21:00 93 H 13 95 01/03/25 20:59 93 H 124/71 01/03/25 20:45 143 H 123/81 01/03/25 20:44 123/81 01/03/25 20:44 123/81 01/03/25 20:42 132 H 22 93 01/03/25 20:30 120/76 01/03/25 20:03 126 H 18 94 01/03/25 20:00 120/69 01/03/25 20:00 Oxymask 01/03/25 20:00 37.1 C 01/03/25 19:57 122 H 18 93 01/03/25 19:47 137/70 01/03/25 19:42 110 H 18 95 Laboratory Results 01/04/25 04:34 01/04/25 04:34 Coding Level of Care Code 37617 SUB INP/OBS CARE 235MIN Diagnoses Abscess of abdominal cavity K65.1 Diverticulitis K57.92 Pneumoperitoneum K66.8 Peritonitis K65.9 Perforated abdominal viscus R19.8 Atrial fibrillation with rapid ventricular response I48.91 Sacroiliitis M46.1 Mononeuritis multiplex associated with vasculitis G58.7; I77.6 Hypertension I10 Hypotension I95.9
[2025-01-04] MEDS: OPTIRAY 320 125ml IV ONE (09:43)
--- NOTE | 2025-01-04 10:16 | CT Scan Report ---
CT angio head w con, CT angio neck with con, CT head/brain wo con CLINICAL HISTORY: 79 years-old Female with stroke sx, diplopia. Acute stroke like symptoms COMPARISON STUDY: 10/12/2024 TECHNIQUE: Unenhanced axial CT scan of the brain is performed. Subsequently, following the IV adminis tration of 119 cc of Optiray, CT angiogram of the head and neck was performed from the aortic arch to the skull apex. Images are reviewed in the axial, sagittal, and coronal planes. 3-D MIPS images are created and assessed. IV contrast was administered without complication. All measurements were obtain ed according to NASCET criteria. A dose lowering technique was utilized adhering to the principles of ALARA. CT DOSE: 944.68 mGy.cm FINDINGS: CT BRAIN: There is no acute intracranial hemorrhage, midline shift, hydrocephalus, intracranial mass, territori al ischemia or abnormal extra-axial collections. No abnormal intra-axial or extra-axial enhancement. Involutional changes with chronic microvascular ischemic disease. Mastoid air cells and middle ear c avities are clear. No calvarial fracture. Paranasal sinuses are clear. Prior bilateral lens repair. CT ANGIOGRAM OF THE HEAD AND NECK: Atherosclerosis of the thoracic aortic arch which demonstrates a four-vessel morphology. Patency of t he innominate and image subclavian arteries. Common carotid arteries are widely patent. There is mode rate atherosclerosis of the carotid bulbs causing less than 50% stenosis. There is irregularity invol ving the cervical segments of the internal carotid arteries bilaterally, likely secondary to underlyi ng atherosclerosis with vasculitis considered less likely. The bilateral anterior and middle cerebral arteries are also patent. The vertebrobasilar system and posterior cerebral arteries are widely griffith nt. There is no aneurysm, high-grade stenosis, or proximal branch occlusion identified. Dural sinuses appear patent. Dependent right basilar atelectasis. Partially imaged enteric tube within the esophagus. No acute fra cture. Multilevel degenerative changes of the spine. IMPRESSION: 1. No acute intracranial abnormality. 2. CTA of the head and neck demonstrates no aneurysm, dissection, high-grade stenosis or arterial occ lusion. ACT 112: Negative or not required by law. The above report was generated using voice recognition software. It may contain grammatical, syntax o r spelling errors. Electronically signed by: Antonio Roth M.D. 01/04/2025 10:13 AM
[2025-01-04] MEDS: D5W AND 1/2NSS 1,000 ML IV SCH (10:50)
--- NOTE | 2025-01-04 11:18 | Surgery Progress Note ---
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 care pain controlled ostomy with no output yet Review of Systems Constitutional: no fever and no chills Respiratory: no dyspnea Cardiovascular: no chest pain Gastrointestinal: + abdominal pain; no nausea and no vomit ing Neurologic: + localized weakness Psychiatric: no behavioral changes Hematologic / Lymphatic: + easy bleeding and + easy bruising Physical Exam Constitutional: WD/WN, vitals as above Respiratory: normal respiratory effort Cardiovascular: Rate/Rhythm: regular rate and regular rhythm Gastrointestinal (Abdomen): Inspection/Auscultation: + abdominal surgical incision Percussion/Palpation: + abdomen tender and abdomen soft ostomy pink and patent Musculoskeletal: Head/Neck/Chest: normocephalic and head atraumatic Skin: no rashes, warm and dry Results & Data Vital Signs (Past 12 Hours) Vital Signs Temp Pulse Resp BP Pulse Ox O2 Del Method O2 Flow Rate 01/04/25 10:00 117 H 20 135/78 96 Oxymask 1 01/04/25 09:30 121 H 19 93/60 L 94 Oxymask 1 01/04/25 09:09 129 H 17 130/76 94 Oxymask 1 01/04/25 09:00 131 H 17 98/78 L 95 Oxymask 1 01/04/25 08:39 113 H 16 112/78 94 Oxymask 1 01/04/25 08:12 112 H 17 134/62 95 Oxymask 1 01/04/25 08:00 115 H 17 105/57 L 94 Oxymask 2 01/04/25 08:00 37.0 C 01/04/25 07:30 113 H 19 121/52 L 94 Oxymask 2 01/04/25 07:00 107 H 19 115/77 93 Oxymask 2 01/04/25 07:00 Oxymask 2 01/04/25 05:30 103 H 17 94 01/04/25 05:30 134/66 01/04/25 05:00 126/71 01/04/25 04:57 106 H 18 95 01/04/25 04:30 131/71 01/04/25 04:30 100 H 18 95 01/04/25 04:00 36.7 C 95 H 15 94 01/04/25 04:00 127/82 01/04/25 03:30 107 H 17 92 01/04/25 03:19 97 H 126/69 01/04/25 03:04 131 H 134/79 01/04/25 03:00 108 H 13 95 01/04/25 03:00 134/79 01/04/25 02:09 122 H 14 92 01/04/25 02:00 96/73 L 01/04/25 01:00 105 H 10 L 94 01/04/25 01:00 133/75 01/04/25 00:33 113 H 13 95 01/04/25 00:30 131/77 01/04/25 00:27 117 H 18 95 01/04/25 00:06 37.1 C 120 H 18 95 01/04/25 00:00 112 H 01/03/25 23:33 116 H 17 95 01/03/25 23:30 105/70 01/03/25 23:24 110 H 13 95
--- NOTE | 2025-01-04 11:19 | Communication Note ---
Date of Service: January 04, 2025 Critical care addendum: Around 9:30 AM, RHIANNON Donnelly noticed that the patient has been complaining of double vision. I personally went and examined the patient. Neurological exam. No focal deficit, was able to move her eyes in all directions with no nystagmus. No slurring of speech. Muscular strength 5/5 bilateral upper and lower extremities When it comes to her vision she did complain of double vision on the right side of her vision field. On the left side she did not have any issues. This is new compared to before. Code stroke alert was called. Patient had CTA head neck and CT of the head which were all negative. MRI of the brain will be ordered. [facility] teleneurology were consulted who thought that the patient likely had small left-sided brainstem/pasha stroke leading to the vision issues. Patient as well as patient's family were in the room were given the option of TNK keeping in mind that patient will be at a higher risk of bleeding than 5% given the last dose of Xarelto being 36 hours ago as well as surgery done in the last 24 hours. They were also educated that there is a 1% chance of significant bleeding leading to 30% chance of improvement in the symptoms. After having discussion with the patient as well as patient's family they decided not to pursue with TNK Telemetry neurology recommended to start heparin as soon as possible along with aspirin and Plavix. They also recommended neurology to come and see the patient in person. MRI of the brain needs to be done before starting the heparin drip. Given that the patient is claustrophobic. Will give 0.25 of Dilaudid and even send the patient with Levophed drip in case her blood pressure goes down. Goal blood pressure <220/105 Case was discussed with Dr. Austin as well as primary team I have personally spent 36 minutes of critical care time in the direct management of this patient. This is a life/limb threatening event. This includes time spent evaluating patient, direct bedside care, chart review, placing orders, interpretation of diagnostic studies, discussion with consultants, patient, and family members, as well as other required patient management activities. This time is exclusive of all separately billable procedures, and teaching time and separate from and in addition to any other critical care service time. Please note the above document was generated using voice recognition software. It may contain grammatical, syntax or spelling errors. Coding Level of Care Code 63832 CRITICAL CARE 30-74M
[2025-01-04] MEDS: HYDROmorphone INJ 0.5 MG/0.5 ML SYR IV ONE (12:00)
[2025-01-04] MEDS: GADOBUTROL 65ML VIAL IV ONE (12:17)
[2025-01-04] MEDS: NOREPINEPHRINE/D5W 4 MG/250 ML IV ONE (12:48)
--- NOTE | 2025-01-04 12:48 | Communication Note ---
Date of Service: January 04, 2025 Patient was a stroke alert in the morning. At around 9:30 AM, patient noted to have double vision/blurry vision on the right side and a stroke alert was called. Patient was seen and examined at bedside. There was no focal neurological deficit, strength 5/5 in all extremities, no nystagmus noted, patient denied any numbness or tingling or focal weakness. Patient denied any headache or dizziness. Stat CT head and CTA head and neck sent. Results came back with no acute issues. Telestroke neurology was communicated, discussion held, they recommended brain MRI and in person neurology evaluation. They recommend DAPT and heparin drip as soon as possible. Dr. Woodall was notified and consulted. Mushroom Cutter had discussion with family regarding possible stroke and need for pros and cons of TNK administration. Patient and family decided not to pursue with TNK. Rest of the examination, patient was in A-fib RVR with heart rate in 120s, blood pressure was normal and patient was on oxygen mask with 2 L. Await further inpatient neurological evaluation. Total critical time spent 33-minute.
--- NOTE | 2025-01-04 12:55 | Hospitalist Progress Note ---
Date of Service January 04, 2025 Assessment & Plan (1) Diverticulitis of intestine with perforation and abscess: (2) Hypotension: (3) Atrial fibrillation with rapid ventricular response: (4) Giant cell arteritis: (5) Dyslipidemia: Plan 79 year old female with PMH significant for dyslipidemia, atrial fibrillation, giant cell arteritis, hypertension, mononeuritis multiplex associated with vasculitis, GERD, CKD III, right foot drop, bilateral LE edema who presented to the ED this morning with sudden onset of acute abdominal pain. Imaging revealed likely perforated sigmoid diverticulitis with large abscess and pneumoperitoneum. She underwent Banks's procedure with ex lap, bowel resection, and ostomy creation 01/03. She had 450mL blood loss [on Xarelto from A fib, last dose 01/02 evening] with hypotension requiring pressors perioperatively. She was admitted to the ICU post operatively. We have been consulted for post operative medical management. Diverticulitis of intestine with perforation and abscess POD#1 Banks's procedure with ex lap, bowel resection, ostomy creation on 01/03/[address] Lyons Antibiotics, pain control, activity level, DVT proph, drain/NGT management, diet per primary team Abd culture growing gram neg. WOCN consulted Encourage incentive spirometer Monitor CBC for acute blood loss anemia - EBL 450cc and preop Hgb 12.2 PT/OT when stable Likely acute blood loss anemia: post op Hb is 10.5, no indication for transfusion now, monitor. Hypotension Patient experienced hypotension perioperatively requiring pressors Critical care consulted and appreciate their management of BP in regard to fluids and starting steroids/pressors BP currently soft. On ivf now. consider hydrocortisone for pressor support given pt on prednisone 10 mg daily as OP. Acute stroke: stroke alert in AM of 01/04 for right sided blurry vision, tele stroke evaled (recs dapt, hep drip, mri, inpt neuro eval). CT head , CTA Head and neck w/ no acute issues. MRI brain pending, inpatient neuro eval pending. Afib with RVR Rates currently 100-115s Home Xarelto, digoxin, metoprolol on hold while strict NPO IV lopressor PRN while NPO per CC Resume PO meds as soon as cleared per gen sx. Giant cell arteritis: On Actemra and prednisone 10 mg daily at home per pt. Dyslipidemia: Home zetia on hold while strict NPO CKD: baseline Cr around 1.1, slightly up today at 1.27. monitor BMP. DVT Prophylaxis: recommend hep drip as soon as cleared per gen sx. Code Status: FULL CODE PCP: Shant Lee Admission and Anticipated Discharge Date Admission Date: January 03, 2025 Subjective Patient was seen and examined at bedside. Patient was lying in bed, on 2 L oxygen via oxygen mask, NAD. Patient had right-sided blurry vision in the morning, stroke alert was called, reported to communication note. Patient denies any numbness or tingling or any focal weakness, reports abdominal pain under control at operative site. Physical Exam Physical Exam: General/Psych: alert, awake, nad, on oxymask Head: normocephalic, atraumatic Eyes: normal inspection, PERRL, conjunctivae pink, right sided blurry vision, no nystagmus ENT: external ear and nose normal, oropharynx normal Neck: normal visual inspection, trachea midline Respiratory: normal respiratory effort, lungs diminished, no accessory muscle use Cardiovascular: irregularly irregular, 110s-120s, no murmur/rub/gallop, no JVD Extremities: no cyanosis or clubbing, normal peripheral pulses, 2+ pitting BLE edema Abdomen/GI: LLQ colostomy present - moist and pink stoma with serosanguineous output, no palpation due to pain : diez in place Neurologic/MSK: A+Ox3, CN's II-XI intact bilaterally, motor strength 5/5, moves all extremities Skin: no rashes, normal color, warm and dry; SHELIA drain with sanguinous drainage; abdominal island dressings c/d/i Results & Data Results & Data Vital Signs (Past 12 Hours) Vital Signs Temp Pulse Resp BP Pulse Ox O2 Del Method O2 Flow Rate 01/04/25 12:30 125 H 12 102/87 97 Oxymask 1 01/04/25 11:30 116 H 18 124/84 96 Oxymask 1 01/04/25 10:30 117 H 20 128/78 90 Room Air 01/04/25 10:00 117 H 20 135/78 96 Oxymask 1 01/04/25 09:30 121 H 19 93/60 L 94 Oxymask 1 01/04/25 09:09 129 H 17 130/76 94 Oxymask 1 01/04/25 09:00 131 H 17 98/78 L 95 Oxymask 1 01/04/25 08:39 113 H 16 112/78 94 Oxymask 1 01/04/25 08:12 112 H 17 134/62 95 Oxymask 1 01/04/25 08:00 115 H 17 105/57 L 94 Oxymask 2 01/04/25 08:00 37.0 C 01/04/25 07:30 113 H 19 121/52 L 94 Oxymask 2 01/04/25 07:00 107 H 19 115/77 93 Oxymask 2 01/04/25 07:00 Oxymask 2 01/04/25 05:30 103 H 17 94 01/04/25 05:30 134/66 01/04/25 05:00 126/71 01/04/25 04:57 106 H 18 95 01/04/25 04:30 131/71 01/04/25 04:30 100 H 18 95 01/04/25 04:00 36.7 C 95 H 15 94 01/04/25 04:00 127/82 01/04/25 03:30 107 H 17 92 01/04/25 03:19 97 H 126/69 01/04/25 03:04 131 H 134/79 01/04/25 03:00 108 H 13 95 01/04/25 03:00 134/79 01/04/25 02:09 122 H 14 92 01/04/25 02:00 96/73 L 01/04/25 01:00 105 H 10 L 94 01/04/25 01:00 133/75
--- NOTE | 2025-01-04 13:11 | Neurology Consultation ---
Date of Consultation January 04, 2025 Assessment & Plan (1) Stroke: (2) Atrial fibrillation with rapid ventricular response: (3) Diverticulitis of intestine with perforation and abscess: (4) Vasculitis: Plan 79-year-old female with a history of vasculitis with mononeuritis multiplex, chronic right foot drop, atrial fibrillation, on Xarelto, has been 36 hours since she last took this medication, had presented to the emergency department yesterday with acute abdominal pain, nausea, diaphoresis, diagnosed with perforated sigmoid diverticulitis and pelvic abscess, postsurgical drainage yesterday. This morning, she developed acute diplopia with rightward gaze and associated right upper extremity dysmetria. She had a telestroke consultation, TNK was offered although ultimately declined. CT angiography of the head and neck were unremarkable. Patient had a follow-up brain MRI completed rather quickly. The study does reveal a probable acute ischemic infarct within the posterior limb of the left internal capsule. Per my review, there could be some subtle acute ischemic change within the pontine tegmentum as well. These findings would explain her diplopia and right upper extremity dysmetria. The area of acute ischemic change within the pontine tegmentum is not definitive by MRI criteria, however. I discussed these findings with [facility] radiology. More likely than not, this patient had an acute ischemic stroke affecting the posterior circulation with clinically suspected involvement of the brainstem and posterior limb of the left internal capsule. (The retrolentiform portion of the internal capsule is supplied by branches of the posterior cerebral artery while much of the remainder is supplied by branches of the middle cerebral artery.) She does not complain of headache, myalgia, or fevers. I do not think her stroke is directly related to her history of vasculitis. May restart Xarelto when medically appropriate. May start the heparin drip as well as aspirin and Plavix as recommended by telestroke. When patient able to start Xarelto, would discontinue Plavix, may continue with aspirin 81 mg/day. Would check an up-to-date fasting lipid panel. Patient may need a statin, goal LDL 70 or less. Blood pressure management per stroke protocol. She may continue with Actemra for management of her vasculitis per rheumatology. Consultations with PT/OT. Consider outpatient ophthalmology evaluation as well. Please call with any questions. History of Present Illness Reason for Consultation: stroke Requesting Physician: Juan Attending Physician: Lester Lyons MD History of Present Illness The patient is an 79-year-old female with a history of vasculitis, follows with [facility] rheumatology, Dr. Camargo, has been on prednisone, more recently Actemra. She has a chronic left foot drop that began this past May likely related to her vasculitis, no associated pain. She had been experiencing some headaches previously related to her vasculitis, no known history of stroke or TIA. She does have a history of atrial fibrillation and has been taking Xarelto. She last took this medication 1 or 2 days prior to presentation, however, had been experiencing abdominal pain, presented to the emergency dep artment yesterday with abdominal pain, nausea, diaphoresis, diagnosed with perforated sigmoid diverticulitis and pelvic abscess, underwent sigmoid resection, drainage of pelvic abscess yesterday. This morning, while in the ICU, she developed acute onset diplopia, worse with right gaze. She was also noted to have some clumsiness with the right hand. She had a telestroke consultation. Unremarkable CTA of the head and neck, no acute process. TNK was offered although ultimately declined. Heparin drip started, as well as aspirin and Plavix. The telestroke neurologist also recommended an in person neurological assessment. This patient did have a brain MRI completed relatively quickly after symptom onset. Per my review of the images, there are a few areas of subtle restricted diffusion within the pontine tegmentum as well as the posterior limb of the left internal capsule. In the context of her signs and symptoms, I believe these findings most likely represent acute ischemic infarct. I did review these images directly with [facility] radiology as well. The findings are subtle and not definitive. Currently, the patient continues to report diplopia with right gaze, improves with closing 1 eye. She denies headache, vertigo, or other new neurologic symptoms. She is aware of her chronic left foot drop. She also complains of some difficulty with facility of the right hand although relates this to a previous fracture/surgery. Allergies Allergy/AdvReac Type Severity Reaction Status Date / Time Penicillins Allergy Unknown SWELLING Verified 01/03/25 09:24 pineapple AdvReac Unknown STOMACH Verified 01/03/25 09:24 CRAMPS Home Medications Medication Instructions Recorded Confirmed Type ezetimibe 10 mg tablet 10 mg PO DAILY 11/30/24 01/03/25 History pantoprazole 40 mg tablet,delayed 40 mg PO DAILY 11/30/24 01/03/25 History release rivaroxaban 15 mg tablet (Xarelto) 15 mg PO QPM 11/30/24 01/03/25 History tocilizumab 162 mg/0.9 mL 162 mg subcut WK 11/30/24 01/03/25 History subcutaneous pen injector (Actemra ACTPen) digoxin 125 mcg (0.125 mg) tablet 0.125 mg PO DAILY@1600 #30 tabs 12/05/24 01/03/25 Rx ([employer]itek) furosemide 20 mg tablet 20 mg PO DAILY #30 tabs 12/05/24 01/03/25 Rx metoprolol succinate 100 mg 100 mg PO BID #60 tabs 12/05/24 01/03/25 Rx tablet,extended release 24 hr Patient History Medical History (Updated 01/04/25 @ 13:31 by Andres Woodall MD) Head injury Scalp contusion Fall Hypertension Atrial fibrillation Diarrhea Generalized weakness Unintended weight loss Rectal bleed Hypertension Afib Acute heart failure with normal ejection fraction Dyslipidemia Surgical History S/P wrist surgery S/P dilation and curettage multiople Family History (Updated 01/03/25 @ 15:08 by TO Blanca) Father Heart disease Mother Diabetes Stroke Social History Smoking Status: Never smoker Hx Alcohol Use: Yes Alcohol type: wine Hx Substance Use: No Preferred Language: Austrian Communication Ability: Effective Visual Impairment: No Limitations Hearing Ability: Normal Financial Services Director Required: No Beliefs That Will Affect Care: None Current Living Situation: Alone Other Information That Helps Us Care for You: No Feels Safe at Home: Yes Safety Concerns: Feels Safe At This Time Assistive Devices: Cane and Glasses Review of Systems Constitutional: no fever Eyes: as per Subjective / HPI; no blind spots and no eye pain Ear, Nose, Mouth, Throat: no hearing loss Respiratory: no cough Cardiovascular: no chest pain Gastrointestinal: as per Subjective / HPI and + abdominal pain Genitourinary: no dysuria Musculoskeletal: no myalgia Integumentary: no rash Neurologic: as per Subjective / HPI, + localized weakness and + lack of coordination; no headache(s), no abnormal speech and no memory loss Psychiatric: no depression and no anxiety Hematologic / Lymphatic: no easy bleeding and no easy bruising Exam (Neuro) Constitutional: well developed and well nourished; no acute distress Eyes: normal visual pollock by confrontation, PERRL and EOM intact bilaterally; no nystagmus Neurologic: Oriented to:: Person, Place and Time Memory: Short Term Intact and Remote Intact Attention: Span Intact and Concentration Intact Speech Fluency: negative Dysarthria or Dysfluency Speech Aphasia: negative Aphasia Fund of Knowledge: Current Events, Past History and Vocabulary Cranial Nerves: Normal II, III, IV, , V, VII, VIII, IX, X, XI and XII Motor Strength: Pronator Drift Laterality: Right; negative Normal Lower Extremities (Right foot drop) Motor Tone: Normal Lower Extremities and Normal Upper Extremities Muscle Bulk/Involuntary Movements: No Involuntary Movements; negative Muscle Atrophy Sensation: Light Touch Intact, Pain/Temperature Intact and Proprioception Intact Coordination: Finger-Nose Abnormal Laterality: Right and Heel-Donohue Abnormal Laterality: Right Deep Tendon Reflexes: Rt Triceps: 2+, Lt Triceps: 2+, Rt Biceps: 2+, Lt Biceps: 2+, Rt Brachioradialis: 2+, Lt Brachioradialis: 2+, Rt Patellar: 2+, Lt Patellar: 2+, Rt Ankle: 1+ and Lt Ankle: 1+ Special Tests: negative Babinski Present (Right foot equivocal, left foot downgoing) Results & Data Vital Signs (Past 12 Hours) Vital Signs Temp Pulse Resp BP Pulse Ox O2 Del Method O2 Flow Rate 01/04/25 13:00 118 H 19 132/85 98 Oxymask 1 01/04/25 12:30 125 H 12 102/87 97 Oxymask 1 01/04/25 11:30 116 H 18 124/84 96 Oxymask 1 01/04/25 10:30 117 H 20 128/78 90 Room Air 01/04/25 10:00 117 H 20 135/78 96 Oxymask 1 01/04/25 09:30 121 H 19 93/60 L 94 Oxymask 1 01/04/25 09:09 129 H 17 130/76 94 Oxymask 1 01/04/25 09:00 131 H 17 98/78 L 95 Oxymask 1 01/04/25 08:39 113 H 16 112/78 94 Oxymask 1 01/04/25 08:12 112 H 17 134/62 95 Oxymask 1 01/04/25 08:00 115 H 17 105/57 L 94 Oxymask 2 01/04/25 08:00 37.0 C 01/04/25 07:30 113 H 19 121/52 L 94 Oxymask 2 01/04/25 07:00 107 H 19 115/77 93 Oxymask 2 01/04/25 07:00 Oxymask 2 01/04/25 05:30 103 H 17 94 01/04/25 05:30 134/66 01/04/25 05:00 126/71 01/04/25 04:57 106 H 18 95 01/04/25 04:30 131/71 01/04/25 04:30 100 H 18 95 01/04/25 04:00 36.7 C 95 H 15 94 01/04/25 04:00 127/82 01/04/25 03:30 107 H 17 92 01/04/25 03:19 97 H 126/69 01/04/25 03:04 131 H 134/79 01/04/25 03:00 108 H 13 95 01/04/25 03:00 134/79 01/04/25 02:09 122 H 14 92 01/04/25 02:00 96/73 L Laboratory Results WBC 10.08, hemoglobin 10.5, hematocrit 31.9, platelet count 165, sodium 142, potassium 4.4, BUN 26, creatinine 1.27, glucose 166, calcium 7.7, magnesium 2.2, AST 16, ALT 14. ESR from 01/12/2025 was 68. Diagnostic Findings Electrocardiogram reveals atrial fibrillation, 98 bpm. An echocardiogram revealed normal left ventricular wall motion, EF 55 to 60%, severe dilation of the left atrium, moderate to severe mitral regurgitation. Small left lateral pericardial effusion, no tamponade. PFO could not be excluded. PG Care Time/CCT Total # of Minutes Spent Total Time Spent with Patient: Total time spent is greater than 50% in coordination of care (as documented) at patient's floor/unit and/or counseling patient: Coding Level of Care Code 43798 INT INP/OBS CARE 3/75MIN Diagnoses Stroke I63.9 Atrial fibrillation with rapid ventricular response I48.91 Diverticulitis of intestine with perforation and abscess K57.80 Vasculitis I77.6 Time Spent (min) 90 Comment Total time includes patient contact, chart review, counseling, note preparation
--- NOTE | 2025-01-04 13:25 | Magnetic Resonance Report ---
MR brain wo/w con HISTORY: 79 years-old Female Stroke sx, diplopia acute strokelike symptoms COMPARISON: Head CT of same day and also 10/12/2024 TECHNIQUE: Multiplanar multisequence MRI of the brain was obtained with and without IV contrast. FINDINGS: Ill-defined focus of slightly increased diffusion-weighted signal within the posterior limb left inte rnal capsule image 12 series 3 with intermediate signal on ADC map and normal signal on the T2/FLAIR series. No acute or subacute territorial infarct. Midline structures appear unremarkable. Degenerativ e changes of the imaged cervical spine. No acute intracranial hemorrhage, midline shift, abnormal ext ra-axial collection, hydrocephalus or intra-axial mass. Cerebral venous sinuses is an major arterial flow voids appear patent mastoid air cells are clear. Mi nimal mucosal thickening of the ethmoid air cells. Involutional changes with mild white matter hypode nsities likely representing chronic microvascular ischemic disease. IMPRESSION: 1. No acute or subacute territorial infarct. 2. 6 mm focus of ill-defined signal within the posterior limb left internal capsule may be artifactua l or represent a tiny acute versus subacute lacunar infarct. 3. Involutional changes with suggestion of chronic microvascular ischemic disease. 4. No abnormal enhancement. ACT 112: Negative or not required by law. The above report was generated using voice recognition software. It may contain grammatical, syntax o r spelling errors. Electronically signed by: Antonio Roth M.D. 01/04/2025 1:23 PM
[2025-01-04 14:33] LABS: Hematocrit (blood only) 32.3 % (37.0-47.0); Hemoglobin 10.1 g/dl (12.0-16.0)
[2025-01-04] MEDS: Heparin IV Adult Wt-Based Low-Dose *NO* INITIAL Bolus Protocol IV STA (14:41)
[2025-01-04 15:06] LABS: INR 1.0 (0.9-1.1); Partial Thromboplastin Time 22 Seconds (21-31); Prothrombin Time 10.8 Seconds (9.0-12.0)
[2025-01-04] MEDS: HEPARIN 25000 UNIT/500 ML D5W 25,000 UNITS/500 ML BAG IV SCH (15:12)
[2025-01-04] MEDS: ASPIRIN 81 MG ECTAB PO SCH (17:37)
[2025-01-04] MEDS: ASPIRIN 81 MG CHEW PO STA (17:38)
[2025-01-04] MEDS: ASPIRIN 81 MG CHEW PO SCH (17:54)
[2025-01-04] MEDS: CLOPIDOGREL BISULFATE 75 MG TAB PO ONE (17:54)
[2025-01-04 21:43] LABS: ANTI-Xa, UFH(UnfractionatedHep 0.23 IU/ml (0.3-0.7)
[2025-01-05 04:52] LABS: ANTI-Xa, UFH(UnfractionatedHep 0.25 IU/ml (0.3-0.7); Hematocrit (blood only) 28.3 % (37.0-47.0); Hemoglobin 9.0 g/dl (12.0-16.0); Immature Granulocytes # (auto) 0.22 K/uL (0.01-0.20); Immature Granulocytes % (auto) 1.4 %; Mean Corpuscular Hemoglobin 32.1 pg (25.0-34.0); Mean Corpuscular Volume 101.1 fL (80.0-100.0); Platelet Count 134 K/uL (130-400); RBC Morphology Unremarkable; RDW Standard Deviation 63.2 fL (36.4-46.3); Red Blood Count 2.80 M/uL (4.20-5.40); White Blood Count 15.47 K/ul (4.8-10.8)
[2025-01-05 05:00] LABS: Anion Gap 2.0 (3-11); Blood Urea Nitrogen 23.0 mg/dl (6-23); Calcium 7.8 mg/dl (8.6-10.3); Carbon Dioxide 28.0 mmol/L (21-32); Chloride 110.0 mmol/L (98-107); Cholesterol 104.0 mg/dl (0-200); Creatinine Clr Calc Pharmacy 42.5 ml/min; Glucose 114.0 mg/dl (70-99(Fasting)); HDL Cholesterol 22.0 mg/dl; Magnesium 2.1 mg/dl (1.7-2.4); Potassium 4.0 mmol/L (3.5-5.1); Sodium 140.0 mmol/L (136-145); Triglycerides 148.0 mg/dl (0-150)
--- NOTE | 2025-01-05 07:25 | Critical Care Progress Note ---
Date of Service January 05, 2025 Assessment & Plan (1) Abscess of abdominal cavity: (2) Diverticulitis: (3) Pneumoperitoneum: (4) Peritonitis: (5) Perforated abdominal viscus: (6) Atrial fibrillation with rapid ventricular response: (7) Sacroiliitis: (8) Mononeuritis multiplex associated with vasculitis: (9) Hypertension: (10) Hypotension: (11) Stroke: (12) Giant cell arteritis: Plan Reason Critically Ill: 79-year-old female admitted to the hospital for abdominal pain found to have perforated diverticulitis, went to the OR and sent to the ICU for further care Past medical history: CKD, A-fib on Xarelto, giant cell arteritis on Actemra, mononeuritis multiplex, GERD, right foot drop Neuro - [facility] ICU: Unable to assess --Acute stroke Patient complained of double vision on the right upper and lower quadrant visual field on 01/04/2025 CT head, CTA head and neck as well as MRI of the brain were negative Patient and family declined TNK because of high risk of bleeding Neurology on board, patient is receiving Plavix and aspirin. Once Xarelto restarted recommendation is to discontinue Plavix Cardiac - 2D echo 12/04/2024: EF 55-60%, RV normal in size and function, small loculated left pericardial effusion --A-fib with RVR On digoxin 125 mcg, metoprolol succinate 100 mg, Xarelto at home Metoprolol 5 Mg Q6 IV as needed The blood pressure is not sustained metoprolol been amiodarone will be thought of --Dyslipidemia On ezetimibe Respiratory - -- On oxygen in the PACU Was saturating 99% on 4 L Wean oxygen off GI - -- Perforated diverticulitis with pelvic abscess S/p OR 01/03/2025 RENAL/LYTES - -- ZEE on CKD --> improving Likely secondary to hypotensive episode in the OR and in the PACU Monitor BUNs/creatinine Avoid nephrotoxic medication ENDO - -- ICU hyperglycemia protocol HEME/Rheum- --Giant cell arteritis Used to be on prednisone Currently on Actemra -- Macrocytic anemia Monitor H&H ID - -- Perforated sigmoid colon diverticulitis with pelvic abscess S/p surgery 01/03/2025 Procalcitonin 0.08 Continue with empiric antibiotics cefepime and Flagyl given the penicillin allergy Culture from the abdomen growing E. coli which is resistant to only ampicillin --Prophylaxis VTE: Heparin drip GI: Pantoprazole Lines: Peripheral Diet: N.p.o. Plan: In/out: Positive 1.5 L, urine output 875 mL Patient's creatinine is improving urine output is still marginal. 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 coli which is resistant to only ampicillin. DC Flagyl. Change cefepime to Rocephin Given that the patient was on prednisone and on Actemra for giant cell arteritis. Would consider her to be immunosuppressed Continue with empiric antibiotics Low threshold to start hydrocortisone if the patient's blood pressure does not respond to IV fluids and needs vasopressor support. Okay to downgrade to the medical floor Case discussed with primary team This includes time spent evaluating patient, direct bedside care, chart review, placing orders, interpretation of diagnostic studies, discussion with consultants, patient, and family members, as well as other required patient management activities. This time is exclusive of all separately billable procedures, and teaching time and separate from and in addition to any other critical care service time. Admission and Anticipated Discharge Date Admission Date: January 03, 2025 Subjective Patient seen and examined at bedside. No acute distress, no dose events overnight Patient's heart rate was in the high 90s. Systolic blood pressure in the 130s at the time of examination She was saturating 99% on 1 L oxygen mask. She stated that the abdominal pain has improved. Still complaining of double vision on the right visual field No nausea or vomiting No chest pain, no shortness of breath Review of Systems 2 Review of Systems: All systems reviewed & are unremarkable except as noted in Subjective Physical Exam 2 Physical Exam: Constitutional: No acute distress HEENT: EOMI, PERRLA Respiratory system: Decreased air entry bilaterally, no wheeze, no rhonchi, positive crackles bilateral lower lobe CVS: S1-S2 positive, no murmurs or gallops, tachycardia, irregular Abdomen: Soft, diffuse abdominal tenderness, no rebound, positive left-sided colostomy, right-sided SHELIA drain with sanguinous fluid Extremities: +2 pulses bilaterally radialis/ dorsalis pedis, no cyanosis, no edema Neuro: Awake alert oriented to self and place, cranial nerves II to XII grossly intact Psych: Normal mood and affect G/U: Positive [place] Skin: no rashes, warm and dry Lymphatic: no cervical or axillary lymphadenopathy Results & Data Results & Data Vital Signs (Past 12 Hours) Vital Signs Temp Pulse Resp BP Pulse Ox 01/05/25 04:06 122 H 19 97 01/05/25 04:02 110/79 01/05/25 03:48 125 H 17 97 01/05/25 03:36 112 H 20 96 01/05/25 03:00 97/68 L 01/05/25 02:57 118 H 18 96 01/05/25 02:03 120 H 18 97 01/05/25 02:00 125/91 01/05/25 01:57 119 H 18 97 01/05/25 01:03 108 H 17 97 01/05/25 01:00 133/80 01/05/25 00:57 115 H 17 97 01/05/25 00:00 36.8 C 119/90 01/05/25 00:00 118 H 17 96 01/05/25 00:00 136 H 01/04/25 23:00 108 H 16 97 01/04/25 23:00 124/88 01/04/25 22:00 120 H 20 92 01/04/25 22:00 123/79 01/04/25 21:03 138 H 23 92 01/04/25 21:00 114/67 01/04/25 20:30 118 H 22 94 01/04/25 20:03 126 H 16 93 01/04/25 20:00 117/85 01/04/25 20:00 117/85 01/04/25 20:00 117/85 01/04/25 19:54 109 H 24 93 Laboratory Results 01/05/25 03:48 01/05/25 03:48 Coding Level of Care Code 97615 SUB INP/OBS CARE 2MIN Diagnoses Abscess of abdominal cavity K65.1 Diverticulitis K57.92 Pneumoperitoneum K66.8 Peritonitis K65.9 Perforated abdominal viscus R19.8 Atrial fibrillation with rapid ventricular response I48.91 Sacroiliitis M46.1 Mononeuritis multiplex associated with vasculitis G58.7; I77.6 Hypertension I10 Hypotension I95.9 Stroke I63.9 Giant cell arteritis M31.6
[2025-01-05] MEDS ORDERED: ASPIRIN 81 MG CHEW PO SCH (09:00)
[2025-01-05] MEDS: CLOPIDOGREL BISULFATE 75 MG TAB PO SCH (09:12)
--- NOTE | 2025-01-05 09:13 | Surgery Progress Note ---
Date of Service January 05, 2025 Assessment & Plan (1) Perforated abdominal viscus: Plan: await ostomy function con't ng sips OK out of ICU soon permedicine Admission and Anticipated Discharge Date Admission Date: January 03, 2025 Subjective pain controlled awake and alert Review of Systems Constitutional: no fever and no chills Respiratory: no dyspnea Cardiovascular: no chest pain Gastrointestinal: + abdominal pain; no nausea and no vomit ing no gas in ostomy yet Neurologic: + localized weakness Psychiatric: no behavioral changes Hematologic / Lymphatic: + easy bleeding Physical Exam Constitutional: WD/WN, vitals as above Respiratory: normal respiratory effort Cardiovascular: Rate/Rhythm: + tachycardic Gastrointestinal (Abdomen): Inspection/Auscultation: abdomen normal to inspection, + abdomen distended and normal bowel sounds Percussion/Palpation: + abdomen tender and abdomen soft; no guarding ostomy looks OK Musculoskeletal: Head/Neck/Chest: normocephalic and head atraumatic Skin: no rashes, warm and dry Results & Data Vital Signs (Past 12 Hours) Vital Signs Temp Pulse Resp BP Pulse Ox O2 Del Method O2 Flow Rate 01/05/25 08:04 101 H 118/77 01/05/25 08:03 103 H 22 118/77 92 Oxymask 1 01/05/25 07:48 135 H 111/70 01/05/25 07:03 132 H 27 H 126/78 97 Oxymask 3 01/05/25 07:00 Oxymask 1 01/05/25 04:06 122 H 19 97 01/05/25 04:02 110/79 01/05/25 03:48 125 H 17 97 01/05/25 03:36 112 H 20 96 01/05/25 03:00 97/68 L 01/05/25 02:57 118 H 18 96 01/05/25 02:03 120 H 18 97 01/05/25 02:00 125/91 01/05/25 01:57 119 H 18 97 01/05/25 01:03 108 H 17 97 01/05/25 01:00 133/80 01/05/25 00:57 115 H 17 97 01/05/25 00:00 36.8 C 119/90 01/05/25 00:00 118 H 17 96 01/05/25 00:00 136 H 01/04/25 23:00 108 H 16 97 01/04/25 23:00 124/88 01/04/25 22:00 120 H 20 92 01/04/25 22:00 123/79
[2025-01-05 10:16] LABS: Hemoglobin A1C 5.6 % (4.5-5.6)
[2025-01-05 12:10] LABS: ANTI-Xa, UFH(UnfractionatedHep 0.27 IU/ml (0.3-0.7)
[2025-01-05] MEDS: METOPROLOL TARTRATE 1 MG/ML VIAL IV SCH (12:32)
--- NOTE | 2025-01-05 14:43 | Hospitalist Progress Note ---
Date of Service January 05, 2025 Assessment & Plan (1) Diverticulitis of intestine with perforation and abscess: (2) Hypotension: (3) Atrial fibrillation with rapid ventricular response: (4) Giant cell arteritis: (5) Dyslipidemia: Plan 79 year old female with PMH significant for dyslipidemia, atrial fibrillation, giant cell arteritis, hypertension, mononeuritis multiplex associated with vasculitis, GERD, CKD III, right foot drop, bilateral LE edema who presented to the ED this morning with sudden onset of acute abdominal pain. Imaging revealed likely perforated sigmoid diverticulitis with large abscess and pneumoperitoneum. She underwent Banks's procedure with ex lap, bowel resection, and ostomy creation 01/03. She had 450mL blood loss [on Xarelto from A fib, last dose 01/02 evening] with hypotension requiring pressors perioperatively. She was admitted to the ICU post operatively. We have been consulted for post operative medical management. Diverticulitis of intestine with perforation and abscess POD#2 Banks's procedure with ex lap, bowel resection, ostomy creation on 01/03/[address] Lyons Antibiotics, pain control, activity level, DVT proph, drain/NGT management, diet per primary team Abd culture growing gram neg. WOCN consulted Encourage incentive spirometer Monitor CBC for acute blood loss anemia - EBL 450cc and preop Hgb 12.2 PT/OT when stable IVF when npo. d5w half nss at 60 ml/hr for now. Likely acute blood loss anemia: post op Hb is 10.5, no indication for transfusion now, monitor. Hypotension Patient experienced hypotension perioperatively requiring pressors Was then moved to ICU, downgraded to PCU 01/05. Blood pressure currently better. c/w IVF. consider hydrocortisone for pressor support given pt on prednisone 10 mg daily as OP. Acute stroke: stroke alert in AM of 89 for right sided blurry vision, tele stroke evaled (recs dapt, hep drip, mri, inpt neuro eval). CT head , CTA Head and neck w/ no acute issues. MRI brain w/ ischemic stroke, inpatient neuro evaled, recs DAPT +hep drip, when transitioned to xarelto --> recommends to stop plavix, and c/w aspirin and xarelto. LDL 52, A1c 5.6. Will consult pt/ot. Afib with RVR Rates currently 100-115s Home Xarelto, digoxin, metoprolol on hold while strict NPO IV lopressor SORAIDA and PRN while NPO Resume PO meds as soon as cleared per gen sx. If HR not controlled, likely cardio consult lianne. Giant cell arteritis: On Actemra and prednisone 10 mg daily at home per pt. Dyslipidemia: Home zetia on hold while strict NPO CKD: baseline Cr around 1.1, about baseline cr. monitor BMP. DVT Prophylaxis: on hep drip Code Status: FULL CODE PCP: Shant Lee Admission and Anticipated Discharge Date Admission Date: January 03, 2025 Subjective Patient was seen and examined at bedside. Patient was lying in bed, on 1 L oxygen via oxygen mask, NAD. Patient still w/ right-sided blurry vision, no new neurological s/s. Pt denies N/V. Pt reports abdominal pain under control. Patient's daughter at bedside who was also updated on plan of care. Physical Exam Physical Exam: General/Psych: alert, awake, nad, on oxymask 1L O2. NG tube in place. Head: normocephalic, atraumatic Eyes: normal inspection, PERRL, conjunctivae pink, right sided blurry vision, no nystagmus ENT: external ear and nose normal, oropharynx normal Neck: normal visual inspection, trachea midline Respiratory: normal respiratory effort, lungs diminished, no accessory muscle use Cardiovascular: irregularly irregular, 110s-120s, no murmur/rub/gallop, no JVD Extremities: no cyanosis or clubbing, normal peripheral pulses, 2+ pitting BLE edema Abdomen/GI: LLQ colostomy present - moist and pink stoma with serosanguineous output, no palpation due to pain : diez in place, Light yellow urine collection noted. Neurologic/MSK: A+Ox3, CN's II-XI intact bilaterally, motor strength 5/5, moves all extremities Skin: no rashes, normal color, warm and dry; SHELIA drain with sanguinous drainage; abdominal island dressings c/d/i Results & Data Results & Data Vital Signs (Past 12 Hours) Vital Signs Temp Pulse Resp BP Pulse Ox O2 Del Method O2 Flow Rate 01/05/25 12:48 97 H 102/61 01/05/25 12:32 133 H 116/84 01/05/25 12:30 127 H 15 116/84 91 Room Air 01/05/25 12:03 129 H 19 110/60 90 Room Air 01/05/25 12:00 36.8 C 01/05/25 11:03 119 H 24 131/72 93 Oxymask 1 01/05/25 10:12 133 H 21 139/75 95 Oxymask 1 01/05/25 09:06 112 H 20 122/77 95 Oxymask 1 01/05/25 08:04 101 H 118/77 01/05/25 08:03 103 H 22 118/77 92 Oxymask 1 01/05/25 07:48 135 H 111/70 01/05/25 07:03 132 H 27 H 126/78 97 Oxymask 3 01/05/25 07:00 36.7 C 01/05/25 07:00 Oxymask 1 01/05/25 04:06 122 H 19 97 01/05/25 04:02 110/79 01/05/25 03:48 125 H 17 97 01/05/25 03:36 112 H 20 96 01/05/25 03:00 97/68 L 01/05/25 02:57 118 H 18 96
[2025-01-05] MEDS: D5W AND 1/2NSS 1,000 ML IV SCH (14:57)
[2025-01-05] MEDS: cefTRIAXone SODIUM 2,000 MG/50 ML BAG IV SCH (18:30)
[2025-01-05 19:11] LABS: ANTI-Xa, UFH(UnfractionatedHep 0.29 IU/ml (0.3-0.7)
[2025-01-05] MEDS: MELATONIN 3 MG TAB PO PRN (21:22)
[2025-01-06 01:48] LABS: ANTI-Xa, UFH(UnfractionatedHep 0.37 IU/ml (0.3-0.7)
[2025-01-06 06:46] LABS: Hematocrit (blood only) 26.9 % (37.0-47.0); Hemoglobin 8.8 g/dl (12.0-16.0); Immature Granulocytes # (auto) 0.16 K/uL (0.01-0.20); Immature Granulocytes % (auto) 1.4 %; Mean Corpuscular Hemoglobin 33.0 pg (25.0-34.0); Mean Corpuscular Volume 100.7 fL (80.0-100.0); Platelet Count 139 K/uL (130-400); RDW Standard Deviation 61.4 fL (36.4-46.3); Red Blood Count 2.67 M/uL (4.20-5.40); White Blood Count 11.45 K/ul (4.8-10.8)
[2025-01-06 07:04] LABS: Anion Gap 5.0 (3-11); Blood Urea Nitrogen 18.0 mg/dl (6-23); Calcium 7.9 mg/dl (8.6-10.3); Carbon Dioxide 28.0 mmol/L (21-32); Chloride 109.0 mmol/L (98-107); Creatinine Clr Calc Pharmacy 51.3 ml/min; Glucose 100.0 mg/dl (70-99(Fasting)); Potassium 3.8 mmol/L (3.5-5.1); Sodium 142.0 mmol/L (136-145)
[2025-01-06 07:14] LABS: ANTI-Xa, UFH(UnfractionatedHep 0.36 IU/ml (0.3-0.7)
--- NOTE | 2025-01-06 07:37 | Surgery Progress Note ---
Date of Service January 06, 2025 Assessment & Plan (1) Diverticulitis: Plan: con't IV abx begin sips/chips only NG out OOB Admission and Anticipated Discharge Date Admission Date: January 03, 2025 Subjective pain controlled some gas in bag Review of Systems Constitutional: no fever and no chills Respiratory: no dyspnea Cardiovascular: no chest pain Gastrointestinal: + abdominal pain and + change in bowel h abits; no nausea and no vomiting Neurologic: no localized weakness and no generalized weakness Psychiatric: no behavioral changes Physical Exam Constitutional: WD/WN, vitals as above Eyes: no scleral abnormality Respiratory: normal respiratory effort Cardiovascular: Rate/Rhythm: + tachycardic Gastrointestinal (Abdomen): Inspection/Auscultation: abdomen normal to inspection, normal bowel sounds and + abdominal surgical incision; abdomen not distended Percussion/Palpation: + abdomen tender and abdomen soft ostomy output Musculoskeletal: Head/Neck/Chest: normocephalic and head atraumatic Skin: no rashes, warm and dry Results & Data Vital Signs (Past 12 Hours) Vital Signs Temp Pulse Pulse Resp BP BP BP 01/06/25 07:33 36.4 C L 101 H 16 119/82 01/06/25 07:33 101 H 119/82 01/06/25 06:34 112 H 131/81 01/06/25 04:00 36.6 C 115 H 16 129/66 01/06/25 01:12 98 H 108/68 01/06/25 00:53 107 H 102/70 01/05/25 23:45 36.6 C 117 H 17 102/70 01/05/25 20:25 36.4 C L 108 H 18 96/57 L 01/05/25 20:04 120 H 01/05/25 20:00 Pulse Ox O2 Del Method O2 Flow Rate 01/06/25 07:33 97 Oxymask 1.5 01/06/25 07:33 01/06/25 06:34 01/06/25 04:00 98 Oxymask 1.5 01/06/25 01:12 01/06/25 00:53 01/05/25 23:45 97 Oxymask 1.5 01/05/25 20:25 98 Oxymask 1.5 01/05/25 20:04 01/05/25 20:00 Oxymask 1.5
[2025-01-06] MEDS: metroNIDAZOLE 500 MG/100 ML BAG IV SCH (07:50)
--- NOTE | 2025-01-06 16:09 | Hospitalist Progress Note ---
Date of Service January 06, 2025 Assessment & Plan (1) Diverticulitis of intestine with perforation and abscess: (2) Hypotension: (3) Atrial fibrillation with rapid ventricular response: (4) Giant cell arteritis: (5) Dyslipidemia: Plan 79 year old female with PMH significant for dyslipidemia, atrial fibrillation, giant cell arteritis, hypertension, mononeuritis multiplex associated with vasculitis, GERD, CKD III, right foot drop, bilateral LE edema who presented to the ED this morning with sudden onset of acute abdominal pain. Imaging revealed likely perforated sigmoid diverticulitis with large abscess and pneumoperitoneum. She underwent Banks's procedure with ex lap, bowel resection, and ostomy creation 01/03. She had 450mL blood loss [on Xarelto from A fib, last dose 01/02 evening] with hypotension requiring pressors perioperatively. She was admitted to the ICU post operatively. We have been consulted for post operative medical management. Diverticulitis of intestine with perforation and abscess POD#2 Banks's procedure with ex lap, bowel resection, ostomy creation on 01/03/[address] Lyons Antibiotics, pain control, activity level, DVT proph, drain/NGT management, diet per primary team Abd culture growing E coli and bacteroides. WOCN consulted Encourage incentive spirometer Monitor CBC for acute blood loss anemia - EBL 450cc and preop Hgb 12.2 PT/OT when stable Likely acute blood loss anemia: post op Hb is 10.5, no indication for transfusion now, monitor. Hypotension Patient experienced hypotension perioperatively requiring pressors Was then moved to ICU, downgraded to PCU 01/05. Blood pressure currently better. c/w IVF. consider hydrocortisone for pressor support given pt on prednisone 10 mg daily as OP. Acute stroke: stroke alert in AM of 01/04 for right sided blurry vision, tele stroke evaled (recs dapt, hep drip, mri, inpt neuro eval). CT head , CTA Head and neck w/ no acute issues. MRI brain w/ ischemic stroke, inpatient neuro evaled, recs DAPT +hep drip, when transitioned to xarelto --> recommends to stop plavix, and c/w aspirin and xarelto. LDL 52, A1c 5.6. pt/ot. Afib with RVR ho permanent Afib Rates currently 100-115s Home Xarelto, digoxin, metoprolol on hold while strict NPO --> dc iv metoprolol, resume home PO dose. IV lopressor PRN. HR better controlled today, will follow. Giant cell arteritis: On Actemra and prednisone 10 mg daily at home per pt. Dyslipidemia: Home zetia on hold while strict NPO CKD: baseline Cr around 1.1, about baseline cr. monitor BMP. DVT Prophylaxis: on hep drip Code Status: FULL CODE PCP: Shant Lee Admission and Anticipated Discharge Date Admission Date: January 03, 2025 Subjective Patient was seen and examined at bedside. Patient was lying in bed, on RA, NAD. Patient still w/ right-sided blurry vision, no new neurological s/s. Pt denies N/V. Pt reports abdominal pain under control. Has gas in the stoma bag. Physical Exam Physical Exam: General/Psych: alert, awake, nad, on RA. NG tube removed Head: normocephalic, atraumatic Eyes: normal inspection, PERRL, conjunctivae pink, right sided blurry vision, no nystagmus ENT: external ear and nose normal, oropharynx normal Neck: normal visual inspection, trachea midline Respiratory: normal respiratory effort, lungs diminished, no accessory muscle use Cardiovascular: irregularly irregular, 110s, no murmur/rub/gallop, no JVD Extremities: no cyanosis or clubbing, normal peripheral pulses, 1+ pitting BLE edema Abdomen/GI: LLQ colostomy present - moist and pink stoma with serosanguineous output and gas, no palpation due to pain : diez in place, Light yellow urine collection noted. Neurologic/MSK: A+Ox3, CN's II-XI intact bilaterally, motor strength 5/5, moves all extremities Skin: no rashes, normal color, warm and dry; SHELIA drain with sanguinous drainage; abdominal island dressings c/d/i Results & Data Results & Data Vital Signs (Past 12 Hours) Vital Signs Temp Pulse Pulse Resp BP BP BP 01/06/25 15:27 36.8 C 110 H 16 109/68 01/06/25 12:58 109 H 01/06/25 12:57 98 H 106/72 01/06/25 12:17 110 H 115/75 01/06/25 11:12 36.7 C 66 16 68/51 L 94/64 L 01/06/25 07:33 36.4 C L 101 H 16 119/82 01/06/25 07:33 101 H 119/82 01/06/25 06:34 112 H 131/81 01/06/25 05:31 114 H Pulse Ox O2 Del Method O2 Flow Rate 01/06/25 15:27 93 Room Air 01/06/25 12:58 01/06/25 12:57 01/06/25 12:17 01/06/25 11:12 90 Room Air 01/06/25 07:33 97 Oxymask 1.5 01/06/25 07:33 01/06/25 06:34 01/06/25 05:31
[2025-01-06] MEDS: METOPROLOL SUCC 50MG EXT REL TAB PO SCH (20:26)
[2025-01-07 06:28] LABS: ANTI-Xa, UFH(UnfractionatedHep 0.28 IU/ml (0.3-0.7)
[2025-01-07 08:27] LABS: Anion Gap 7.0 (3-11); Blood Urea Nitrogen 17.0 mg/dl (6-23); Calcium 7.8 mg/dl (8.6-10.3); Carbon Dioxide 26.0 mmol/L (21-32); Chloride 109.0 mmol/L (98-107); Creatinine Clr Calc Pharmacy 55.7 ml/min; Glucose 92.0 mg/dl (70-99(Fasting)); Magnesium 2.1 mg/dl (1.7-2.4); Potassium 3.7 mmol/L (3.5-5.1); Sodium 142.0 mmol/L (136-145)
[2025-01-07 08:28] LABS: Hematocrit (blood only) 28.5 % (37.0-47.0); Hemoglobin 9.1 g/dl (12.0-16.0); Mean Corpuscular Hemoglobin 32.7 pg (25.0-34.0); Mean Corpuscular Volume 102.5 fL (80.0-100.0); Platelet Count 157 K/uL (130-400); RDW Standard Deviation 62.6 fL (36.4-46.3); Red Blood Count 2.78 M/uL (4.20-5.40); White Blood Count 9.48 K/ul (4.8-10.8)
[2025-01-07] MEDS: EZETIMIBE 10 MG TAB PO SCH (09:00)
[2025-01-07 12:36] LABS: ANTI-Xa, UFH(UnfractionatedHep 0.27 IU/ml (0.3-0.7)
--- NOTE | 2025-01-07 12:41 | Surgery Progress Note ---
Date of Service January 07, 2025 Assessment & Plan (1) Diverticulitis of intestine with perforation and abscess: Plan: full liquids OOB good progress Admission and Anticipated Discharge Date Admission Date: January 03, 2025 Subjective good pain control good function of ostomy neuro function stable Review of Systems Constitutional: no fever and no chills Respiratory: no dyspnea Cardiovascular: no chest pain Gastrointestinal: + abdominal pain; no nausea and no vomit ing Musculoskeletal: no loss of height Psychiatric: no behavioral changes Physical Exam Constitutional: WD/WN, vitals as above Respiratory: normal respiratory effort Cardiovascular: Rate/Rhythm: regular rate and regular rhythm Gastrointestinal (Abdomen): Inspection/Auscultation: abdomen normal to inspection and normal bowel sounds; abdomen not distended Percussion/Palpation: + abdomen tender and abdomen soft; no guarding ostomy good Musculoskeletal: Head/Neck/Chest: normocephalic and head atraumatic Skin: no rashes, warm and dry Results & Data Vital Signs (Past 12 Hours) Vital Signs Temp Pulse Pulse Resp BP BP BP 01/07/25 12:23 37.0 C 123 H 21 126/61 01/07/25 10:30 01/07/25 10:07 118 H 01/07/25 10:04 109 H 113/69 01/07/25 10:00 01/07/25 09:49 135 H 115/80 01/07/25 07:59 36.7 C 115 H 23 131/80 01/07/25 02:38 36.5 C 140 H 18 107/77 Pulse Ox O2 Del Method 01/07/25 12:23 91 Room Air 01/07/25 10:30 Room Air 01/07/25 10:07 01/07/25 10:04 01/07/25 10:00 93 Room Air 01/07/25 09:49 01/07/25 07:59 91 Room Air 01/07/25 02:38 95 Room Air
[2025-01-07] MEDS ORDERED: POTASSIUM PHOS 3 MMOL/1 ML INFUSION IV STA (13:50)
--- NOTE | 2025-01-07 13:54 | Hospitalist Progress Note ---
Date of Service January 07, 2025 Assessment & Plan (1) Diverticulitis of intestine with perforation and abscess: (2) Hypotension: (3) Atrial fibrillation with rapid ventricular response: (4) Giant cell arteritis: (5) Dyslipidemia: Plan 79 year old female with PMH significant for dyslipidemia, atrial fibrillation, giant cell arteritis, hypertension, mononeuritis multiplex associated with vasculitis, GERD, CKD III, right foot drop, bilateral LE edema who presented to the ED this morning with sudden onset of acute abdominal pain. Imaging revealed likely perforated sigmoid diverticulitis with large abscess and pneumoperitoneum. She underwent Banks's procedure with ex lap, bowel resection, and ostomy creation 01/03. She had 450mL blood loss [on Xarelto from A fib, last dose 01/02 evening] with hypotension requiring pressors perioperatively. She was admitted to the ICU post operatively. We have been consulted for post operative medical management. Diverticulitis of intestine with perforation and abscess POD#2 Banks's procedure with ex lap, bowel resection, ostomy creation on 01/03/[address] Lyons Antibiotics, pain control, activity level, DVT proph, drain/NGT management, diet per primary team Abd culture growing E coli and bacteroides. WOCN consulted Encourage incentive spirometer Monitor CBC for acute blood loss anemia - EBL 450cc and preop Hgb 12.2 PT/OT when stable Likely acute blood loss anemia: post op Hb is 10.5, no indication for transfusion now, monitor. Hb stable around 9 Hypotension Patient experienced hypotension perioperatively requiring pressors Was then moved to ICU, downgraded to PCU 01/05. Blood pressure currently better. Acute stroke: stroke alert in AM of 01/04 for right sided blurry vision, tele stro ke evaled (recs dapt, hep drip, mri, inpt neuro eval). CT head , CTA Head and neck w/ no acute issues. MRI brain w/ ischemic stroke, inpatient neuro evaled, recs DAPT +hep drip, when transitioned to xarelto --> recommends to stop plavix, and c/w aspirin and xarelto. LDL 52, A1c 5.6. pt/ot. Afib with RVR ho permanent Afib Rates currently 100-115s c/w home metoprolol, iv metoprolol prn in place for HR > 115-120s. monitor over tele. Giant cell arteritis: On Actemra and prednisone 10 mg daily at home per pt. Dyslipidemia: c/w Home zetia CKD: baseline Cr around 1.1, about baseline cr. monitor BMP. DVT Prophylaxis: on hep drip Code Status: FULL CODE PCP: Shant Lee Admission and Anticipated Discharge Date Admission Date: January 03, 2025 Subjective Patient was seen and examined at bedside. Patient was lying in bed, on RA, NAD. Patient still w/ right-sided blurry vision, no new neurological s/s. Pt denies N/V. Pt reports abdominal pain better. Has formed stool in the stoma bag. Physical Exam Physical Exam: General/Psych: alert, awake, nad, on RA. Head: normocephalic, atraumatic Eyes: normal inspection, PERRL, conjunctivae pink, right sided blurry vision, no nystagmus ENT: external ear and nose normal, oropharynx normal Neck: normal visual inspection, trachea midline Respiratory: normal respiratory effort, lungs diminished, no accessory muscle use Cardiovascular: irregularly irregular, 110s, no murmur/rub/gallop, no JVD Extremities: no cyanosis or clubbing, normal peripheral pulses, 1+ pitting BLE edema Abdomen/GI: LLQ colostomy present - moist and pink stoma with serosanguineous output and gas, no palpation due to pain : diez in place, Light yellow urine collection noted. Neurologic/MSK: A+Ox3, CN's II-XI intact bilaterally, motor strength 5/5, moves all extremities Skin: no rashes, normal color, warm and dry; SHELIA drain with sanguinous drainage; abdominal island dressings c/d/i Results & Data Results & Data Vital Signs (Past 12 Hours) Vital Signs Temp Pulse Pulse Resp BP BP BP 01/07/25 12:23 37.0 C 123 H 21 126/61 01/07/25 10:30 01/07/25 10:07 118 H 01/07/25 10:04 109 H 113/69 01/07/25 10:00 01/07/25 09:49 135 H 115/80 01/07/25 07:59 36.7 C 115 H 23 131/80 01/07/25 02:38 36.5 C 140 H 18 107/77 Pulse Ox O2 Del Method 01/07/25 12:23 91 Room Air 01/07/25 10:30 Room Air 01/07/25 10:07 01/07/25 10:04 01/07/25 10:00 93 Room Air 01/07/25 09:49 01/07/25 07:59 91 Room Air 01/07/25 02:38 95 Room Air
[2025-01-07] MEDS: POTASSIUM PHOSPHATE 15 MMOL in SODIUM CHLORIDE 0.9% 250 ML IV ONE (14:59)
[2025-01-07] MEDS: DIGOXIN 0.125 MG TAB PO SCH (16:50)
[2025-01-07] MEDS: METOPROLOL TARTRATE 1 MG/ML VIAL IV PRN (17:31)
[2025-01-07] MEDS: ONDANSETRON INJ 2 MG/ML 2 ML VIAL IV PRN (18:14)
[2025-01-07 19:46] LABS: ANTI-Xa, UFH(UnfractionatedHep 0.34 IU/ml (0.3-0.7)
[2025-01-07] MEDS: PROMETHAZINE 6.25 MG/50.25 ML BAG IV PRN (20:30)
[2025-01-07] MEDS: ACETAMINOPHEN 325 MG TAB PO PRN (21:15)
[2025-01-08 07:13] LABS: Hematocrit (blood only) 30.3 % (37.0-47.0); Hemoglobin 9.7 g/dl (12.0-16.0); Mean Corpuscular Hemoglobin 32.9 pg (25.0-34.0); Mean Corpuscular Volume 102.7 fL (80.0-100.0); Platelet Count 184 K/uL (130-400); RDW Standard Deviation 64.5 fL (36.4-46.3); Red Blood Count 2.95 M/uL (4.20-5.40); White Blood Count 12.25 K/ul (4.8-10.8)
[2025-01-08 07:29] LABS: Anion Gap 5.0 (3-11); Blood Urea Nitrogen 18.0 mg/dl (6-23); Calcium 8.0 mg/dl (8.6-10.3); Carbon Dioxide 27.0 mmol/L (21-32); Chloride 109.0 mmol/L (98-107); Creatinine Clr Calc Pharmacy 53.6 ml/min; Glucose 115.0 mg/dl (70-99(Fasting)); Potassium 3.6 mmol/L (3.5-5.1); Sodium 141.0 mmol/L (136-145)
[2025-01-08 07:34] LABS: ANTI-Xa, UFH(UnfractionatedHep 0.34 IU/ml (0.3-0.7)
--- NOTE | 2025-01-08 11:45 | Hospitalist Progress Note ---
Date of Service January 08, 2025 Assessment & Plan (1) Diverticulitis of intestine with perforation and abscess: (2) Hypotension: (3) Atrial fibrillation with rapid ventricular response: (4) Giant cell arteritis: (5) Dyslipidemia: Plan 79 year old female with PMH significant for dyslipidemia, atrial fibrillation, giant cell arteritis, hypertension, mononeuritis multiplex associated with vasculitis, GERD, CKD III, right foot drop, bilateral LE edema who presented to the ED this morning with sudden onset of acute abdominal pain. Imaging revealed likely perforated sigmoid diverticulitis with large abscess and pneumoperitoneum. She underwent Banks's procedure with ex lap, bowel resection, and ostomy creation 01/03. She had 450mL blood loss [on Xarelto from A fib, last dose 01/02 evening] with hypotension requiring pressors perioperatively. She was admitted to the ICU post operatively. We have been consulted for post operative medical management. Diverticulitis of intestine with perforation and abscess POD#4 Banks's procedure with ex lap, bowel resection, ostomy creation on 01/03/[address] Lyons Antibiotics, pain control, activity level, DVT proph, drain/NGT management, diet per primary team Abd culture growing E coli and bacteroides. WOCN consulted Encourage incentive spirometer Monitor CBC for acute blood loss anemia - EBL 450cc and preop Hgb 12.2 PT/OT can do 10 d atb course. Likely acute blood loss anemia: post op Hb is 10.5, no indication for transfusion now, monitor. Hb stable around 9 Hypotension Patient experienced hypotension perioperatively requiring pressors Was then moved to ICU, downgraded to PCU 01/05. Blood pressure currently better. Acute stroke: stroke alert in AM of 01/04 for right sided blurry vision, tele stroke evaled (recs dapt, hep drip, mri, inpt neuro eval). CT head , CTA Head and neck w/ no acute issues. MRI brain w/ ischemic stroke, inpatient neuro evaled, recs DAPT +hep drip, when transitioned to xarelto --> recommends to stop plavix, and c/w aspirin and xarelto. LDL 52, A1c 5.6. pt/ot. Afib with RVR ho permanent Afib Rates currently 100-115s c/w home metoprolol, iv metoprolol prn in place for HR > 115-120s. monitor over tele. Giant cell arteritis: On Actemra and prednisone 10 mg daily at home per pt. Dyslipidemia: c/w Home zetia CKD: baseline Cr around 1.1, about baseline cr. monitor BMP. DVT Prophylaxis: on hep drip Code Status: FULL CODE PCP: Shant Lee Admission and Anticipated Discharge Date Admission Date: January 03, 2025 Subjective Patient was seen and examined at bedside. Patient was lying in bed, on RA, NAD. Patient still w/ right-sided blurry vision, no new neurological s/s. Overnight had 3 emesis, likely the reason for stress causing leucocytosis today. Pt denies N/V in am. Pt reports abdominal pain overall better. Had formed stool in the stoma bag overnight per RN. Physical Exam Physical Exam: General/Psych: alert, awake, nad, on RA. Head: normocephalic, atraumatic Eyes: normal inspection, PERRL, conjunctivae pink, right sided blurry vision, no nystagmus ENT: external ear and nose normal, oropharynx normal Neck: normal visual inspection, trachea midline Respiratory: normal respiratory effort, lungs diminished, no accessory muscle use Cardiovascular: irregularly irregular, 110s, no murmur/rub/gallop, no JVD Extremities: no cyanosis or clubbing, normal peripheral pulses, 1+ pitting BLE edema Abdomen/GI: LLQ colostomy present - moist and pink stoma with serosanguineous output and gas, no palpation due to pain : diez in place, Light yellow urine collection noted. Neurologic/MSK: A+Ox3, CN's II-XI intact bilaterally, motor strength 5/5, moves all extremities Skin: no rashes, normal color, warm and dry; SHELIA drain with sanguinous drainage; abdominal island dressings c/d/i Results & Data Results & Data Vital Signs (Past 12 Hours) Vital Signs Temp Pulse Pulse Pulse Resp BP BP 01/08/25 11:35 36.5 C 71 14 101/80 01/08/25 10:43 01/08/25 07:47 01/08/25 07:46 108 H 01/08/25 07:41 36.6 C 115 H 17 117/81 01/08/25 03:41 36.7 C 19 08/13/25 03:40 104 H 101/57 L 01/08/25 03:25 124 H 107/65 Pulse Ox O2 Del Method O2 Flow Rate 01/08/25 11:35 93 Room Air 01/08/25 10:43 94 Nasal Cannula 1 01/08/25 07:47 Room Air 01/08/25 07:46 01/08/25 07:41 90 Room Air 01/08/25 03:41 91 Room Air 01/08/25 03:40 01/08/25 03:25
--- NOTE | 2025-01-08 12:18 | Surgery Progress Note ---
Date of Service January 08, 2025 Assessment & Plan (1) Diverticulitis of intestine with perforation and abscess: Plan: Clear liquids Up out of bed and ambulate Slow progress Admission and Anticipated Discharge Date Admission Date: January 03, 2025 Subjective Nausea and vomiting last night resolved this morning. Pain controlled Some ostomy output Review of Systems Constitutional: no fever and no chills Respiratory: no dyspnea Cardiovascular: no chest pain Gastrointestinal: + abdominal pain, + nausea and + vomitin g Neurologic: + generalized weakness Psychiatric: no behavioral changes Physical Exam Respiratory: normal respiratory effort Cardiovascular: Rate/Rhythm: regular rate and regular rhythm Gastrointestinal (Abdomen): Inspection/Auscultation: normal bowel sounds; abdomen not distended Percussion/Palpation: + abdomen tender and abdomen soft Ostomy looks good Skin: no rashes, warm and dry Results & Data Vital Signs (Past 12 Hours) Vital Signs Temp Pulse Pulse Pulse Resp BP BP 01/08/25 11:35 36.5 C 71 14 101/80 01/08/25 10:43 01/08/25 07:47 01/08/25 07:46 108 H 01/08/25 07:41 36.6 C 115 H 17 117/81 01/08/25 03:41 36.7 C 19 01/08/25 03:40 104 H 101/57 L 01/08/25 03:25 124 H 107/65 Pulse Ox O2 Del Method O2 Flow Rate 01/08/25 11:35 93 Room Air 01/08/25 10:43 94 Nasal Cannula 1 01/08/25 07:47 Room Air 01/08/25 07:46 01/08/25 07:41 90 Room Air 01/08/25 03:41 91 Room Air 01/08/25 03:40 01/08/25 03:25
[2025-01-08] MEDS: PANTOprazole 40 MG/10 ML SYR IV ONE (20:08)
[2025-01-09 07:17] LABS: Hematocrit (blood only) 27.3 % (37.0-47.0); Hemoglobin 9.1 g/dl (12.0-16.0); Mean Corpuscular Hemoglobin 34.0 pg (25.0-34.0); Mean Corpuscular Volume 101.9 fL (80.0-100.0); Platelet Count 185 K/uL (130-400); RDW Standard Deviation 64.1 fL (36.4-46.3); Red Blood Count 2.68 M/uL (4.20-5.40); White Blood Count 11.12 K/ul (4.8-10.8)
[2025-01-09 07:43] LABS: ANTI-Xa, UFH(UnfractionatedHep 0.28 IU/ml (0.3-0.7)
[2025-01-09 07:47] LABS: Anion Gap 7.0 (3-11); Blood Urea Nitrogen 16.0 mg/dl (6-23); Calcium 7.7 mg/dl (8.6-10.3); Carbon Dioxide 26.0 mmol/L (21-32); Chloride 108.0 mmol/L (98-107); Creatinine Clr Calc Pharmacy 57.1 ml/min; Glucose 95.0 mg/dl (70-99(Fasting)); Magnesium 1.8 mg/dl (1.7-2.4); Potassium 3.5 mmol/L (3.5-5.1); Sodium 141.0 mmol/L (136-145)
[2025-01-09] MEDS: PANTOprazole 40 MG/10 ML SYR IV SCH (08:03)
--- NOTE | 2025-01-09 10:18 | Surgery Progress Note ---
Date of Service January 09, 2025 Assessment & Plan (1) Diverticulitis of intestine with perforation and abscess: Plan: good progress advance diet in AM OOB Admission and Anticipated Discharge Date Admission Date: January 03, 2025 Subjective pain controlled ostomy working well clear liquids Review of Systems Constitutional: no fever and no chills Respiratory: no dyspnea Cardiovascular: no chest pain Gastrointestinal: + abdominal pain; no nausea, no vomiting and no change in bowel habits Neurologic: + generalized weakness Psychiatric: no behavioral changes Physical Exam Constitutional: WD/WN, vitals as above Respiratory: normal respiratory effort Cardiovascular: Rate/Rhythm: regular rate and regular rhythm Gastrointestinal (Abdomen): Inspection/Auscultation: abdomen normal to inspection and normal bowel sounds; abdomen not distended Percussion/Palpation: + abdomen tender and abdomen soft ostomy looks good Results & Data Vital Signs (Past 12 Hours) Vital Signs Temp Pulse Pulse Resp BP BP BP 01/09/25 08:00 01/09/25 07:15 36.8 C 104 H 18 113/64 01/09/25 07:09 102 H 01/09/25 02:59 101 H 107/60 01/09/25 02:22 36.4 C L 121 H 18 115/70 01/09/25 02:18 121 H 115/70 01/08/25 22:27 36.6 C 88 18 105/62 Pulse Ox O2 Del Method 01/09/25 08:00 Room Air 01/09/25 07:15 91 Room Air 01/09/25 07:09 01/09/25 02:59 01/09/25 02:22 90 Room Air 01/09/25 02:18 01/08/25 22:27 98 Room Air
--- NOTE | 2025-01-09 10:53 | Hospitalist Progress Note ---
Date of Service January 09, 2025 Assessment & Plan (1) Diverticulitis of intestine with perforation and abscess: (2) Hypotension: (3) Atrial fibrillation with rapid ventricular response: (4) Giant cell arteritis: (5) Dyslipidemia: Plan 79 year old female with PMH significant for dyslipidemia, atrial fibrillation, giant cell arteritis, hypertension, mononeuritis multiplex associated with vasculitis, GERD, CKD III, right foot drop, bilateral LE edema who presented to the ED this morning with sudden onset of acute abdominal pain. Imaging revealed likely perforated sigmoid diverticulitis with large abscess and pneumoperitoneum. She underwent Banks's procedure with ex lap, bowel resection, and ostomy creation 01/03. She had 450mL blood loss [on Xarelto from A fib, last dose 01/02 evening] with hypotension requiring pressors perioperatively. She was admitted to the ICU post operatively. We have been consulted for post operative medical management. Diverticulitis of intestine with perforation and abscess s/p Harkin's procedure with ex lap, bowel resection, ostomy creation on 01/03/[address] Lyons Antibiotics, pain control, activity level, DVT proph, drain/NGT management, diet per primary team Abd culture growing E coli and bacteroides. WOCN consulted Encourage incentive spirometer Continue PT/OT will consult infectious disease to determine choice and duration of antibiotics Acute stroke: stroke alert in AM of 89 for right sided blurry vision, tele stroke evaled (recs dapt, hep drip, mri, inpt neuro eval). CT head , CTA Head and neck w/ no acute issues. MRI brain w/ ischemic stroke, inpatient neuro evaled, recs DAPT +hep drip, when transitioned to xarelto --> recommends to stop plavix, and c/w aspirin and xarelto. LDL 52, A1c 5.6. pt/ot. Afib with RVR ho permanent Afib Rates currently 100-115s c/w home metoprolol, iv metoprolol prn in place for HR > 115-120s. monitor over tele. Giant cell arteritis: On Actemra and prednisone 10 mg daily at home per pt. Dyslipidemia: c/w Home zetia CKD: baseline Cr around 1.1, about baseline cr. monitor BMP. DVT Prophylaxis: on hep drip Code Status: FULL CODE PCP: Shant Lee Updated her daughter over the phone at bedside Time spent evaluating patient, direct bedside care, chart review, placing orders, interpretation of diagnostic studies, discussion with consultants, patient, and family members, as well as other required patient management activities is 50 minutes Please note the above document was generated using voice recognition software. It may contain grammatical, syntax or spelling errors. Any formal questions or concerns about the content, text or information contained within the body of this dictation should be directly addressed to the provider for clarification Admission and Anticipated Discharge Date Admission Date: January 03, 2025 Subjective Patient seen and examined at bedside. She is tolerating clear liquid diet wit hout any issues. Ostomy functioning with output. No significant events overnight Review of Systems Review of Systems: All systems reviewed & are unremarkable except as noted in Subjective Physical Exam Physical Exam: General/Psych: alert, awake, nad, on RA. Respiratory: normal respiratory effort, lungs diminished, no accessory muscle use Cardiovascular: irregularly irregular, 110s, no murmur/rub/gallop, no JVD Extremities: no cyanosis or clubbing, normal peripheral pulses, trace pitting BLE edema Abdomen/GI: LLQ colostomy present - moist and pink stoma with output Neurologic/MSK: A+Ox3, CN's II-XI intact bilaterally, motor strength 5/5, moves all extremities Skin: no rashes, normal color, warm and dry; SHELIA drain with sanguinous drainage; abdominal island dressings c/d/i Results & Data Results & Data Vital Signs (Past 12 Hours) Vital Signs Temp Pulse Pulse Resp BP BP Pulse Ox 01/09/25 08:00 01/09/25 07:15 36.8 C 104 H 18 113/64 91 01/09/25 07:09 102 H 01/09/25 02:59 101 H 107/60 01/09/25 02:22 36.4 C L 121 H 18 115/70 90 01/09/25 02:18 121 H 115/70 O2 Del Method 01/09/25 08:00 Room Air 01/09/25 07:15 Room Air 01/09/25 07:09 01/09/25 02:59 01/09/25 02:22 Room Air 01/09/25 02:18
[2025-01-09] MEDS: SODIUM CHLORIDE 0.9% 500 ML IV ONE ×2 (11:27→12:24)
[2025-01-09 13:01] LABS: Hematocrit (blood only) 25.3 % (37.0-47.0); Hemoglobin 8.2 g/dl (12.0-16.0); Immature Granulocytes # (auto) 0.31 K/uL (0.01-0.20); Immature Granulocytes % (auto) 2.7 %; Mean Corpuscular Hemoglobin 32.9 pg (25.0-34.0); Mean Corpuscular Volume 101.6 fL (80.0-100.0); Platelet Count 176 K/uL (130-400); RDW Standard Deviation 66.3 fL (36.4-46.3); Red Blood Count 2.49 M/uL (4.20-5.40); White Blood Count 11.62 K/ul (4.8-10.8)
[2025-01-09] MEDS: HYDROCORTISONE SOD 100 MG in SYRINGE 0 ML IV STA (13:16)
[2025-01-09 14:44] LABS: ANTI-Xa, UFH(UnfractionatedHep 0.32 IU/ml (0.3-0.7)
[2025-01-09] MEDS: HYDROCORTISONE SOD 50 MG in SYRINGE 0 ML IV SCH (17:31)
--- NOTE | 2025-01-10 04:21 | Communication Note ---
Date of Service: January 10, 2025 Patient complaining of urinary frequency/urgency, turbid urine as per RN. "Blood on wiping" as per RN. UA WBC esterase, nitrate positive AP Complicated UTI Blood noted on wiping (hematuria versus hematochezia) Urine CS, cefepime in place of current ceftriaxone rx for broader gram-negative coverage Hold antiplatelet Rx and IV heparin for now, resume if H&H stable
[2025-01-10 04:36] LABS: Appearance Urine Turbid (Clear); Glucose Urine UA Negative (Negative)
[2025-01-10 04:44] LABS: Epithelial Cell Urine >20 /hpf (0-2)
[2025-01-10 04:52] LABS: Hematocrit (blood only) 29.0 % (37.0-47.0); Hemoglobin 9.6 g/dl (12.0-16.0); Mean Corpuscular Hemoglobin 33.4 pg (25.0-34.0); Mean Corpuscular Volume 101.0 fL (80.0-100.0); Platelet Count 216 K/uL (130-400); RDW Standard Deviation 64.2 fL (36.4-46.3); Red Blood Count 2.87 M/uL (4.20-5.40); White Blood Count 14.71 K/ul (4.8-10.8)
[2025-01-10 05:09] LABS: Anion Gap 7.0 (3-11); Blood Urea Nitrogen 16.0 mg/dl (6-23); Calcium 7.9 mg/dl (8.6-10.3); Carbon Dioxide 25.0 mmol/L (21-32); Chloride 108.0 mmol/L (98-107); Creatinine Clr Calc Pharmacy 56.4 ml/min; Glucose 132.0 mg/dl (70-99(Fasting)); Potassium 3.9 mmol/L (3.5-5.1); Sodium 140.0 mmol/L (136-145)
[2025-01-10 05:11] LABS: Immature Granulocytes # (auto) 0.51 K/uL (0.01-0.20); Immature Granulocytes % (auto) 3.5 %; Polychromasia 1+
[2025-01-10] MEDS: CEFEPIME 2000MG 2,000 MG/20 ML SYR IV SCH (06:09)
[2025-01-10 09:37] LABS: Hematocrit (blood only) 33.7 % (37.0-47.0); Hemoglobin 11.0 g/dl (12.0-16.0)
[2025-01-10 10:14] LABS: ANTI-Xa, UFH(UnfractionatedHep < 0.10 IU/ml (0.3-0.7)
--- NOTE | 2025-01-10 10:32 | Hospitalist Progress Note ---
Date of Service January 10, 2025 Assessment & Plan (1) Diverticulitis of intestine with perforation and abscess: (2) Hypotension: (3) Atrial fibrillation with rapid ventricular response: (4) Giant cell arteritis: (5) Dyslipidemia: Plan 79 year old female with PMH significant for dyslipidemia, atrial fibrillation, giant cell arteritis, hypertension, mononeuritis multiplex associated with vasculitis, GERD, CKD III, right foot drop, bilateral LE edema who presented to the ED this morning with sudden onset of acute abdominal pain. Imaging revealed likely perforated sigmoid diverticulitis with large abscess and pneumoperitoneum. She underwent Banks's procedure with ex lap, bowel resection, and ostomy creation 01/03. She had 450mL blood loss [on Xarelto from A fib, last dose 01/02 evening] with hypotension requiring pressors perioperatively. She was admitted to the ICU post operatively. We have been consulted for post operative medical management. Diverticulitis of intestine with perforation and abscess s/p Harkin's procedure with ex lap, bowel resection, ostomy creation on 01/03/[address] Lyons Antibiotics, pain control, activity level, DVT proph, drain/NGT management, diet per primary team Abd culture growing E coli and bacteroides. WOCN consulted Encourage incentive spirometer Continue PT/OT will consult infectious disease to determine choice and duration of antibiotics Acute stroke: stroke alert in AM of 01/04 for right sided blurry vision, tele stroke evaled (recs dapt, hep drip, mri, inpt neuro eval). CT head , CTA Head and neck w/ no acute issues. MRI brain w/ ischemic stroke, inpatient neuro evaled, recs DAPT +hep drip, when transitioned to xarelto --> recommends to stop plavix, and c/w aspirin and xarelto.Patient currently on aspirin and heparin drip. Plavix on hold given hemorrhoidal bleeding. Giant cell arteritis: On Actemra and prednisone 10 mg daily at home per pt. Placed on stress dose steroids with hydrocortisone 50 mg every 6 hours; plan to switch over to p.o. steroid in next few days. As per rheumatology on 12/19; patient was to be on 15 mg prednisone for next 5 days until 12/24 and then switched over to 10 mg for 2 weeks. Based on how the patient does; patient's prednisone dose to be tapered down to 7.5 mg daily for a week, 5 daily for a week and 2.5 daily for a week. Will plan to switch over to 10 mg for a week while patient is discharged and follow-up with rheumatology for further taper Afib with RVR ho permanent Afib Rates currently 100-115s c/w home metoprolol, iv metoprolol prn in place for HR > 115-120s. monitor over tele. Dyslipidemia: c/w Home zetia CKD: baseline Cr around 1.1, about baseline cr. monitor BMP. DVT Prophylaxis: on hep drip Code Status: FULL CODE PCP: Shant Lee Time spent evaluating patient, direct bedside care, chart review, placing orders, interpretation of diagnostic studies, discussion with consultants, patient, and family members, as well as other required patient management activities is 50 minutes Please note the above document was generated using voice recognition software. It may contain grammatical, syntax or spelling errors. Any formal questions or concerns about the content, text or information contained within the body of this dictation should be directly addressed to the provider for clarification Admission and Anticipated Discharge Date Admission Date: January 03, 2025 Subjective Patient seen and examined at bedside. Overnight, patient reports that she had an episode of hemorrhoidal bleed which she gets often. Denies any urinary symptoms at this time. Reports that she is eager to get out of bed and work with PT/OT. Review of Systems Review of Systems: All systems reviewed & are unremarkable except as noted in Subjective Physical Exam Physical Exam: General/Psych: alert, awake, nad, on RA. Respiratory: normal respiratory effort, lungs diminished, no accessory muscle use Cardiovascular: irregularly irregular, 110s, no murmur/rub/gallop, no JVD Extremities: no cyanosis or clubbing, normal peripheral pulses, trace pitting BLE edema Abdomen/GI: LLQ colostomy present - moist and pink stoma with output Neurologic/MSK: A+Ox3, CN's II-XI intact bilaterally, motor strength 5/5, moves all extremities Skin: no rashes, normal color, warm and dry; SHELIA drain with sanguinous drainage; abdominal island dressings c/d/i Results & Data Results & Data Vital Signs (Past 12 Hours) Vital Signs Temp Pulse Resp BP Pulse Ox O2 Del Method 01/10/25 07:01 36.4 C L 80 16 112/64 93 Room Air 01/10/25 02:33 36.5 C 106 H 18 121/74 94 Room Air
--- NOTE | 2025-01-10 12:10 | Infectious Disease Consult ---
Date of Service January 10, 2025 Telehealth Information I performed this visit using a real-time telehealth connection between my location and the patients location ([facility]). After connecting through interactive tele-video, patient was identified by name and date of and/or wristband check.Patient (or authorized healthcare education courses sales representative) was informed that this was a telemedicine visit and it was being conducted confidentially over secure lines. My office door was closed and no o ne else was present in the room with me.Patient (or authorized healthcare education courses sales representative) provided consent to proceed with the visit, expressed an understanding of privacy and security of the telemedicine visit, and gave permission to have a hospital education courses sales representative in the room in order to assist with the visit and to conduct portions of the visit, as needed. I informed the patient (or authorized healthcare education courses sales representative) that I reviewed their record and presented the opportunity for them to ask any questions regarding the visit today. The patient agreed to participate. Assessment & Plan (1) Diverticulitis of intestine with perforation and abscess: (2) Abscess of abdominal cavity: (3) Diverticulitis: (4) Peritonitis: Plan Assessment: Justa is a 79 yo female with history of afib on Xarelto, vasculitis on steroid taper, CKD, foot drop, HTN, sacroiliitis, who presented to [facility] on 01/03/2025 with sudden onset of severe abdominal pain this morning with associated nausea and sweats. At [facility], pt had CT consistent with Diverticulitis with perforation and pelvic abscess. Gen Surgery consulted and pt taken to OR on 01/03/2025 for Exploratory laparotomy with sigmoid resection and end colostomy and drainage. of pelvic abscess. 1. Diverticulitis with perforation and pelvic absces - Recommend stopping Ceftriaxone 2g q24 IV and Metronidazole 500 mg PO TID - Recommend 4 weeks of IV antibiotics End Date: 02/07/2025 - Recommend CMP and CBC with diff - Recommend CT abd/pelvis in 2-3 weeks - we will sign off, we will not f/u on patient unless pt is schedule with our clinic with a clinic date, please call or tiger text for additional recommendations. History of Present Illness History of Present Illness Reason for consult: Diverticulitis of intestine with perforation uJsta is a 79 yo female with history of afib on Xarelto, vasculitis on steroid taper, CKD, foot drop, HTN, sacroiliitis, who presented to [facility] on 01/03/2025 with sudden onset of severe abdominal pain this morning with associated nausea and sweats. At [facility], pt had CT consistent with Diverticulitis with perforation and pelvic abscess. Gen Surgery consulted and pt taken to OR on 01/03/2025 for Exploratory laparotomy with sigmoid resection and end colostomy and drainage. of pelvic abscess. ID consulted for evaluation and management. Allergies Allergy/AdvReac Type Severity Reaction Status Date / Time Penicillins Allergy Unknown SWELLING Verified 01/03/25 09:24 pineapple AdvReac Unknown STOMACH Verified 01/03/25 09:24 CRAMPS Home Medications Medication Instructions Recorded Confirmed Type ezetimibe 10 mg tablet 10 mg PO DAILY 11/30/24 01/03/25 History pantoprazole 40 mg tablet,delayed 40 mg PO DAILY 11/30/24 01/03/25 History release rivaroxaban 15 mg tablet (Xarelto) 15 mg PO QPM 11/30/24 01/03/25 History tocilizumab 162 mg/0.9 mL 162 mg subcut WK 11/30/24 01/03/25 History subcutaneous pen injector (Actemra ACTPen) digoxin 125 mcg (0.125 mg) tablet 0.125 mg PO DAILY@1600 #30 tabs 12/05/24 01/03/25 Rx (Digitek) furosemide 20 mg tablet 20 mg PO DAILY #30 tabs 12/05/24 01/03/25 Rx metoprolol succinate 100 mg 100 mg PO BID #60 tabs 12/05/24 01/03/25 Rx tablet,extended release 24 hr Patient History Medical History (Updated 01/04/25 @ 13:31 by Andres Woodall MD) Head injury Scalp contusion Fall Hypertension Atrial fibrillation Diarrhea Generalized weakness Unintended weight loss Rectal bleed Hypertension Afib Acute heart failure with normal ejection fraction Dyslipidemia Surgical History S/P wrist surgery S/P dilation and curettage multiople Family History (Updated 01/03/25 @ 15:08 by TO Blanca) Father Heart disease Mother Diabetes Stroke Social History Smoking Status: Never smoker Hx Alcohol Use: Yes Alcohol type: wine Hx Substance Use: No Preferred Language: Gu[place]an Communication Ability: Effective Visual Impairment: No Limitations Hearing Ability: Normal Dump Motor Operator Required: No Beliefs That Will Affect Care: None Current Living Situation: Alone Other Information That Helps Us Care for You: No Feels Safe at Home: Yes Safety Concerns: Feels Safe At This Time Assistive Devices: Cane, Glasses, Stair Lift and Walker Review of Systems ROS all negative Physical Exam NA Results & Data Vital Signs (Past 12 Hours) Vital Signs Temp Pulse Pulse Resp BP Pulse Ox O2 Del Method 01/10/25 11:06 36.7 C 90 19 97/66 L 92 Room Air 01/10/25 08:00 Room Air 01/10/25 07:01 36.4 C L 80 16 112/64 93 Room Air 01/10/25 07:00 96 H 01/10/25 02:33 36.5 C 106 H 18 121/74 94 Room Air Laboratory Results Abdominal OR culture on 01/03/2025 Spec: [id number] Collected: 01/03/25-1033 Received: 01/03/25-[address]: Lester Lyons M.D. Source: Abdomen OV Order: Ordered: Aer/Roz Cult/Sm Comments: Comment Culture 1) Abdominal Fluid Procedure Result Verified Site Gram Stain Final 01/03/25-1450 Gram Stain Result Moderate WBCs Seen No Organisms Seen Aero/Roz Cult Final 01/08/25-1214 Organism 1 Escherichia coli Quantity Few Sens Sensitivities to Follow Organism 2 Bacteroides thetaiotaomicr grp Quantity Moderate Sens No Sensitivities to Follow E coli RX M.I.C. --- --------- Amikacin S <=16 Amox/Clav S <=8/4 Ampicillin R >16 Amp/Sul I 16/8 Cefazolin S <=2 Cefepime S <=2 Cefotaxime S <=2 Cefoxitin S <=8 Ceftriaxone S <=1 Cefuroxime S <=4 Ciprofloxacin S <=0.25 Ertapenem S <=0.5 Gentamicin S <=2 Levofloxacin S <=0.5 Meropenem S <=1 Tobramycin S <=2 Trimeth/Sulfa S <=0.5/9.5 Pip/Tazo S <=8 S = SENSITIVE I = INTERMEDIATE R = RESISTANT 01/10/25 04:20 Urine Culture - Pending Urine,Clean Catch 01/10/25 01/10/25 01/10/25 09:00 04:39 04:20 WBC 14.71 H RBC 2.87 L Hgb 11.0 L 9.6 L Hct 33.7 L 29.0 L MCV 101.0 H MCH 33.4 MCHC 33.1 RDW Std Deviation 64.2 H RDW Coeff of Ned 17.6 H Plt Count 216 MPV 10.8 Immature Gran % (Auto) 3.5 Neut % (Auto) 90.2 Lymph % (Auto) 3.4 [place] % (Auto) 2.6 Eos % (Auto) 0.1 Baso % (Auto) 0.2 Neut # (Auto) 13.28 H Lymph # (Auto) 0.50 L [place] # (Auto) 0.38 Eos # (Auto) 0.01 Baso # (Auto) 0.03 Immature Gran # (Auto) 0.51 H Absolute Nucleated RBC Nucleated RBC % (auto) Polychromasia 1+ Anisocytosis INTERNAL GRINDER TENDER Microcytosis INTERNAL GRINDER TENDER Heparin Anti-Xa, Unfract < 0.10 L Sodium 140 Potassium 3.9 Chloride 108 H Carbon Dioxide 25 Anion Gap 7 BUN 16 Creatinine 0.79 Est Cr Clr Drug Dosing 56.4 eGFR 75.57 BUN/Creatinine Ratio 20.3 H Glucose 132 H Calcium 7.9 L Urine Color Yellow Urine Appearance Turbid A Urine pH 5.5 Ur Specific [place] 1.025 Urine Protein 2+ H Urine Glucose (UA) Negative Urine Ketones 3+ H Urine Blood 3+ H Urine Nitrite Positive A Urine Bilirubin 2+ H Urine Urobilinogen Negative Ur Leukocyte Esterase 1+ H Urine RBC 11-20 H Urine WBC 11-20 H Ur Epithelial Cells >20 H Urine Bacteria 4+ H Urine Comment Blood Type O Positive Antibody Screen NEGATIVE 01/09/25 01/09/25 14:03 12:38 WBC 11.62 H RBC 2.49 L Hgb 8.2 L Hct 25.3 L MCV 101.6 H MCH 32.9 MCHC 32.4 RDW Std Deviation 66.3 H RDW Coeff of Ned 17.8 H Plt Count 176 MPV 11.3 Immature Gran % (Auto) 2.7 Neut % (Auto) 83.1 Lymph % (Auto) 7.1 [place] % (Auto) 5.6 Eos % (Auto) 1.3 Baso % (Auto) 0.2 Neut # (Auto) 9.67 H Lymph # (Auto) 0.82 L [place] # (Auto) 0.65 H Eos # (Auto) 0.15 Baso # (Auto) 0.02 Immature Gran # (Auto) 0.31 H Absolute Nucleated RBC 0.03 Nucleated RBC % (auto) 0.3 Polychromasia Anisocytosis Microcytosis Heparin Anti-Xa, Unfract 0.32 Sodium Potassium Chloride Carbon Dioxide Anion Gap BUN Creatinine Est Cr Clr Drug Dosing eGFR BUN/Creatinine Ratio Glucose Calcium Urine Color Urine Appearance Urine pH Ur Specific [place] Urine Protein Urine Glucose (UA) Urine Ketones Urine Blood Urine Nitrite Urine Bilirubin Urine Urobilinogen Ur Leukocyte Esterase Urine RBC Urine WBC Ur Epithelial Cells Urine Bacteria Urine Comment Blood Type Antibody Screen Diagnostic Findings CT abd/pelvis on 01/03/2025 IMPRESSION: Compared to the prior CT study dated 10/12/2024 1. Pneumoperitoneum, mesenteric fat stranding (newly present) 2. Large pelvic collection at cul de sac and extending to left iliac region measures 8 x 9.9 x 10.5 cm with fat stranding, (newly present) 3. CT findings are likely to indicate sigmoid colon complicated diverticulitis with a large pelvic abscess and pneumoperitoneum. Urgent surgical consultation and tube drainage are required. 4. Hepatic and splenic cysts (unchanged) Medications Administered Home Medications Medication Instructions Recorded Confirmed Last Taken ezetimibe 10 mg tablet 10 mg PO DAILY 11/30/24 01/03/25 Unknown pantoprazole 40 mg tablet,delayed 40 mg PO DAILY 11/30/24 01/03/25 Unknown release rivaroxaban 15 mg tablet (Xarelto) 15 mg PO QPM 11/30/24 01/03/25 Unknown tocilizumab 162 mg/0.9 mL 162 mg subcut WK 11/30/24 01/03/25 Unknown subcutaneous pen injector (Actemra ACTPen) digoxin 125 mcg (0.125 mg) tablet 0.125 mg PO DAILY@1600 #30 tabs 12/05/24 01/03/25 Unknown (Digitek) furosemide 20 mg tablet 20 mg PO DAILY #30 tabs 25 01/03/25 Unknown metoprolol succinate 100 mg 100 mg PO BID #60 tabs 12/05/24 01/03/25 Unknown tablet,extended release 24 hr Active Medications Generic Name Dose Route Start Last Admin Trade Name Freq PRN Reason Stop Dose Admin Acetaminophen 650 mg 01/07/25 19:38 01/07/25 21:15 Acetaminophen 325 Mg Tab PO 02/06/25 19:37 650 mg QID PRN Administration pain/fever Aspirin 81 mg 01/04/25 17:45 01/09/25 08:22 Aspirin 81 Mg Chew PO 02/03/25 17:44 81 mg QAM SORAIDA Administration Clopidogrel Bisulfate 75 mg 01/05/25 09:00 01/09/25 08:03 Clopidogrel Bisulfate 75 Mg Tab PO 02/04/25 08:59 75 mg QAM SORAIDA Administration Digoxin 0.125 mg 01/07/25 16:00 01/10/25 16:52 Digoxin 0.125 Mg Tab PO 02/06/25 15:59 0.125 mg DAILY@1600 SORAIDA Administration Ezetimibe 10 mg 01/07/25 09:00 01/10/25 08:48 Ezetimibe 10 Mg Tab PO 02/06/25 08:59 10 mg DAILY SORAIDA Administration Hydromorphone HCl 0.25 mg 01/04/25 06:30 01/08/25 00:50 Hydromorphone Inj 0.5 Mg/0.5 Ml Syr IV 01/18/25 06:29 0.25 mg Q6H PRN Administration Pain Metronidazole 500 mg in 100 mls @ 100 mls/hr 01/06/25 07:45 01/10/25 15:14 Flagyl IV 01/16/25 07:44 Infused Q8 SORAIDA Infusion Promethazine HCl 6.25 mg in 50.25 mls @ 201 mls/hr 01/07/25 20:12 01/07/25 20:45 Phenergan IV 02/06/25 20:11 Infused Q6H PRN Infusion Nausea And Vomiting Pantoprazole Sodium 40 mg in 10 mls @ 5 mls/min 01/09/25 09:00 01/10/25 08:48 Protonix IV 02/08/25 08:59 5 mls/min BID SORAIDA Administration Hydrocortisone Sodium 1 mls @ 4 mls/min 01/09/25 18:00 01/10/25 16:52 Succinate 50 mg/ Syringe IV 02/08/25 17:59 4 mls/min Q6H SORAIDA Administration Cefepime HCl 2,000 mg in 20 mls @ 5 mls/min 01/10/25 06:00 01/10/25 16:54 Maxipime 2000mg IV 01/20/25 05:59 5 mls/min Q12H SORAIDA Administration Protocol Heparin Sodium/Dextrose 25,000 units in 500 mls @ 22 mls/hr 01/10/25 11:00 01/10/25 12:31 Heparin 49320 Unit/500 Ml D5w IV 02/09/25 10:59 1,100 units/hr .[id number] SORAIDA 22 mls/hr Administration Protocol 1,100 UNITS/HR Melatonin 6 mg 01/04/25 20:58 01/05/25 21:22 Melatonin 3 Mg Tab PO 02/03/25 20:57 6 mg HS PRN Administration Sleep Metoprolol Succinate 100 mg 01/06/25 21:00 01/10/25 08:48 Metoprolol Succ 50mg Ext Rel Tab PO 02/05/25 20:59 100 mg BID SORAIDA Administration Metoprolol Tartrate 5 mg 01/07/25 13:50 01/09/25 02:18 Metoprolol Tartrate 1 Mg/Ml Vial IV 02/02/25 14:47 5 mg Q4 PRN Administration HR>115 to 120 Ondansetron HCl 4 mg 01/07/25 17:58 01/08/25 20:30 Ondansetron Inj 2 Mg/Ml 2 Ml Vial IV 02/06/25 17:57 4 mg Q8H PRN Administration Nausea And Vomiting Phenol 1 sprays 01/04/25 03:15 01/05/25 21:23 Chloraseptic (Phenol) 1.4% Soln 180 Ml Btl MT 02/03/25 03:14 1 sprays Q4H PRN Administration Sore Throat
[2025-01-10] MEDS: Heparin IV Adult Wt-Based Standard *NO* INITIAL Bolus Protocol IV STA (12:12)
[2025-01-10] MEDS: HEPARIN 25000 UNIT/500 ML D5W 25,000 UNITS/500 ML BAG IV SCH (12:31)
--- NOTE | 2025-01-10 14:55 | Surgery Progress Note ---
Date of Service January 10, 2025 Assessment & Plan (1) Diverticulitis of intestine with perforation and abscess: Plan: advance diet to regular in AM if does well OOB Admission and Anticipated Discharge Date Admission Date: January 03, 2025 Subjective good progress fulls Review of Systems Constitutional: no fever and no chills Respiratory: no dyspnea Cardiovascular: no chest pain Gastrointestinal: + abdominal pain; no nausea and no vomit ing Neurologic: no generalized weakness Psychiatric: no behavioral changes Physical Exam Constitutional: WD/WN, vitals as above Respiratory: normal respiratory effort Cardiovascular: Rate/Rhythm: regular rate and regular rhythm Gastrointestinal (Abdomen): Inspection/Auscultation: abdomen not distended Percussion/Palpation: abdomen soft; abdomen nontender Musculoskeletal: Head/Neck/Chest: normocephalic and head atraumatic Results & Data Vital Signs (Past 12 Hours) Vital Signs Temp Pulse Pulse Resp BP Pulse Ox O2 Del Method 01/10/25 11:06 36.7 C 90 19 97/66 L 92 Room Air 01/10/25 08:00 Room Air 01/10/25 07:01 36.4 C L 80 16 112/64 93 Room Air 01/10/25 07:00 96 H
[2025-01-10 19:55] LABS: ANTI-Xa, UFH(UnfractionatedHep 0.40 IU/ml (0.3-0.7)
[2025-01-11] MEDS: SIMETHICONE 80 MG CHEW PO ONE (03:16)
--- NOTE | 2025-01-11 06:17 | Communication Note ---
Date of Service: January 11, 2025 Patient noted to have bleeding from incision site as per RN. No unusual abdominal pain. Hold IV heparin, antiplatelet Rx for now. RN requested to inform General Surgery of bleeding concerns.
--- NOTE | 2025-01-11 06:42 | Surgery Progress Note ---
Date of Service January 11, 2025 Assessment & Plan (1) Diverticulitis: Plan: Patient is status post Lena procedure on 01/03/2025 secondary to perforated diverticulitis (postoperative day #8): Continue analgesics as needed Continue antiemetics as needed Continue full liquids for the present time. The patient does report some intermittent indigestion. Will continue full liquids until certain patient is tolerating this before advancing to solid food The patient is currently on an IV heparin drip secondary to atrial fibrillation: Due to the bloody drainage noted near her surgical incision the medical service has stopped this medication At the time of my exam this morning there does not appear to be any active bleeding from her incision (this may just be oozing secondary to the anticoagulants and antiplatelets the patient was receiving) The patient has a CBC ordered for this morning and we will await the results of this to see if there is any significant drop in her hemoglobin and hematocrit prior to determining when her anticoagulation can be resumed In addition, the patient takes aspirin and Plavix which have also been placed on hold for the present time Patient is currently receiving antibiotics in form of cefepime and Flagyl which should continue; Patient has been seen in consultation by infectious disease and they recommend 4 weeks of intravenous antibiotics which will conclude on 02/07/2025 along with a repeat CT scan of the abdomen pelvis in 2 to 3 weeks to assess her clinical response Continue to mobilize as able As above. Doing okay. Somewhat anxious which is to be expected all things considered Stoma is putting out brown stool. Wound looks good We will trend leukocytosis and would have a low threshold for repeating CAT scan if needed. Stay on fulls for now as she had some nausea earlier. Admission and Anticipated Discharge Date Admission Date: January 03, 2025 Subjective Patient is currently resting comfortably in bed. Initially postoperatively she notes that she had some nausea and vomiting but this has resolved. She notes that she is currently tolerating a full liquid diet without any nausea or vomiting. She denies any fevers, shakes, or chills. She notes that she has been ambulating since her surgery. I was called by nursing staff earlier this morning the patient had a small amount of bloody drainage from the upper pole of her incision. No other concerns are voiced at this time Physical Exam Gastrointestinal (Abdomen): Abdomen is soft and nondistended. Patient has some appropriate tenderness near her surgical incision. Patient's incision is intact with belle. At the upper pole of her incision there is some bloody drainage noted on the dressing. There is not appear to be any active bleeding from this area. The patient does have a colostomy with some stool and gas noted in the collection bag. Results & Data Vital Signs (Past 12 Hours) Vital Signs Temp Pulse Resp BP BP Pulse Ox O2 Del Method 01/11/25 02:46 36.3 C L 76 20 145/82 H 91 Room Air 01/10/25 23:10 36.4 C L 92 H 18 125/71 91 Room Air 01/10/25 22:09 Room Air 01/10/25 20:59 80 112/60 01/10/25 19:10 36.7 C 114 H 18 108/63 91 Room Air PG Care Time/CCT Total # of Minutes Spent Total Time Spent with Patient: Total time spent is greater than 50% in coordination of care (as documented) at patient's floor/unit and/or counseling patient: Coding Level of Care Code 67950 Post Operative Follow-Up Diagnoses Diverticulitis K57.92
[2025-01-11 06:46] LABS: Hematocrit (blood only) 31.6 % (37.0-47.0); Hemoglobin 10.0 g/dl (12.0-16.0); Immature Granulocytes # (auto) 0.68 K/uL (0.01-0.20); Immature Granulocytes % (auto) 4.2 %; Mean Corpuscular Hemoglobin 32.9 pg (25.0-34.0); Mean Corpuscular Volume 103.9 fL (80.0-100.0); Platelet Count 298 K/uL (130-400); RDW Standard Deviation 67.3 fL (36.4-46.3); Red Blood Count 3.04 M/uL (4.20-5.40); White Blood Count 16.25 K/ul (4.8-10.8)
[2025-01-11 07:05] LABS: Anion Gap 6.0 (3-11); Blood Urea Nitrogen 20.0 mg/dl (6-23); Calcium 8.4 mg/dl (8.6-10.3); Carbon Dioxide 26.0 mmol/L (21-32); Chloride 110.0 mmol/L (98-107); Creatinine Clr Calc Pharmacy 46.6 ml/min; Glucose 122.0 mg/dl (70-99(Fasting)); Potassium 3.8 mmol/L (3.5-5.1); Sodium 142.0 mmol/L (136-145)
[2025-01-11 07:19] LABS: ANTI-Xa, UFH(UnfractionatedHep 0.49 IU/ml (0.3-0.7)
--- NOTE | 2025-01-11 07:58 | Infectious Disease Progress Nt ---
Date of Service January 11, 2025 Telehealth Information I performed this visit using a real-time telehealth connection between my location and the patients location ([facility]). After connecting through interactive tele-video, patient was identified by name and date of and/or wristband check.Patient (or authorized healthcare medicare sales representative) was informed that this was a telemedicine visit and it was being conducted confidentially over secure lines. My office door was closed and no o ne else was present in the room with me.Patient (or authorized healthcare medicare sales representative) provided consent to proceed with the visit, expressed an understanding of privacy and security of the telemedicine visit, and gave permission to have a hospital medicare sales representative in the room in order to assist with the visit and to conduct portions of the visit, as needed. I informed the patient (or authorized healthcare medicare sales representative) that I reviewed their record and presented the opportunity for them to ask any questions regarding the visit today. The patient agreed to participate. Assessment & Plan (1) Diverticulitis of intestine with perforation and abscess: (2) Abscess of abdominal cavity: (3) Diverticulitis: (4) Peritonitis: Plan Assessment: Justa is a 79 yo female with history of afib on Xarelto, vasculitis on steroid taper, CKD, foot drop, HTN, sacroiliitis, who presented to [facility] on 01/03/2025 with sudden onset of severe abdominal pain this morning with associated nausea and sweats. At [facility], pt had CT consistent with Diverticulitis with perforation and pelvic abscess. Gen Surgery consulted and pt taken to OR on 01/03/2025 for Exploratory laparotomy with sigmoid resection and end colostomy and drainage. of pelvic abscess. 1. Diverticulitis with perforation and pelvic absces - Recommend stopping Cefepimt and starting Ceftriaxone 2g q24 IV and Metronidazole 500 mg PO TID - Recommend 4 weeks of IV antibiotics End Date: 02/07/2025 - Recommend CMP and CBC with diff - Recommend CT abd/pelvis in 2-3 weeks - we will sign off, we will not f/u on patient unless pt is schedule with our clinic with a clinic date, please call or tiger text for additional recommendations. Results & Data Vital Signs (Past 12 Hours) Vital Signs Temp Pulse Resp BP Pulse Ox O2 Del Method 01/11/25 07:05 36.4 C L 91 H 18 116/68 91 Room Air 01/11/25 02:46 36.3 C L 76 20 145/82 H 91 Room Air 01/10/25 23:10 36.4 C L 92 H 18 125/71 91 Room Air 01/10/25 22:09 Room Air 01/10/25 20:59 80 112/60
--- NOTE | 2025-01-11 11:24 | Hospitalist Progress Note ---
Date of Service January 11, 2025 Assessment & Plan (1) Diverticulitis of intestine with perforation and abscess: (2) Hypotension: (3) Atrial fibrillation with rapid ventricular response: (4) Giant cell arteritis: (5) Dyslipidemia: Plan 79 year old female with PMH significant for dyslipidemia, atrial fibrillation, giant cell arteritis, hypertension, mononeuritis multiplex associated with vasculitis, GERD, CKD III, right foot drop, bilateral LE edema who presented to the ED this morning with sudden onset of acute abdominal pain. Imaging revealed likely perforated sigmoid diverticulitis with large abscess and pneumoperitoneum. She underwent Banks's procedure with ex lap, bowel resection, and ostomy creation 01/03. She had 450mL blood loss [on Xarelto from A fib, last dose 01/02 evening] with hypotension requiring pressors perioperatively. She was admitted to the ICU post operatively. We have been consulted for post operative medical management. Diverticulitis of intestine with perforation and abscess s/p Harkin's procedure with ex lap, bowel resection, ostomy creation on 01/03/[address] Lyons Antibiotics, pain control, activity level, DVT proph, drain/NGT management, diet per primary team Abd culture growing E coli and bacteroides. WOCN consulted Encourage incentive spirometer Continue PT/OT Infectious disease evaluated the patient; they recommend ceftriaxone and Flagyl for total of 4 weeks; end date of 02/07/2025. Recommend to repeat CT abdomen pelvis in 2 to 3 weeks. Acute stroke: stroke alert in AM of 8/9 for right sided blurry vision, tele stroke evaled (recs dapt, hep drip, mri, inpt neuro eval). CT head , CTA Head and neck w/ no acute issues. MRI brain w/ ischemic stroke, inpatient neuro evaled, recs DAPT +hep drip, when transitioned to xarelto --> recommends to stop plavix, and c/w aspirin and xarelto. On 01/11 in a.m.; concern of slight bleeding from the incision site. Heparin and aspirin are kept on hold by the surgical team. Resumption as per surgery; Recommend that it should not be kept on hold for prolonged period of time as patient has increased risks of recurrent stroke. Giant cell arteritis: On Actemra and prednisone 10 mg daily at home per pt. Placed on stress dose steroids with hydrocortisone 50 mg every 6 hours; Switched over to prednisone 10 mg on 01/11 As per rheumatology on 12/19; patient was to be on 15 mg prednisone for next 5 days until 12/24 and then switched over to 10 mg for 2 weeks. Based on how the patient does; patient's prednisone dose to be tapered down to 7.5 mg daily for a week, 5 daily for a week and 2.5 daily for a week. Will plan to switch over to 10 mg for a week while patient is discharged and follow-up with rheumatology for further taper Afib with RVR ho permanent Afib Rates currently 100-115s c/w home metoprolol, iv metoprolol prn in place for HR > 115-120s. monitor over tele. Dyslipidemia: c/w Home zetia CKD: baseline Cr around 1.1, about baseline cr. monitor BMP. DVT Prophylaxis: on hep drip Code Status: FULL CODE PCP: Shant Lee Time spent evaluating patient, direct bedside care, chart review, placing orders, interpretation of diagnostic studies, discussion with consultants, patient, and family members, as well as other required patient management activities is 50 minutes Please note the above document was generated using voice recognition software. It may contain grammatical, syntax or spelling errors. Any formal questions or concerns about the content, text or information contained within the body of this dictation should be directly addressed to the provider for clarification Admission and Anticipated Discharge Date Admission Date: January 03, 2025 Subjective Patient seen and examined at bedside. Overnight, there was concern of slight bleeding from the incisional site; patient was evaluated by surgery. Heparin and aspirin were kept on hold. Patient reports some nausea today;No vomiting Review of Systems Review of Systems: All systems reviewed & are unremarkable except as noted in Subjective Physical Exam Physical Exam: General/Psych: alert, awake, nad, on RA. Respiratory: normal respiratory effort, lungs diminished, no accessory muscle use Cardiovascular: irregularly irregular, 110s, no murmur/rub/gallop, no JVD Extremities: no cyanosis or clubbing, normal peripheral pulses, trace pitting BLE edema Abdomen/GI: LLQ colostomy present - moist and pink stoma with output. Incision intact; no significant soakage from the incision site Neurologic/MSK: A+Ox3, CN's II-XI intact bilaterally, motor strength 5/5, moves all extremities Skin: no rashes, normal color, warm and dry; SHELIA drain with sanguinous drainage; abdominal island dressings c/d/i Results & Data Results & Data Vital Signs (Past 12 Hours) Vital Signs Temp Pulse Pulse Resp BP BP Pulse Ox 01/11/25 10:40 36.3 C L 73 21 119/67 94 01/11/25 10:11 75 01/11/25 07:05 36.4 C L 91 H 18 116/68 91 01/11/25 02:46 36.3 C L 76 20 145/82 H 91 O2 Del Method 01/11/25 10:40 Room Air 01/11/25 10:11 01/11/25 07:05 Room Air 01/11/25 02:46 Room Air
[2025-01-11] MEDS: cefTRIAXone SODIUM 2,000 MG/50 ML BAG IV SCH (12:23)
[2025-01-11 15:34] LABS: Hematocrit (blood only) 33.5 % (37.0-47.0); Hemoglobin 10.7 g/dl (12.0-16.0); Immature Granulocytes # (auto) 0.65 K/uL (0.01-0.20); Immature Granulocytes % (auto) 3.4 %; Mean Corpuscular Hemoglobin 33.1 pg (25.0-34.0); Mean Corpuscular Volume 103.7 fL (80.0-100.0); Platelet Count 343 K/uL (130-400); RDW Standard Deviation 69.1 fL (36.4-46.3); Red Blood Count 3.23 M/uL (4.20-5.40); White Blood Count 18.92 K/ul (4.8-10.8)
[2025-01-12 08:07] LABS: Hematocrit (blood only) 34.0 % (37.0-47.0); Hemoglobin 10.5 g/dl (12.0-16.0); Immature Granulocytes # (auto) 0.36 K/uL (0.01-0.20); Immature Granulocytes % (auto) 3.2 %; Mean Corpuscular Hemoglobin 33.1 pg (25.0-34.0); Mean Corpuscular Volume 107.3 fL (80.0-100.0); Platelet Count 311 K/uL (130-400); RDW Standard Deviation 73.0 fL (36.4-46.3); Red Blood Count 3.17 M/uL (4.20-5.40); White Blood Count 11.33 K/ul (4.8-10.8)
--- NOTE | 2025-01-12 08:16 | Hospitalist Progress Note ---
Date of Service January 12, 2025 Assessment & Plan (1) Diverticulitis of intestine with perforation and abscess: (2) Hypotension: (3) Atrial fibrillation with rapid ventricular response: (4) Giant cell arteritis: (5) Dyslipidemia: Plan 79 year old female with PMH significant for dyslipidemia, atrial fibrillation, giant cell arteritis, hypertension, mononeuritis multiplex associated with vasculitis, GERD, CKD III, right foot drop, bilateral LE edema who presented to the ED this morning with sudden onset of acute abdominal pain. Imaging revealed likely perforated sigmoid diverticulitis with large abscess and pneumoperitoneum. She underwent Banks's procedure with ex lap, bowel resection, and ostomy creation 01/03. She had 450mL blood loss [on Xarelto from A fib, last dose 01/02 evening] with hypotension requiring pressors perioperatively. She was admitted to the ICU post operatively. We have been consulted for post operative medical management. Diverticulitis of intestine with perforation and abscess s/p Harkin's procedure with ex lap, bowel resection, ostomy creation on 01/03/[address] Lyons Antibiotics, pain control, activity level, DVT proph, drain/NGT management, diet per primary team Abd culture growing E coli and bacteroides. WOCN consulted Encourage incentive spirometer Continue PT/OT Infectious disease evaluated the patient; they recommend ceftriaxone and Flagyl for total of 4 weeks; end date of 02/07/2025. Recommend to repeat CT abdomen pelvis in 2 to 3 weeks. Acute stroke: stroke alert in AM of 8/9 for right sided blurry vision, tele stroke evaled (recs dapt, hep drip, mri, inpt neuro eval). CT head , CTA Head and neck w/ no acute issues. MRI brain w/ ischemic stroke, inpatient neuro evaled, recs DAPT +hep drip, when transitioned to xarelto --> recommends to stop plavix, and c/w aspirin and xarelto. On 16 in a.m.; concern of slight bleeding from the incision site. Heparin and aspirin are kept on hold by the surgical team. Resumption as per surgery; Recommend that it should not be kept on hold for prolonged period of time as patient has increased risks of recurrent stroke. will start sc heparin and aspirin on 01/12. Hematuria Acute UTI concern of hematuria while on heparin; urinalysis shows 3+ blood, 4+ bacteria; possibly related with acute UTI Urine culture pending Continue monitor for hematuria Will plan to repeat CT abdomen/pelvis in next few days. Giant cell arteritis: On Actemra and prednisone 10 mg daily at home per pt. Placed on stress dose steroids with hydrocortisone 50 mg every 6 hours; Switched over to prednisone 10 mg on 01/11 As per rheumatology on 12/19; patient was to be on 15 mg prednisone for next 5 days until 12/24 and then switched over to 10 mg for 2 weeks. Based on how the patient does; patient's prednisone dose to be tapered down to 7.5 mg daily for a week, 5 daily for a week and 2.5 daily for a week. Will plan to switch over to 10 mg for a week while patient is discharged and follow-up with rheumatology for further taper Acute on chronic diastolic heart failurepatient noted to have pitting edema on 01/12; will give 1 dose of IV Lasix 40 mg. Reevaluate need for IV Lasix as needed Afib with RVR ho permanent Afib Rates currently 100-115s c/w home metoprolol, iv metoprolol prn in place for HR > 115-120s. monitor over tele. Dyslipidemia: c/w Home zetia CKD: baseline Cr around 1.1, about baseline cr. monitor BMP. DVT Prophylaxis: heparin Code Status: FULL CODE PCP: Shant Lee Time spent evaluating patient, direct bedside care, chart review, placing orders, interpretation of diagnostic studies, discussion with consultants, patient, and family members, as well as other required patient management activities is 50 minutes Please note the above document was generated using voice recognition software. It may contain grammatical, syntax or spelling errors. Any formal questions or concerns about the content, text or information contained within the body of this dictation should be directly addressed to the provider for clarification Admission and Anticipated Discharge Date Admission Date: January 03, 2025 Subjective Patient seen and examined at bedside. She is comfortable; tolerating full liquid diet without any issues. Hemoglobin continues to be stable. Review of Systems Review of Systems: All systems reviewed & are unremarkable except as noted in Subjective Physical Exam Physical Exam: General/Psych: alert, awake, nad, on RA. Respiratory: normal respiratory effort, lungs diminished, no accessory muscle use Cardiovascular: irregularly irregular, 110s, no murmur/rub/gallop, no JVD Extremities: no cyanosis or clubbing, normal peripheral pulses, 2+ pitting BLE edema Abdomen/GI: LLQ colostomy present - moist and pink stoma with output. Incision intact; no significant soakage from the incision site Neurologic/MSK: A+Ox3, CN's II-XI intact bilaterally, motor strength 5/5, moves all extremities Skin: no rashes, normal color, warm and dry; SHELIA drain with sanguinous drainage; abdominal island dressings c/d/i Results & Data Results & Data Vital Signs (Past 12 Hours) Vital Signs Temp Pulse Pulse Pulse Resp BP Pulse Ox 01/12/25 07:52 36.7 C 93 H 18 104/69 95 01/12/25 07:22 86 01/12/25 04:32 36.5 C 76 18 126/75 94 01/11/25 23:04 75 01/11/25 22:53 36.5 C 79 16 102/60 93 01/11/25 20:41 36.4 C L 84 18 115/63 92 O2 Del Method 01/12/25 07:52 Room Air 01/12/25 07:22 01/12/25 04:32 Room Air 01/11/25 23:04 01/11/25 22:53 Room Air 01/11/25 20:41 Room Air
[2025-01-12 08:41] LABS: Anion Gap 6.0 (3-11); Blood Urea Nitrogen 23.0 mg/dl (6-23); Calcium 8.6 mg/dl (8.6-10.3); Carbon Dioxide 28.0 mmol/L (21-32); Chloride 111.0 mmol/L (98-107); Creatinine Clr Calc Pharmacy 66.2 ml/min; Glucose 71.0 mg/dl (70-99(Fasting)); Potassium 3.0 mmol/L (3.5-5.1); Sodium 145.0 mmol/L (136-145)
[2025-01-12] MEDS: POTASSIUM CHLORIDE / WTR 10 MEQ/100 ML PLCT IV SCH (10:09)
--- NOTE | 2025-01-12 10:37 | Surgery Progress Note ---
Date of Service January 12, 2025 Assessment & Plan (1) Diverticulitis of intestine with perforation and abscess: Plan: Slight bump in her WBCs which we will have to monitor. However clinically doing well. States that her abdomen is finally starting to feel better. She would like to try and increase her diet which I think is reasonable. If her white blood cell count continues to rise we may have to consider repeat imaging Admission and Anticipated Discharge Date Admission Date: January 03, 2025 Subjective Patient seen. Having pain with the IV potassium infusion other than that is actually feeling quite well this morning. Having a little bit of discomfort near her colostomy site but otherwise has no new complaints. She has no nausea and is tolerating her full liquids. Physical Exam Physical Exam: Alert no acute distress Her incision looks good. Mild separation of the superior pole secondary to her accidentally scratching it last night. No sign of infection. The stoma is intact and putting out brown stool Results & Data Vital Signs (Past 12 Hours) Vital Signs Temp Pulse Pulse Resp BP Pulse Ox O2 Del Method 01/12/25 07:52 36.7 C 93 H 18 104/69 95 Room Air 01/12/25 07:22 86 01/12/25 04:32 36.5 C 76 18 126/75 94 Room Air 01/11/25 23:04 75 01/11/25 22:53 36.5 C 79 16 102/60 93 Room Air PG Care Time/CCT Total # of Minutes Spent Total Time Spent with Patient: Total time spent is greater than 50% in coordination of care (as documented) at patient's floor/unit and/or counseling patient: Coding Level of Care Code 88945 Post Operative Follow-Up Diagnoses Diverticulitis of intestine with perforation and abscess K57.80
[2025-01-12] MEDS: FUROSEMIDE 40 MG/4 ML VIAL IV ONE (11:40)
[2025-01-12] MEDS: POTASSIUM CHLORIDE PWD 20 MEQ PACK PO SCH (12:22)
[2025-01-12 13:56] LABS: Appearance Urine Clear (Clear); Bacteria Urine Automated None Seen (None Seen); Cast Urine Automated 0-2 /lpf (0-2); Epithelial Cell Urine Auto 0-2 /hpf (0-2); Glucose Urine UA Negative (Negative)
[2025-01-12] MEDS: HEPARIN SOD 5,000 UNIT/0.5 ML VIAL SQ SCH (14:06)
[2025-01-12] MEDS: ARTIFICIAL TEARS OPB PRN (20:14)
[2025-01-12] MEDS: ZOLPIDEM TARTRATE 5 MG TAB PO PRN (20:27)
[2025-01-13] MEDS: METOPROLOL TARTRATE 1 MG/ML VIAL IV STA (00:48)
[2025-01-13] MEDS: OPTIRAY 320 100ml IV ONE (05:17)
--- NOTE | 2025-01-13 06:06 | CT Scan Report ---
EXAM: CT abd pelvis IV con only CLINICAL HISTORY: rule out intra-abdominal abscess TECHNIQUE: Contiguous axial images were obtained from the level of the diaphragm to the pubic symphysis with intravenous contrast. Coronal and sagittal reconstructions were likewise performed and indicated to increase the sensitivity for detecting clinically relevant pathology. If IV contrast material had not been administered, the likelihood of detecting abnormalities relevant to the patient's condition would have been substantially decreased. CT scan was performed according to ALARA (as low as reasonable achievable). COMPARISON: 01/03/2025 06:26:04 [employer] FINDINGS: Moderate right and mild left pleural effusion with basal subsegmental collapse of both lower lobes are seen. The liver is normal in size and attenuation. Tiny cyst noted involving right lobe of liver. There is no intra or extrahepatic biliary ductal dilatation. Hepatic vasculature is patent. The gallbladder is present. The spleen, pancreas, and adrenal glands are unremarkable. Tiny cyst noted involving spleen. The kidneys are normal in size and attenuation. There is no hydronephrosis or perinephric fat stranding. No renal calculi or renal masses are identified. The ureters are normal in caliber and no ureteral calculi are seen. The bladder is normal in contour. Pelvic viscera are unremarkable. No focal or diffuse bowel wall thickening or evidence of bowel obstruction is identified. The appendix is visualized in the right lower quadrant and appears within normal limits. Abdominal and pelvic vasculature is patent. No aggressive appearing osseous lesions are identified. Evidence of small thick walled pelvic collection at cul de sac and extending to left adnexa region measures 5.4 x 3.3 x 3.2 cm with fat stranding. Drainage tube is seen in situ with the tip is noted in posterior aspect of pelvis. Left lower quadrant ileostomy status without obvious complication. IMPRESSION: 1. Moderate right and mild left pleural effusion with basal subsegmental collapse of both lower lobes are seen.-new finding. 2. Evidence of small thick walled pelvic collection at cul de sac and extending to left adnexa region measures 5.4 x 3.3 x 3.2 cm with fat stranding.- reduced as compared to prior study. 3. Drainage tube is seen in situ with the tip is noted in posterior aspect of pelvis.- new placement. 4. Left lower quadrant ileostomy status without obvious complication.- new finding 5. Postoperative changes in the form of midline laparotomy incision in the umbilical region with mild soft tissue thickening - new findings 6. Stable hepatic and splenic cyst. Electronically signed by Vishnu Han 01-13-2025 06:06 AM
[2025-01-13 06:34] LABS: Hematocrit (blood only) 28.4 % (37.0-47.0); Hemoglobin 9.4 g/dl (12.0-16.0); Immature Granulocytes # (auto) 0.21 K/uL (0.01-0.20); Immature Granulocytes % (auto) 2.3 %; Mean Corpuscular Hemoglobin 34.7 pg (25.0-34.0); Mean Corpuscular Volume 104.8 fL (80.0-100.0); Platelet Count 244 K/uL (130-400); RDW Standard Deviation 69.2 fL (36.4-46.3); Red Blood Count 2.71 M/uL (4.20-5.40); White Blood Count 9.33 K/ul (4.8-10.8)
[2025-01-13 07:07] LABS: Anion Gap 4.0 (3-11); Blood Urea Nitrogen 26.0 mg/dl (6-23); Calcium 8.1 mg/dl (8.6-10.3); Carbon Dioxide 29.0 mmol/L (21-32); Chloride 110.0 mmol/L (98-107); Creatinine Clr Calc Pharmacy 38.6 ml/min; Glucose 82.0 mg/dl (70-99(Fasting)); Potassium 3.9 mmol/L (3.5-5.1); Sodium 143.0 mmol/L (136-145)
[2025-01-13] MEDS ORDERED: Heparin IV Adult Wt-Based Standard *NO* INITIAL Bolus Protocol IV STA (07:36)
[2025-01-13] MEDS: HEPARIN 25000 UNIT/500 ML D5W 25,000 UNITS/500 ML BAG IV SCH (08:03)
[2025-01-13] MEDS: FUROSEMIDE 20 MG TAB PO SCH (08:04)
[2025-01-13 08:49] LABS: INR 1.0 (0.9-1.1); Partial Thromboplastin Time 25 Seconds (21-31); Prothrombin Time 11.1 Seconds (9.0-12.0)
--- NOTE | 2025-01-13 12:18 | Hospitalist Progress Note ---
Date of Service January 13, 2025 Assessment & Plan (1) Diverticulitis of intestine with perforation and abscess: (2) Hypotension: (3) Atrial fibrillation with rapid ventricular response: (4) Giant cell arteritis: (5) Dyslipidemia: Plan 79 year old female with PMH significant for dyslipidemia, atrial fibrillation, giant cell arteritis, hypertension, mononeuritis multiplex associated with vasculitis, GERD, CKD III, right foot drop, bilateral LE edema who presented to the ED this morning with sudden onset of acute abdominal pain. Imaging revealed likely perforated sigmoid diverticulitis with large abscess and pneumoperitoneum. She underwent Banks's procedure with ex lap, bowel resection, and ostomy creation 01/03. She had 450mL blood loss [on Xarelto from A fib, last dose 01/02 evening] with hypotension requiring pressors perioperatively. She was admitted to the ICU post operatively. We have been consulted for post operative medical management. Diverticulitis of intestine with perforation and abscess s/p Harkin's procedure with ex lap, bowel resection, ostomy creation on 01/03/[address] Lyons Antibiotics, pain control, activity level, DVT proph, drain/NGT management, diet per primary team Abd culture growing E coli and bacteroides. WOCN consulted Encourage incentive spirometer Continue PT/OT Infectious disease evaluated the patient; they recommend ceftriaxone and Flagyl for total of 4 weeks; end date of 02/07/2025. Recommend to repeat CT abdomen pelvis in [address] abdomen pelvis was done on 01/13pelvic collection at cul-de-sac and extending to left adnexa region is 5.4 x 3.3 x 3.2 cm with fat stranding.- reduced as compared to prior study. Planning to continue ceftriaxone and Flagyl; consent for midline obtained on 01/13; will need repeat CT prior to discontinuation of antibiotic at the end of December or in first week of January. Discussed with patient; she verbalized understanding. Acute stroke: stroke alert in AM of 01/04 for right sided blurry vision, tele stroke evaled (recs dapt, hep drip, mri, inpt neuro eval). CT head , CTA Head and neck w/ no acute issues. MRI brain w/ ischemic stroke, inpatient neuro evaled, recs DAPT +hep drip, when transitioned to xarelto --> recommends to stop plavix, and c/w aspirin and xarelto. On 01/11 in a.m.; concern of slight bleeding from the incision site. Heparin and aspirin are kept on hold by the surgical team. Aspirin and heparin restarted on 01/13; monitor for any signs or symptoms of bleeding. Hematuria Acute UTI-rule out concern of hematuria while on heparin; urinalysis shows 3+ blood, 4+ bacteria; possibly related with acute UTI Urine culture neg Continue monitor for hematuria Giant cell arteritis: On Actemra and prednisone 10 mg daily at home per pt. Placed on stress dose steroids with hydrocortisone 50 mg every 6 hours; Switched over to prednisone 10 mg on 01/11 As per rheumatology on 12/19; patient was to be on 15 mg prednisone for next 5 days until 12/24 and then switched over to 10 mg for 2 weeks. Based on how the patient does; patient's prednisone dose to be tapered down to 7.5 mg daily for a week, 5 daily for a week and 2.5 daily for a week. Will plan to switch over to 10 mg for a week while patient is discharged and follow-up with rheumatology for further taper Acute on chronic diastolic heart failurepatient noted to have pitting edema on 01/12; given one dose of lasix. restarted on oral lasix. Bilateral pleural effusionlikely secondary to volume overload; restarted on Lasix. Repeat chest x-ray in 2 weeks Afib with RVR ho permanent Afib Rates currently 100-115s c/w home metoprolol, iv metoprolol prn in place for HR > 115-120s. monitor over tele. Dyslipidemia: c/w Home zetia CKD: baseline Cr around 1.1, about baseline cr. monitor BMP. DVT Prophylaxis: heparin Code Status: FULL CODE PCP: Shant Lee Called patient's daughter twice today as per patient's reqeust; unable to get hold of her. Time spent evaluating patient, direct bedside care, chart review, placing orders, interpretation of diagnostic studies, discussion with consultants, patient, and family members, as well as other required patient management activities is 50 minutes Please note the above document was generated using voice recognition software. It may contain grammatical, syntax or spelling errors. Any formal questions or concerns about the content, text or information contained within the body of this dictation should be directly addressed to the provider for clarification Admission and Anticipated Discharge Date Admission Date: January 03, 2025 Subjective Patient seen and examined at bedside. Overnight, she received Ambien; reports that she did not tolerate it very well. Review of Systems Review of Systems: All systems reviewed & are unremarkable except as noted in Subjective Physical Exam Physical Exam: General/Psych: alert, awake, nad, on RA. Respiratory: normal respiratory effort, lungs diminished, no accessory muscle use Cardiovascular: irregularly irregular, 110s, no murmur/rub/gallop, no JVD Extremities: no cyanosis or clubbing, normal peripheral pulses, 2+ pitting BLE edema Abdomen/GI: LLQ colostomy present - moist and pink stoma with output. Incision intact; no significant soakage from the incision site Neurologic/MSK: A+Ox3, CN's II-XI intact bilaterally, motor strength 5/5, moves all extremities Skin: no rashes, normal color, warm and dry; SHELIA drain with sanguinous drainage; abdominal island dressings c/d/i Results & Data Results & Data Vital Signs (Past 12 Hours) Vital Signs Temp Pulse Pulse Resp BP BP BP 01/13/25 10:56 36.6 C 78 16 93/57 L 01/13/25 08:05 01/13/25 07:08 36.5 C 90 21 140/71 01/13/25 07:00 82 01/13/25 04:00 36.4 C L 77 18 121/66 01/13/25 02:46 97 H 01/13/25 01:03 114 H 121/60 01/13/25 00:48 130 H 124/64 Pulse Ox O2 Del Method 01/13/25 10:56 92 Room Air 01/13/25 08:05 Room Air 01/13/25 07:08 93 Room Air 01/13/25 07:00 01/13/25 04:00 95 Room Air 01/13/25 02:46 01/13/25 01:03 01/13/25 00:48
--- NOTE | 2025-01-13 12:42 | Surgery Progress Note ---
Date of Service January 13, 2025 Assessment & Plan (1) Diverticulitis of intestine with perforation and abscess: (2) Abscess of abdominal cavity: (3) Pneumoperitoneum: Plan POD # 10 s/p ex lap, Banks's avss postop pain controlled Ostomy functioning tolerating diet repeat CT scan today showing persistent abscess but smaller Leukocytosis resolved Plan: Continue IV antibiotics continue pain management continue low fiber diet PT/OT Ostomy care Encouraged OOB to chair and ambulation with assistance continue medical management Dr. Alanis has seen and examined patient. Admission and Anticipated Discharge Date Admission Date: January 03, 2025 Subjective feeling okay, had some more pain around ostomy after moving in bed yesterday no fevers or chills tolerating regular diet ostomy working urinating without difficulty no n/v Physical Exam Constitutional: WD/WN, vitals as above cooperative and comfortable; no acute distress and not ill appearing Respiratory: normal respiratory effort; no respiratory distress and no labored breathing Gastrointestinal (Abdomen): Inspection/Auscultation: abdomen normal to inspection, + abdominal surgical incision (c/d/i with belle, intermittent openings) and + abdominal surgical drain present (serosanguineous); abdomen not distended Percussion/Palpation: + abdomen tender (lateral to the ostomy tenderness) and abdomen soft; no guarding, abdomen not rigid, no hernia and abdomen not firm ostomy in left mid abdomen with gas and stool in bag, ostomy pink without necrosis Skin: no rashes, warm and dry Psychiatric: Orientation: alert and oriented x 3 Results & Data Vital Signs (Past 12 Hours) Vital Signs Temp Pulse Pulse Resp BP BP BP 01/13/25 10:56 36.6 C 78 16 93/57 L 01/13/25 08:05 01/13/25 07:08 36.5 C 90 21 140/71 01/13/25 07:00 82 01/13/25 04:00 36.4 C L 77 18 121/66 01/13/25 02:46 97 H 01/13/25 01:03 114 H 121/60 01/13/25 00:48 130 H 124/64 Pulse Ox O2 Del Method 01/13/25 10:56 92 Room Air 01/13/25 08:05 Room Air 01/13/25 07:08 93 Room Air 01/13/25 07:00 01/13/25 04:00 95 Room Air 01/13/25 02:46 01/13/25 01:03 01/13/25 00:48 Laboratory Results 01/13/25 01/13/25 01/12/25 Range/Units 07:56 06:12 13:27 WBC 9.33 (4.8-10.8) K/ul RBC 2.71 L (4.20-5.40) M/uL Hgb 9.4 L (12.0-16.0) g/dl Hct 28.4 L (37.0-47.0) % MCV 104.8 H (80.0-100.0) fL MCH 34.7 H (25.0-34.0) pg MCHC 33.1 (32.0-36.0) g/dL RDW Std Deviation 69.2 H (36.4-46.3) fL RDW Coeff of Ned 18.0 H (11.5-14.5) % Plt Count 244 (130-400) K/uL MPV 10.9 (9.4-12.4) fL Immature Gran % (Auto) 2.3 % Neut % (Auto) 75.0 % Lymph % (Auto) 13.5 % [place] % (Auto) 7.3 % Eos % (Auto) 1.6 % Baso % (Auto) 0.3 % Neut # (Auto) 7.00 H (1.40-6.50) K/uL Lymph # (Auto) 1.26 (1.20-3.40) K/uL [place] # (Auto) 0.68 H (0.11-0.59) K/uL Eos # (Auto) 0.15 (0.00-0.50) K/uL Baso # (Auto) 0.03 (0.00-0.20) K/uL Immature Gran # (Auto) 0.21 H (0.01-0.20) K/uL Absolute Nucleated RBC 0.02 (0.00-0.12) K/uL Nucleated RBC % (auto) 0.2 % PT 11.1 (9.0-12.0) Seconds INR 1.0 (0.9-1.1) APTT 25 (21-31) Seconds PTT Ratio 0.9 Sodium 143 (136-145) mmol/L Potassium 3.9 D (3.5-5.1) mmol/L Chloride 110 H (98-107) mmol/L Carbon Dioxide 29 (21-32) mmol/L Anion Gap 4 (3-11) BUN 26 H (6-23) mg/dl Creatinine 1.15 (0.6-1.2) mg/dl Est Cr Clr Drug Dosing 38.6 ml/min eGFR 48.16 BUN/Creatinine Ratio 22.6 H (10-20) Glucose 82 (70-99(Fasting)) mg/dl Calcium 8.1 L (8.6-10.3) mg/dl Urine Color Yellow Urine Appearance Clear (Clear) Urine pH 5.5 (4.5-7.5) Ur Specific [place] 1.008 (1.000-1.030) Urine Protein Negative (Negative) Urine Glucose (UA) Negative (Negative) Urine Ketones Negative (Negative) Urine Blood 2+ H (Negative) Urine Nitrite Negative (Negative) Urine Bilirubin Negative (Negative) Urine Urobilinogen Negative (Negative) Ur Leukocyte Esterase 2+ H (Negative) Urine WBC (Auto) 6-10 H (0-5) /hpf Urine RBC (Auto) 6-10 H (0-2) /hpf U Hyaline Cast (Auto) 0-2 (0-2) /lpf U Epithel Cells (Auto) 0-2 (0-2) /hpf Urine Bacteria (Auto) None Seen (None Seen) Urine Comment Diagnostic Findings EXAM: CT abd pelvis IV con only CLINICAL HISTORY: rule out intra-abdominal abscess TECHNIQUE: Contiguous axial images were obtained from the level of the diaphragm to the pubic symphysis with intravenous contrast. Coronal and sagittal reconstructions were likewise performed and indicated to increase the sensitivity for detecting clinically relevant pathology. If IV contrast material had not been administered, the likelihood of detecting abnormalities relevant to the patient's condition would have been substantially decreased. CT scan was performed according to ALARA (as low as reasonable achievable). COMPARISON: 01/03/2025 06:26:04 DISPATCHER TOW TRUCK FINDINGS: Moderate right and mild left pleural effusion with basal subsegmental collapse of both lower lobes are seen. The liver is normal in size and attenuation. Tiny cyst noted involving right lobe of liver. There is no intra or extrahepatic biliary ductal dilatation. Hepatic vasculature is patent. The gallbladder is present. The spleen, pancreas, and adrenal glands are unremarkable. Tiny cyst noted involving spleen. The kidneys are normal in size and attenuation. There is no hydronephrosis or perinephric fat stranding. No renal calculi or renal masses are identified. The ureters are normal in caliber and no ureteral calculi are seen. The bladder is normal in contour. Pelvic viscera are unremarkable. No focal or diffuse bowel wall thickening or evidence of bowel obstruction is identified. The appendix is visualized in the right lower quadrant and appears within normal limits. Abdominal and pelvic vasculature is patent. No aggressive appearing osseous lesions are identified. Evidence of small thick walled pelvic collection at cul de sac and extending to left adnexa region measures 5.4 x 3.3 x 3.2 cm with fat stranding. Drainage tube is seen in situ with the tip is noted in posterior aspect of pelvis. Left lower quadrant ileostomy status without obvious complication. IMPRESSION: 1. Moderate right and mild left pleural effusion with basal subsegmental collapse of both lower lobes are seen.-new finding. 2. Evidence of small thick walled pelvic collection at cul de sac and extending to left adnexa region measures 5.4 x 3.3 x 3.2 cm with fat stranding.- reduced as compared to prior study. 3. Drainage tube is seen in situ with the tip is noted in posterior aspect of pelvis.- new placement. 4. Left lower quadrant ileostomy status without obvious complication.- new finding 5. Postoperative changes in the form of midline laparotomy incision in the umbilical region with mild soft tissue thickening - new findings 6. Stable hepatic and splenic cyst.
[2025-01-13 17:30] LABS: ANTI-Xa, UFH(UnfractionatedHep 0.73 IU/ml (0.3-0.7)
[2025-01-14 00:32] LABS: ANTI-Xa, UFH(UnfractionatedHep 0.79 IU/ml (0.3-0.7)
[2025-01-14 07:44] LABS: Hematocrit (blood only) 32.5 % (37.0-47.0); Hemoglobin 10.1 g/dl (12.0-16.0); Immature Granulocytes # (auto) 0.26 K/uL (0.01-0.20); Immature Granulocytes % (auto) 2.6 %; Mean Corpuscular Hemoglobin 33.0 pg (25.0-34.0); Mean Corpuscular Volume 106.2 fL (80.0-100.0); Platelet Count 236 K/uL (130-400); RDW Standard Deviation 71.3 fL (36.4-46.3); Red Blood Count 3.06 M/uL (4.20-5.40); White Blood Count 10.00 K/ul (4.8-10.8)
[2025-01-14 08:06] LABS: Anion Gap 4.0 (3-11); Blood Urea Nitrogen 22.0 mg/dl (6-23); Calcium 8.4 mg/dl (8.6-10.3); Carbon Dioxide 30.0 mmol/L (21-32); Chloride 110.0 mmol/L (98-107); Creatinine Clr Calc Pharmacy 42.2 ml/min; Glucose 103.0 mg/dl (70-99(Fasting)); Potassium 4.6 mmol/L (3.5-5.1); Sodium 144.0 mmol/L (136-145)
[2025-01-14 08:13] LABS: ANTI-Xa, UFH(UnfractionatedHep 0.86 IU/ml (0.3-0.7)
--- NOTE | 2025-01-14 10:35 | Surgery Progress Note ---
Date of Service January 14, 2025 Assessment & Plan (1) Diverticulitis of intestine with perforation and abscess: (2) Abscess of abdominal cavity: (3) Pneumoperitoneum: Plan POD # 11 s/p ex lap, Banks's avss postop pain moderate , more with movement Ostomy functioning tolerating diet repeat CT scan today showing persistent abscess but smaller Leukocytosis resolved Plan: Continue IV antibiotics per PICC line on discharge as per ID recs continue pain management, added PO Oxy to alternate with Tylenol for better pain control to facilitate more movement/activity continue low fiber diet PT/OT Ostomy care Encouraged OOB to chair and ambulation with assistance continue medical management okay from surgical standpoint for discharge in next 1-2 days will need surgery follow-up next week for staple removal and drain removal D Admission and Anticipated Discharge Date Admission Date: January 03, 2025 Subjective feeling good, still having the left abdominal wall pain just around ostomy, controlled with Tylenol trying to get up and move more but having pain no fevers or chills tolerating low fiber diet, trying to supplement with boost when able urinating without difficulty ostomy working Physical Exam Constitutional: WD/WN, vitals as above cooperative and comfortable; no acute distress and not ill appearing Respiratory: normal respiratory effort; no respiratory distress and no labored breathing Gastrointestinal (Abdomen): Inspection/Auscultation: abdomen normal to inspection, + abdominal surgical incision (intact with intermittent belle, some serosanguineous drainage on dressing) and + abdominal surgical drain present (serous); abdomen not distended Percussion/Palpation: + abdomen tender (just lateral to ostomy in LLQ) and abdomen soft; no guarding, abdomen not rigid and abdomen not firm Ostomy in left mid abdomen: soft stool present, gas present, ostomy pink Skin: no rashes, warm and dry Psychiatric: Orientation: alert and oriented x 3 Results & Data Vital Signs (Past 12 Hours) Vital Signs Temp Pulse Pulse Resp BP Pulse Ox O2 Del Method 01/14/25 10:14 82 01/14/25 07:59 35.8 C L 93 H 18 126/79 97 Room Air Laboratory Results 01/14/25 01/13/25 01/13/25 Range/Units 07:27 23:16 15:35 WBC 10.00 (4.8-10.8) K/ul RBC 3.06 L (4.20-5.40) M/uL Hgb 10.1 L (12.0-16.0) g/dl Hct 32.5 L (37.0-47.0) % MCV 106.2 H (80.0-100.0) fL MCH 33.0 (25.0-34.0) pg MCHC 31.1 L (32.0-36.0) g/dL RDW Std Deviation 71.3 H (36.4-46.3) fL RDW Coeff of Ned 18.1 H (11.5-14.5) % Plt Count 236 (130-400) K/uL MPV 10.8 (9.4-12.4) fL Immature Gran % (Auto) 2.6 % Neut % (Auto) 77.2 % Lymph % (Auto) 11.3 % [place] % (Auto) 5.6 % Eos % (Auto) 2.8 % Baso % (Auto) 0.5 % Neut # (Auto) 7.72 H (1.40-6.50) K/uL Lymph # (Auto) 1.13 L (1.20-3.40) K/uL [place] # (Auto) 0.56 (0.11-0.59) K/uL Eos # (Auto) 0.28 (0.00-0.50) K/uL Baso # (Auto) 0.05 (0.00-0.20) K/uL Immature Gran # (Auto) 0.26 H (0.01-0.20) K/uL Heparin Anti-Xa, Unfract 0.86 H* 0.79 H* 0.73 H* (0.3-0.7) IU/ml Sodium 144 (136-145) mmol/L Potassium 4.6 (3.5-5.1) mmol/L Chloride 110 H (98-107) mmol/L Carbon Dioxide 30 (21-32) mmol/L Anion Gap 4 (3-11) BUN 22 (6-23) mg/dl Creatinine 1.04 (0.6-1.2) mg/dl Est Cr Clr Drug Dosing 42.2 ml/min eGFR 54.33 BUN/Creatinine Ratio 21.2 H (10-20) Glucose 103 H (70-99(Fasting)) mg/dl Calcium 8.4 L (8.6-10.3) mg/dl
--- NOTE | 2025-01-14 10:50 | Hospitalist Progress Note ---
Date of Service January 14, 2025 Assessment & Plan (1) Diverticulitis of intestine with perforation and abscess: (2) Hypotension: (3) Atrial fibrillation with rapid ventricular response: (4) Giant cell arteritis: (5) Dyslipidemia: Plan 79 year old female with PMH significant for dyslipidemia, atrial fibrillation, giant cell arteritis, hypertension, mononeuritis multiplex associated with vasculitis, GERD, CKD III, right foot drop, bilateral LE edema who presented to the ED this morning with sudden onset of acute abdominal pain. Imaging revealed likely perforated sigmoid diverticulitis with large abscess and pneumoperitoneum. She underwent Banks's procedure with ex lap, bowel resection, and ostomy creation 01/03. She had 450mL blood loss [on Xarelto from A fib, last dose 01/02 evening] with hypotension requiring pressors perioperatively. She was admitted to the ICU post operatively. We have been consulted for post operative medical management. Diverticulitis of intestine with perforation and abscess s/p Harkin's procedure with ex lap, bowel resection, ostomy creation on 01/03/[address] Lyons Antibiotics, pain control, activity level, DVT proph, drain/NGT management, diet per primary team Abd culture growing E coli and bacteroides. WOCN consulted Encourage incentive spirometer Continue PT/OT Infectious disease evaluated the patient; they recommend ceftriaxone and Flagyl for total of 4 weeks; end date of 02/07/2025. Recommend to repeat CT abdomen pelvis in [address] abdomen pelvis was done on 01/13pelvic collection at cul-de-sac and extending to left adnexa region is 5.4 x 3.3 x 3.2 cm with fat stranding.- reduced as compared to prior study. Planning to continue ceftriaxone and Flagyl; consent for midline obtained on 01/13; will need repeat CT prior to discontinuation of antibiotic at the end of December or in first week of January. Discussed with patient; she verbalized understanding. Discussed with patient's daughter over the phone reiterating the need for repeat CT prior to discontinuation of antibiotic on 01/14. She verbalized understanding. I also updated her on the course of the hospitalization and plan going forward. Acute stroke: stroke alert in AM of 8 for right sided blurry vision, tele stroke evaled (recs dapt, hep drip, mri, inpt neuro eval). CT head , CTA Head and neck w/ no acute issues. MRI brain w/ ischemic stroke, inpatient neuro evaled, recs DAPT +hep drip, when transitioned to xarelto --> recommends to stop plavix, and c/w aspirin and xarelto. On 01/11 in a.m.; concern of slight bleeding from the incision site. Heparin and aspirin are kept on hold by the surgical team. Aspirin and heparin restarted on 01/13; monitor for any signs or symptoms of bleeding. Plan to place her on Xarelto and aspirin at the time of the discharge. Hematuria Acute UTI-rule out concern of hematuria while on heparin; urinalysis shows 3+ blood, 4+ bacteria; possibly related with acute UTI Urine culture neg Continue monitor for hematuria Giant cell arteritis: On Actemra and prednisone 10 mg daily at home per pt. Placed on stress dose steroids with hydrocortisone 50 mg every 6 hours; Switched over to prednisone 10 mg on 01/11 As per rheumatology on 12/19; patient was to be on 15 mg prednisone for next 5 days until 12/24 and then switched over to 10 mg for 2 weeks. Based on how the patient does; patient's prednisone dose to be tapered down to 7.5 mg daily for a week, 5 daily for a week and 2.5 daily for a week. Will plan to switch over to 10 mg for a week while patient is discharged and follow-up with rheumatology for further taper Acute on chronic diastolic heart failurepatient noted to have pitting edema on 01/12; given one dose of lasix. restarted on oral lasix. Bilateral pleural effusionlikely secondary to volume overload; restarted on Lasix. Repeat chest x-ray in 2 weeks Afib with RVR ho permanent Afib Rates currently 100-115s c/w home metoprolol, iv metoprolol prn in place for HR > 115-120s. monitor over tele. Dyslipidemia: c/w Home zetia CKD: baseline Cr around 1.1, about baseline cr. monitor BMP. DVT Prophylaxis: heparin Code Status: FULL CODE PCP: Shant Lee Time spent evaluating patient, direct bedside care, chart review, placing orders, interpretation of diagnostic studies, discussion with consultants, patient, and family members, as well as other required patient management activities is 50 minutes Please note the above document was generated using voice recognition software. It may contain grammatical, syntax or spelling errors. Any formal questions or concerns about the content, text or information contained within the body of this dictation should be directly addressed to the provider for clarification Admission and Anticipated Discharge Date Admission Date: January 03, 2025 Subjective She is from seen and examined at bedside. She is sitting up on the chair at the side of the bed eating breakfast; denies any discomfort at this time. No fever or chills. No significant events overnight Review of Systems Review of Systems: All systems reviewed & are unremarkable except as noted in Subjective Physical Exam Physical Exam: General/Psych: alert, awake, nad, on RA. Respiratory: normal respiratory effort, lungs diminished, no accessory muscle use Cardiovascular: irregularly irregular, 110s, no murmur/rub/gallop, no JVD Extremities: no cyanosis or clubbing, normal peripheral pulses, 2+ pitting BLE edema Abdomen/GI: LLQ colostomy present - moist and pink stoma with output. Incision intact; no significant soakage from the incision site Neurologic/MSK: A+Ox3, CN's II-XI intact bilaterally, motor strength 5/5, moves all extremities Skin: no rashes, normal color, warm and dry; SHELIA drain with sanguinous drainage; abdominal island dressings c/d/i Results & Data Results & Data Vital Signs (Past 12 Hours) Vital Signs Temp Pulse Pulse Resp BP Pulse Ox O2 Del Method 01/14/25 10:14 82 01/14/25 07:59 35.8 C L 93 H 18 126/79 97 Room Air
[2025-01-14 15:37] LABS: ANTI-Xa, UFH(UnfractionatedHep 0.59 IU/ml (0.3-0.7)
[2025-01-14] MEDS: STOP ORDER [HEPARIN DRIP] ONE (20:04)
[2025-01-14] MEDS: RIVAROXABAN 15 MG TAB PO SCH (20:21)
[2025-01-15 06:26] LABS: Hematocrit (blood only) 30.8 % (37.0-47.0); Hemoglobin 9.8 g/dl (12.0-16.0); Immature Granulocytes # (auto) 0.18 K/uL (0.01-0.20); Immature Granulocytes % (auto) 2.1 %; Mean Corpuscular Hemoglobin 33.8 pg (25.0-34.0); Mean Corpuscular Volume 106.2 fL (80.0-100.0); Platelet Count 243 K/uL (130-400); RDW Standard Deviation 69.3 fL (36.4-46.3); Red Blood Count 2.90 M/uL (4.20-5.40); White Blood Count 8.58 K/ul (4.8-10.8)
[2025-01-15 07:14] LABS: Anion Gap 4.0 (3-11); Blood Urea Nitrogen 21.0 mg/dl (6-23); Calcium 8.7 mg/dl (8.6-10.3); Carbon Dioxide 30.0 mmol/L (21-32); Chloride 109.0 mmol/L (98-107); Creatinine Clr Calc Pharmacy 47.7 ml/min; Glucose 90.0 mg/dl (70-99(Fasting)); Potassium 4.6 mmol/L (3.5-5.1); Sodium 143.0 mmol/L (136-145)
[2025-01-15 07:24] VITALS: RESP 20
--- NOTE | 2025-01-15 10:18 | Surgery Progress Note ---
Date of Service January 15, 2025 Assessment & Plan (1) Diverticulitis of intestine with perforation and abscess: Plan: discharge per medical team appt my clinic 1 week to remove belle and drain Admission and Anticipated Discharge Date Admission Date: January 03, 2025 Subjective doing well discharge today Review of Systems Constitutional: no fever and no chills Physical Exam Constitutional: WD/WN, vitals as above Respiratory: normal respiratory effort Cardiovascular: Rate/Rhythm: regular rate and regular rhythm Gastrointestinal (Abdomen): Inspection/Auscultation: abdomen normal to inspection Results & Data Vital Signs (Past 12 Hours) Vital Signs Temp Pulse Resp BP Pulse Ox O2 Del Method 01/15/25 07:22 36.3 C L 82 20 115/72 93 Room Air 01/15/25 05:27 36.5 C 102 H 18 127/71 92 Room Air 01/14/25 23:46 36.7 C 66 16 107/66 96 Room Air
[2025-01-15 11:39] VITALS: TEMP 97.9; O2SAT 96
--- NOTE | 2025-01-15 11:44 | Hospitalist Progress Note ---
Date of Service January 15, 2025 Assessment & Plan (1) Diverticulitis of intestine with perforation and abscess: (2) Hypotension: (3) Atrial fibrillation with rapid ventricular response: (4) Giant cell arteritis: (5) Dyslipidemia: Plan 79 year old female with PMH significant for dyslipidemia, atrial fibrillation, giant cell arteritis, hypertension, mononeuritis multiplex associated with vasculitis, GERD, CKD III, right foot drop, bilateral LE edema who presented to the ED this morning with sudden onset of acute abdominal pain. Imaging revealed likely perforated sigmoid diverticulitis with large abscess and pneumoperitoneum. She underwent Banks's procedure with ex lap, bowel resection, and ostomy creation 01/03. She had 450mL blood loss [on Xarelto from A fib, last dose 01/02 evening] with hypotension requiring pressors perioperatively. She was admitted to the ICU post operatively. We have been consulted for post operative medical management. Diverticulitis of intestine with perforation and abscess s/p Harkin's procedure with ex lap, bowel resection, ostomy creation on 01/03/[address] Lyons Antibiotics, pain control, activity level, DVT proph, drain/NGT management, diet per primary team Abd culture growing E coli and bacteroides. WOCN consulted Encourage incentive spirometer Continue PT/OT Infectious disease evaluated the patient; they recommend ceftriaxone and Flagyl for total of 4 weeks; end date of 02/07/2025. Recommend to repeat CT abdomen pelvis in [address] abdomen pelvis was done on 01/13pelvic collection at cul-de-sac and extending to left adnexa region is 5.4 x 3.3 x 3.2 cm with fat stranding.- reduced as compared to prior study. Per prior attending: Planning to continue ceftriaxone and Flagyl; consent for midline obtained on 01/13; will need repeat CT prior to discontinuation of antibiotic at the end of December or in first week of January. Discussed with patient; she verbalized understanding. Discussed with patient's daughter over the phone reiterating the need for repeat CT prior to discontinuation of antibiotic on 01/14. She verbalized understanding. I also updated her on the course of the hospitalization and plan going forward. Pt feels better and is hemodynamically stable. Reiterated on exterminator helper antibiotic need and need for repeat CT AP towards end of December or early January prior to completion of antibiotic course which she voiced understanding. Acute stroke: stroke alert in AM of 01/04 for right sided blurry vision, tele stroke evaled (recs dapt, hep drip, mri, inpt neuro eval). CT head , CTA Head and neck w/ no acute issues. MRI brain w/ ischemic stroke, inpatient neuro evaled, recs DAPT +hep drip, when transitioned to xarelto --> recommends to stop plavix, and c/w aspirin and xarelto. On 01/11 in a.m.; concern of slight bleeding from the incision site. Heparin and aspirin are kept on hold by the surgical team. Aspirin and heparin restarted on 01/13; monitor for any signs or symptoms of bleeding. Plan to place her on Xarelto and aspirin at the time of the discharge. Hematuria Acute UTI-rule out concern of hematuria while on heparin; urinalysis shows 3+ blood, 4+ bacteria; possibly related with acute UTI Urine culture neg Continue monitor for hematuria Giant cell arteritis: On Actemra and prednisone 10 mg daily at home per pt. Placed on stress dose steroids with hydrocortisone 50 mg every 6 hours; Switched over to prednisone 10 mg on 01/11 As per rheumatology on 12/19; patient was to be on 15 mg prednisone for next 5 days until 12/24 and then switched over to 10 mg for 2 weeks. Based on how the patient does; patient's prednisone dose to be tapered down to 7.5 mg daily for a week, 5 daily for a week and 2.5 daily for a week. Will plan to switch over to 10 mg for a week while patient is discharged and follow-up with rheumatology for further taper. Pt is aware to f/u w/ rheumatology within a week time on dc. Acute on chronic diastolic heart failurepatient noted to have pitting edema on 01/12; given one dose of lasix. restarted on oral lasix. kcl supplement added. Bilateral pleural effusionlikely secondary to volume overload; restarted on Lasix. Repeat chest x-ray in 2 weeks Afib with RVR ho permanent Afib Rates currently 100-115s c/w home metoprolol, iv metoprolol prn in place for HR > 115-120s. monitor over tele. Dyslipidemia: c/w Home zetia CKD: baseline Cr around 1.1, about baseline cr. monitor BMP. DVT Prophylaxis: heparin Code Status: FULL CODE PCP: Shant Lee Dispo: per primary team. plan for dc to encompass today. Time spent evaluating patient, direct bedside care, chart review, placing orders, interpretation of diagnostic studies, discussion with consultants, patient, and family members, as well as other required patient management activities is 55 minutes Please note the above document was generated using voice recognition software. It may contain grammatical, syntax or spelling errors. Any formal questions or concerns about the content, text or information contained within the body of this dictation should be directly addressed to the provider for clarification Admission and Anticipated Discharge Date Admission Date: January 03, 2025 Subjective pt was seen and examined at bedside. She is sitting up on the chair at the side of the bed, on RA, NAD; denies any discomfort at this time. No fever or chills. No significant events overnight Physical Exam Physical Exam: General/Psych: alert, awake, nad, on RA. Head: normocephalic, atraumatic Eyes: normal inspection, PERRL, conjunctivae pink, right sided blurry vision - improved per pt, no nystagmus ENT: external ear and nose normal, oropharynx normal Neck: normal visual inspection, trachea midline Respiratory: normal respiratory effort, lungs diminished, no accessory muscle use Cardiovascular: irregularly irregular, 80s, no murmur/rub/gallop, no JVD Extremities: no cyanosis or clubbing, normal peripheral pulses, 1/2+ pitting BLE edema Abdomen/GI: LLQ colostomy present - semiformed stool in the bag, non tender on superficial palplation. Neurologic/MSK: A+Ox3, CN's II-XI intact bilaterally, motor strength 5/5, moves all extremities Skin: no rashes, normal color, warm and dry; SHELIA drain with sanguinous drainage; abdominal island dressings c/d/i Results & Data Results & Data Vital Signs (Past 12 Hours) Vital Signs Temp Pulse Resp BP Pulse Ox O2 Del Method 01/15/25 07:22 36.3 C L 82 20 115/72 93 Room Air 01/15/25 05:27 36.5 C 102 H 18 127/71 92 Room Air 01/14/25 23:46 36.7 C 66 16 107/66 96 Room Air
[2025-01-15 12:22] VITALS: BP 104/62; PULSE 84
== END 2025-01-15 14:33 | DRG 329 ==
LOC: ED 07:02 → OR 09:05 → 1E 12:03 → 2S 01-05 19:16

== ENCOUNTER 2025-02-08 15:40 | Inpatient (IN) ==
[2025-02-08] MEDS: OPTIRAY 320 100ml IV ONE (16:11)
[2025-02-08 16:13] LABS: Hematocrit (blood only) 35.9 % (37.0-47.0); Hemoglobin 11.7 g/dl (12.0-16.0); Immature Granulocytes # (auto) 0.09 K/uL (0.01-0.20); Immature Granulocytes % (auto) 0.8 %; Mean Corpuscular Hemoglobin 33.1 pg (25.0-34.0); Mean Corpuscular Volume 101.4 fL (80.0-100.0); Platelet Count 202 K/uL (130-400); RDW Standard Deviation 49.3 fL (36.4-46.3); Red Blood Count 3.54 M/uL (4.20-5.40); White Blood Count 11.91 K/ul (4.8-10.8)
[2025-02-08] MEDS: SODIUM CHLORIDE 0.9% 500 ML IV ONE (16:25)
[2025-02-08 16:29] LABS: Alanine Aminotransferase 5.0 U/L (7-52); Albumin Globulin Ratio 1.2 (0.9-2); Alkaline Phosphatase 47.0 U/L (34-104); Anion Gap 11.0 (3-11); Bilirubin,Total 0.7 mg/dl (0.2-1.0); Blood Urea Nitrogen 22.0 mg/dl (6-23); Calcium 8.2 mg/dl (8.6-10.3); Carbon Dioxide 29.0 mmol/L (21-32); Chloride 99.0 mmol/L (98-107); Creatinine Clr Calc Pharmacy 29.6 ml/min; Globulin 2.5 gm/dl (2.5-4.0); Glucose 71.0 mg/dl (70-99(Fasting)); Lipase 18.0 U/L (11-82); Potassium 3.4 mmol/L (3.5-5.1); Sodium 139.0 mmol/L (136-145); Total Protein 5.5 gm/dl (6.0-8.3)
--- NOTE | 2025-02-08 16:39 | CT Scan Report ---
EXAM: CT head without contrast. History: Trauma. Comparison: January 04, 2025. Study report not available at the time of dictation. Technique: Using multidetector thin collimation helical acquisition technique, axial, coronal and sagittal CT images from the skull base to the vertex were obtained without intravenous contrast. Dose reduction techniques were achieved by using automatic exposure control and/or adjustment of mA and/or kV according to patient size and/or use of iterative reconstruction technique. Findings: Portions of the exam limited in detail secondary to patient motion. Family Assessment Worker film demonstrates no acute abnormality. Brain windows demonstrate ventricles and sulci to be within normal limits for patient's age. No hemorrhage, mass or acute large territorial infarct. No midline shift. Basal cisterns are patent. Orbital soft tissues are within normal limits. Bone windows demonstrate skull base and bony calvarium to be within normal limits. Impression: Negative exam. Electronically signed by Rohit Horner 02-08-2025 4:37 PM
[2025-02-08 16:40] LABS: INR 1.2 (0.9-1.1); Partial Thromboplastin Time 30 Seconds (21-31); Prothrombin Time 13.2 Seconds (9.0-12.0)
--- NOTE | 2025-02-08 16:43 | CT Scan Report ---
CT cervical spine without IV contrast History: Trauma. Comparison: None. Technique: Using multidetector thin collimation helical acquisition technique, axial, coronal and sagittal CT images through the cervical spine were obtained without intravenous contrast. Dose reduction techniques were achieved by using automatic exposure control and/or adjustment of mA and/or kV according to patient size and/or use of iterative reconstruction technique. Findings: Senior Enterprise Architect film demonstrate right pulmonary base opacity. Lung windows demonstrate mild bilateral pleural-parenchymal apical scarring. Next Field partially included right sided pleural effusion. Soft tissue windows demonstrate mild degenerative changes of the spine. No significant spinal canal narrowing. Bone windows demonstrate mild exaggerated cervical lordosis. This may be positional. Mild disc degeneration and endplate osteophytes. No appreciated fracture. Dextrocurvature cervical spine. This is likely positional or may be related to spasm. Impression: Degenerative changes. No acute process. Electronically signed by Rohit Horner 02-08-2025 4:42 PM
--- NOTE | 2025-02-08 16:51 | CT Scan Report ---
CT chest with contrast. History: Trauma. Comparison: None. Technique: Helical CT imaging of the chest performed without IV contrast Dose reduction techniques were achieved by using automatic exposure control and/or adjustment of mA and/or kV according to patient size and/or use of iterative reconstruction technique. Findings: Geodetic Engineer film demonstrates right pulmonary base opacity. Lung windows demonstrate at least subsegmental atelectasis right upper lobe and right middle lobe. Increased reticular and ground glass densities with elements of consolidation right lower lobe. Soft tissue windows demonstrate heart size to be within normal limits. Pulmonary artery filling defects involving the left interlobar, left lower lobe segmental left upper lobe segmental and left lower lobe subsegmental pulmonary arteries. Similar findings right upper lobe right middle lobe and right lower lobe. Findings consistent with acute thromboembolic disease. RV LV ratio measures 1.05. Moderate size right-sided pleural effusion. There appears to be enhancement of the atelectatic portions of the right lung. Normal variant origin left vertebral artery off the aorta. Very mild calcified atherosclerotic changes coronary vasculature. Mild calcified atheromatous changes of the thoracic aorta without aneurysmal dilatation or dissection. No findings to indicate acute aortic injury. Bone windows demonstrate mild degenerative changes thoracic spine. No appreciated acute osseous process. Impression: 1. Bilateral interlobar, segmental and subsegmental pulmonary emboli with RV LV ratio of 1.05. Mild acute right-sided heart strain is not excluded. 2. Multisegmental right lower lobe and subsegmental right middle and upper lobe atelectasis and or consolidation with moderate pleural effusion. No definitive pulmonary infarct. No additional appreciated acute process. Please see above for details. Electronically signed by Rohit Horner 02-08-2025 4:49 PM
--- NOTE | 2025-02-08 16:57 | XRay Report ---
Chest radiograph, one view History: Trauma. Comparison: November 30, 2024. Findings: Lordotic positioning is noted. Patient is rotated to the right. Obscuration portions of the right hemidiaphragm with poorly defined right costophrenic angle. Focal regions of confluent interstitial densities right infrahilar and suprahilar region. Left lung is relatively clear. Impression: Limitations as described above with scattered patchy nonspecific subsegmental atelectasis and or consolidation right lung with at least small pleural effusion. Electronically signed by Rohit Horner 02-08-2025 4:50 PM
--- NOTE | 2025-02-08 17:01 | CT Scan Report ---
EXAMINATION: CT of the abdomen and pelvis performed after the administration of IV contrast. TECHNIQUE: Helical CT images from the lung bases through the symphysis pubis were obtained with contrast. Coronal and sagittal reformatted images were generated at a workstation for further assessment. Dose reduction techniques were achieved by using automatic exposure control and/or adjustment of mA and/or kV according to patient size and/or use of iterative reconstruction technique. HISTORY: Trauma. COMPARISON: January 13, 2025. FINDINGS: Tamping Machine Operator Road Forms film demonstrates right pulmonary base opacity. Lung windows demonstrate multi subsegmental right lower lobe and subsegmental right middle lobe atelectasis and or consolidation. Please see same-day CT chest report for further details. Soft tissue windows demonstrate partially included at least moderate-sized right-sided pleural effusion. Aortic valve calcifications. Subcentimeter hypodensity posterior lateral right liver lobe. Suspect benign cyst. This is unchanged. Portions of the exam limited secondary to patient respiratory motion. Dependent densities within the gallbladder. Question sludge. No wall thickening or surrounding fluid. Mildly atrophic left kidney. Heterogeneous uterus. Question leiomyomatous disease. Difficulty appreciating significant interval change. Prominent bilateral adnexal soft tissue. Difficulty appreciating definitive ovaries. This does not appear to be significantly changed. Elements of fluid at the level of the adnexa. Again difficulty appreciating significant oval change. Appendix is within normal limits. Rectal pouch is noted. No discrete mass. Perirectal fat stranding. Difficulty appreciating significant interval change. Left lower abdominal quadrant colostomy. Remaining solid and hollow organs of the abdomen and pelvis are within normal limits. No appreciated free air. Likely small subcutaneous lymph node left lower abdomen. This is not present on prior exam. Suspect reactive process. Anterior lower midline postsurgical changes. No appreciated complication at these levels. Bone windows demonstrate degenerative changes of the spine. No appreciated acute osseous process. IMPRESSION: 1. Chest findings as described above. Please see same-day CT chest for further details. 2. Heterogeneous uterus. Question leiomyomatous disease. Additional prominent bilateral adnexa with elements of fluid attenuation. Difficulty appreciating interval change. Follow-up nonemergent ultrasound would be helpful for further characterization and should be considered. Correlate with clinical data. 3. Additional postsurgical changes with no appreciated acute process. In particular, no appreciated posttraumatic disease. Please see above for details. Electronically signed by Rohit Horner 02-08-2025 5:01 PM
--- NOTE | 2025-02-08 17:32 | Emergency Department Note ---
Impression & Plan Pulmonary embolism, Acute hypoxic respiratory failure ED Provider Note NAME: SEGUNDO WALTER AGE: 79 SEX: F : 1945 ARRIVES VIA: Ambulance INFORMANT: Patient, ED PROVIDER(S): Emmanuel Leigh MD CHIEF COMPLAINT: Fall, trauma alert HPI: This is a 79-year-old presenting for fall and trauma alert. Patient states that she had fallen out of bed today. She notes pain to the right side of her chest wall, worse with deep inspiration. She denies any head strike or LOC. She reports chest and abdominal pain. Reports no fevers, chills, or vomiting. She was history of perforated diverticulitis requiring surgery and PICC line and IV antibiotics. She has since completed all these. She reports no complications in her abdomen since then. ROS: See above HPI for pertinent positives & negatives. A total of 10 systems reviewed and were otherwise negative. PAST MEDICAL HISTORY: See Below PAST SURGICAL HISTORY: See Below FAMILY HISTORY: See Below SOCIAL HISTORY: See Below HOME MEDICATIONS: See Below ALLERGIES: See Below VITALS: See Below PHYSICAL EXAMINATION: Primary Survey Airway: Intact Breathing: Normal, breath sounds equal bilaterally Circulation: Skin warm, distal pulses 2+ Disability Pupils: Equal and reactive to light GCS: 15, Motor Function: Moves all extremities. Sensory: No deficits Secondary Survey GEN: Well developed and well-nourished HEAD: Normal cephalic atraumatic EYES: Pupils round reactive to light, conjunctiva clear, extraocular movements intact, no raccoons eyes ENT: no calderon's sign, nares patent, oropharynx clear NECK: No JVD, midline trachea HEART: Regular rate and rhythm LUNGS: Clear to auscultation bilaterally. CHEST: Chest wall non-tender, no bruising/deformity ABD: soft, non-tender, no rebound or guarding, PELVIS: Stable to rock EXT: 2+ global pulses, moving all extremities well, +5/5 muscle strength globally NEURO: CNII-XII grossly intact, no sensory deficits MEDICAL DECISION MAKING: This is a an 79-year-old female presents for fall/trauma. Patient has hypoxia to about 86% on room air. Will place patient on oxygen. She is hypotensive in the 70s systolic. Patient with a history of CHF, plus pitting edema to bilateral lower extremities, will give 500 cc bolus as a test. -E-FAST is negative -Patient requires CT imaging to up assess for reasons for hypotension including trauma as well as sepsis -CT chest reveals bilateral PEs with mild right heart strain. Will add a troponin and BNP at this time. -Discussed with Dr. Scott, science education professor/malted milk mixer, who recommends against tPA based on patient's trauma,: Comorbidities, age and improved hemodynamics -Blood pressure is improved from 70s to 110s systolic. - Will start heparin drip at this time for these bilateral PEs - Will get the patient to hospital service, care discussed with Dr. Orlando Differential diagnosis: Rib fractures, hemothorax, pneumothorax, liver laceration, splenic laceration Diagnostics interpreted by me: ECG: ECG independently interpreted by me with atrial fibrillation, rate of 90, normal [place], normal QRS, normal QTc, no ST segment elevations consistent with STEMI criteria Cardiac Monitoring: An order was placed for continuous cardiac monitoring. The monitor shows a rate of 91 with atrial fibrillation rhythm. Critical Care Note: I have personally spent 41 minutes of critical care time in the direct management of this patient. This includes bedside care, interpretation of diagnostic studies, and testing, discussion with consultants, patient, and family members, and other required patient management activities. This 41 minutes is in excess of all separately billable procedures. Past Med/Surg History Problem List (Updated 02/08/25 @ 23:08 by Emmanuel Leigh MD) Acute hypoxic respiratory failure (Acute) Pulmonary embolism (Acute) Bilateral pulmonary embolism Stroke Giant cell arteritis Diverticulitis of intestine with perforation and abscess Hypotension Abscess of abdominal cavity (Acute) Diverticulitis (Acute) Pneumoperitoneum (Acute) Peritonitis Perforated abdominal viscus Elevated troponin (Acute) Atrial fibrillation with rapid ventricular response (Acute) Rapid atrial fibrillation Sacroiliitis Mononeuritis multiplex associated with vasculitis Foot drop, right (Acute) Vasculitis (Acute) Medical History (Updated 02/08/25 @ 23:08 by Emmanuel Leigh MD) Head injury Scalp contusion Fall Hypertension Atrial fibrillation Diarrhea Generalized weakness Unintended weight loss Rectal bleed Hypertension Afib Acute heart failure with normal ejection fraction Dyslipidemia Surgical History S/P wrist surgery S/P dilation and curettage multiople Family History Father Heart disease Mother Diabetes Stroke Social History Smoking Status: Never smoker Hx Alcohol Use: Yes Alcohol type: wine Hx Substance Use: No Preferred Language: Maltese Communication Ability: Effective Visual Impairment: No Limitations Hearing Ability: Normal Math Professor Required: No Beliefs That Will Affect Care: None Current Living Situation: Alone Feels Safe at Home: Yes Assistive Devices: Cane, Glasses, Stair Lift and Walker Allergies Allergies Allergy/AdvReac Type Severity Reaction Status Date / Time Penicillins Allergy Severe SWELLING Verified 02/08/25 17:07 pineapple AdvReac Intermediate STOMACH Verified 02/08/25 17:07 CRAMPS Home Meds Home Medications Medication Instructions Recorded Confirmed ezetimibe 10 mg tablet 10 mg PO DAILY 11/30/24 02/08/25 rivaroxaban 15 mg tablet (Xarelto) 15 mg PO HS 11/30/24 02/08/25 acetaminophen 500 mg tablet 1,000 mg PO Q8H PRN Pain 02/08/25 02/08/25 (Tylenol Extra Strength) digoxin 125 mcg (0.125 mg) tablet 0.125 mg PO QDD 02/08/25 02/08/25 (Digitek) furosemide 40 mg tablet 40 mg PO QAM 02/08/25 02/08/25 lorazepam 0.5 mg tablet 0.25 mg PO TID PRN Anxiety 02/08/25 02/08/25 melatonin 3 mg tablet 6 mg PO HS 02/08/25 02/08/25 metoprolol succinate 50 mg 50 mg PO BID 02/08/25 02/08/25 tablet,extended release 24 hr omeprazole 40 mg capsule,delayed 40 mg PO QAM 02/08/25 02/08/25 release ondansetron HCl 4 mg tablet 4 mg PO Q6H PRN Nausea 02/08/25 02/08/25 potassium chloride 20 mEq oral 20 meq PO QAM 02/08/25 02/08/25 packet prednisone 2.5 mg tablet 7.5 mg PO QAM 02/08/25 02/08/25 trazodone 50 mg tablet 50 mg PO HS 02/08/25 02/08/25 Previous Rx's Medication Instructions Recorded aspirin 81 mg chewable tablet 81 mg PO QAM #30 tabs 01/15/25 (Children's Aspirin) Results & Data (ED) Vital Signs Vital Signs - 24 hr 02/08/25 15:43 02/08/25 15:55 02/08/25 15:55 Temperature 36.5 C 36 C L Temperature Source Oral Oral Pulse Rate 80 91 H Pulse Rate [Right Finger] 91 H Pulse Rate from SpO2 Sensor Respiratory Rate 19 18 16 Respiratory Depth Normal Normal Blood Pressure 71/52 L 96/64 L Blood Pressure [Left Arm] 96/64 L Blood Pressure Mean 58 Blood Pressure Mean [Left Arm] 74 Pulse Oximetry 91 90 95 Oxygen Delivery Method Nasal Cannula Nasal Cannula Nasal Cannula Oxygen Flow Rate 2 3 3 Sepsis Recent Fever Within 48 Hours No Sepsis New/Unexplained Change in Mental Status No Sepsis Action Taken by Nursing No Action Required Oxygen Flow Rate - Titration Pulse Oximetry Post Tiitration 02/08/25 15:55 02/08/25 15:59 02/08/25 16:00 Temperature 36.5 C Temperature Source Oral Pulse Rate 79 94 H Pulse Rate [Right Finger] 86 Pulse Rate from SpO2 Sensor 82 Respiratory Rate 17 19 Respiratory Depth Normal Blood Pressure Blood Pressure [Left Arm] 73/55 L Blood Pressure Mean Blood Pressure Mean [Left Arm] 61 Pulse Oximetry 93 93 Oxygen Delivery Method Nasal Cannula Oxygen Flow Rate 3 Sepsis Recent Fever Within 48 Hours Sepsis New/Unexplained Change in Mental Status Sepsis Action Taken by Nursing Oxygen Flow Rate - Titration Pulse Oximetry Post Tiitration 02/08/25 16:00 02/08/25 16:18 02/08/25 16:19 Temperature Temperature Source Pulse Rate 92 H Pulse Rate [Right Finger] Pulse Rate from SpO2 Sensor 84 Respiratory Rate 26 H Respiratory Depth Blood Pressure 73/55 L 97/61 L Blood Pressure [Left Arm] Blood Pressure Mean 60 77 Blood Pressure Mean [Left Arm] Pulse Oximetry 97 Oxygen Delivery Method Oxygen Flow Rate Sepsis Recent Fever Within 48 Hours Sepsis New/Unexplained Change in Mental Status Sepsis Action Taken by Nursing Oxygen Flow Rate - Titration Pulse Oximetry Post Tiitration 02/08/25 16:19 02/08/25 16:19 02/08/25 16:20 Temperature Temperature Source Pulse Rate Pulse Rate [Right Finger] Pulse Rate from SpO2 Sensor Respiratory Rate Respiratory Depth Blood Pressure 97/61 L 97/61 L Blood Pressure [Left Arm] Blood Pressure Mean 77 77 Blood Pressure Mean [Left Arm] Pulse Oximetry 88 L Oxygen Delivery Method Room Air Oxygen Flow Rate 0 Sepsis Recent Fever Within 48 Hours Sepsis New/Unexplained Change in Mental Status Sepsis Action Taken by Nursing Oxygen Flow Rate - Titration 2 Pulse Oximetry Post Tiitration 98 02/08/25 16:20 02/08/25 16:24 02/08/25 16:30 Temperature Temperature Source Pulse Rate 74 Pulse Rate [Right Finger] Pulse Rate from SpO2 Sensor 88 Respiratory Rate 21 Respiratory Depth Blood Pressure 99/47 L Blood Pressure [Left Arm] Blood Pressure Mean 72 Blood Pressure Mean [Left Arm] Pulse Oximetry 98 91 Oxygen Delivery Method Nasal Cannula Oxygen Flow Rate 2 Sepsis Recent Fever Within 48 Hours Sepsis New/Unexplained Change in Mental Status Sepsis Action Taken by Nursing Oxygen Flow Rate - Titration Pulse Oximetry Post Tiitration 02/08/25 16:30 02/08/25 16:46 02/08/25 16:48 Temperature Temperature Source Pulse Rate 85 Pulse Rate [Right Finger] Pulse Rate from SpO2 Sensor 89 Respiratory Rate 18 Respiratory Depth Blood Pressure 99/47 L Blood Pressure [Left Arm] Blood Pressure Mean 72 68 Blood Pressure Mean [Left Arm] Pulse Oximetry 98 Oxygen Delivery Method Oxygen Flow Rate Sepsis Recent Fever Within 48 Hours Sepsis New/Unexplained Change in Mental Status Sepsis Action Taken by Nursing Oxygen Flow Rate - Titration Pulse Oximetry Post Tiitration 02/08/25 16:48 02/08/25 16:48 02/08/25 16:51 Temperature Temperature Source Pulse Rate 75 Pulse Rate [Right Finger] Pulse Rate from SpO2 Sensor 84 Respiratory Rate 18 Respiratory Depth Blood Pressure 104/65 104/65 Blood Pressure [Left Arm] Blood Pressure Mean 68 68 Blood Pressure Mean [Left Arm] Pulse Oximetry 97 Oxygen Delivery Method Oxygen Flow Rate Sepsis Recent Fever Within 48 Hours Sepsis New/Unexplained Change in Mental Status Sepsis Action Taken by Nursing Oxygen Flow Rate - Titration Pulse Oximetry Post Tiitration 02/08/25 16:55 02/08/25 17:00 02/08/25 17:04 Temperature Temperature Source Pulse Rate Pulse Rate [Right Finger] 77 94 H Pulse Rate from SpO2 Sensor Respiratory Rate 18 16 Respiratory Depth Blood Pressure Blood Pressure [Left Arm] 104/65 104/65 Blood Pressure Mean 69 Blood Pressure Mean [Left Arm] 78 78 Pulse Oximetry 98 99 Oxygen Delivery Method Nasal Cannula Nasal Cannula Oxygen Flow Rate 3 3 Sepsis Recent Fever Within 48 Hours Sepsis New/Unexplained Change in Mental Status Sepsis Action Taken by Nursing Oxygen Flow Rate - Titration Pulse Oximetry Post Tiitration 02/08/25 17:15 02/08/25 17:15 02/08/25 17:15 Temperature Temperature Source Pulse Rate Pulse Rate [Right Finger] Pulse Rate from SpO2 Sensor Respiratory Rate Respiratory Depth Blood Pressure 123/71 123/71 123/71 Blood Pressure [Left Arm] Blood Pressure Mean 81 81 81 Blood Pressure Mean [Left Arm] Pulse Oximetry Oxygen Delivery Method Oxygen Flow Rate Sepsis Recent Fever Within 48 Hours Sepsis New/Unexplained Change in Mental Status Sepsis Action Taken by Nursing Oxygen Flow Rate - Titration Pulse Oximetry Post Tiitration 02/08/25 17:18 02/08/25 17:24 02/08/25 18:10 Temperature Temperature Source Pulse Rate 76 74 Pulse Rate [Right Finger] Pulse Rate from SpO2 Sensor 87 82 Respiratory Rate 17 19 Respiratory Depth Blood Pressure 120/62 Blood Pressure [Left Arm] Blood Pressure Mean 86 Blood Pressure Mean [Left Arm] Pulse Oximetry 96 97 Oxygen Delivery Method Oxygen Flow Rate Sepsis Recent Fever Within 48 Hours Sepsis New/Unexplained Change in Mental Status Sepsis Action Taken by Nursing Oxygen Flow Rate - Titration Pulse Oximetry Post Tiitration 02/08/25 18:10 Temperature Temperature Source Pulse Rate Pulse Rate [Right Finger] Pulse Rate from SpO2 Sensor Respiratory Rate Respiratory Depth Blood Pressure 120/62 Blood Pressure [Left Arm] Blood Pressure Mean 86 Blood Pressure Mean [Left Arm] Pulse Oximetry Oxygen Delivery Method Oxygen Flow Rate Sepsis Recent Fever Within 48 Hours Sepsis New/Unexplained Change in Mental Status Sepsis Action Taken by Nursing Oxygen Flow Rate - Titration Pulse Oximetry Post Tiitration Laboratory Data 02/08/25 15:54 02/08/25 15:54 Lab Results 02/08/25 02/08/25 02/08/25 Range/Units 15:54 15:56 16:29 WBC 11.91 H (4.8-10.8) K/ul RBC 3.54 L (4.20-5.40) M/uL Hgb 11.7 L (12.0-16.0) g/dl POC Hgb 11.9 L (12.0-16.0) g/dl Hct 35.9 L (37.0-47.0) % POC Hct 35 L (37-47) % MCV 101.4 H (80.0-100.0) fL MCH 33.1 (25.0-34.0) pg MCHC 32.6 (32.0-36.0) g/dL RDW Std Deviation 49.3 H (36.4-46.3) fL RDW Coeff of Ned 13.2 (11.5-14.5) % Plt Count 202 (130-400) K/uL MPV 11.2 (9.4-12.4) fL Immature Gran % (Auto) 0.8 % Neut % (Auto) 87.3 % Lymph % (Auto) 4.5 % Lawrence % (Auto) 6.8 % Eos % (Auto) 0.3 % Baso % (Auto) 0.3 % Neut # (Auto) 10.40 H (1.40-6.50) K/uL Lymph # (Auto) 0.54 L (1.20-3.40) K/uL Lawrence # (Auto) 0.81 H (0.11-0.59) K/uL Eos # (Auto) 0.04 (0.00-0.50) K/uL Baso # (Auto) 0.03 (0.00-0.20) K/uL Immature Gran # (Auto) 0.09 (0.01-0.20) K/uL PT 13.2 H (9.0-12.0) Seconds INR 1.2 H (0.9-1.1) APTT 30 (21-31) Seconds PTT Ratio 1.1 POC Sodium 139 (135-144) mmol/L Sodium 139 (136-145) mmol/L POC Potassium 3.4 (3.3-5.0) mmol/L Potassium 3.4 L (3.5-5.1) mmol/L POC Chloride 96 L (101-112) mmol/L Chloride 99 (98-107) mmol/L Carbon Dioxide 29 (21-32) mmol/L POC Total CO2 26 (24-31) mmol/L Anion Gap 11 (3-11) POC Anion Gap 22.0 (16-25) mmol/L POC BUN 23 H (7-18) mg/dl BUN 22 (6-23) mg/dl Creatinine 1.48 H (0.6-1.2) mg/dl POC Creatinine 1.7 H (0.6-1.3) mg/dl Est Cr Clr Drug Dosing 29.6 ml/min eGFR 35.58 BUN/Creatinine Ratio 14.9 (10-20) Glucose 71 (70-99(Fasting)) mg/dl POC Glucose (other) 74 (70-99) mg/dl Lactate 1.6 (0.4-2.0) mmol/L Calcium 8.2 L (8.6-10.3) mg/dl POC Ioniz Calcium David 1.06 L (1.12-1.32) mmol/l Total Bilirubin 0.7 (0.2-1.0) mg/dl AST 11 L (13-39) U/L ALT 5 L (7-52) U/L Alkaline Phosphatase 47 (34-104) U/L Troponin I High Sens 13.3 (0-14) pg/ml B-Natriuretic Peptide 133 H (0-100) pg/ml Total Protein 5.5 L (6.0-8.3) gm/dl Albumin 3.0 L (3.4-5.0) gm/dl Globulin 2.5 (2.5-4.0) gm/dl Albumin/Globulin Ratio 1.2 (0.9-2) Lipase 18 (11-82) U/L Blood Type O Positive Antibody Screen NEGATIVE Administered Medications Heparin Sodium/Dextrose (Heparin 63422 Unit/500 Ml D5w) 25,000 units in 500 mls @ 22 mls/hr IV .[id number] SORAIDA; Protocol Stop: 03/10/25 17:29 Last Admin: 02/08/25 17:34 Dose: 1,100 units/hr, 22 mls/hr Documented By: luis Co-signed By: AMA Discontinued Medications Heparin Sodium (Porcine) (Heparin Sod (Porcine) 1000 Unit/Ml) 1 units IV NOW ONE Stop: 02/08/25 17:20 Last Admin: 02/08/25 17:34 Dose: 5,000 units Documented By: luis Co-signed By: AMA Heparin Sodium/Dextrose (Heparin Iv Adult Wt-Based Standard W/ Initial Bolus Protocol) 1 each IV NOW STA; Protocol Stop: 02/08/25 17:05 Last Admin: 02/08/25 18:01 Dose: Not Given Documented By: CHRISTINE Sodium Chloride (Nss) 500 mls @ 999 mls/hr IV .Q31M ONE Stop: 02/08/25 16:54 Last Infusion: 02/08/25 16:51 Dose: Infused Documented By: luis Admin: 02/08/25 16:25 Dose: 999 mls/hr Documented By: AMA Potassium Chloride (K Chan / Wtr) 10 meq in 100 mls @ 100 mls/hr IV Q1H SORAIDA Stop: 02/08/25 20:29 Last Admin: 02/08/25 20:42 Dose: Not Given Documented By: Infusion: 02/08/25 20:05 Dose: 0 mls/hr Documented By: Admin: 02/08/25 19:50 Dose: 100 mls/hr Documented By: ANA Ioversol (Optiray 320 100ml) 93 ml IV ONCE ONE Stop: 02/08/25 16:12 Last Admin: 02/08/25 16:11 Dose: 93 ml Documented By: EDK Imaging Data Radiologist's Impression: Chest X-Ray 02/08/25 15:57 Chest radiograph, one view History: Trauma. Comparison: November 30, 2024. Findings: Lordotic positioning is noted. Patient is rotated to the right. Obscuration portions of the right hemidiaphragm with poorly defined right costophrenic angle. Focal regions of confluent interstitial densities right infrahilar and suprahilar region. Left lung is relatively clear. Impression: Limitations as described above with scattered patchy nonspecific subsegmental atelectasis and or consolidation right lung with at least small pleural effusion. Electronically signed by Rohit Horner 02-08-2025 4:50 PM Abdomen/Pelvis CT 02/08/25 15:58 EXAMINATION: CT of the abdomen and pelvis performed after the administration of IV contrast. TECHNIQUE: Helical CT images from the lung bases through the symphysis pubis were obtained with contrast. Coronal and sagittal reformatted images were generated at a workstation for further assessment. Dose reduction techniques were achieved by using automatic exposure control and/or adjustment of mA and/or kV according to patient size and/or use of iterative reconstruction technique. HISTORY: Trauma. COMPARISON: January 13, 2025. FINDINGS: Fur Plucker film demonstrates right pulmonary base opacity. Lung windows demonstrate multi subsegmental right lower lobe and subsegmental right middle lobe atelectasis and or consolidation. Please see same-day CT chest report for further details. Soft tissue windows demonstrate partially included at least moderate-sized right-sided pleural effusion. Aortic valve calcifications. Subcentimeter hypodensity posterior lateral right liver lobe. Suspect benign cyst. This is unchanged. Portions of the exam limited secondary to patient respiratory motion. Dependent densities within the gallbladder. Question sludge. No wall thickening or surrounding fluid. Mildly atrophic left kidney. Heterogeneous uterus. Question leiomyomatous disease. Difficulty appreciating significant interval change. Prominent bilateral adnexal soft tissue. Difficulty appreciating definitive ovaries. This does not appear to be significantly changed. Elements of fluid at the level of the adnexa. Again difficulty appreciating significant oval change. Appendix is within normal limits. Rectal pouch is noted. No discrete mass. Perirectal fat stranding. Difficulty appreciating significant interval change. Left lower abdominal quadrant colostomy. Remaining solid and hollow organs of the abdomen and pelvis are within normal limits. No appreciated free air. Likely small subcutaneous lymph node left lower abdomen. This is not present on prior exam. Suspect reactive process. Anterior lower midline postsurgical changes. No appreciated complication at these levels. Bone windows demonstrate degenerative changes of the spine. No appreciated acute osseous process. IMPRESSION: 1. Chest findings as described above. Please see same-day CT chest for further details. 2. Heterogeneous uterus. Question leiomyomatous disease. Additional prominent bilateral adnexa with elements of fluid attenuation. Difficulty appreciating interval change. Follow-up nonemergent ultrasound would be helpful for further characterization and should be considered. Correlate with clinical data. 3. Additional postsurgical changes with no appreciated acute process. In particular, no appreciated posttraumatic disease. Please see above for details. Electronically signed by Rohit Horner 02-08-2025 5:[address] 02/08/25 15:58 CT cervical spine without IV contrast History: Trauma. Comparison: None. Technique: Using multidetector thin collimation helical acquisition technique, axial, coronal and sagittal CT images through the cervical spine were obtained without intravenous contrast. Dose reduction techniques were achieved by using automatic exposure control and/or adjustment of mA and/or kV according to patient size and/or use of iterative reconstruction technique. Findings: Fur Plucker film demonstrate right pulmonary base opacity. Lung windows demonstrate mild bilateral pleural-parenchymal apical scarring. Next Field partially included right sided pleural effusion. Soft tissue windows demonstrate mild degenerative changes of the spine. No significant spinal canal narrowing. Bone windows demonstrate mild exaggerated cervical lordosis. This may be positional. Mild disc degeneration and endplate osteophytes. No appreciated fracture. Dextrocurvature cervical spine. This is likely positional or may be related to spasm. Impression: Degenerative changes. No acute process. Electronically signed by Rohit Horner 02-08-2025 4:[address] 02/08/25 15:58 CT chest with contrast. History: Trauma. Comparison: None. Technique: Helical CT imaging of the chest performed without IV contrast Dose reduction techniques were achieved by using automatic exposure control and/or adjustment of mA and/or kV according to patient size and/or use of iterative reconstruction technique. Findings: Fur Plucker film demonstrates right pulmonary base opacity. Lung windows demonstrate at least subsegmental atelectasis right upper lobe and right middle lobe. Increased reticular and ground glass densities with elements of consolidation right lower lobe. Soft tissue windows demonstrate heart size to be within normal limits. Pulmonary artery filling defects involving the left interlobar, left lower lobe segmental left upper lobe segmental and left lower lobe subsegmental pulmonary arteries. Similar findings right upper lobe right middle lobe and right lower lobe. Findings consistent with acute thromboembolic disease. RV LV ratio measures 1.05. Moderate size right-sided pleural effusion. There appears to be enhancement of the atelectatic portions of the right lung. Normal variant origin left vertebral artery off the aorta. Very mild calcified atherosclerotic changes coronary vasculature. Mild calcified atheromatous changes of the thoracic aorta without aneurysmal dilatation or dissection. No findings to indicate acute aortic injury. Bone windows demonstrate mild degenerative changes thoracic spine. No appreciated acute osseous process. Impression: 1. Bilateral interlobar, segmental and subsegmental pulmonary emboli with RV LV ratio of 1.05. Mild acute right-sided heart strain is not excluded. 2. Multisegmental right lower lobe and subsegmental right middle and upper lobe atelectasis and or consolidation with moderate pleural effusion. No definitive pulmonary infarct. No additional appreciated acute process. Please see above for details. Electronically signed by Rohit Horner 02-08-2025 4:[address] 02/08/25 15:58 EXAM: CT head without contrast. History: Trauma. Comparison: January 04, 2025. Study report not available at the time of dictation. Technique: Using multidetector thin collimation helical acquisition technique, axial, coronal and sagittal CT images from the skull base to the vertex were obtained without intravenous contrast. Dose reduction techniques were achieved by using automatic exposure control and/or adjustment of mA and/or kV according to patient size and/or use of iterative reconstruction technique. Findings: Portions of the exam limited in detail secondary to patient motion. Fur Plucker film demonstrates no acute abnormality. Brain windows demonstrate ventricles and sulci to be within normal limits for patient's age. No hemorrhage, mass or acute large territorial infarct. No midline shift. Basal cisterns are patent. Orbital soft tissues are within normal limits. Bone windows demonstrate skull base and bony calvarium to be within normal limits. Impression: Negative exam. Electronically signed by Rohit Horner 02-08-2025 4:37 PM Discharge Plan Visit Data Chief Complaint: Trauma Stated Complaint: FALL, HYPOTENSION, RIB & BACK PAIN ED Provider: Emmanuel Leigh Discharge Problem: Pulmonary embolism, Acute hypoxic respiratory failure Patient Disposition: Admitted As Inpatient Condition: Serious Discharge Instructions Interventions: ED Discharge Assessment Last Done: 02/08/25 20:53 Discharge Problem: Pulmonary embolism Qualifiers: Pulmonary embolism type: multiple subsegmental (without acute cor pulmonale) Q ualified Code(s): I26.94 - Multiple subsegmental thrombotic pulmonary emboli without acute cor pulmonale
[2025-02-08] MEDS: HEPARIN SOD (PORCINE) 1000 UNIT/ML IV ONE (17:34)
[2025-02-08] MEDS: HEPARIN 25000 UNIT/500 ML D5W 25,000 UNITS/500 ML BAG IV SCH (17:34)
[2025-02-08] MEDS: Heparin IV Adult Wt-Based Standard w/ INITIAL Bolus Protocol IV STA (18:01)
--- NOTE | 2025-02-08 18:39 | History & Physical Report ---
Date of Service February 08, 2025 Assessment & Plan (1) Bilateral pulmonary embolism: Plan: Has been on Xarelto for atrial fibrillation Missed a couple of doses recently as per the patient due to nausea and vomiting No shortness of breath but has lower chest pain with deep breathing Has been requiring 3 L to maintain saturation Started on intravenous heparin and Xarelto is on hold Will get echo of the heart to evaluate right heart strain Will involve pulmonary if her condition gets worse but no indication to give any thrombolysis at this time (2) Atrial fibrillation: Plan: History of atrial fibrillation Has been on Xarelto Rate is reasonably controlled Will continue digoxin and beta-lanny (3) Diverticulitis of intestine with perforation and abscess: Plan: Recent admission on 01/03/2025 with perforated abdominal viscus and underwent colon resection and colostomy Minimal abdominal pain but denies any other symptoms now (4) Giant cell arteritis: Plan: Continue the current dose of prednisone no acute issues (5) Stroke: Plan: Recent stroke in the hospital during her admission on 01/03/2025 Was evaluated by neurologist She has continued with aspirin and Xarelto following discharge (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 (7) Foot drop, right: Plan: No acute issues (8) Dyslipidemia: Plan: Continue statin DVT prophylaxis IV heparin CODE STATUS Full Discussed with the daughter in length History of Present Illness Chief Complaint: Status post mechanical fall without any significant injury and noted to have bilateral pulmonary embolism and CTA Primary Care Provider: Shant Lee DO She is an 79-year-old obese female with significant past medical history of atrial fibrillation on Xarelto, hyperlipidemia, giant cell arteritis, hypertension, mononeuritis multiplex associated with vasculitis, GERD, CKD stage III, right foot drop apparently was in the hospital in December with diverticulitis of the intestine with perforation and abscess she underwent laparoscopic colon resection also has had a colostomy bag placed. She also suffered acute stroke while in the hospital and received Plavix and aspirin and heparin drip. She was discharged to [facility] on IV antibiotic which was discontinued yesterday and the PICC line was taken out. She mentioned that she was having nausea and may have missed 2 or 3 doses of Xarelto. She was trying to get out of bed today and ended up with a fall. No loss of consciousness and no significant injury identified. She complains some pain with deep breathing in the lower chest and subsequent investigation showed that she has bilateral pulmonary embolism. She was started with intravenous heparin and advised for admission and also the case was discussed with motel operator and the patient does not require any thrombolytic. She will have an echo to rule out any significant RV strain. She will be admitted to telemetry unit for continuation of care Allergies Allergy/AdvReac Type Severity Reaction Status Date / Time Penicillins Allergy Severe SWELLING Verified 02/08/25 17:07 pineapple AdvReac Intermediate STOMACH Verified 02/08/25 17:07 CRAMPS Home Medications Medication Instructions Recorded Confirmed Type ezetimibe 10 mg tablet 10 mg PO DAILY 11/30/24 02/08/25 History rivaroxaban 15 mg tablet (Xarelto) 15 mg PO HS 11/30/24 02/08/25 History aspirin 81 mg chewable tablet 81 mg PO QAM #30 tabs 01/15/25 02/08/25 Rx ([facility] Aspirin) acetaminophen 500 mg tablet 1,000 mg PO Q8H PRN Pain 02/08/25 02/08/25 History (Tylenol Extra Strength) digoxin 125 mcg (0.125 mg) tablet 0.125 mg PO QDD 02/08/25 02/08/25 History (Digitek) furosemide 40 mg tablet 40 mg PO QAM 02/08/25 02/08/25 History lorazepam 0.5 mg tablet 0.25 mg PO TID PRN Anxiety 02/08/25 02/08/25 History melatonin 3 mg tablet 6 mg PO HS 02/08/25 02/08/25 History metoprolol succinate 50 mg 50 mg PO BID 02/08/25 02/08/25 History tablet,extended release 24 hr omeprazole 40 mg capsule,delayed 40 mg PO QAM 02/08/25 02/08/25 History release ondansetron HCl 4 mg tablet 4 mg PO Q6H PRN Nausea 02/08/25 02/08/25 History potassium chloride 20 mEq oral 20 meq PO QAM 02/08/25 02/08/25 History packet prednisone 2.5 mg tablet 7.5 mg PO QAM 02/08/25 02/08/25 History trazodone 50 mg tablet 50 mg PO HS 02/08/25 02/08/25 History Past Med/Surg History Problem List (Updated 02/08/25 @ 23:08 by Emmanuel Leigh MD) Acute hypoxic respiratory failure (Acute) Pulmonary embolism (Acute) Bilateral pulmonary embolism Stroke Giant cell arteritis Diverticulitis of intestine with perforation and abscess Hypotension Abscess of abdominal cavity (Acute) Diverticulitis (Acute) Pneumoperitoneum (Acute) Peritonitis Perforated abdominal viscus Elevated troponin (Acute) Atrial fibrillation with rapid ventricular response (Acute) Rapid atrial fibrillation Sacroiliitis Mononeuritis multiplex associated with vasculitis Foot drop, right (Acute) Vasculitis (Acute) Medical History (Updated 02/08/25 @ 23:08 by Emmanuel Leigh MD) Head injury Scalp contusion Fall Hypertension Atrial fibrillation Diarrhea Generalized weakness Unintended weight loss Rectal bleed Hypertension Afib Acute heart failure with normal ejection fraction Dyslipidemia Surgical History S/P wrist surgery S/P dilation and curettage multiople Family History Father Heart disease Mother Diabetes Stroke Social History Smoking Status: Never smoker Hx Alcohol Use: Yes Alcohol type: wine Hx Substance Use: No Preferred Language: Guyanese Communication Ability: Effective Visual Impairment: No Limitations Hearing Ability: Normal Business Advisor Required: No Beliefs That Will Affect Care: None Current Living Situation: Rehab Feels Safe at Home: Yes Assistive Devices: Cane and Glasses Review of Systems Review of Systems: All systems reviewed and are unremarkable except as noted below Physical Exam Physical Exam: Lying in bed with acute distress due to back pain Constitutional: well developed, well nourished, + ill appearing and + obese Eyes: PERRL, conjunctivae normal, anicteric sclerae ENMT: external ear and nose normal, oropharynx normal Neck: trachea midline, no thyromegaly Respiratory: no respiratory distress Auscultation: + diminished lung sounds; no crackles and no wheezes Cardiovascular: Rate/Rhythm: + irregularly irregular; not tachycardic Heart Sounds: normal S1 and normal S2; no murmur Extremities: + edema (1+ edema bilaterally) Gastrointestinal (Abdomen): Inspection/Auscultation: normal bowel sounds; abdomen not distended Percussion/Palpation: + abdomen tender and abdomen soft Colostomy bag is intact Musculoskeletal: Has osteoarthritic changes involving the multiple joints but no acute arthritis Neurologic: normal touch/pain/proprioception and moves all extremities; no focal motor deficits Lymphatic: no cervical or axillary lymphadenopathy Results & Data Results & Data Vital Signs (Past 12 Hours) Vital Signs Temp Pulse Pulse Resp BP BP Pulse Ox 02/08/25 17:00 94 H 16 104/65 99 02/08/25 16:55 77 18 104/65 98 02/08/25 16:20 98 02/08/25 16:20 88 L 02/08/25 16:19 97/61 L 02/08/25 16:19 97/61 L 02/08/25 16:18 92 H 26 H 97 02/08/25 16:00 73/55 L 02/08/25 16:00 94 H 19 93 02/08/25 15:59 79 02/08/25 15:55 36.5 C 86 17 73/55 L 93 02/08/25 15:55 36 C L 91 H 16 96/64 L 95 02/08/25 15:55 91 H 18 96/64 L 90 02/08/25 15:43 36.5 C 80 19 71/52 L 91 O2 Del Method O2 Flow Rate 02/08/25 17:00 Nasal Cannula 3 02/08/25 16:55 Nasal Cannula 3 02/08/25 16:20 Nasal Cannula 2 02/08/25 16:20 Room Air 0 02/08/25 16:19 02/08/25 16:19 02/08/25 16:18 02/08/25 16:00 02/08/25 16:00 02/08/25 15:59 02/08/25 15:55 Nasal Cannula 3 02/08/25 15:55 Nasal Cannula 3 02/08/25 15:55 Nasal Cannula 3 02/08/25 15:43 Nasal Cannula 2 Laboratory Results Short CBC 02/08/25 Range/Units 15:54 WBC 11.91 H (4.8-10.8) K/ul Hgb 11.7 L (12.0-16.0) g/dl Hct 35.9 L (37.0-47.0) % Plt Count 202 (130-400) K/uL BMP 02/08/25 15:54 Sodium 139 Potassium 3.4 L Chloride 99 Carbon Dioxide 29 BUN 22 Creatinine 1.48 H Glucose 71 Calcium 8.2 L Liver Function 02/08/25 Range/Units 15:54 Total Bilirubin 0.7 (0.2-1.0) mg/dl AST 11 L (13-39) U/L ALT 5 L (7-52) U/L Alkaline Phosphatase 47 (34-104) U/L Albumin 3.0 L (3.4-5.0) gm/dl Medications Administered Current Inpatient Medications Heparin Sodium/Dextrose (Heparin 52442 Unit/500 Ml D5w) 25,000 units in 500 mls @ 22 mls/hr IV .[id number] [facility]; Protocol Stop: 03/10/25 17:29 Last Admin: 02/08/25 17:34 Dose: 1,100 units/hr, 22 mls/hr Code Status & VTE Plan VTE Prophylaxis Plan VTE Prophylaxis will be ordered: Yes
[2025-02-08] MEDS ORDERED: ONDANSETRON INJ 2 MG/ML 2 ML VIAL IV PRN (19:36)
[2025-02-08] MEDS: POTASSIUM CHLORIDE / WTR 10 MEQ/100 ML PLCT IV SCH (19:50)
[2025-02-08] MEDS ORDERED: LORazepam 0.5 MG TAB PO PRN (21:37)
--- NOTE | 2025-02-08 22:14 | Ultrasound Report ---
Exam(s): US VENOUS BILATERAL LOWER EXTREMITIES EXAM: US Duplex Bilateral Lower Extremities Veins CLINICAL HISTORY: Concern for Deep vein thrombosis. TECHNIQUE: Real-time duplex ultrasound scan of the bilateral lower extremity veins integrating B-mode two-dimensional vascular structure, Doppler spectral analysis, color flow Doppler imaging and compression. COMPARISON: DVT scan 10/12/2024. FINDINGS: Right deep veins: Unremarkable. No Deep vein thrombosis in the right common femoral, femoral, proximal deep femoral or popliteal veins. The veins demonstrate normal color flow, are normally compressible, with normal phasic flow and/or augmentation response. Right superficial veins: Unremarkable. No thrombus in the visualized right great saphenous vein. Left deep veins: Occlusive deep vein thrombosis of the duplicated left peroneal vein. No Deep vein thrombosis in the left common femoral, femoral, proximal deep femoral or popliteal veins. Left superficial veins: Unremarkable. No thrombus in the visualized left great saphenous vein. Soft tissues: No acute findings. No popliteal cyst. IMPRESSION: 1. Occlusive deep vein thrombosis of a duplicated left peroneal vein. No other deep vein thrombosis of the left lower extremity. 2. No deep vein thrombosis of the right lower extremity. Communications: Verify Receipt Electronically signed by: Danay Hua MD 02/08/25 22:13 PM
[2025-02-08] MEDS: MELATONIN 3 MG TAB PO SCH (23:04)
[2025-02-08] MEDS: METOPROLOL SUCC 50MG EXT REL TAB PO SCH (23:05)
[2025-02-08] MEDS: POTASSIUM CHLORIDE CRTAB 20 MEQ TABCR PO STA (23:31)
[2025-02-08] MEDS: POTASSIUM CHLORIDE PWD 20 MEQ PACK PO STA (23:47)
[2025-02-09 01:58] LABS: ANTI-Xa, UFH(UnfractionatedHep 0.79 IU/ml (0.3-0.7)
[2025-02-09 08:03] LABS: ANTI-Xa, UFH(UnfractionatedHep 0.54 IU/ml (0.3-0.7)
[2025-02-09] MEDS: ASPIRIN 81 MG ECTAB PO SCH (09:29)
[2025-02-09] MEDS: FUROSEMIDE 40 MG TAB PO SCH (09:30)
[2025-02-09] MEDS: POTASSIUM CHLORIDE PWD 20 MEQ PACK PO SCH (09:34)
[2025-02-09] MEDS: EZETIMIBE 10 MG TAB PO SCH (09:34)
[2025-02-09 11:50] LABS: Appearance Urine Clear (Clear); Bacteria Urine Automated None Seen (None Seen); Epithelial Cell Urine Auto 0-2 /hpf (0-2); Glucose Urine UA Negative (Negative); RBC Urine Automated 0-2 /hpf (0-2); WBC Urine Automated 0-5 /hpf (0-5)
--- NOTE | 2025-02-09 13:22 | Hospitalist Progress Note ---
Date of Service February 09, 2025 Assessment & Plan (1) Bilateral pulmonary embolism: Plan: Acute DVT of left lower leg Bilateral PE Has been on Xarelto for atrial fibrillation Missed a couple of doses recently as per the patient due to nausea and vomiting No shortness of breath but has lower chest pain with deep breathing CTA shows bilateral interlobar segmental and subsegmental PE. moderate right sided pleural effusion Venous duplex shows DVT of left peroneal vein Started on intravenous heparin and Xarelto is on hold obtain echo may change to Eliquis to see if it is better tolerated continue diuresis; will need follow up CT scan in 4 weeks to ensure resolution of pleural effusion. (2) Atrial fibrillation: Plan: History of atrial fibrillation Has been on Xarelto Rate is reasonably controlled Will continue digoxin and beta-lanny continue on heparin (3) Diverticulitis of intestine with perforation and abscess: Plan: Recent admission on 01/03/2025 with perforated abdominal viscus and underwent colon resection and colostomy Minimal abdominal pain but denies any other symptoms now CT abdomen doesn't show abscess (4) Giant cell arteritis: Plan: Continue the current dose of prednisone no acute issues; follow up with Rheumatology (5) Stroke: Plan: Recent stroke in the hospital during her admission on 01/03/2025 Was evaluated by neurologist continue asprin, heparin (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 She is lying in the bed comfortably; not in distress. Currently on 1 to 2 L of nasal cannula Reports that her appetite has not been great. Review of Systems Review of Systems: All systems reviewed & are unremarkable except as noted in Subjective Results & Data Results & Data Vital Signs (Past 12 Hours) Vital Signs Temp Pulse Resp BP BP Pulse Ox O2 Del Method 02/09/25 11:01 36.6 C 84 18 101/65 96 Nasal Cannula 02/09/25 09:30 Nasal Cannula 02/09/25 07:59 36.4 C L 83 18 125/72 92 Nasal Cannula 02/09/25 03:15 36.3 C L 100 H 19 122/68 92 Room Air O2 Flow Rate 02/09/25 11:01 1 02/09/25 09:30 2 02/09/25 07:59 1 02/09/25 03:15 2
--- NOTE | 2025-02-09 16:04 | XCELERA ---
[id number]
[2025-02-09] MEDS: DIGOXIN 0.125 MG TAB PO SCH (17:04)
[2025-02-10 06:41] LABS: Hematocrit (blood only) 33.7 % (37.0-47.0); Hemoglobin 10.9 g/dl (12.0-16.0); Immature Granulocytes # (auto) 0.05 K/uL (0.01-0.20); Immature Granulocytes % (auto) 0.5 %; Mean Corpuscular Hemoglobin 32.7 pg (25.0-34.0); Mean Corpuscular Volume 101.2 fL (80.0-100.0); Platelet Count 214 K/uL (130-400); RDW Standard Deviation 47.9 fL (36.4-46.3); Red Blood Count 3.33 M/uL (4.20-5.40); White Blood Count 10.27 K/ul (4.8-10.8)
[2025-02-10 07:00] LABS: ANTI-Xa, UFH(UnfractionatedHep 0.57 IU/ml (0.3-0.7)
[2025-02-10 07:12] LABS: Anion Gap 7.0 (3-11); Blood Urea Nitrogen 14.0 mg/dl (6-23); Calcium 8.1 mg/dl (8.6-10.3); Carbon Dioxide 32.0 mmol/L (21-32); Chloride 101.0 mmol/L (98-107); Creatinine Clr Calc Pharmacy 46.1 ml/min; Glucose 106.0 mg/dl (70-99(Fasting)); Potassium 3.5 mmol/L (3.5-5.1); Sodium 140.0 mmol/L (136-145)
[2025-02-10] MEDS: SIMETHICONE 80 MG CHEW PO SCH (10:16)
[2025-02-10] MEDS: APIXABAN 5 MG TABLET PO SCH (10:16)
--- NOTE | 2025-02-10 13:14 | Hospitalist Progress Note ---
Date of Service February 10, 2025 Assessment & Plan (1) Bilateral pulmonary embolism: Plan: Acute DVT of left lower leg Bilateral PE Has been on Xarelto for atrial fibrillation Missed a couple of doses recently as per the patient due to nausea and vomiting; has been having low appetite likely resulted in decreased absorption of Xarelto No shortness of breath but has lower chest pain with deep breathing CTA shows bilateral interlobar segmental and subsegmental PE. moderate right sided pleural effusion Venous duplex shows DVT of left peroneal vein EchocardiogramEF of 55 to 60%; mild MR Anticoagulation changed to Eliquis from heparin Diuretic changed from Lasix to torsemide; will need follow-up CT chest in 4 weeks to ensure resolution of the pleural effusion. (2) Atrial fibrillation: Plan: History of atrial fibrillation on eliquis-continue (3) Diverticulitis of intestine with perforation and abscess: Plan: Recent admission on 01/03/2025 with perforated abdominal viscus and underwent colon resection and colostomy Minimal abdominal pain but denies any other symptoms now CT abdomen on admission doesn't reveal abscess Patient reports low appetite,; nausea which has been persistent for months; plan to start Zyprexa 2.5 mg at at bedtime for persistent nausea. (4) Giant cell arteritis: Plan: Continue the current dose of prednisone no acute issues; follow up with Rheumatology (5) Stroke: Plan: Recent stroke in the hospital during her admission on 01/03/2025 Was evaluated by neurologist continue disha segura (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 (7) Foot drop, right: Plan: No acute issues (8) Dyslipidemia: Plan: Continue statin DVT prophylaxis eliqusterling CODE STATUS [employer] Weaver spent evaluating patient, direct bedside care, chart review, placing orders, interpretation of diagnostic studies, discussion with consultants, patient, and family members, as well as other required patient management activities is 50 minutes Please note the above document was generated using voice recognition software. It may contain grammatical, syntax or spelling errors. Any formal questions or concerns about the content, text or information contained within the body of this dictation should be directly addressed to the provider for clarification Admission and Anticipated Discharge Date Admission Date: February 08, 2025 Subjective Patient seen and examined at bedside. She continues to report low appetite and nausea. She is still requiring 2 to 3 L of oxygen via nasal cannula No significant events overnight Review of Systems Review of Systems: All systems reviewed & are unremarkable except as noted in Subjective Physical Exam Physical Exam: Constitutional: WD/WN, vitals as above, NAD, sitting up in bed, pleasant, conversing easily Respiratory: Bilateral crackles present. Cardiovascular: RRR, no murmur, no edema Vessels: no JVD or carotid bruit Chest: normal inspection of chest Abdomen: normal bowel sounds, soft, nontender, no hepatosplenomegaly Musculoskeletal: no cyanosis or clubbing, extremities motor strength 5/5 Skin: no rashes, warm and dry normal turgor Neurologic: PERRL, EOMI, accommodation nl, no face palsy, no dysarthria CN's II- XI intact bilaterally and moves all extremities Psychiatric: A+Ox3, euthymic affect Results & Data Results & Data Vital Signs (Past 12 Hours) Vital Signs Temp Pulse Pulse Resp BP Pulse Ox O2 Del Method 02/10/25 11:22 36.6 C 74 18 136/80 92 Nasal Cannula 02/10/25 08:30 84 02/10/25 07:49 Nasal Cannula 02/10/25 07:00 36.8 C 79 18 120/76 92 Nasal Cannula 02/10/25 03:31 36.4 C L 96 H 18 111/71 93 Nasal Cannula O2 Flow Rate 02/10/25 11:22 02/10/25 08:30 02/10/25 07:49 2 02/10/25 07:00 02/10/25 03:31
[2025-02-10] MEDS: CYANOCOBALAMIN (B-12) 500 MCG TABLET PO SCH (14:05)
--- NOTE | 2025-02-10 14:20 | Electrocardiogram Report ---
Test Reason : Blood Pressure : */* mmHG Vent. Rate : 80 BPM Atrial Rate : * BPM P-R Int : * ms QRS Dur : 88 ms QT Int : 314 ms P-R-T Axes : * 143 -28 degrees QTcB Int : 362 ms Arm lead reversal Atrial fibrillation Abnormal ECG When compared with ECG of 03-Jan-2025 07:20, No significant change taking into account arm lead reversal Confirmed by Stephon Foster ([id number]) on 02/10/2025 2:20:15 PM Referred By: REFERRED SELF Confirmed By: Stephon Foster
--- NOTE | 2025-02-10 15:29 | Electrocardiogram Report ---
Test Reason : Blood Pressure : */* mmHG Vent. Rate : 90 BPM Atrial Rate : * BPM P-R Int : * ms QRS Dur : 90 ms QT Int : 306 ms P-R-T Axes : * 61 262 degrees QTcB Int : 374 ms Atrial fibrillation Abnormal ECG When compared with ECG of 08-Feb-2025 15:46, (unconfirmed) Prior tracing has arm lead reversal Confirmed by Stephon Foster ([id number]) on 02/10/2025 3:28:47 PM Referred By: REFERRED SELF Confirmed By: Stephon Foster
[2025-02-10] MEDS: OLANZAPINE 2.5 MG TAB PO SCH (21:08)
[2025-02-11 08:29] LABS: Hematocrit (blood only) 35.6 % (37.0-47.0); Hemoglobin 11.4 g/dl (12.0-16.0); Immature Granulocytes # (auto) 0.05 K/uL (0.01-0.20); Immature Granulocytes % (auto) 0.6 %; Mean Corpuscular Hemoglobin 32.6 pg (25.0-34.0); Mean Corpuscular Volume 101.7 fL (80.0-100.0); Platelet Count 229 K/uL (130-400); RDW Standard Deviation 47.5 fL (36.4-46.3); Red Blood Count 3.50 M/uL (4.20-5.40); White Blood Count 8.78 K/ul (4.8-10.8)
[2025-02-11 08:44] LABS: Anion Gap 8.0 (3-11); Blood Urea Nitrogen 13.0 mg/dl (6-23); Calcium 8.4 mg/dl (8.6-10.3); Carbon Dioxide 33.0 mmol/L (21-32); Chloride 101.0 mmol/L (98-107); Creatinine Clr Calc Pharmacy 53.1 ml/min; Glucose 72.0 mg/dl (70-99(Fasting)); Potassium 3.6 mmol/L (3.5-5.1); Sodium 142.0 mmol/L (136-145)
[2025-02-11] MEDS: TORSEMIDE 20 MG TAB PO SCH (08:56)
--- NOTE | 2025-02-11 13:36 | Hospitalist Progress Note ---
Date of Service February 11, 2025 Assessment & Plan (1) Bilateral pulmonary embolism: Plan: Acute DVT of left lower leg Bilateral PE Has been on Xarelto for atrial fibrillation Missed a couple of doses recently as per the patient due to nausea and vomiting; has been having low appetite likely resulted in decreased absorption of Xarelto No shortness of breath but has lower chest pain with deep breathing CTA shows bilateral interlobar segmental and subsegmental PE. moderate right sided pleural effusion Venous duplex shows DVT of left peroneal vein EchocardiogramEF of 55 to 60%; mild MR Anticoagulation changed to Eliquis from heparin;continue Diuretic changed from Lasix to torsemide; will need follow-up CT chest in 4 weeks to ensure resolution of the pleural effusion. (2) Atrial fibrillation: Plan: History of atrial fibrillation on eliquis-continue (3) Diverticulitis of intestine with perforation and abscess: Plan: Recent admission on 01/03/2025 with perforated abdominal viscus and underwent colon resection and colostomy Minimal abdominal pain but denies any other symptoms now CT abdomen on admission doesn't reveal abscess Patient reports low appetite,; nausea which has been persistent for months; started on zyprexa with improvement of symptoms (4) Giant cell arteritis: Plan: Continue the current dose of prednisone no acute issues; follow up with Rheumatology (5) Stroke: Plan: Recent stroke in the hospital during her admission on 01/03/2025 Was evaluated by neurologist continue disha segura (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 (7) Foot drop, right: Plan: No acute issues (8) Dyslipidemia: Plan: Continue statin DVT prophylaxis disha CODE STATUS Practice Advisor spent evaluating patient, direct bedside care, chart review, placing orders, interpretation of diagnostic studies, discussion with consultants, patient, and family members, as well as other required patient management activities is 50 minutes Please note the above document was generated using voice recognition software. It may contain grammatical, syntax or spelling errors. Any formal questions or concerns about the content, text or information contained within the body of this dictation should be directly addressed to the provider for clarification Admission and Anticipated Discharge Date Admission Date: February 08, 2025 Subjective Patient seen and examined at bedside. She reports that her nausea has improved. Appears comfortable; not in distress. Review of Systems Review of Systems: All systems reviewed & are unremarkable except as noted in Subjective Physical Exam Physical Exam: Constitutional: WD/WN, vitals as above, NAD, sitting up in bed, pleasant, conversing easily Respiratory: Bilateral clear breath sounds Cardiovascular: RRR, no murmur, no edema Vessels: no JVD or carotid bruit Chest: normal inspection of chest Abdomen: normal bowel sounds, soft, nontender, no hepatosplenomegaly Musculoskeletal: no cyanosis or clubbing, extremities motor strength 5/5 Skin: no rashes, warm and dry normal turgor Neurologic: PERRL, EOMI, accommodation nl, no face palsy, no dysarthria CN's II- XI intact bilaterally and moves all extremities Psychiatric: A+Ox3, euthymic affect Results & Data Results & Data Vital Signs (Past 12 Hours) Vital Signs Temp Pulse Pulse Resp BP Pulse Ox O2 Del Method 02/11/25 11:12 36.6 C 92 H 20 106/68 90 Room Air 02/11/25 08:00 Room Air 02/11/25 07:32 36.6 C 76 25 H 127/72 92 Room Air 02/11/25 04:37 36.7 C 72 17 144/74 H 92 Room Air FiO2 02/11/25 11:12 02/11/25 08:00 02/11/25 07:32 21 02/11/25 04:37
[2025-02-11] MEDS: ACETAMINOPHEN 500 MG TAB PO PRN (18:14)
[2025-02-12 08:03] LABS: Hematocrit (blood only) 35.7 % (37.0-47.0); Hemoglobin 12.0 g/dl (12.0-16.0); Immature Granulocytes # (auto) 0.05 K/uL (0.01-0.20); Immature Granulocytes % (auto) 0.6 %; Mean Corpuscular Hemoglobin 34.0 pg (25.0-34.0); Mean Corpuscular Volume 101.1 fL (80.0-100.0); Platelet Count 231 K/uL (130-400); RDW Standard Deviation 47.4 fL (36.4-46.3); Red Blood Count 3.53 M/uL (4.20-5.40); White Blood Count 8.07 K/ul (4.8-10.8)
[2025-02-12 08:22] LABS: Anion Gap 5.0 (3-11); Blood Urea Nitrogen 14.0 mg/dl (6-23); Calcium 8.1 mg/dl (8.6-10.3); Carbon Dioxide 37.0 mmol/L (21-32); Chloride 100.0 mmol/L (98-107); Creatinine Clr Calc Pharmacy 43.5 ml/min; Glucose 83.0 mg/dl (70-99(Fasting)); Potassium 3.3 mmol/L (3.5-5.1); Sodium 142.0 mmol/L (136-145)
[2025-02-12] MEDS: TORSEMIDE 10 MG TAB PO SCH (08:57)
--- NOTE | 2025-02-12 10:32 | Discharge Summary ---
Date of Service February 12, 2025 Admission HPI Per Admitting Provider She is an 79-year-old obese female with significant past medical history of atrial fibrillation on Xarelto, hyperlipidemia, giant cell arteritis, hypertension, mononeuritis multiplex associated with vasculitis, GERD, CKD stage III, right foot drop apparently was in the hospital in December with diverticulitis of the intestine with perforation and abscess she underwent laparoscopic colon resection also has had a colostomy bag placed. She also suffered acute stroke while in the hospital and received Plavix and aspirin and heparin drip. She was discharged to [facility] on IV antibiotic which was discontinued yesterday and the PICC line was taken out. She mentioned that she was having nausea and may have missed 2 or 3 doses of Xarelto. She was trying to get out of bed today and ended up with a fall. No loss of consciousness and no significant injury identified. She complains some pain with deep breathing in the lower chest and subsequent investigation showed that she has bilateral pulmonary embolism. She was started with intravenous heparin and advised for admission and also the case was discussed with alcoholic counselor and the patient does not require any thrombolytic. She will have an echo to rule out any significant RV strain. She will be admitted to telemetry unit for continuation of care Admission Exam Per Admitting Provider Physical Exam: Lying in bed with acute distress due to back pain Constitutional: well developed, well nourished, + ill appearing and + obese Eyes: PERRL, conjunctivae normal, anicteric sclerae ENMT: external ear and nose normal, oropharynx normal Neck: trachea midline, no thyromegaly Respiratory: no respiratory distress Auscultation: + diminished lung sounds; no crackles and no wheezes Cardiovascular: Rate/Rhythm: + irregularly irregular; not tachycardic Heart Sounds: normal S1 and normal S2; no murmur Extremities: + edema (1+ edema bilaterally) Gastrointestinal (Abdomen): Inspection/Auscultation: normal bowel sounds; abdomen not distended Percussion/Palpation: + abdomen tender and abdomen soft Colostomy bag is intact Musculoskeletal: Has osteoarthritic changes involving the multiple joints but no acute arthritis Neurologic: normal touch/pain/proprioception and moves all extremities; no focal motor deficits Lymphatic: no cervical or axillary lymphadenopathy Principal Diagnosis Bilateral PE due to left peroneal DVT- Discharge Exam Constitutional: WD/WN, vitals as above, NAD, sitting up in bed, pleasant, conversing easily Respiratory: normal respiratory effort, lungs clear to auscultation, no wheeze, rales, rhonchi. Normal insp/exp effort, no accessory muscle use Cardiovascular: RRR, no murmur, no edema Vessels: no JVD or carotid bruit Chest: normal inspection of chest Abdomen: normal bowel sounds, soft, nontender, no hepatosplenomegaly Musculoskeletal: no cyanosis or clubbing, extremities motor strength 5/5 Skin: no rashes, warm and dry normal turgor Neurologic: PERRL, EOMI, accommodation nl, no face palsy, no dysarthria CN's II- XI intact bilaterally and moves all extremities Discharge Data Allergies Allergy/AdvReac Type Severity Reaction Status Date / Time Penicillins Allergy Severe SWELLING Verified 02/08/25 17:07 pineapple AdvReac Intermediate STOMACH Verified 02/08/25 17:07 CRAMPS Consultations 02/08/25 17:35 ED Decision to Admit Stat Ordered Studies 02/08/25 15:58 CT abd pelvis IV con only Stat CT cervical spine wo con Stat CT chest diagnostic w con Stat CT head/brain wo con Stat 02/08/25 18:41 US venous doppler LE BI Stat Hospital Course (1) Bilateral pulmonary embolism: Acute DVT of left lower leg Bilateral PE Has been on Xarelto for atrial fibrillation Missed a couple of doses recently as per the patient due to nausea and vomiting; has been having low appetite likely resulted in decreased absorption of Xarelto No shortness of breath but has lower chest pain with deep breathing CTA shows bilateral interlobar segmental and subsegmental PE. moderate right sided pleural effusion Venous duplex shows DVT of left peroneal vein EchocardiogramEF of 55 to 60%; mild MR During the hospitalization, patient was placed on heparin drip for the DVT/PE; she was eventually transitioned over to Eliquis which she tolerated without any issues. Patient's Lasix was changed to torsemide with lower dose. Patient was discharged to rehab with instructions to follow-up with PCP, rheumatology and general surgery. (2) Atrial fibrillation: History of atrial fibrillation on eliquis-continue (3) Diverticulitis of intestine with perforation and abscess: Recent admission on 01/03/2025 with perforated abdominal viscus and underwent colon resection and colostomy Minimal abdominal pain but denies any other symptoms now CT abdomen on admission doesn't reveal abscess Patient reports low appetite,; nausea which has been persistent for months; started on zyprexa with improvement of symptoms (4) Giant cell arteritis: Continue the current dose of prednisone no acute issues; follow up with Rheumatology (5) Stroke: Recent stroke in the hospital during her admission on 01/03/2025 Was evaluated by neurologist continue disah segura (6) Mononeuritis multiplex associated with vasculitis: Continue prednisone (7) Dyslipidemia: Continue statin Please note the above document was generated using voice recognition software. It may contain grammatical, syntax or spelling errors. Any formal questions or concerns about the content, text or information contained within the body of this dictation should be directly addressed to the provider for clarification Total Time Total Time Spent Total Time Spent (In Minutes): 45 Total Time Includes: Examination of the Patient, Discharge Planning, Medication Reconciliation, Communication With Other Providers and Other Discharge Plan Discharge Items Patient Disposition: Transfer Inpatient Rehab Fac Reason For Visit: PULMONARY EMBOLISM Discharge Diagnosis: Bilateral PE due to left peroneal DVT- Condition on Discharge: Fair Activity: Resume your previous activity Non-emergency contact: Primary Care Provider Call non-emergency contact if: you have any medication questions Follow-up/Referrals: Lester Lyons MD [Physician] - 02/18/25 2:15 pm Shant Lee, [Primary Care Provider] - Diet: Regular Addtl Attending Provider Instructions: You were admitted to the hospital due to blood clot in your leg and in your lungs. You are prescribed Eliquis to be taken as follows; Take 10 mg ( 2 tablets) twice a day for 5 more days Take 5 mg twice a day then after. Hurley catheter has been placed as you were unable to urinate. Please do a trial of void on 02/17/2025. The Lasix has been stopped and you have been switched over to torsemide 10 mg once a day. You are prescribed Zyprexa 2.5 mg at night for persistent nausea. Please follow-up with your primary care doctor, rheumatology and general surgery after discharge. Pending Studies at Discharge: No Stand-Alone Forms: My [facility] Skilled Items Patient informed of condition?: Yes DNR: No Discharge Level of Care: Acute rehab Communicable Disease: No Discharge Prognosis: Stable Lines: None Urinary Catheter: Yes (Trial of void on 02/17/2025) Medications and DC Order Prescriptions: New torsemide 10 mg Tablet 10 mg PO QAM Qty: 30 0RF olanzapine 2.5 mg Tablet 2.5 mg PO HS Qty: 30 0RF cyanocobalamin (vitamin B-12) 500 mcg Tablet 1,000 mcg PO QAM Qty: 60 0RF Eliquis 5 mg Tablet See Taper PO BID Qty: 60 0RF Taper: Taper, Blank 10 mg TWICE A DAY for 5 Days 5 mg TWICE A DAY for 30 Days Continued trazodone 50 mg Tablet 50 mg PO HS metoprolol succinate 50 mg tablet extended release 24 hr 50 mg PO BID ondansetron HCl [Zofran] 4 mg Tablet 4 mg PO Q6H PRN (Reason: Nausea) melatonin 3 mg Tablet 6 mg PO HS omeprazole 40 mg capsule,delayed release(DR/EC) 40 mg PO QAM acetaminophen [Tylenol Extra Strength] 500 mg Tablet 1,000 mg PO Q8H MDD 3 GRAMS APAP/24 HOURS PRN (Reason: Pain) prednisone 2.5 mg tablet 7.5 mg PO QAM Rx Instructions: 3 TABS potassium chloride 20 mEq packet 20 meq PO QAM digoxin [Digitek] 125 mcg (0.125 mg) tablet 0.125 mg PO QDD ezetimibe 10 mg tablet 10 mg PO DAILY aspirin [Children's Aspirin] 81 mg Tablet,Chewable 81 mg PO QAM Qty: 30 0RF Changed lorazepam 0.5 mg Tablet 0.25 mg PO BID PRN (Reason: Anxiety) Qty: 0 0RF Discontinued furosemide 40 mg tablet 40 mg PO QAM Xarelto 15 mg tablet 15 mg PO HS Discharge Orders: Discharge Order (Routine); Ordered 02/12/25 Ordered By: Jean Kemp Admission Data Admit Date/Time: 02/08/25 18:12 Attending Provider: Jean Kemp Admit Provider: Seema Orlando Primary Care Provider: Shant Lee Other Providers: Seema Orlando; [facility]; [facility]
[2025-02-12] MEDS: POTASSIUM CHLORIDE / WTR 10 MEQ/100 ML PLCT IV SCH (11:06)
[2025-02-12] MEDS: POTASSIUM CHLORIDE PWD 20 MEQ PACK PO SCH (11:08)
[2025-02-12 11:10] VITALS: BP 101/58; PULSE 72; RESP 19; TEMP 97.5; O2SAT 90
== END 2025-02-12 14:37 | DRG 299 ==
LOC: ED 15:40 → 2S 18:12 → SUATTDRO 18:12 → 2S 20:53